=== PATIENT | male | born 1940 | race Caucasian/White ===

== ENCOUNTER → 2016-09-06 | Outpatient (CLI) | payer OTHER ==
[2015-09-08 13:08] VITALS: BP 107/69; PULSE 75
[~2016-09-06] MED LIST: ASPEC81 PO; BIMA0.038 OPB; CLX20 PO; FISHOIL PO; HMLI SC; INDA2.5T PO; INSDGI SC; LATA0.009 OPB; LOSA1TAB38 PO; MESA1TAB4 PO; NATE60TA PO; ROSU20TA PO; ULT/50 PO; WARF7.5T PO
[2016-09-06 12:59] VITALS: BP 135/78; PULSE 72; TEMP 36.6; O2SAT 97
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
== END | disposition home or self-care (01) ==
LOC: C.ONC 12:50
PROVIDERS: ATTEND Physician Assistant Medical
DX: Z08 Encounter for follow-up examination after completed treatment for malignant neoplasm (principal); Z92.3 Personal history of irradiation; Z85.46 Personal history of malignant neoplasm of prostate

== ENCOUNTER → 2017-04-29 | Outpatient (CLI) | payer OTHER ==
[~2017-04-29] MED LIST changes: -HMLI SC; -INDA2.5T PO; -LOSA1TAB38 PO; -MESA1TAB4 PO
== END | disposition home or self-care (01) ==
LOC: C.LAB 12:12
PROVIDERS: ATTEND Urology
DX: C61 Malignant neoplasm of prostate (principal)

== ENCOUNTER 2018-09-02 | Inpatient (IN) ==
[2018-09-02] MEDS ORDERED: ICU PROTOCOL FOR HYPERGLYCEMIA PRN ×2 (01:46→03:53)
[2018-09-02] MEDS ORDERED: SODIUM CHLORIDE 0.9% 1000ML 1,000 ML IV SCH (02:00)
[2018-09-02 02:24] LABS: Mean Corpuscular Volume 94.8 fL (80-100); Mean Platelet Volume 10.1 fL (7.4-10.4); Platelet Count 146 K/uL (130-400); RDW Coefficient of Variation 17.5 % (11.5-14.5); RDW Standard Deviation 59.1 fL (36.4-46.3); Red Blood Count 3.06 M/uL (4.7-6.1); White Blood Count 13.85 K/uL (4.8-10.8)
[2018-09-02] MEDS ORDERED: LORazepam 2 MG/4 ML VIAL ONE (02:37)
[2018-09-02 02:40] LABS: Prothrombin Time 19.6 Seconds (9.0-12.0)
[2018-09-02] MEDS ORDERED: LORazepam 2 MG/4 ML VIAL IV STA (02:41)
[2018-09-02] MEDS ORDERED: OLANZAPINE ZYDIS 5 MG ORALLY DIS. TAB PO PRN (02:42)
[2018-09-02 02:43] LABS: Albumin Level 3.2 gm/dl (3.4-5.0); BUN Creatinine Ratio 14.6 (10-20); Basophils # (auto) 0.01 K/uL (0-0.2); Basophils % (auto) 0.1 %; Calcium 8.2 mg/dl (8.5-10.1); Creatinine Clr Calc Pharmacy 50.5 ml/min; Est GFR (African American) 46.4; Est GFR (Non-African American) 40.1; Immature Granulocytes # (auto) 0.01 K/uL (0.00-0.02); Immature Granulocytes % (auto) 0.1 %; Lymphocytes # (auto) 0.47 K/uL (1.2-3.4); Lymphocytes % (auto) 3.4 %; Monocytes # (auto) 0.82 K/uL (0.11-0.59); Monocytes % (auto) 5.9 %; Neutrophils # (auto) 12.54 K/uL (1.4-6.5); Neutrophils % (auto) 90.5 %; Ovalocytes 1+; Potassium 3.7 mmol/L (3.5-5.1)
[2018-09-02 02:48] LABS: Albumin Globulin Ratio 0.8 (0.9-2); Bilirubin,Total 1.1 mg/dl (0.2-1); Globulin 3.9 gm/dl (2.5-4.0); Total Protein 7.1 gm/dl (6.4-8.2); Troponin I 0.035 ng/ml (0-0.045)
[2018-09-02] MEDS ORDERED: SODIUM CHLORIDE 0.9% 250 ML IV PRN (02:55)
--- NOTE | 2018-09-02 03:09 | History & Physical Report ---
Date of Service September 02, 2018 Assessment & Plan (1) Altered mental status: Mr. Huff is a 77 year old male with a past medical history of COPD, erosive gastritis, duodenitis, ulcerative colitis, hypertension, CKD, chronic anemia, afib on coumadin, type 2 DM, CHF, hx of prostate cancer s/p TURP and hiatal hernia who presents to us as a transfer from [facility] due to worsening AMS, anemia and a cough. The patient was significant altered on presentation, and frequently attempting to get out of bed. Due to his worsening condition, the residential gas heat technician was consulted , he was intubated, and subsequently placed on a ventilator. Altered Mental Status -likely secondary to his infectious process -CT head ordered -will also check ammonia level and TSH/T4 Hypotension -pt hypotensive w/BP 70s/50s on arrival -received 500mL NS bolus and improved to 90s/50s -caution w/IVF given hx of CHF Acute Respiratory Failure with Hypoxia -patient sedated and on ventilator -management per ICU -patient received cefepime, vancomycin, and flagyl at OSH. Continue cefepime and vancomycin -CT chest ordered to further evaluate -bronchoscopy done by Dr. Gao & bronchial washings sent for cx -> see procedure note for further details Anemia -received 2 units of prbcs prior to arrival in [facility] -hemoglobin 9 on arrival -2 units prbcs ordered and on hold, in case pt requires further transfusion -unsure of cause of acute drop in Hgb -> fecal occult was reportedly negative at [facility] -patient does have a history of erosive gastritis, duodenitis, ulcerative colitis, -prior EGD in 2018 without an obvious source of bleeding & last colonoscopy was in 2017 (for surveillance given his ulcerative colitis) without evidence of active inflammation noted. -CT abdomen and pelvis to further evaluate -hold warfarin -> INR 2 on admission Acute Kidney Injury -creatinine 1.6 on arrival -hold nephrotoxic medications and monitor BMP Atrial Fibrillation -personnel monitor -holding warfarin Diabetes Mellitus -hold home Januvia & insulin regimen -BSG management per ICU protocol CHF -hold home bumex -caution w/IVF Hypothyroidism -restart synthroid when able -TSH ordered Hypercholesterolemia -restart crestor when able GERD -restart home protonix when able Code status: FULL Disposition: admitted to ICU DVT Prophylaxis: INR 2.0. Holding anticoagulation in setting of anemia. (2) Anemia: (3) Acute kidney injury: (4) Acute respiratory failure with hypoxia: (5) CHF (congestive heart failure): (6) COPD (chronic obstructive pulmonary disease): (7) Diabetes mellitus: History of Present Illness Primary Care Provider: NO PCP Mr. Huff is a 77 year old male with a past medical history of COPD, erosive gastritis, duodenitis, ulcerative colitis, hypertension, CKD, chronic anemia, afib on coumadin, type 2 DM, CHF, hx of prostate cancer s/p TURP and hiatal hernia who presents to us as a transfer from [facility] due to worsening AMS, anemia and a cough. History is limited secondary to patient's altered mental status, and is therefore obtained from review of records sent by [facility]. The patient presented to [facility] due to feeling unwell x1 month, with fever, productive cough, shortness of breath and fatigue. His hemoglobin on admission was 7.4 and he was transfused 2 units of prbcs. Overnight, he was noted to be restless and altered. His INR was elevated at 3.36, and his coumadin was subsequently held. He denied abdominal pain, nausea, vomiting, and states he was having daily bowel movements, which were black in color due to his iron supplementation. He last underwent an EGD in 2018, without an obvious source of bleeding noted at that time, however the procedure was reportedly shortened due to excessive mucus production, causing hypoxia. His last colonoscopy was in 2017 (for surveillance given his ulcerative colitis) without evidence of active inflammation noted. With regards to his respiratory symptoms, his rapid flu was negative. CXR on admission showed mild vascular congestion, cardiomegaly, but no focal consolidation. He was initially treated with azithromycin for a suspected CAP, and subsequently broadened to vancomycin, cefepime and flagyl. He was also given 40mg of solumedrol daily, to treat for a COPD exacerbation, given the presence of wheezing on examination. They were unable to complete a CT head or chest given the patient's AMS. He had blood cultures drawn which are currently pending. The patient is a current smoker, both cigars and a pipe. He denied any alcohol or drug use at home. Allergies Allergy/AdvReac Type Severity Reaction Status Date / Time furosemide Allergy Intermediate EFFECTED Verified 08/28/11 13:55 RENAL FUNCTION naproxen Allergy Unknown they had Unverified 05/04/14 14:41 to take me o it I don't remember why Home Medications Home Medications Medication Instructions Recorded Confirmed Type Bimatoprost Oph (Lumigan 0.03% Oph) 1 drp OPB HS #0 07/24/11 History Aspirin Enteric Coated (Ecotrin Or 81 mg PO DAILY #0 08/13/11 History Generic *) Latanoprost 0.005% Oph (Xalatan 1 drp OPB DAILY #0 12/19/11 History 0.005% Oph) TRAMADOL HCL (ULTRAM) 50 mg PO TID #0 tab 12/19/11 History Fish Oil (OMEGA-3) 1 cap PO DAILY #0 oil 03/06/12 History Citalopram (Citalopram 20 mg PO DAILY #0 09/08/13 History Hydrobromide) Nateglinide (Starlix) 60 mg PO BID #0 tab 09/08/13 History ROSUVASTATIN CALCIUM (CRESTOR) 20 mg PO DAILY #0 tab 09/08/13 History WARFARIN SODIUM (COUMADIN) 1 tab PO DAILY 90 Days #90 tab 09/08/15 History Insulin Glargine (Lantus) 34 SC QAM #0 vial 09/06/16 History Past Med/Surg History Medical History Atrial fibrillation Chronic kidney disease Chronic obstructive pulmonary disease Congestive heart failure Diabetes mellitus, type 2 Hypertension Social History Current Living Situation: Spouse Smoking Status: Current every day smoker Tobacco Type: cigarettes and pipe Cigarettes per Day: 26 Do You Dip or Chew Tobacco: No Tobacco Cessation Education Requested by Patient: No Beliefs That Will Affect Care: None Preferred Language: Iranian Communication Ability Comment: Patient confused and agitated, unable to obtain Review of Systems Unable to obtain due to AMS Physical Exam 2 Vital Signs (Past 24 Hours): Last Vital Signs Pulse 88 09/02/18 01:46 Resp 17 09/02/18 01:46 BP 115/67 09/02/18 01:46 Pulse Ox 96 09/02/18 01:46 Constitutional: + obese, + altered mental status and + lethargic; + uncooperative frequently attempting to get out of bed, then becomes somnolent with loud snoring Eyes: PERRL, conjunctivae normal, anicteric sclerae Respiratory: Auscultation: + diminished lung sounds (throughout lungs) and + wheezes (occ soft scattered wheezing) Cardiovascular: Rate/Rhythm: regular rate and regular rhythm (irregularly irregular) Vessels: radial pulses present Extremities: normal capillary refill; no calf tenderness and no pedal edema Chest (Breasts): normal inspection/palpation of breasts Gastrointestinal (Abdomen): Inspection/Auscultation: + abdomen distended Percussion/Palpation: + hernia (umbilical hernia); no guarding and abdomen not rigid Skin: no rashes, warm and dry Results & Data Laboratory Results Laboratory Results - last 24 hr 09/02/18 09/02/18 09/02/18 02:00 02:16 02:16 WBC 13.85 H RBC 3.06 L Hgb 9.0 L Hct 29.0 L MCV 94.8 MCH 29.4 MCHC 31.0 L RDW Std Deviation 59.1 H RDW Coeff of Nahed 17.5 H Plt Count 146 MPV 10.1 Immature Gran % (Auto) 0.1 Neut % (Auto) 90.5 Lymph % (Auto) 3.4 [place] % (Auto) 5.9 Eos % (Auto) 0.0 Baso % (Auto) 0.1 Immature Gran # (Auto) 0.01 Neut # (Auto) 12.54 H Lymph # (Auto) 0.47 L [place] # (Auto) 0.82 H Eos # (Auto) 0.00 Baso # (Auto) 0.01 Ovalocytes 1+ PT 19.6 H INR 2.0 H Sample Site POC pH POC pCO2 POC pO2 POC HCO3 POC Total CO2 POC Base Excess POC ABG O2 Sat [place] Test O2 Delivery Device Sodium Potassium Chloride Carbon Dioxide Anion Gap BUN Creatinine Est Cr Clr Drug Dosing Est GFR ( Amer) Est GFR (Non-Af Amer) BUN/Creatinine Ratio Glucose Calcium Total Bilirubin AST ALT Alkaline Phosphatase Troponin I Total Protein Albumin Globulin Albumin/Globulin Ratio Nasal Screen MRSA (PCR) Negative Crossmatch 09/02/18 09/02/18 09/02/18 02:16 02:16 03:06 WBC RBC Hgb Hct MCV MCH MCHC RDW Std Deviation RDW Coeff of Nahed Plt Count MPV Immature Gran % (Auto) Neut % (Auto) Lymph % (Auto) [place] % (Auto) Eos % (Auto) Baso % (Auto) Immature Gran # (Auto) Neut # (Auto) Lymph # (Auto) [place] # (Auto) Eos # (Auto) Baso # (Auto) Ovalocytes PT INR Sample Site L Radial POC pH 7.29 L POC pCO2 48 H POC pO2 77 L POC HCO3 23 POC Total CO2 24 POC Base Excess -4.0 POC ABG O2 Sat 94.0 Franklin Test Pass O2 Delivery Device Cannula Sodium 142 Potassium 3.7 Chloride 109 H Carbon Dioxide 24 Anion Gap 9.0 BUN 24 H Creatinine 1.61 H Est Cr Clr Drug Dosing 50.5 Est GFR ( Amer) 46.4 Est GFR (Non-Af Amer) 40.1 BUN/Creatinine Ratio 14.6 Glucose 165 H Calcium 8.2 L Total Bilirubin 1.1 H AST 54 H ALT 21 Alkaline Phosphatase 88 Troponin I 0.035 Total Protein 7.1 Albumin 3.2 L Globulin 3.9 Albumin/Globulin Ratio 0.8 L Nasal Screen MRSA (PCR) Crossmatch See Detail Medications Administered Current Inpatient Medications Fentanyl Citrate (Fentanyl Citrate) 50 mcg IV Q2H PRN PRN Reason: Moderate Pain (4,5,6) Stop: 09/16/18 03:12 Fentanyl Citrate (Fentanyl Citrate) 100 mcg IV Q2H PRN PRN Reason: Severe Pain (7,8,9,10) Stop: 09/16/18 03:12 Sodium Chloride (Nss 1000ml) 1,000 mls @ 100 mls/hr IV .Q10H AUDRA Stop: 09/02/18 11:59 Last Admin: 09/02/18 03:54 Dose: 100 mls/hr Sodium Chloride (Nss 250ml) 250 mls @ 15 mls/hr IV .[id number] PRN PRN Reason: For Transfusion Stop: 10/02/18 02:54 Midazolam HCl (Versed) 125 mg in 250 mls @ 2 mls/hr IV .Q24H PRN; Protocol PRN Reason: Titration Stop: 10/02/18 03:12 Last Admin: 09/02/18 03:57 Dose: 1 mg/hr, 2 mls/hr Cefepime HCl 2,000 mg/ Syringe 20 mls @ 5.5 mls/min IV Q8H AUDRA Stop: 09/09/18 03:59 Vancomycin HCl 2,500 mg/ (Sodium Chloride) 550 mls @ 200 mls/hr IV NOW ONE Stop: 09/02/18 06:37 Miscellaneous (Icu Protocol For Hyperglycemia) 1 ea N/A PRN PRN; Protocol PRN Reason: Hyperglycemia Protocol Stop: 09/04/18 01:45 Miscellaneous Information (Consult) 1 ea N/A UD PRN PRN Reason: Consult Stop: 10/02/18 03:52 Supervising Physician Co-Signing Physician Notes 77 y/o M Hx COPD, gastritis/duodenitis, UC, HTN, CKD, anemia, afib on coumadin, DM II, CHF, presents as a transfer from [facility] due to worsening AMS, hypoxia, anemia. On arrival the pt was agitated and disoriented and could not answer any questions. He became progressively hypoxic and ypotensive and was eventually intubated and bronched removing copious thick secretions. The pt was sedated and placed on a vent. OE Sedated, intubated S1,2R Lung exam limited due to habitus and vent Abd is soft Minimal edema in les Neuro exam deffered P: Placed on HCAP coverage and is presently vented SS for DM Cont Statin, ASA Cont Coumadin for AF Resident Activity Tracking Resident Involvement: Resident Care Provided Care Provided: Adult Hospital Medicine
[2018-09-02] MEDS ORDERED: VECURONIUM BROMIDE 10 MG VIAL IV STA (03:13)
[2018-09-02] MEDS ORDERED: fentaNYL citrate 100 MCG/2 ML VIAL IV PRN ×2 (03:13→03:53)
[2018-09-02 03:20] LABS: iSTAT Allen Test Pass; iSTAT Arterial Blood Gas HCO3 23 meg/L (19-24); iSTAT Arterial Blood Gas pCO2 48 mmHg (35-46); iSTAT Arterial Blood Gas pH 7.29 (7.35-7.45); iSTAT Carbon Dioxide 24 mEq/l (24-31); iSTAT Site L Radial
[2018-09-02] MEDS ORDERED: VANCOMYCIN HCL 2,500 MG in SODIUM CHLORIDE 0.9% 500 ML IV ONE (03:53)
[2018-09-02] MEDS ORDERED: VANCOMYCIN CONSULT ACTIVE PRN (03:53)
[2018-09-02] MEDS ORDERED: MIDAZOLAM HCL 125 MG/250 ML BAG IV STA (03:53)
[2018-09-02] MEDS: MIDAZOLAM HCL 125 MG/250 ML BAG IV PRN (03:57)
--- NOTE | 2018-09-02 04:01 | Procedure Note ---
Procedure Note Date of Service September 02, 2018 Procedure Date: Noted above Procedure: Endotracheal intubation Pre-procedure Diagnosis: Acute encephalopathy acute hypoxic respiratory failure Post-procedure Diagnosis: same as above Prior to Procedure: Informed Consent: emergent Attending Staff: Trever Gao DO Environmental Consultant: Ritika Emerson Indications: 77-year-old male with a 3 g drop in hemoglobin on Coumadin with acute encephalopathy needing to facilitate workup and acute hypoxic respiratory failure The identity of the patient was confirmed and a bedside time out was performed. Description of Procedure: Patient was evaluated and required intubation for impending respiratory failure. The patient was prepared in the usual fashion. A 3 CMAC was used initially. A large amount of secretions were suctioned and Jennifer forceps were utilized to physically remove a large concretion that was brown and tenacious of approximately 1 cm x 1.5 cm adherent to the laryngeal tissues of obstructing a view of the hypopharynx. After this was removed we were only able to obtain a grade 3 view and unable to pass the endotracheal tube. I then converted to a 4 [place] blade and was unable to pass the blade sufficiently into the oropharynx. We then proceeded to a Mac 4 blade with direct laryngoscopy. I was able to achieve a grade 3 view. Again we were unable to pass both the endotracheal tube as well as a gum rubber bougie. The patient would desaturate to approximately 94% we would switch to a different modality and the patient was easily bagged up to 100%. We then utilized the glide scope with a size 4 blade. We would be able to obtain a grade 1 view. However there was significant anterior displacement of the airway and we were unable to place the endotracheal tube nor a bougie successfully into the glottic opening. Patient desaturated to approximately 94 % we discontinued that procedure and proceeded with bag valve mask ventilation. Utilizing both the glide scope by Ritika Emerson myself using a fiberoptic bronchoscope I was able to pass the bronchoscope into the glottic opening and into the airway under direct visualization with a glide scope. There was significant amounts of purulence in the main airway that precluded initial visualization through the bronchoscope and we secured the endotracheal tube at 29 cm. Positioning was then confirmed by bilateral breath sounds, bilateral chest rise missed in the endotracheal tube and end-tidal CO2 measurement was positive. Final confirmation occurred during bronchoscopy which revealed the endotracheal tube was 2 cm above the eugenio Complications: None Findings: Significant upper airway obstruction secondary to tenacious oral secretions as well as significant purulent secretions in the main airways. Patient never desaturated below 94% Specimens: Not applicable Estimated blood loss: Zero
--- NOTE | 2018-09-02 04:06 | Procedure Note ---
Procedure Note: Bronchoscopy Procedure Procedure date: September 02, 2018 Procedure: fiberoptic bronchoscopy Pre-procedure Diagnosis: Acute hypoxic respiratory failure multifocal pneumonia Post-procedure Diagnosis: same as above Prior to Procedure: Informed Consent: Emergent consent implied Attending Staff: Trever Gao DO Resident/APC: Ritika Emerson Skin Prep: Not applicable Anesthesia: Versed, fentanyl Indications: 77-year-old male who underwent emergent endotracheal intubation for hypoxic respiratory failure who was found to have significant purulence occluding the main airways. The identity of the patient was confirmed and a bedside time out was performed. Description of Procedure: Fiberoptic bronchoscopy was performed via endotracheal tube. Bronchioalveolar lavage right middle lobe was performed. Findings included: Tenacious creamy white secretions throughout the main airways extending into all lobes including the right upper right middle right lower left upper and left lower lobes. After removal of significant mucoid impactions the remainder of the tissues appeared inflamed and irritated. There was no obvious mucosal bleeding nor suction trauma. Complications: None Specimens: Bronchial washings sent for culture and Gram stain, cytology, fungal elements, and AFB stain and culture. Estimated blood loss: Zero
--- NOTE | 2018-09-02 04:46 | Critical Care Consultation ---
Date of Consultation September 02, 2018 Assessment & Plan (1) Admitted to intensive care unit: Reason Critically Ill: 77-year-old male with altered mental status and profound pneumonia requiring endotracheal intubation for further diagnostic evaluation. NEURO - * CAM ICU: POSITIVE * Altered Mental Status: * Encephalopathic from questionable source at this time. * Possibly secondary to acute infectious state with possible bacteremia. * Intubated and sedated for airway protection for further diagnostic evaluation. * Will repeat head CT in the setting of elevate INR, anemia, bleeding from ?? source. * SEDATION: Versed drip * PAIN: PRN Fentanyl * h/o Depression/Anxiety - hold home Rx 2/2 confusion. CARDIAC/VASCULAR - * History of coronary artery disease, A. fib, hypertension, hyperlipidemia, and CHF: * Hold home antihypertensives as patient presented relatively hypotensive and requiring sedation medications with labile blood pressures. * Hold scheduled Lasix with acute kidney injury at this time. Can be restarted with concerns for volume overload. * A-fib - hold coumadin currently. Rate control Rx as tolerated. * h/o CHF - monitor for volume overload. Lasix as needed. * Will recheck EKG. * Monitor on telemetry. RESPIRATORY - * Pneumonia: * Diffuse pneumonia with significant findings of mucopurulent material appreciated on bronchoscopy. Please see separate note. * Bronchial washings pending. * Covered with cefepime and vancomycin. * Will add scheduled breathing treatments. * Pulmonary toilet. * Currently intubated and sedated. * Trend ABGs. GI/NUTRITION - * Significant history of erosive gastritis, Domínguez's esophagus, and ulcerative colitis: * In the setting of worsening anemia, consider current flares of any/all. * Agree with imaging modalities to evaluate abdominal pathology. * Prophylaxis: Protonix * Diet: N.p.o. RENAL/LYTES - * Acute kidney injury: * IVF: NSS@100mL/hr - * h/o Prostate CA. * Ugarte in place - Strict I&Os. ENDO - * IDDM: * BSGs per unit protocol. ISS --> gtt per unit policy. * Hypothyroidism: * Will add daily Levothyroxine. HEME - * Acute anemia of unknown source: * Type and cross. * Apparently heme-negative per fecal occult studies. * Consider GI evaluation secondary to patient's long-standing GI issues. * On daily coumadin 2/2 A-fib - will hold at this time. ID - * Pneumonia: * Cefepime and vancomycin. * Will add blood cultures. * BAL with cultures. LINES/IV ACCESS - * PIVs x2 * ETT * Ugarte DVT PROPHYLAXIS - * Will hold 08/09 ??bleeding w/ chronic Coumadin use. * SCDs I have personally spent 45 minutes of critical care time in the direct management of this patient. This is a life/limb threatening event. This includes time spent evaluating patient, direct bedside care, chart review, placing orders, interpretation of diagnostic studies, discussion with consultants, patient, and family members, as well as other required patient management activities. This time is exclusive of all separately billable procedures, and teaching time and separate from and in addition to any other critical care service time. Thank you for allowing us to participate in the care of this patient. Please refer to my attending physician's documentation for any further recommendations. (2) Altered mental status: (3) Anemia: (4) Acute kidney injury: (5) CHF (congestive heart failure): (6) COPD (chronic obstructive pulmonary disease): (7) Diabetes mellitus: (8) Pneumonia: (9) UC (ulcerative colitis): (10) Domínguez esophagus: (11) Erosive gastritis: Supervising Physician Co-Signing Physician Notes I have personally evaluated and examined this patient. I agree with assessment and plan of Ritika Emerson PA-C. I initially saw the patient from [id number]. The patient was clearly agitated writhing around the bed unresponsive not following complex commands. I reviewed the outside hospital records and per those records the patient had a 3 g drop in his hemoglobin his INR was within therapeutic range at 3.7 at the OSH upon his arrival here was 2.0. I was concerned for occult bleeding, he had was reported to have heme-negative stools at the outside hospital. In order to facilitate workup I felt it would be better to secure his airway to obtain appropriate images the process of securing the airway he was found to have profound significant pneumonia. Please refer to those procedure notes for further details. We were unable to obtain contrasted studies due to his elevated creatinine, however his repeat H&H here was at his baseline at the outside hospital so I feel there is laboratory error from the outside facility. I am concerned for sepsis secondary to a pneumonic process. At the outside hospital the patient was influenza negative. At the time of me dictating the note the patient had return from radiology however I am unable to view the images at this time. I have personally spent 40 minutes of critical care time in the direct management of this patient. This is a life/limb threatening event. This includes time spent evaluating patient, direct bedside care, chart review, placing orders, interpretation of diagnostic studies, discussion with consultants, patient, and/or family members regarding treatment decisions, as well as other required patient management activities. This time is exclusive of all separately billable procedures, and teaching time and separate from and in addition to any other critical care service time. History of Present Illness Attending Physician: John Baldwin MD History of present illness limited secondary to state of confusion. Patient is a 77-year-old male with a significant past medical history of nonobstructive coronary artery disease, hypertension, A. fib anticoagulated on Coumadin, hypertension, hyperlipidemia, CHF, and COPD who was initially admitted to [facility] for community-acquired pneumonia. During his stay, the patient developed confusion. Concerns for possible GI bleed given extensive history of erosive gastritis, GERD, Domínguez's esophagus, and ulcerative colitis. Received 2 units PRBCs at outside facility. On presentation, the patient is combative and confused. Unable to provide historical information otherwise. Allergies Allergy/AdvReac Type Severity Reaction Status Date / Time furosemide Allergy Intermediate EFFECTED Verified 08/28/11 13:55 RENAL FUNCTION naproxen Allergy Unknown they had Unverified 05/04/14 14:41 to take me o it I don't remember why Home Medications Home Medications Medication Instructions Recorded Confirmed Type Bimatoprost Oph (Lumigan 0.03% Oph) 1 drp OPB HS #0 07/24/11 History Aspirin Enteric Coated (Ecotrin Or 81 mg PO DAILY #0 08/13/11 History Generic *) Latanoprost 0.005% Oph (Xalatan 1 drp OPB DAILY #0 12/19/11 History 0.005% Oph) TRAMADOL HCL (ULTRAM) 50 mg PO TID #0 tab 12/19/11 History Fish Oil (OMEGA-3) 1 cap PO DAILY #0 oil 03/06/12 History Citalopram (Citalopram 20 mg PO DAILY #0 09/08/13 History Hydrobromide) Nateglinide (Starlix) 60 mg PO BID #0 tab 09/08/13 History ROSUVASTATIN CALCIUM (CRESTOR) 20 mg PO DAILY #0 tab 09/08/13 History WARFARIN SODIUM (COUMADIN) 1 tab PO DAILY 90 Days #90 tab 09/08/15 History Insulin Glargine (Lantus) 34 SC QAM #0 vial 09/06/16 History Patient History Medical History Atrial fibrillation Chronic kidney disease Chronic obstructive pulmonary disease Congestive heart failure Diabetes mellitus, type 2 Hypertension Social History Current Living Situation: Spouse Smoking Status: Current every day smoker Tobacco Type: cigarettes and pipe Cigarettes per Day: 26 Do You Dip or Chew Tobacco: No Tobacco Cessation Education Requested by Patient: No Beliefs That Will Affect Care: None Preferred Language: Amharic Communication Ability Comment: Patient confused and agitated, unable to obtain Review of Systems Unable to obtain review of systems secondary to patient's current altered mental status. Physical Exam 2 Vital Signs (Past 24 Hours): Last Vital Signs Pulse 88 09/02/18 01:46 Resp 17 09/02/18 01:46 BP 115/67 09/02/18 01:46 Pulse Ox 96 09/02/18 01:46 Physical Exam: VITAL SIGNS - Vital signs and nursing notes were reviewed. GENERAL - 77-year-old male appearing his stated age. Agitated and confused. SKIN - Without rashes. HEAD - NC/AT. EYES - PERRL with EOMI bilaterally. Sclera anicteric. EARS - No deformities of external structures noted on gross examination bilaterally. NOSE - Midline and without cyanosis. No epistaxis or purulent drainage noted. Septum midline without deviation or septal hematoma noted. MOUTH/OROPHARYNX - Without perioral cyanosis. Buccal mucosa pink and dry. NECK - Neck with FROM. Supple to palpation. LUNGS - Chest wall symmetric without accessory muscle use, intercostals retractions, or central cyanosis. Normal vesicular breath sounds CTA B/L. No wheezes, rales, or rhonchi appreciated. CARDIAC - RRR with S1/S2. No murmur, rubs, or gallops appreciated. ABDOMEN - Abdominal contour obese without pulsations or visible masses. BS normoactive all four quadrants. No tenderness, palpable masses, hepatosplenomegaly, or ascites noted. EXTREMITIES - No clubbing or peripheral cyanosis. No pretibial edema present. +3 /5 radial and dorsalis pedis pulses palpated throughout. +5/5 strength noted in UE/LE bilaterally. NEUROLOGIC - No focal neurological deficits. Unable to fully assess secondary to agitation.
[2018-09-02] MEDS: CEFEPIME 2,000 MG in SYRINGE 7.5 ML IV SCH ×3 (05:20→20:10)
[2018-09-02 05:56] LABS: Magnesium 2.6 mg/dl (1.8-2.4); Phosphorus 4.3 mg/dl (2.5-4.9)
[2018-09-02] MEDS ORDERED: ALBUT/IPRATROP 3MG/0.5MG NEB 3 ML VIAL NEB PRN (07:07)
--- NOTE | 2018-09-02 07:26 | CT Scan Report ---
CT head/brain wo con CLINICAL HISTORY: 77 years-old Male presenting with AMS. TECHNIQUE: Multidetector CT imaging of the head was performed without the use of intravenous contrast . IV contrast: None. One or more dose lowering techniques were used consistent with the principles of ALARA (as low as reasonably achievable), including automatic exposure control, mA or kV adjustment t o individual patient size, and/or use of iterative reconstruction. COMPARISON: None. CT DOSE (mGy.cm): The estimated cumulative dose is 3318.65. FINDINGS: Cake Stripper topogram: Endotracheal tube terminates in the lower thoracic trachea at the level of the eugenio . A nasogastric tube may be in place terminating proximally within the gastric lumen. Numerous overly ing with leads in tubes degraded evaluation. Proportional ventricular and sulcal prominence, likely age-related parenchymal volume loss. No hemorr graciela. Brain parenchyma normal in appearance with preserved tejeda-white differentiation. No acute elle torial infarct. No mass effect or midline shift. No extra-axial fluid collection. Mucosal thickening of the nasal cavity. Calvarium intact. Absent kalispel lenses. IMPRESSION: 1. No acute intracranial abnormality. 2. Endotracheal tube terminates in the lower thoracic trachea; repositioning recommended. Electronically signed by: Eliezer Kapoor M.D. 09/02/2018 7:25 AM
[2018-09-02] MEDS: fentaNYL citrate 100 MCG/2 ML VIAL IV PRN ×4 (07:41→20:55)
[2018-09-02] MEDS: PANTOprazole 40 MG in SYRINGE 0 ML IV SCH (07:41)
--- NOTE | 2018-09-02 07:45 | CT Scan Report ---
ABDOMEN AND PELVIS CT WITHOUT CONTRAST CT DOSE: 3318.65 mGy.cm HISTORY: Acute anemia with altered mental status drop in hgb TECHNIQUE: Multiaxial CT images of the abdomen and pelvis were performed without contrast. A dose lo wering technique was utilized adhering to the principles of ALARA. COMPARISON STUDY: CT abdomen and pelvis 05/07/2014. FINDINGS: Trace left and small right pleural effusions. Right greater than left bibasilar patchy groundglass an d consolidative opacities. There is no pneumatosis or pneumoperitoneum. Pericardial calcifications ar e noted with moderate cardiomegaly. Mild marginal nodularity of the liver is suggestive of chronic liver disease. No focal hepatic mass l esions identified. There is suggestion of mild nonspecific gallbladder wall thickening without cholel ithiasis identified. Spleen is mildly enlarged, 14.3 cm. There are a few scattered calcifications not ed about the pancreas suggestive of remote pancreatitis. Adrenal glands appear unremarkable. There is mild nonspecific bilateral perinephric stranding. 2 mm nonobstructing calculus of the inferior pole left kidney. There is a nonspecific 3.5 x 2.8 cm intermediate density lesion about the interpolar rig ht kidney. On comparison study from 2013 this lesion demonstrates Hounsfield unit compatible with a c yst. No ureteral calculi or obstructive uropathy. Brachytherapy seeds about the prostate. Decompresse d urinary bladder with Ugarte catheter in place. Calcification of the aorta without aneurysm. Mild ectasia of the infrarenal abdominal aorta, 2.5 x 2. 3 cm. No large retroperitoneal hematoma identified. Nonspecific mesenteric edema with mild stranding about the retroperitoneum about the lower abdomen and upper pelvis. Enteric tube is noted, distal tip terminating about the mid gastric lumen. There is no bowel obstruction or focal bowel wall thickenin g. Moderate volume of formed stool noted about the sigmoid and rectum. Mild perirectal inflammation w ith mild rectal wall thickening. Mild colonic diverticulosis without acute diverticulitis. Nonvisuali zation of the appendix. Mild generalized body wall edema. Demineralized appearance of the bones with degenerative changes of the spine, pelvis and hips. There is a peripherally sclerotic centrally lucen t lesion about the right femoral neck and intertrochanteric distribution which appears to demonstrate nonaggressive features. 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 IMPRESSION: 1. Trace left and small right pleural effusions with patchy bibasilar groundglass and consolidative o pacities suspicious for pneumonia or aspiration pneumonitis. 2. Constipation with mild rectal wall thickening and perirectal inflammation suggestive of stercoral proctitis. 3. No bowel obstruction. 4. Nonobstructing left nephrolithiasis. 5. Mild marginal nodularity of the liver suggestive of cirrhosis. 6. Cardiomegaly with pericardial calcifications suggesting sequela of remote pericarditis . 7. Indeterminate 3.5 cm circumscribed lesion about the interpolar right kidney. This could be correla perla with ultrasound. 8. Additional findings as above. Electronically signed by: Yury Zeng M.D. 09/02/2018 7:44 AM
--- NOTE | 2018-09-02 07:46 | CT Scan Report ---
CT chest wo con CT DOSE: HISTORY: Dyspnea cough, drop in hgb TECHNIQUE: Multiaxial CT images of the chest were performed without contrast. A dose lowering techni que was utilized adhering to the principles of ALARA. COMPARISON: 08/17/2011 FINDINGS: Cardiomegaly. Endotracheal tube at and are slightly superior to the eugenio. Nasogastric tub e within the stomach. Right to a much lesser extent left pleural effusion. Prominent pulmonary vascul ature. This is a component consistent with a component of congestive failure. Pericardial calcificati on unchanged. Calcification of the cardiac arterial vasculature. Unchanged distinct prominence of the pulmonary arterial vasculature. IMPRESSION: 1. Unchanged marked prominence of pulmonary arterial vasculature. This consistent with severe pulmona ry arterial hypertension. 2. Findings of pulmonary edema and congestive failure. 3. Cardiomegaly. 4. Right and to lesser extent left pleural effusion. 5. Endotracheal tube at or slightly superior to the eugenio. The above report was generated using voice recognition software. It may contain grammatical, syntax or spelling errors. Electronically signed by: Freddy Tompkins M.D. 09/02/2018 7:45 AM
--- NOTE | 2018-09-02 07:53 | XRay Report ---
XR chest 1V portable CLINICAL HISTORY: 77 years-old Male presenting with cough. TECHNIQUE: Portable semiupright AP view of the chest was obtained. COMPARISON: 08/13/2011. FINDINGS: Atherosclerosis of the aortic arch. Cardiac silhouette markedly enlarged. Main pulmonary artery enlar ged. Significant pulmonary vascular prominence and bronchial wall cuffing. Diffuse added density of t he lungs with a central and basilar predominance. No large pleural effusion or pneumothorax. Degenera tive changes of the thoracic spine. IMPRESSION: 1. Cardiac megaly with severe volume overload and congestive change with mild pulmonary edema. 2. Pulmonary artery hypertension. Electronically signed by: Eliezer Kapoor M.D. 09/02/2018 7:52 AM
[2018-09-02] MEDS ORDERED: SUCCINYLCHOLINE CHLORIDE 20 MG/ML 10 ML VIAL IV ONE (08:11)
[2018-09-02] MEDS ORDERED: MIDAZOLAM HCL 5 MG/ML VIAL IV ONE (08:11)
[2018-09-02] MEDS ORDERED: VECURONIUM BROMIDE 10 MG VIAL IV ONE (08:11)
[2018-09-02] MEDS ORDERED: fentaNYL citrate 100 MCG/2 ML SYRINGE IV ONE (08:11)
[2018-09-02] MEDS ORDERED: ETOMIDATE 2 MG/ML 20 ML VIAL IV ONE (08:11)
[2018-09-02 10:03] LABS: Hematocrit (blood only) 29.3 % (42-52); Hemoglobin 8.9 g/dL (14.0-18.0); Immature Granulocytes # (auto) 0.04 K/uL (0.00-0.02); Immature Granulocytes % (auto) 0.3 %; Lymphocytes # (auto) 0.64 K/uL (1.2-3.4); Lymphocytes % (auto) 4.3 %; Mean Corpuscular Hgb Conc 30.4 g/dL (32-36); Mean Platelet Volume 10.8 fL (7.4-10.4); Monocytes # (auto) 1.26 K/uL (0.11-0.59); Monocytes % (auto) 8.5 %; Neutrophils # (auto) 12.89 K/uL (1.4-6.5); Neutrophils % (auto) 86.9 %; Platelet Count 159 K/uL (130-400); RDW Standard Deviation 62.5 fL (36.4-46.3); Red Blood Count 3.02 M/uL (4.7-6.1); White Blood Count 14.83 K/uL (4.8-10.8)
[2018-09-02 10:22] LABS: Hypochromasia Present; Macrocytosis Present; Polychromasia 1+
[2018-09-02 10:24] LABS: iSTAT Allen Test Pass; iSTAT Arterial Blood Gas HCO3 24 meg/L (19-24); iSTAT Arterial Blood Gas pCO2 48 mmHg (35-46); iSTAT Carbon Dioxide 26 mEq/l (24-31); iSTAT Site R Radial
[2018-09-02 10:40] LABS: BUN Creatinine Ratio 17.2 (10-20); Calcium 8.3 mg/dl (8.5-10.1); Creatinine Clr Calc Pharmacy 49.6 ml/min; Est GFR (African American) 45.4; Est GFR (Non-African American) 39.2; Magnesium 2.7 mg/dl (1.8-2.4); Potassium 3.9 mmol/L (3.5-5.1)
[2018-09-02 10:41] LABS: Phosphorus 3.9 mg/dl (2.5-4.9)
[2018-09-02] MEDS ORDERED: PHARMACY GLYCEMIC MGMT CONSULT PRN (11:11)
[2018-09-02 11:17] LABS: Influenza A virus by PCR Neg for Influ A (Neg); Influenza B virus by PCR Neg for Influ B (Neg)
[2018-09-02] MEDS: LEVOTHYROXINE SODIUM 12.5 MCG in SYRINGE 0 ML IV SCH (11:21)
[2018-09-02] MEDS ORDERED: INSULIN GLARGINE SOLOSTAR 100 UNITS/ML 3 ML PEN SC ONE ×2 (11:30→21:00)
[2018-09-02] MEDS ORDERED: INSULIN ASPART 100 UNITS/ML 3 ML PEN SC SCH (12:00)
[2018-09-02] MEDS: methylPREDNISolone 40 MG in SYRINGE 0 ML IV SCH ×2 (12:40→20:11)
--- NOTE | 2018-09-02 13:36 | Pharmacy Report ---
Pharmacy Abx/Gly Intl Consult - Date of Service September 02, 2018 - Scope Pharmacy has been consulted by Ritika Emerson/CRISSY/Dr. Gao to manage vancomycin/ zosyn and glycemic control for this patient as per the Pharmacy & Therapeutics Committee approved dosing protocols. - Subjective The patient is a 77 year old M admitted on 09/02/18 00:00. - Objective Vital Signs (Past 12hrs): Vital Signs Temp Pulse Pulse Resp BP Pulse Ox 09/02/18 10:40 21 09/02/18 08:50 16 09/02/18 06:00 66 16 107/56 L 100 09/02/18 03:54 36.6 C 72 16 136/78 100 09/02/18 03:45 66 16 98 09/02/18 03:00 88 16 130/65 93 09/02/18 01:46 88 17 115/67 96 09/02/18 01:30 79 16 74/40 L 96 Accuchecks BSG (last 24hrs): 09/02/18 09/02/18 02:16 09:39 Glucose 165 H 160 H Lab Results (24hrs): Laboratory Results - last 24 hr 09/02/18 09/02/18 09/02/18 02:00 02:16 02:16 WBC 13.85 H RBC 3.06 L Hgb 9.0 L Hct 29.0 L MCV 94.8 MCH 29.4 MCHC 31.0 L RDW Std Deviation 59.1 H RDW Coeff of Nahed 17.5 H Plt Count 146 MPV 10.1 Immature Gran % (Auto) 0.1 Neut % (Auto) 90.5 Lymph % (Auto) 3.4 Tompkins % (Auto) 5.9 Eos % (Auto) 0.0 Baso % (Auto) 0.1 Immature Gran # (Auto) 0.01 Neut # (Auto) 12.54 H Lymph # (Auto) 0.47 L Tompkins # (Auto) 0.82 H Eos # (Auto) 0.00 Baso # (Auto) 0.01 Polychromasia Hypochromasia Macrocytosis Ovalocytes 1+ PT 19.6 H INR 2.0 H Sample Site POC pH POC pCO2 POC pO2 POC HCO3 POC Total CO2 POC Base Excess POC ABG O2 Sat Franklin Test O2 Delivery Device POC O2 Rate Minute Ventilation Tidal Volume PEEP Sodium Potassium Chloride Carbon Dioxide Anion Gap BUN Creatinine Est Cr Clr Drug Dosing Est GFR ( Amer) Est GFR (Non-Af Amer) BUN/Creatinine Ratio Glucose Lactate Calcium Phosphorus Magnesium Total Bilirubin AST ALT Alkaline Phosphatase Ammonia Troponin I Total Protein Albumin Globulin Albumin/Globulin Ratio TSH Nasal Screen MRSA (PCR) Negative Influenza Type A (PCR) Influenza Type B (PCR) Blood Type Antibody Screen Crossmatch 09/02/18 09/02/18 09/02/18 02:16 02:16 03:06 WBC RBC Hgb Hct MCV MCH MCHC RDW Std Deviation RDW Coeff of Nahed Plt Count MPV Immature Gran % (Auto) Neut % (Auto) Lymph % (Auto) Tompkins % (Auto) Eos % (Auto) Baso % (Auto) Immature Gran # (Auto) Neut # (Auto) Lymph # (Auto) Tompkins # (Auto) Eos # (Auto) Baso # (Auto) Polychromasia Hypochromasia Macrocytosis Ovalocytes PT INR Sample Site L Radial POC pH 7.29 L POC pCO2 48 H POC pO2 77 L POC HCO3 23 POC Total CO2 24 POC Base Excess -4.0 POC ABG O2 Sat 94.0 Franklin Test Pass O2 Delivery Device Cannula POC O2 Rate Minute Ventilation Tidal Volume PEEP Sodium 142 Potassium 3.7 Chloride 109 H Carbon Dioxide 24 Anion Gap 9.0 BUN 24 H Creatinine 1.61 H Est Cr Clr Drug Dosing 50.5 Est GFR ( Amer) 46.4 Est GFR (Non-Af Amer) 40.1 BUN/Creatinine Ratio 14.6 Glucose 165 H Lactate Calcium 8.2 L Phosphorus Magnesium Total Bilirubin 1.1 H AST 54 H ALT 21 Alkaline Phosphatase 88 Ammonia Troponin I 0.035 Total Protein 7.1 Albumin 3.2 L Globulin 3.9 Albumin/Globulin Ratio 0.8 L TSH Nasal Screen MRSA (PCR) Influenza Type A (PCR) Influenza Type B (PCR) Blood Type A Positive Antibody Screen NEGATIVE Crossmatch See Detail 09/02/18 09/02/18 09/02/18 05:18 05:18 09:39 WBC 14.83 H RBC 3.02 L Hgb 8.9 L Hct 29.3 L MCV 97.0 MCH 29.5 MCHC 30.4 L RDW Std Deviation 62.5 H RDW Coeff of Nahed 18.0 H Plt Count 159 MPV 10.8 H Immature Gran % (Auto) 0.3 Neut % (Auto) 86.9 Lymph % (Auto) 4.3 Tompkins % (Auto) 8.5 Eos % (Auto) 0.0 Baso % (Auto) 0.0 Immature Gran # (Auto) 0.04 H Neut # (Auto) 12.89 H Lymph # (Auto) 0.64 L Tompkins # (Auto) 1.26 H Eos # (Auto) 0.00 Baso # (Auto) 0.00 Polychromasia 1+ Hypochromasia Present Macrocytosis Present Ovalocytes PT INR Sample Site POC pH POC pCO2 POC pO2 POC HCO3 POC Total CO2 POC Base Excess POC ABG O2 Sat Franklin Test O2 Delivery Device POC O2 Rate Minute Ventilation Tidal Volume PEEP Sodium Potassium Chloride Carbon Dioxide Anion Gap BUN Creatinine Est Cr Clr Drug Dosing Est GFR ( Amer) Est GFR (Non-Af Amer) BUN/Creatinine Ratio Glucose Lactate Calcium Phosphorus 4.3 Magnesium 2.6 H Total Bilirubin AST ALT Alkaline Phosphatase Ammonia 38.0 H Troponin I Total Protein Albumin Globulin Albumin/Globulin Ratio TSH 2.000 Nasal Screen MRSA (PCR) Influenza Type A (PCR) Influenza Type B (PCR) Blood Type Antibody Screen Crossmatch 09/02/18 09/02/18 09/02/18 09:39 09:53 10:05 WBC RBC Hgb Hct MCV MCH MCHC RDW Std Deviation RDW Coeff of Nahed Plt Count MPV Immature Gran % (Auto) Neut % (Auto) Lymph % (Auto) Tompkins % (Auto) Eos % (Auto) Baso % (Auto) Immature Gran # (Auto) Neut # (Auto) Lymph # (Auto) Tompkins # (Auto) Eos # (Auto) Baso # (Auto) Polychromasia Hypochromasia Macrocytosis Ovalocytes PT INR Sample Site POC pH POC pCO2 POC pO2 POC HCO3 POC Total CO2 POC Base Excess POC ABG O2 Sat Franklin Test O2 Delivery Device POC O2 Rate Minute Ventilation Tidal Volume PEEP Sodium 142 Potassium 3.9 Chloride 111 H Carbon Dioxide 25 Anion Gap 6.0 BUN 28 H Creatinine 1.64 H Est Cr Clr Drug Dosing 49.6 Est GFR ( Amer) 45.4 Est GFR (Non-Af Amer) 39.2 BUN/Creatinine Ratio 17.2 Glucose 160 H Lactate 1.8 Calcium 8.3 L Phosphorus 3.9 Magnesium 2.7 H Total Bilirubin AST ALT Alkaline Phosphatase Ammonia Troponin I Total Protein Albumin Globulin Albumin/Globulin Ratio TSH Nasal Screen MRSA (PCR) Influenza Type A (PCR) Neg for Influ A Influenza Type B (PCR) Neg for Influ B Blood Type Antibody Screen Crossmatch 09/02/18 10:11 WBC RBC Hgb Hct MCV MCH MCHC RDW Std Deviation RDW Coeff of Nahed Plt Count MPV Immature Gran % (Auto) Neut % (Auto) Lymph % (Auto) Tompkins % (Auto) Eos % (Auto) Baso % (Auto) Immature Gran # (Auto) Neut # (Auto) Lymph # (Auto) Tompkins # (Auto) Eos # (Auto) Baso # (Auto) Polychromasia Hypochromasia Macrocytosis Ovalocytes PT INR Sample Site R Radial POC pH 7.30 L POC pCO2 48 H POC pO2 195 H POC HCO3 24 POC Total CO2 26 POC Base Excess -2.0 POC ABG O2 Sat 100.0 H Franklin Test Pass O2 Delivery Device Ventilator POC O2 Rate 16 Minute Ventilation 9 Tidal Volume 500 PEEP 12 Sodium Potassium Chloride Carbon Dioxide Anion Gap BUN Creatinine Est Cr Clr Drug Dosing Est GFR ( Amer) Est GFR (Non-Af Amer) BUN/Creatinine Ratio Glucose Lactate Calcium Phosphorus Magnesium Total Bilirubin AST ALT Alkaline Phosphatase Ammonia Troponin I Total Protein Albumin Globulin Albumin/Globulin Ratio TSH Nasal Screen MRSA (PCR) Influenza Type A (PCR) Influenza Type B (PCR) Blood Type Antibody Screen Crossmatch Micro Results: 09/02/18 09:57 Blood Culture - Pending Blood 09/02/18 09:39 Blood Culture - Pending Blood 09/02/18 03:45 Fungal Smear - Final Bronch Wash,Right Middle Lobe Fungal Culture - Pending 09/02/18 03:45 Gram Stain - Final Bronch Wash,Right Middle Lobe Bronchoalveolar Lavage Culture - Pending 09/02/18 03:45 Acid Fast Bacilli Smear - Pending Bronch Wash,Right Middle Lobe Acid Fast Bacilli Culture - Pending - Risk Factors for Resistance Risk Factors for Antimicrobial Resistance: * Hospitalization for 48 hours or more within the past 90 days - Recent Pertinent Medications Recent Pertinent Medications/Risk Factors for Insulin Resist: Outpatient Anti-diabetic Regimen: * Basaglar 34 units QAM, 30 units PM * Januvia 50 mg daily, repaglinide 4 mg TIDM * A1c = pending The patient is currently receiving: * Basal insulin: Lantus 15 units x 1 * Correctional Insulin: Novolog Correction per scale ACHS Goal Range: Low 140 mg/dL - High 180 mg/dL Correction Factor: 25 mg/dL/unit * Prandial insulin: Per carb ratio of 1 unit per 10 grams CHO consumed * Oral Agents: hold Risk Factors for Insulin Resistance: * Steroids: methylprednisolone 40 mg BIF * Infection: vanc/zosyn * Diet: NPO --> Tube feeds - Assessment 77 yo male with pmh including OPERATIONS/DISPATCH, erosive gastritis, duodenitis, ulcerative colitis, hypertension, CKD, chronic anemia, afib on coumadin, type 2 DM, CHF, hx of prostate cancer s/p TURP and hiatal hernia admitted via transfer from [facility] due to worsneing mental status, anemia. Patient admitted to the ICU, underwent intubation and bronchoscopy. Patient had received vancomycin/cefepime/flagyl at outside hospital. Cefepime and vancomycin continued on admission. Last documented dose of vancomycin was 1647, patient received 20 mg/kg load ~12 hours later at our facility. Will check random level prior to tonights dose being given as patient has BMI >37 and may be accumulating, half life estimate ~15 hours. BSGs have been within goal range this morning, patient received ~44% of AM basaglar dose around at ~11 AM due to NPO status. Patient being transitioned to tube feeds, also started on methylprednisolone and ventilated. Will provide scale for evening. Novolog sliding scale with CF/CR between weight based stress of one and two. - Plan ANTIMICROBIAL THERAPY Vancomycin IV * Loading dose: 2500 mg (20 mg/kg) @0520 * Maintenance dose: 1500 mg q18H- currently on hold until level comes back * Goal trough level for 15-20 mcg/mL * Random level ordered for this evening prior to dose Cefepime not currently a consult being dosed at 2 gm [id number], cefepime typically reduced to 2gm q12H for CrCl <60 but given patient severity of illness will continue q8 dosing for today, will change tomorrow if clearance does not improve. INPATIENT GLYCEMIC CONTROL: Oral Agents * Hold outpatient oral diabetes medications. Basal Insulin * Lantus 15 units x 1 * Scale for this evenin-30 units (50-100% of home dose) depending on BSG Bolus Insulin * NovoLog per scale ACHS or Q6hrs while NPO * Goal Range: Low 140 mg/dL - High 180 mg/dL * Correction Factor: 20 mg/dL/unit * Nutritional / Prandial insulin per carb ratio of 1 unit per 8 grams CHO consumed * Please note that the plan above was derived based on current level of insulin resistance and hospital stress. These recommendations are appropriate for inpatient admission only. Plan of care upon discharge will need to be reassessed to avoid potential outpatient hypo/hyperglycemia. Pharmacy will follow patient and adjust orders on a daily basis. Thank you for allowing us to participate in this patient�s care.
[2018-09-02] MEDS: SODIUM CHLORIDE 0.9% 1000ML 1,000 ML IV SCH (14:13)
[2018-09-02] MEDS: PEPTAMEN INTENSE VHP 1.0 CAL 1,000 ML BAG OG SCH (14:22)
[2018-09-02] MEDS: INSULIN ASPART 100 UNITS/ML 3 ML PEN SC SCH ×2 (16:43→20:10)
[2018-09-02] MEDS ORDERED: VANCOMYCIN HCL 1,500 MG in SODIUM CHLORIDE 0.9% 500 ML IV SCH ×2 (20:00→21:00)
[2018-09-02] MEDS ORDERED: VANCOMYCIN HCL 1,250 MG in SODIUM CHLORIDE 0.9% 250 ML IV SCH (20:00)
[2018-09-03] MEDS: INSULIN ASPART 100 UNITS/ML 3 ML PEN SC SCH ×6 (00:54→21:00)
[2018-09-03] MEDS: SODIUM CHLORIDE 0.9% 1000ML 1,000 ML IV SCH (03:33)
[2018-09-03] MEDS: CEFEPIME 2,000 MG in SYRINGE 7.5 ML IV SCH ×3 (05:30→21:01)
[2018-09-03 05:41] LABS: BUN Creatinine Ratio 23.8 (10-20); Creatinine Clr Calc Pharmacy 54.6 ml/min; Potassium 4.1 mmol/L (3.5-5.1)
[2018-09-03 06:00] LABS: Hematocrit (blood only) 27.1 % (42-52); Hemoglobin 8.2 g/dL (14.0-18.0); Immature Granulocytes # (auto) 0.01 K/uL (0.00-0.02); Immature Granulocytes % (auto) 0.1 %; Lymphocytes # (auto) 0.39 K/uL (1.2-3.4); Lymphocytes % (auto) 3.7 %; Mean Corpuscular Hgb Conc 30.3 g/dL (32-36); Mean Corpuscular Volume 97.1 fL (80-100); Mean Platelet Volume 11.2 fL (7.4-10.4); Monocytes # (auto) 0.31 K/uL (0.11-0.59); Monocytes % (auto) 2.9 %; Neutrophils # (auto) 9.96 K/uL (1.4-6.5); Neutrophils % (auto) 93.3 %; Platelet Count 141 K/uL (130-400); RDW Coefficient of Variation 17.7 % (11.5-14.5); RDW Standard Deviation 61.9 fL (36.4-46.3); Red Blood Count 2.79 M/uL (4.7-6.1); White Blood Count 10.67 K/uL (4.8-10.8)
[2018-09-03] MEDS: fentaNYL citrate 100 MCG/2 ML VIAL IV PRN ×7 (06:27→23:45)
[2018-09-03 06:30] LABS: Estimated Average Glucose 131 mg/dl; Hemoglobin A1C 6.2 % (4.5-5.6)
[2018-09-03] MEDS: MIDAZOLAM HCL 125 MG/250 ML BAG IV PRN (06:30)
[2018-09-03 06:50] LABS: INR 1.8 (0.9-1.1); Prothrombin Time 17.6 Seconds (9.0-12.0)
[2018-09-03 06:56] LABS: Ovalocytes 1+
--- NOTE | 2018-09-03 07:56 | Critical Care Progress Note ---
Date of Service September 03, 2018 Assessment & Plan (1) Admitted to intensive care unit: Reason Critically Ill: 77-year-old male with altered mental status and profound pneumonia requiring endotracheal intubation for further diagnostic evaluation. NEURO - * CAM ICU: POSITIVE * Altered Mental Status: * Encephalopathic likely metabolic from sepsis/pneumonia * Consideration given for possible MRI * SEDATION: Versed drip transition to propofol * PAIN: PRN Fentanyl * h/o Depression/Anxiety -restart citalopram CARDIAC/VASCULAR - * History of coronary artery disease, A. fib, hypertension, hyperlipidemia, and CHF: * Hold home antihypertensives as patient presented relatively hypotensive and requiring sedation medications with labile blood pressures. * Hold scheduled Lasix with acute kidney injury at this time. Can be restarted with concerns for volume overload. * A-fib - hold coumadin currently. Rate control Rx as tolerated. * h/o CHF - monitor for volume overload. Lasix as needed. * Will recheck EKG. * Monitor on telemetry. RESPIRATORY - * Pneumonia: * Diffuse pneumonia with significant findings of mucopurulent material appreciated on bronchoscopy. Please see separate note. * Bronchial washings pending. * Covered with cefepime and vancomycin. * Will add scheduled breathing treatments. * Pulmonary toilet. * Currently intubated and sedated. * Trend ABGs. GI/NUTRITION - * Significant history of erosive gastritis, Domínguez's esophagus, and ulcerative colitis: * In the setting of worsening anemia, consider current flares of any/all. * Agree with imaging modalities to evaluate abdominal pathology. * Prophylaxis: Protonix * Diet: N.p.o. RENAL/LYTES - * Acute kidney injury: * IVF: NSS@100mL/hr - * h/o Prostate CA. * Ugarte in place - Strict I&Os. ENDO - * IDDM: * BSGs per unit protocol. ISS --> gtt per unit policy. * Hypothyroidism: * Will add daily Levothyroxine. HEME - * Acute anemia of unknown source: * Type and cross. * Apparently heme-negative per fecal occult studies. * Consider GI evaluation secondary to patient's long-standing GI issues. * On daily coumadin 2/2 A-fib - will hold at this time. ID - * Pneumonia: * Cefepime and vancomycin. * Will add blood cultures. * BAL with cultures. LINES/IV ACCESS - * PIVs x2 * ETT * Ugarte DVT PROPHYLAXIS - * Will hold 2/2 ??bleeding w/ chronic Coumadin use. * SCDs I have personally spent 45 minutes of critical care time in the direct management of this patient. This is a life/limb threatening event. This includes time spent evaluating patient, direct bedside care, chart review, placing orders, interpretation of diagnostic studies, discussion with consultants, patient, and family members, as well as other required patient management activities. This time is exclusive of all separately billable procedures, and teaching time and separate from and in addition to any other critical care service time. Thank you for allowing us to participate in the care of this patient. Please refer to my attending physician's documentation for any further recommendations. Supervising Physician Co-Signing Physician Notes I have personally evaluated and examined this patient. I agree with assessment and plan of Karsten GEORGE. Patient now having episodes of nonsustained ventricular tachycardia -Optimize electrolytes -12 mmol K-Phos -Recheck troponins -Abnormal EKG prolonged QTC at 469 -Holding citalopram Continued encephalopathy likely metabolic in origin secondary to pneumonic process -Since the patient has continued encephalopathy we will obtain a MRI brain to rule out CVA at this point. Transition to heparin for atrial fibrillation prophylaxis allow Coumadin to down trend however not actively reversing Hyperglycemia increasing with steroids most likely -Steroids for severe community-acquired pneumonia Acute hypoxic hypercarbic respiratory failure -Continued mechanical ventilation -Light normal valeriano on initial Gram stain -Discontinue vancomycin -Adding doxycycline 200 mg load for empiric coverage of atypicals -Unable to add quinolone or macrolide secondary to QTC prolongation Anemia -Continue to trend when patient does have bowel movement would attempt to guaiac stool I have personally spent 45 minutes of critical care time in the direct management of this patient. This is a life/limb threatening event. This includes time spent evaluating patient, direct bedside care, chart review, placing orders, interpretation of diagnostic studies, discussion with consultants, patient, and/or family members regarding treatment decisions, as well as other required patient management activities. This time is exclusive of all separately billable procedures, and teaching time and separate from and in addition to any other critical care service time. Subjective Review of Systems Unobtainable due to endotracheal tube and Unobtainable due to reduced consciousness Physical Exam Vital Signs (Past 24 Hours): Last Vital Signs Temp 36.9 C 09/02/18 23:00 Pulse 68 09/03/18 06:39 Resp 20 09/03/18 06:39 BP 104/49 L 09/03/18 06:00 Pulse Ox 99 09/03/18 06:39 Constitutional: Patient intubated and sedated Neck: Supple nontender Respiratory: Lungs clear and diminished bilaterally in all lobes, respirations nonlabored on ventilator, symmetric chest wall movement Cardiovascular: Heart rate irregular, S1-S2 auscultated, capillary refill normal, radial and pedal pulses +2 bilaterally Gastrointestinal (Abdomen): Abdomen round, soft, nontender, bowel sounds present in all 4 quadrants Neurologic: Patient sedated and intubated, PERRLA Genitourinary: Ugarte, adequate urine output
--- NOTE | 2018-09-03 08:39 | XRay Report ---
XR chest 1V portable CLINICAL HISTORY: resp failure dyspnea COMPARISON STUDY: 09/02/2017 FINDINGS: Endotracheal tube positioned 3.5 cm below the eugenio. Stable cardia megaly. Persistent prom inence of pulmonary vasculature. IMPRESSION: 1. Endotracheal tube positioned 3.5 cm of the eugenio. 2. Similar findings of cardiomegaly and congestive failure. The above report was generated using voice recognition software. It may contain grammatical, syntax or spelling errors. Electronically signed by: Freddy Tompkins M.D. 09/03/2018 8:38 AM
[2018-09-03] MEDS: methylPREDNISolone 40 MG in SYRINGE 0 ML IV SCH ×2 (08:46→21:01)
[2018-09-03] MEDS: PANTOprazole 40 MG in SYRINGE 0 ML IV SCH (08:46)
[2018-09-03] MEDS: LEVOTHYROXINE SODIUM 12.5 MCG in SYRINGE 0 ML IV SCH (09:16)
[2018-09-03] MEDS ORDERED: INSULIN GLARGINE SOLOSTAR 100 UNITS/ML 3 ML PEN SC ONE ×2 (09:30→21:00)
[2018-09-03] MEDS ORDERED: VECURONIUM BROMIDE 10 MG in SYRINGE 0 ML IV PRN (11:44)
[2018-09-03] MEDS ORDERED: HEPARIN BOLUS IV ONE (12:00)
[2018-09-03] MEDS ORDERED: Heparin IV Standard *NO* Bolus IV SCH (12:00)
[2018-09-03] MEDS ORDERED: DOXYCYCLINE HYCLATE 200 MG in DEXTROSE 5% 250 ML IV ONE (12:15)
[2018-09-03] MEDS ORDERED: POTASSIUM PHOSPHATE 12 MMOL in SODIUM CHLORIDE 0.9% 250 ML IV ONE (12:30)
[2018-09-03] MEDS ORDERED: HEPARIN 25000 UNIT/500 ML D5W IV ONE (12:35)
[2018-09-03] MEDS: HEPARIN STANDARD DEXTROSE 25,000 UNITS/500 ML IV SCH (13:12)
[2018-09-03] MEDS ORDERED: PERFLUTREN LIPID MICROSPHERE (DEFINITY) IV ONE (13:59)
[2018-09-03 14:19] LABS: iSTAT Allen Test Pass; iSTAT Arterial Blood Gas HCO3 21 meg/L (19-24); iSTAT Arterial Blood Gas pCO2 43 mmHg (35-46); iSTAT Arterial Blood Gas pH 7.31 (7.35-7.45); iSTAT Carbon Dioxide 23 mEq/l (24-31); iSTAT Site L Radial
--- NOTE | 2018-09-03 15:12 | Pharmacy Report ---
Pharmacy Glycemic Short Note 2 - Date of Service September 03, 2018 - Glycemic Short BSG Results (Last 24 hours): 09/02/18 09/02/18 09/03/18 16:30 19:47 00:49 Glucose POC Glucose 124 H 147 H 180 H 09/03/18 09/03/18 09/03/18 04:55 05:25 08:48 Glucose 176 H POC Glucose 187 H 191 H 09/03/18 13:22 Glucose POC Glucose 231 H OUTPATIENT ANTIDIABETIC REGIMEN: * Basaglar 34 units qam, 30 units qpm, Januvia ASSESSMENT: * Patient received 35 units of basal insulin yesterday * BSGs trending upward today with increase in tube feeds * Continue q4H checks, tightened carb ratio to 6 * Increase lantus scale this pm PLAN FOR INPATIENT GLYCEMIC CONTROL: * Hold outpatient oral diabetes medications * Basal insulin * Lantus scale * 20 units BSG<120 * 25 units BSG 120-180 * 30 units BSG >180 * Bolus insulin * NovoLog per scale ACHS or Q6hrs while NPO * Goal Range: Low 140 mg/dL - High 180 mg/dL * Correction Factor: 20 mg/dL/unit * Nutritional / Prandial insulin per carb ratio of 1 unit per 6 grams CHO consumed PLAN FOR DISCHARGE: * A1c 6.2% within goal, anticipate patient can continue home regimen after d ischarge as long as they are not experiencing frequent hypo/hyperglycemic events.
[2018-09-03] MEDS ORDERED: GADOBUTROL 65ML VIAL IV PRN (17:25)
--- NOTE | 2018-09-03 17:35 | Magnetic Resonance Report ---
MR brain wo/w con CLINICAL HISTORY: 77 years-old Male presenting with Altered mental status, intubated, pneumonia, comb ative. TECHNIQUE: Multisequence, multiplanar MR imaging of the brain was performed before and after the admi nistration of intravenous contrast. IV contrast: 15 mL of Gadavist. COMPARISON: Noncontrast CT head from 09/02/2018. FINDINGS: Localizer images: Unremarkable. Proportional ventricular and sulcal prominence, likely age-related parenchymal volume loss. Brain par enchyma normal in appearance with preserved tejeda-white differentiation. Postcontrast imaging was not performed. No mass effect or midline shift. No restricted diffusion to suggest acute ischemia. No hemorrhage. No extra-axial fluid collection. T2 skull base flow voids preserved. Bone marrow signal intensity within the calvarium within normal l imits. Fluid in the nasopharynx likely relates to the presence of endotracheal tube. Mastoid air cell fluid. IMPRESSION: 1. No acute intracranial pathology. No abnormal enhancement. Electronically signed by: Eliezer Kapoor M.D. 09/03/2018 5:33 PM
[2018-09-03 20:53] LABS: Partial Thromboplastin Ratio > 5.1; Partial Thromboplastin Time > 139.0 Seconds (21.0-31.0)
--- NOTE | 2018-09-03 22:41 | Hospitalist Progress Note ---
Date of Service September 03, 2018 Assessment & Plan (1) Acute metabolic encephalopathy: Mr. Huff is a 77 year old male with a past medical history of COPD, erosive gastritis, duodenitis, ulcerative colitis, hypertension, CKD, chronic anemia, afib on coumadin, type 2 DM, CHF, hx of prostate cancer s/p TURP and hiatal hernia who presents to us as a transfer from [facility] due to worsening AMS, anemia and a cough. The patient was significant altered on presentation, and frequently attempting to get out of bed. Due to his worsening condition, the [employer] travel counselor was consulted, he was intubated, and subsequently placed on a ventilator. Altered Mental Status Acute metabolic encephalopathy likely secondary to bacteremia. -likely secondary to his infectious process -CT head ordered/ negative. may consider MRI. On versed drip; transition to propofol. HCAP possibly MRSA and/or gram negative bacteremia On cefepime and vanco Hypotension -pt hypotensive w/BP 70s/50s on arrival -Resolved, caution with IVF. Acute Respiratory Failure with Hypoxia -patient sedated and on ventilator -management per ICU -patient received cefepime, vancomycin, and flagyl at OSH. Continue cefepime and vancomycin -CT chest ordered to further evaluate -bronchoscopy done by Dr. Gao & bronchial washings sent for cx -> see procedure note for further details -Added scheduled breathing treatments. Pulmonary toilet Anemia -received 2 units of prbcs prior to arrival in [facility] -hemoglobin 9 on arrival -2 units prbcs ordered and on hold, in case pt requires further transfusion Patient has not required any more transfusions here. -patient does have a history of erosive gastritis, duodenitis, ulcerative colitis, -prior EGD in 2018 without an obvious source of bleeding & last colonoscopy was in 2017 (for surveillance given his ulcerative colitis) without evidence of active inflammation noted. -CT abdomen and pelvis to further evaluate -hold warfarin -> INR 2 on admission, will continue to hold Acute Kidney Injury Patient has history of CKD stage III -creatinine 1.6 on arrival Improved to 1.49 -hold nephrotoxic medications and monitor BMP Atrial Fibrillation -playground monitor -holding warfarin Diabetes Mellitus -hold home Januvia & insulin regimen -BSG management per ICU protocol Chronic diastolic Congestive Heart Failure -holding diuretics, due to acute renal failure. May restart if patient is overloaded. -caution w/IVF Hypothyroidism -restarted levothyroxine Hypercholesterolemia -restart crestor when able GERD On pantoprazole. Code status: FULL Disposition: admitted to ICU Spent 35 minutes in management of patient. Included reviewing chart. (2) Erosive gastritis: (3) Domínguez esophagus: (4) UC (ulcerative colitis): (5) Pneumonia: (6) Diabetes mellitus: (7) COPD (chronic obstructive pulmonary disease): (8) Acute kidney injury: (9) CKD (chronic kidney disease), stage III: (10) Chronic diastolic (congestive) heart failure: (11) HCAP (healthcare-associated pneumonia): (12) Acute respiratory failure with hypoxia: Subjective Patient is intubated and sedated. Patient is unable to provide history. Physical Exam Vital Signs (Past 24 Hours): Last Vital Signs Temp 36.9 C 09/02/18 23:00 Pulse 70 09/03/18 20:09 Resp 20 09/03/18 20:09 BP 124/66 09/03/18 18:17 Pulse Ox 100 09/03/18 20:09 Physical Exam: Constitutional: Patient is intubated and sedated. Eyes: PERRL, conjunctivae normal, anicteric sclerae Respiratory: Auscultation: + diminished lung sounds (throughout lungs) Cardiovascular: Rate/Rhythm: regular rate and regular rhythm (irregularly irregular) Vessels: radial pulses present Extremities: normal capillary refill; no calf tenderness and no pedal edema Chest (Breasts): normal inspection/palpation of breasts Gastrointestinal (Abdomen): Inspection/Auscultation: + abdomen distended Percussion/Palpation: + hernia (umbilical hernia); no guarding and abdomen not rigid Skin: no rashes, warm and dry
[2018-09-03 22:43] LABS: Partial Thromboplastin Ratio 3.7
[2018-09-03 22:56] LABS: Partial Thromboplastin Time 101.6 Seconds (21.0-31.0)
[2018-09-03 23:49] LABS: Partial Thromboplastin Ratio 2.3
[2018-09-03 23:54] LABS: Partial Thromboplastin Time 63.2 Seconds (21.0-31.0)
[2018-09-04] MEDS: INSULIN ASPART 100 UNITS/ML 3 ML PEN SC SCH ×7 (00:22→21:53)
[2018-09-04] MEDS: fentaNYL citrate 100 MCG/2 ML VIAL IV PRN ×7 (03:32→20:30)
[2018-09-04] MEDS: HEPARIN STANDARD DEXTROSE 25,000 UNITS/500 ML IV SCH ×2 (04:25→08:40)
[2018-09-04] MEDS: CEFEPIME 2,000 MG in SYRINGE 7.5 ML IV SCH ×3 (04:25→21:11)
[2018-09-04 05:25] LABS: iSTAT Allen Test Pass; iSTAT Arterial Blood Gas HCO3 22 meg/L (19-24); iSTAT Arterial Blood Gas pCO2 45 mmHg (35-46); iSTAT Carbon Dioxide 23 mEq/l (24-31); iSTAT Site R Radial
[2018-09-04 06:31] LABS: Hematocrit (blood only) 28.3 % (42-52); Hemoglobin 8.6 g/dL (14.0-18.0); Immature Granulocytes # (auto) 0.01 K/uL (0.00-0.02); Immature Granulocytes % (auto) 0.1 %; Lymphocytes # (auto) 0.33 K/uL (1.2-3.4); Lymphocytes % (auto) 3.4 %; Mean Corpuscular Hgb Conc 30.4 g/dL (32-36); Mean Corpuscular Volume 99.6 fL (80-100); Mean Platelet Volume 10.6 fL (7.4-10.4); Monocytes # (auto) 0.42 K/uL (0.11-0.59); Monocytes % (auto) 4.3 %; Neutrophils # (auto) 9.08 K/uL (1.4-6.5); Neutrophils % (auto) 92.2 %; Platelet Count 124 K/uL (130-400); RDW Coefficient of Variation 17.4 % (11.5-14.5); RDW Standard Deviation 63.1 fL (36.4-46.3); Red Blood Count 2.84 M/uL (4.7-6.1); White Blood Count 9.84 K/uL (4.8-10.8)
[2018-09-04 06:52] LABS: INR 1.7 (0.9-1.1); Partial Thromboplastin Ratio 3.1; Prothrombin Time 16.7 Seconds (9.0-12.0)
[2018-09-04 06:58] LABS: Partial Thromboplastin Time 83.7 Seconds (21.0-31.0)
[2018-09-04 07:06] LABS: Ovalocytes 1+
--- NOTE | 2018-09-04 07:08 | Critical Care Progress Note ---
Date of Service September 04, 2018 Assessment & Plan (1) Admitted to intensive care unit: Reason Critically Ill: 77-year-old male with altered mental status and profound pneumonia requiring endotracheal intubation for further diagnostic evaluation. NEURO - * CAM ICU: POSITIVE * Altered Mental Status: * Encephalopathic likely metabolic from sepsis/pneumonia * MRI and EEG negative * SEDATION: Versed drip transition to Precedex * PAIN: PRN Fentanyl * h/o Depression/Anxiety -restart citalopram CARDIAC/VASCULAR - * History of coronary artery disease, A. fib, hypertension, hyperlipidemia, and CHF: * Hold home antihypertensives as patient presented relatively hypotensive and requiring sedation medications with labile blood pressures. * Hold scheduled Lasix with acute kidney injury at this time. Can be restarted with concerns for volume overload. * A-fib - hold coumadin currently. Rate control Rx as tolerated. * h/o CHF - monitor for volume overload. Lasix as needed. * EKG, QTC improved. * Monitor on telemetry. RESPIRATORY - * Pneumonia: * Diffuse pneumonia with significant findings of mucopurulent material appreciated on bronchoscopy. Please see separate note. * Bronchial washings unremarkable * Repeat bronc today. * Covered with cefepime and doxycycline. * Scheduled nebs. * Pulmonary toilet. * Currently intubated and sedated. * Trend ABGs. GI/NUTRITION - * Significant history of erosive gastritis, Domínguez's esophagus, and ulcerative colitis: * In the setting of worsening anemia, consider current flares of any/all. * Agree with imaging modalities to evaluate abdominal pathology. * Prophylaxis: Protonix * Diet: N.p.o. RENAL/LYTES - * Acute kidney injury: * IVF: NSS@100mL/hr - * h/o Prostate CA. * Ugarte in place - Strict I&Os. ENDO - * IDDM: * BSGs per unit protocol. ISS --> gtt per unit policy. * Hypothyroidism: * Will add daily Levothyroxine. HEME - * Acute anemia of unknown source: * Type and cross. * Apparently heme-negative per fecal occult studies. * Consider GI evaluation secondary to patient's long-standing GI issues. * On daily coumadin 2/2 A-fib - will hold at this time. ID - * Pneumonia: * Cefepime and doxycycline. * Blood cultures negative on preliminary will follow up. * BAL with cultures, follow-up final. LINES/IV ACCESS - * PIVs x2 * ETT * Ugarte DVT PROPHYLAXIS - * Will hold 2/2 ??bleeding w/ chronic Coumadin use. * SCDs Supervising Physician Co-Signing Physician Notes I have personally evaluated and examined this patient. I agree with assessment and plan of Karsten GEORGE. Nonsustained ventricular tachycardia: Improved -Recheck troponins: Negative - prolonged QTC -Holding citalopram Continued encephalopathy likely metabolic in origin secondary to pneumonic process -Reviewed MRI: No obvious CVA -EEG completed today to rule out nonconvulsive status -Transition sedation to Precedex this evening/overnight for possible extubation trial tomorrow -Continue daily awakening trials and spontaneous breathing trials Transition to heparin for atrial fibrillation prophylaxis allow Coumadin to down trend however not actively reversing Hyperglycemia increasing with steroids most likely -Steroids for severe community-acquired pneumonia Acute hypoxic hypercarbic respiratory failure -Continued mechanical ventilation -Light normal valeriano on initial Gram stain -Discontinue vancomycin -Adding doxycycline 200 mg load for empiric coverage of atypicals -Unable to add quinolone or macrolide secondary to QTC prolongation -Reviewed chest x-ray will discuss with family possible bronchoscopy for mucoid secretion clearance Anemia -Stable Endocrine: Hyperglycemia -Start insulin infusion I have personally spent 45 minutes of critical care time in the direct management of this patient. This is a life/limb threatening event. This includes time spent evaluating patient, direct bedside care, chart review, placing orders, interpretation of diagnostic studies, discussion with consultants, patient, and/or family members regarding treatment decisions, as well as other required patient management activities. This time is exclusive of all separately billable procedures, and teaching time and separate from and in addition to any other critical care service time. Subjective 77-year-old male with altered mental status and profound pneumonia requiring intubation for respiratory failure, was transferred from [facility]. Chest x-ray unimproved, plan to proceed with bronchoscopy today. MRI and EEG negative. Transitioning sedation from Versed to Precedex. Will remain in ICU for management at this point. Review of Systems Unable to obtain secondary to intubation and sedation Physical Exam Vital Signs (Past 24 Hours): Last Vital Signs Temp 36.2 C L 09/04/18 04:00 Pulse 60 09/04/18 06:09 Resp 20 09/04/18 06:09 BP 120/62 09/04/18 05:00 Pulse Ox 99 09/04/18 06:09 Eyes: PERRLA Neck: Trachea midline Respiratory: Respirations clear bilaterally in upper and middle lobes, diminished in bases bilaterally when auscultated. Nonlabored breathing with ventilator support, symmetrical chest wall movement Cardiovascular: Rhythm able irregular, rate controlled A. fib on monitor, S1- S2 auscultated, good peripheral perfusion, pulses +2 in radial and pedal Gastrointestinal (Abdomen): Abdomen obese, nontender, bowel sounds auscultated in all 4 quadrants Neurologic: Patient sedated and intubated Genitourinary: Ugarte catheter in place with adequate urine output Results & Data Laboratory Results Laboratory Results - last 24 hr 09/03/18 09/03/18 09/03/18 14:05 17:51 19:15 WBC RBC Hgb Hct MCV MCH MCHC RDW Std Deviation RDW Coeff of Nahed Plt Count MPV Immature Gran % (Auto) Neut % (Auto) Lymph % (Auto) [place] % (Auto) Eos % (Auto) Baso % (Auto) Immature Gran # (Auto) Neut # (Auto) Lymph # (Auto) [place] # (Auto) Eos # (Auto) Baso # (Auto) Ovalocytes PT INR APTT > 139.0 H* PTT Ratio > 5.1 Sample Site L Radial POC pH 7.31 L POC pCO2 43 POC pO2 110 H POC HCO3 21 POC Total CO2 23 L POC Base Excess -5.0 POC ABG O2 Sat 98.0 H Franklin Test Pass O2 Delivery Device Ventilator POC O2 Rate 20 Minute Ventilation 9.3 Tidal Volume 500 PEEP 10 Sodium Potassium Chloride Carbon Dioxide Anion Gap BUN Creatinine Est Cr Clr Drug Dosing Est GFR ( Amer) Est GFR (Non-Af Amer) BUN/Creatinine Ratio Glucose POC Glucose 225 H Calcium Phosphorus Magnesium Total Bilirubin Direct Bilirubin AST ALT Alkaline Phosphatase Total Protein Albumin 09/03/18 09/03/18 09/03/18 20:54 22:12 23:09 WBC RBC Hgb Hct MCV MCH MCHC RDW Std Deviation RDW Coeff of Nahed Plt Count MPV Immature Gran % (Auto) Neut % (Auto) Lymph % (Auto) [place] % (Auto) Eos % (Auto) Baso % (Auto) Immature Gran # (Auto) Neut # (Auto) Lymph # (Auto) [place] # (Auto) Eos # (Auto) Baso # (Auto) Ovalocytes PT INR APTT 101.6 H* 63.2 H* PTT Ratio 3.7 2.3 Sample Site POC pH POC pCO2 POC pO2 POC HCO3 POC Total CO2 POC Base Excess POC ABG O2 Sat Franklin Test O2 Delivery Device POC O2 Rate Minute Ventilation Tidal Volume PEEP Sodium Potassium Chloride Carbon Dioxide Anion Gap BUN Creatinine Est Cr Clr Drug Dosing Est GFR ( Amer) Est GFR (Non-Af Amer) BUN/Creatinine Ratio Glucose POC Glucose 288 H Calcium Phosphorus Magnesium Total Bilirubin Direct Bilirubin AST ALT Alkaline Phosphatase Total Protein Albumin 09/04/18 09/04/18 09/04/18 00:17 04:22 05:12 WBC RBC Hgb Hct MCV MCH MCHC RDW Std Deviation RDW Coeff of Nahed Plt Count MPV Immature Gran % (Auto) Neut % (Auto) Lymph % (Auto) [place] % (Auto) Eos % (Auto) Baso % (Auto) Immature Gran # (Auto) Neut # (Auto) Lymph # (Auto) [place] # (Auto) Eos # (Auto) Baso # (Auto) Ovalocytes PT INR APTT PTT Ratio Sample Site R Radial POC pH 7.30 L POC pCO2 45 POC pO2 130 H POC HCO3 22 POC Total CO2 23 L POC Base Excess -4.0 POC ABG O2 Sat 98.0 H [place] Test Pass O2 Delivery Device Ventilator POC O2 Rate 20 Minute Ventilation 9.2 Tidal Volume 500 PEEP 10 Sodium Potassium Chloride Carbon Dioxide Anion Gap BUN Creatinine Est Cr Clr Drug Dosing Est GFR ( Amer) Est GFR (Non-Af Amer) BUN/Creatinine Ratio Glucose POC Glucose 209 H 229 H Calcium Phosphorus Magnesium Total Bilirubin Direct Bilirubin AST ALT Alkaline Phosphatase Total Protein Albumin 09/04/18 09/04/18 09/04/18 06:14 06:14 06:14 WBC 9.84 RBC 2.84 L Hgb 8.6 L Hct 28.3 L MCV 99.6 MCH 30.3 MCHC 30.4 L RDW Std Deviation 63.1 H RDW Coeff of Nahed 17.4 H Plt Count 124 L MPV 10.6 H Immature Gran % (Auto) 0.1 Neut % (Auto) 92.2 Lymph % (Auto) 3.4 [place] % (Auto) 4.3 Eos % (Auto) 0.0 Baso % (Auto) 0.0 Immature Gran # (Auto) 0.01 Neut # (Auto) 9.08 H Lymph # (Auto) 0.33 L [place] # (Auto) 0.42 Eos # (Auto) 0.00 Baso # (Auto) 0.00 Ovalocytes 1+ PT 16.7 H INR 1.7 H APTT 83.7 H* PTT Ratio 3.1 Sample Site POC pH POC pCO2 POC pO2 POC HCO3 POC Total CO2 POC Base Excess POC ABG O2 Sat Franklin Test O2 Delivery Device POC O2 Rate Minute Ventilation Tidal Volume PEEP Sodium 143 Potassium 4.3 Chloride 112 H Carbon Dioxide 25 Anion Gap 6.0 BUN 51 H Creatinine 1.51 H Est Cr Clr Drug Dosing 55.2 Est GFR ( Amer) 50.2 Est GFR (Non-Af Amer) 43.3 BUN/Creatinine Ratio 33.7 H Glucose 215 H POC Glucose Calcium 8.6 Phosphorus 3.8 Magnesium 3.0 H Total Bilirubin 0.6 Direct Bilirubin 0.3 H AST 35 ALT 23 Alkaline Phosphatase 69 Total Protein 6.2 L Albumin 2.6 L 09/04/18 09/04/18 09/04/18 08:01 10:21 11:56 WBC RBC Hgb Hct MCV MCH MCHC RDW Std Deviation RDW Coeff of Nahed Plt Count MPV Immature Gran % (Auto) Neut % (Auto) Lymph % (Auto) [place] % (Auto) Eos % (Auto) Baso % (Auto) Immature Gran # (Auto) Neut # (Auto) Lymph # (Auto) [place] # (Auto) Eos # (Auto) Baso # (Auto) Ovalocytes PT INR APTT PTT Ratio Sample Site POC pH POC pCO2 POC pO2 POC HCO3 POC Total CO2 POC Base Excess POC ABG O2 Sat [place] Test O2 Delivery Device POC O2 Rate Minute Ventilation Tidal Volume PEEP Sodium Potassium Chloride Carbon Dioxide Anion Gap BUN Creatinine Est Cr Clr Drug Dosing Est GFR ( Amer) Est GFR (Non-Af Amer) BUN/Creatinine Ratio Glucose POC Glucose 231 H 237 H 189 H Calcium Phosphorus Magnesium Total Bilirubin Direct Bilirubin AST ALT Alkaline Phosphatase Total Protein Albumin 09/04/18 12:57 WBC RBC Hgb Hct MCV MCH MCHC RDW Std Deviation RDW Coeff of Nahed Plt Count MPV Immature Gran % (Auto) Neut % (Auto) Lymph % (Auto) [place] % (Auto) Eos % (Auto) Baso % (Auto) Immature Gran # (Auto) Neut # (Auto) Lymph # (Auto) [place] # (Auto) Eos # (Auto) Baso # (Auto) Ovalocytes PT INR APTT PTT Ratio Sample Site POC pH POC pCO2 POC pO2 POC HCO3 POC Total CO2 POC Base Excess POC ABG O2 Sat [place] Test O2 Delivery Device POC O2 Rate Minute Ventilation Tidal Volume PEEP Sodium Potassium Chloride Carbon Dioxide Anion Gap BUN Creatinine Est Cr Clr Drug Dosing Est GFR ( Amer) Est GFR (Non-Af Amer) BUN/Creatinine Ratio Glucose POC Glucose 163 H Calcium Phosphorus Magnesium Total Bilirubin Direct Bilirubin AST ALT Alkaline Phosphatase Total Protein Albumin
--- NOTE | 2018-09-04 07:11 | XRay Report ---
XR chest 1V portable HISTORY: 77 years-old Male f/u acute respiratory failure COMPARISON: Chest radiograph 09/03/2018, chest CT 09/02/2018 TECHNIQUE: Portable AP view of the chest FINDINGS: Cardiac silhouette is enlarged, unchanged. Endotracheal tube overlies the midline, 3.8 cm superior to the eugenio. Pulmonary vascular congestion with interstitial coarsening redemonstrated. Trace pleural effusions with bibasilar opacities. No pneumothorax. Degenerative changes of the shoulders and spine . Enteric tube courses below the diaphragm, outside the [id number]. IMPRESSION: 1. Endotracheal and enteric tube placement as above. 2. Cardiomegaly with unchanged pulmonary edema, bilateral pleural effusions and bibasilar opacities. The above report was generated using voice recognition software. It may contain grammatical, syntax o r spelling errors. Electronically signed by: Yury Zeng M.D. 09/04/2018 7:10 AM
[2018-09-04 07:13] LABS: Albumin Level 2.6 gm/dl (3.4-5.0); BUN Creatinine Ratio 33.7 (10-20); Bilirubin Direct 0.3 mg/dl (0-0.2); Calcium 8.6 mg/dl (8.5-10.1); Creatinine Clr Calc Pharmacy 55.2 ml/min; Est GFR (African American) 50.2; Est GFR (Non-African American) 43.3; Potassium 4.3 mmol/L (3.5-5.1)
[2018-09-04 07:22] LABS: Bilirubin,Total 0.6 mg/dl (0.2-1); Phosphorus 3.8 mg/dl (2.5-4.9); Total Protein 6.2 gm/dl (6.4-8.2)
[2018-09-04] MEDS: methylPREDNISolone 40 MG in SYRINGE 0 ML IV SCH ×2 (08:40→21:11)
[2018-09-04] MEDS: LEVOTHYROXINE SODIUM 12.5 MCG in SYRINGE 0 ML IV SCH (08:47)
[2018-09-04] MEDS ORDERED: INSULIN GLARGINE SOLOSTAR 100 UNITS/ML 3 ML PEN SC ONE ×3 (09:00→21:00)
[2018-09-04] MEDS ORDERED: INSULIN PROTOCOL GOAL RANGE ONE (10:18)
[2018-09-04] MEDS: PANTOprazole 40 MG in SYRINGE 0 ML IV SCH (10:58)
[2018-09-04] MEDS: INSULIN REGULAR 250 UNITS in SODIUM CHLORIDE 0.9% 247.5 ML IV SCH (10:58)
[2018-09-04] MEDS: DOXYCYCLINE HYCLATE 100 MG in DEXTROSE 5% 100 ML IV SCH (11:15)
--- NOTE | 2018-09-04 12:12 | Procedure Note ---
EEG Procedure Note Date of Service September 04, 2018 Start / End Times Start Time: 8:50 AM End Time: 9:10 AM Referring Physician Eduardo Gao History This is a 77-year-old male with encephalopathy. EEG for further evaluation to rule out nonconvulsive status or seizures. Home Medication List Home Medications Medication Instructions Recorded Confirmed Type Bimatoprost Oph (Lumigan 0.03% Oph) 1 drp OPB HS #0 07/24/11 History Aspirin Enteric Coated (Ecotrin Or 81 mg PO DAILY #0 08/13/11 History Generic *) Latanoprost 0.005% Oph (Xalatan 1 drp OPB DAILY #0 12/19/11 History 0.005% Oph) TRAMADOL HCL (ULTRAM) 50 mg PO TID #0 tab 12/19/11 History Fish Oil (OMEGA-3) 1 cap PO DAILY #0 oil 03/06/12 History Citalopram (Citalopram 20 mg PO DAILY #0 09/08/13 History Hydrobromide) Nateglinide (Starlix) 60 mg PO BID #0 tab 09/08/13 History ROSUVASTATIN CALCIUM (CRESTOR) 20 mg PO DAILY #0 tab 09/08/13 History WARFARIN SODIUM (COUMADIN) 1 tab PO DAILY 90 Days #90 tab 09/08/15 History Insulin Glargine (Lantus) 34 SC QAM #0 vial 09/06/16 History Inpatient Medication List Fentanyl Citrate (Fentanyl Citrate) 50 mcg IV Q2H PRN PRN Reason: Moderate Pain (4,5,6) Stop: 09/16/18 03:12 Last Admin: 09/03/18 08:43 Dose: 50 mcg Documented by: [id number] Fentanyl Citrate (Fentanyl Citrate) 100 mcg IV Q2H PRN PRN Reason: Severe Pain (7,8,9,10) Stop: 09/16/18 03:12 Last Admin: 09/04/18 11:20 Dose: 100 mcg Documented by: [id number] Admin: 09/04/18 08:47 Dose: 100 mcg Documented by: [id number] Admin: 09/04/18 05:37 Dose: 100 mcg Documented by: [id number] Admin: 09/04/18 03:32 Dose: 100 mcg Documented by: [id number] Admin: 09/03/18 23:45 Dose: 100 mcg Documented by: [id number] Admin: 09/03/18 19:20 Dose: 100 mcg Documented by: [id number] Admin: 09/03/18 17:48 Dose: 100 mcg Documented by: [id number] Admin: 09/03/18 15:42 Dose: 100 mcg Documented by: [id number] Admin: 09/03/18 13:30 Dose: 100 mcg Documented by: [id number] Admin: 09/03/18 11:30 Dose: 100 mcg Documented by: [id number] Admin: 09/03/18 06:27 Dose: 100 mcg Documented by: [id number] Admin: 09/02/18 20:55 Dose: 100 mcg Documented by: [id number] Admin: 09/02/18 12:40 Dose: 100 mcg Documented by: [id number] Admin: 09/02/18 10:15 Dose: 100 mcg Documented by: [id number] Admin: 09/02/18 07:41 Dose: 100 mcg Documented by: [id number] Gadobutrol (Gadavist 65ml) 13 ml IV ONCE PRN PRN Reason: Interaction Checking Stop: 09/07/18 17:24 Last Admin: 09/03/18 17:26 Dose: 13 ml Documented by: [id number] Midazolam HCl (Versed) 125 mg in 250 mls @ 6 mls/hr IV .Q24H PRN; Protocol PRN Reason: Titration Stop: 10/02/18 03:12 Last Titration: 09/04/18 07:00 Dose: 3 mg/hr, 6 mls/hr Documented by: [id number] Cosigned by: [id number] Titration: 09/03/18 19:08 Dose: 3 mg/hr, 6 mls/hr Documented by: [id number] Cosigned by: [id number] Titration: 09/03/18 08:20 Dose: 3 mg/hr, 6 mls/hr Documented by: [id number] Titration: 09/03/18 07:00 Dose: 4 mg/hr, 8 mls/hr Documented by: [id number] Cosigned by: [id number] Admin: 09/03/18 06:30 Dose: 4 mg/hr, 8 mls/hr Documented by: [id number] Cosigned by: [id number] Titration: 09/03/18 06:30 Dose: 4 mg/hr, 8 mls/hr Documented by: [id number] Cosigned by: [id number] Titration: 09/03/18 04:00 Dose: 4 mg/hr, 8 mls/hr Documented by: [id number] Titration: 09/03/18 03:30 Dose: 4.5 mg/hr, 9 mls/hr Documented by: [id number] Titration: 09/02/18 23:15 Dose: 5 mg/hr, 10 mls/hr Documented by: [id number] Cosigned by: [id number] Titration: 09/02/18 19:03 Dose: 5 mg/hr, 10 mls/hr Documented by: [id number] Cosigned by: [id number] Titration: 09/02/18 13:15 Dose: 5 mg/hr, 10 mls/hr Documented by: [id number] Titration: 09/02/18 11:06 Dose: 3 mg/hr, 6 mls/hr Documented by: [id number] Titration: 09/02/18 08:34 Dose: 2 mg/hr, 4 mls/hr Documented by: [id number] Titration: 09/02/18 07:21 Dose: 1 mg/hr, 2 mls/hr Documented by: [id number] Cosigned by: [id number] Admin: 09/02/18 03:57 Dose: 1 mg/hr, 2 mls/hr Documented by: [id number] Cosigned by: [id number] Cefepime HCl 2,000 mg/ Syringe 20 mls @ 5.5 mls/min IV Q8H [facility] Stop: 09/09/18 04:59 Last Admin: 09/04/18 04:25 Dose: 5.5 mls/min Documented by: [id number] Admin: 09/03/18 21:01 Dose: 5.5 mls/min Documented by: [id number] Admin: 09/03/18 12:36 Dose: 5.5 mls/min Documented by: [id number] Admin: 09/03/18 05:30 Dose: 5.5 mls/min Documented by: [id number] Admin: 09/02/18 20:10 Dose: 5.5 mls/min Documented by: [id number] Admin: 09/02/18 11:21 Dose: 5.5 mls/min Documented by: [id number] Admin: 09/02/18 05:20 Dose: 5.5 mls/min Documented by: [id number] Pantoprazole Sodium 40 mg/ (Syringe) 10 mls @ 5 mls/min IV DAILY@1100 [facility] Stop: 10/02/18 10:59 Last Admin: 09/04/18 10:58 Dose: 5 mls/min Documented by: [id number] Admin: 09/03/18 08:46 Dose: 5 mls/min Documented by: [id number] Admin: 09/02/18 07:41 Dose: 5 mls/min Documented by: [id number] Levothyroxine Sodium 12.5 mcg/ (Syringe) 0.625 mls @ 2 mls/min IV DAILY@0900 [facility] Stop: 10/02/18 10:59 Last Admin: 09/04/18 08:47 Dose: 2 mls/min Documented by: [id number] Admin: 09/03/18 09:16 Dose: 2 mls/min Documented by: [id number] Admin: 09/02/18 11:21 Dose: 2 mls/min Documented by: [id number] Methylprednisolone 40 mg/ (Syringe) 0.64 mls @ 1.5 mls/min IV BID [facility] Stop: 09/06/18 21:01 Last Admin: 09/04/18 08:40 Dose: 1.5 mls/min Documented by: [id number] Admin: 09/03/18 21:01 Dose: 1.5 mls/min Documented by: [id number] Admin: 09/03/18 08:46 Dose: 1.5 mls/min Documented by: [id number] Admin: 09/02/18 20:11 Dose: 1.5 mls/min Documented by: [id number] Admin: 09/02/18 12:40 Dose: 1.5 mls/min Documented by: [id number] Doxycycline Hyclate 100 mg/ (Dextrose) 110 mls @ 55 mls/hr IV Q24H [facility] Stop: 09/11/18 11:59 Last Admin: 09/04/18 11:15 Dose: 55 mls/hr Documented by: [id number] Heparin Sodium/Dextrose (Heparin Sodium/Dextrose) 25,000 units in 500 mls @ 26 mls/hr IV .[id number] [facility]; Protocol Stop: 10/03/18 13:14 Last Admin: 09/04/18 08:40 Dose: 1,300 units/hr, 26 mls/hr Documented by: [id number] Cosigned by: [id number] Titration: 09/04/18 08:14 Dose: 1,300 units/hr, 26 mls/hr Documented by: [id number] Cosigned by: [id number] Titration: 09/04/18 07:29 Dose: 1,300 units/hr, 26 mls/hr Documented by: [id number] Cosigned by: [id number] Titration: 09/04/18 06:59 Dose: 0 units/hr, 0 mls/hr Documented by: [id number] Cosigned by: [id number] Admin: 09/04/18 04:25 Dose: Not Given Documented by: [id number] Titration: 09/04/18 00:20 Dose: 1,500 units/hr, 30 mls/hr Documented by: [id number] Cosigned by: [id number] Titration: 09/03/18 21:01 Dose: 0 units/hr, 0 mls/hr Documented by: [id number] Cosigned by: [id number] Titration: 09/03/18 19:08 Dose: 1,800 units/hr, 36 mls/hr Documented by: [id number] Cosigned by: [id number] Admin: 09/03/18 13:12 Dose: 1,800 units/hr, 36 mls/hr Documented by: [id number] Cosigned by: [id number] Insulin Human Regular 250 (units/ Sodium Chloride) 250 mls @ 4.8 mls/hr IV .Q24H [facility]; Protocol Stop: 10/04/18 10:29 Last Titration: 09/04/18 11:58 Dose: 3.8 units/hr, 3.8 mls/hr Documented by: [id number] Cosigned by: [id number] Admin: 09/04/18 10:58 Dose: 4.8 units/hr, 4.8 mls/hr Documented by: [id number] Cosigned by: [id number] Insulin Aspart (Novolog Flexpen) 0 units SC [facility] Stop: 10/04/18 12:59 Last Admin: 09/04/18 11:58 Dose: Not Given Documented by: [id number] Cosigned by: [id number] Nutritional Formula (Peptamen Intense Vhp) 1,000 ml OG UD [facility]; Protocol Stop: 10/02/18 12:59 Last Admin: 09/02/18 14:22 Dose: 1,000 ml Documented by: [id number] Discontinued Medications Heparin Sodium/Dextrose (Heparin Sodium/Dextrose) Confirm Administered Dose 25,000 units IV .STK-MED ONE Stop: 09/03/18 12:36 Last Admin: 09/03/18 13:11 Dose: Not Given Documented by: [id number] Sodium Chloride (Nss 1000ml) 1,000 mls @ 100 mls/hr IV .Q10H [facility] Stop: 09/02/18 11:59 Last Infusion: 09/02/18 14:06 Dose: 0 mls/hr Documented by: [id number] Admin: 09/02/18 03:54 Dose: 100 mls/hr Documented by: [id number] Vancomycin HCl 2,500 mg/ (Sodium Chloride) 550 mls @ 200 mls/hr IV NOW ONE Stop: 09/02/18 06:37 Last Infusion: 09/02/18 08:34 Dose: 0 mls/hr Documented by: [id number] Admin: 09/02/18 05:20 Dose: 200 mls/hr Documented by: [id number] Sodium Chloride (Nss 1000ml) 1,000 mls @ 75 mls/hr IV .[id number] [facility] Stop: 10/02/18 13:29 Last Infusion: 09/03/18 08:19 Dose: 0 mls/hr Documented by: [id number] Infusion: 09/03/18 08:04 Dose: 75 mls/hr Documented by: [id number] Admin: 09/03/18 03:33 Dose: 75 mls/hr Documented by: [id number] Infusion: 09/03/18 03:33 Dose: 75 mls/hr Documented by: [id number] Infusion: 09/02/18 23:15 Dose: 75 mls/hr Documented by: [id number] Admin: 09/02/18 14:13 Dose: 75 mls/hr Documented by: [id number] Vancomycin HCl 1,500 mg/ (Sodium Chloride) 530 mls @ 200 mls/hr IV Q18H [facility] Stop: 09/09/18 20:59 Last Infusion: 09/03/18 00:28 Dose: 0 mls/hr Documented by: [id number] Infusion: 09/02/18 23:15 Dose: 200 mls/hr Documented by: [id number] Admin: 09/02/18 21:44 Dose: 200 mls/hr Documented by: [id number] Heparin Sodium (Porcine) 7,500 (units/ Syringe) 7.5 mls @ 10 mls/min IV NOW ONE Stop: 09/03/18 12:01 Last Admin: 02/27/19 13:13 Dose: 10 mls/min Documented by: [id number] Cosigned by: [id number] Doxycycline Hyclate 200 mg/ (Dextrose) 270 mls @ 67.5 mls/hr IV NOW ONE Stop: 09/03/18 16:14 Last Infusion: 09/03/18 16:40 Dose: 0 mls/hr Documented by: [id number] Admin: 09/03/18 12:34 Dose: 67.5 mls/hr Documented by: [id number] Potassium Phosphate 12 mmol/ (Sodium Chloride) 254 mls @ 88 mls/hr IV NOW ONE Stop: 09/03/18 15:23 Last Infusion: 09/03/18 15:47 Dose: 0 mls/hr Documented by: [id number] Admin: 09/03/18 12:34 Dose: 88 mls/hr Documented by: [id number] Insulin Aspart (Novolog Flexpen) 0 units SC Q6H [facility] Stop: 10/02/18 11:59 Last Admin: 09/02/18 12:38 Dose: Not Given Documented by: [id number] Cosigned by: [id number] Insulin Aspart (Novolog Flexpen) 0 units SC Q4H [facility]; Protocol Stop: 10/02/18 11:59 Last Admin: 09/04/18 08:40 Dose: 7 units Documented by: [id number] Cosigned by: [id number] Admin: 09/04/18 04:25 Dose: 6 units Documented by: [id number] Cosigned by: [id number] Admin: 09/04/18 00:22 Dose: 4 units Documented by: [id number] Cosigned by: [id number] Admin: 09/03/18 21:00 Dose: 8 units Documented by: [id number] Cosigned by: [id number] Admin: 09/03/18 18:25 Dose: 5 units Documented by: [id number] Cosigned by: [id number] Admin: 09/03/18 13:27 Dose: 4 units Documented by: [id number] Cosigned by: [id number] Admin: 09/03/18 08:54 Dose: 2 units Documented by: [id number] Cosigned by: [id number] Admin: 09/03/18 05:30 Dose: 2 units Documented by: [id number] Cosigned by: [id number] Admin: 09/03/18 00:54 Dose: 1 units Documented by: [id number] Cosigned by: [id number] Admin: 09/02/18 20:10 Dose: Not Given Documented by: [id number] Cosigned by: [id number] Admin: 09/02/18 16:43 Dose: Not Given Documented by: [id number] Insulin Glargine (Lantus Solostar Pen) 15 units SC NOW ONE Stop: 09/02/18 11:31 Last Admin: 09/02/18 12:40 Dose: 15 units Documented by: [id number] Cosigned by: [id number] Insulin Glargine (Lantus Solostar Pen) 0 units SC HS ONE; Protocol Stop: 09/02/18 21:01 Last Admin: 09/02/18 20:10 Dose: 20 units Documented by: [id number] Cosigned by: [id number] Insulin Glargine (Lantus Solostar Pen) 20 units SC NOW ONE Stop: 09/03/18 09:31 Last Admin: 09/03/18 09:40 Dose: 20 units Documented by: [id number] Cosigned by: [id number] Insulin Glargine (Lantus Solostar Pen) 0 units SC HS ONE; Protocol Stop: 09/03/18 21:01 Last Admin: 09/03/18 21:00 Dose: 30 units Documented by: [id number] Cosigned by: [id number] Insulin Glargine (Lantus Solostar Pen) 25 units SC QAM ONE Stop: 09/04/18 09:01 Last Admin: 09/04/18 08:41 Dose: 25 units Documented by: [id number] Cosigned by: [id number] Lorazepam (Ativan) Confirm Administered Dose 2 mg .ROUTE .STK-MED ONE Stop: 09/02/18 02:38 Last Admin: 09/02/18 02:45 Dose: 2 mg Documented by: [id number] Perflutren Lipid Microsphere (Definity) 2 ml IV ONCE ONE Stop: 09/03/18 14:00 Last Admin: 09/03/18 14:00 Dose: 2 ml Documented by: [id number] Vecuronium Welch (Norcuron) 10 mg IV ONCE STA Stop: 09/02/18 03:14 Last Admin: 09/02/18 03:53 Dose: 10 mg Documented by: [id number] Cosigned by: [id number] Description This is a 21 electrode EEG with a single channel dedicated to limited EKG. The electrodes were placed in accordance with the International 10-20 system. At the start of this recording the patient was in reported altered mental status and intubated. Background was poorly organized with no well-formed anterior to posterior gradient. Background was composed of predominantly moderate amplitude 3-4 Hz delta frequencies with anterior mixed superimposed theta and alpha frequencies. There was no state changes. Hyperventilation was not done. Photic stimulation at various frequencies produced no abnormalities. Interpretation This is an abnormal routine EEG secondary to moderate background disorganization and slowing. There was no electrographic seizures or epileptiform discharges. Clinical Correlation This EEG indicates a moderate encephalopathy of nonspecific etiology. Sedating medications can contribute to encephalopathy.
[2018-09-04 14:05] LABS: Partial Thromboplastin Ratio 2.6
[2018-09-04 14:16] LABS: Partial Thromboplastin Time 69.5 Seconds (21.0-31.0)
--- NOTE | 2018-09-04 15:01 | Procedure Note ---
Procedure Note: Bronchoscopy Procedure Procedure date: September 04, 2018 Procedure: fiberoptic bronchoscopy Pre-procedure Diagnosis: Mucoid impaction of bronchi, acute hypoxic respiratory failure, pulmonary infiltrates bilaterally Post-procedure Diagnosis: same as above Prior to Procedure: Informed Consent: The risks, benefits, indications, potential complications, and alternatives were explained to the patient's and informed consent obtained. Attending Staff: Trever Gao DO Resident/APC: Karsten GEORGE Skin Prep: Not applicable Anesthesia: Continuous Versed infusion Indications: 77-year-old male who was intubated for acute hypoxic respiratory failure and was found to have significant pulmonary infiltrates and pneumonia who has worsening pulmonary infiltrates on chest x-ray. The identity of the patient was confirmed and a bedside time out was performed. Description of Procedure: Fiberoptic bronchoscopy was performed via endotracheal tube. Bronchioalveolar lavage of all lobes was performed. Findings included: Thick tenacious white mucus was lavaged from all lobes, this is mildly improved compared to previous bronchoscopy. The remaining tissues were less inflamed compared to bronchoscopy completed on September 02, 2018. Complications: None Specimens: Bronchial washings sent for culture and Gram stain, cytology, fungal elements, and AFB stain and culture. Estimated blood loss: Zero
--- NOTE | 2018-09-04 15:28 | Pharmacy Report ---
Pharmacy Glycemic Short Note 2 - Date of Service September 04, 2018 - Glycemic Short BSG Results (Last 24 hours): 09/03/18 09/03/18 09/04/18 17:51 20:54 00:17 Glucose POC Glucose 225 H 288 H 209 H 09/04/18 09/04/18 09/04/18 04:22 06:14 08:01 Glucose 215 H POC Glucose 229 H 231 H 09/04/18 09/04/18 09/04/18 10:21 11:56 12:57 Glucose POC Glucose 237 H 189 H 163 H OUTPATIENT ANTIDIABETIC REGIMEN: * Basaglar 34 units qam, 30 units qpm, Meghana ASSESSMENT: 09/04: * Patient's BSGs significantly elevated overnight- in 200s, started insulin infusion * Patient received 25 units of lantus this morning, will add on small lantus scale this evening * Insulin infusion currently running at 2.3 units/hr, BSGs decreasing but tube feeds held, anticipate drip rate to increase with return of tube feeds 09/03 * Patient received 35 units of basal insulin yesterday * BSGs trending upward today with increase in tube feeds * Continue q4H checks, tightened carb ratio to 6 * Increase lantus scale this pm PLAN FOR INPATIENT GLYCEMIC CONTROL: * Hold outpatient oral diabetes medications * Basal insulin * Lantus scale * 0 units BSG <140 * 5 units BSG 140-180 * 10 units BSG >180 PLAN FOR DISCHARGE: * A1c 6.2% within goal, anticipate patient can continue home regimen after discharge as long as they are not experiencing frequent hypo/hyperglycemic events.
[2018-09-04] MEDS: PEPTAMEN INTENSE VHP 1.0 CAL 1,000 ML BAG OG SCH (15:39)
[2018-09-04] MEDS: MIDAZOLAM HCL 125 MG/250 ML BAG IV PRN (16:57)
[2018-09-04 21:09] LABS: Partial Thromboplastin Ratio 2.2
[2018-09-04 21:17] LABS: Partial Thromboplastin Time 60.3 Seconds (21.0-31.0)
--- NOTE | 2018-09-04 22:18 | Hospitalist Progress Note ---
Date of Service September 04, 2018 Assessment & Plan (1) Admitted to intensive care unit: (1) Acute metabolic encephalopathy: Mr. Huff is a 77 year old male with a past medical history of COPD, erosive gastritis, duodenitis, ulcerative colitis, hypertension, CKD, chronic anemia, afib on coumadin, type 2 DM, CHF, hx of prostate cancer s/p TURP and hiatal hernia who presents to us as a transfer from [facility] due to worsening AMS, anemia and a cough. The patient was significant altered on presentation, and frequently attempting to get out of bed. Due to his worsening condition, the j2ee java developer was consulted, he was intubated, and subsequently placed on a ventilator. Altered Mental Status Acute metabolic encephalopathy likely secondary to bacteremia. -likely secondary to his infectious process -CT head ordered/ negative. Now on propofol. HCAP possibly MRSA and/or gram negative pneumonia On cefepime and vanco Hypotension -pt hypotensive w/BP 70s/50s on arrival -Resolved, caution with IVF. Acute Respiratory Failure with Hypoxia -patient sedated and on ventilator -management per ICU -patient received cefepime, vancomycin, and flagyl at OSH. Continue cefepime and vancomycin -CT chest ordered to further evaluate -bronchoscopy done by Dr. Gao & bronchial washings sent for cx -> see procedure note for further details -Added scheduled breathing treatments. Pulmonary toilet Anemia -received 2 units of prbcs prior to arrival in [facility] -hemoglobin 9 on arrival -2 units prbcs ordered and on hold, in case pt requires further transfusion Patient has not required any more transfusions here. -patient does have a history of erosive gastritis, duodenitis, ulcerative colitis, -prior EGD in 2018 without an obvious source of bleeding & last colonoscopy was in 2016 (for surveillance given his ulcerative colitis) without evidence of active inflammation noted. -CT abdomen and pelvis to further evaluate -hold warfarin -> INR 2 on admission, will continue to hold'Hemoglobin has continued to be stable 09/04 Acute Kidney Injury Patient has history of CKD stage III -creatinine 1.6 on arrival Improved to 1.51 (09/04) -hold nephrotoxic medications and monitor BMP Atrial Fibrillation -playground monitor -holding warfarin Diabetes Mellitus -hold home Januvia & insulin regimen -BSG management per ICU protocol Chronic diastolic Congestive Heart Failure -holding diuretics, due to acute renal failure. May restart if patient is overloaded. -caution w/IVF Hypothyroidism -restarted levothyroxine Hypercholesterolemia -restart crestor when able GERD On pantoprazole. Code status: FULL Disposition: admitted to ICU Spent 35 minutes in management of patient. Included discussing with consultants, reviewing records. Subjective Patient is intubated and sedated. Patient is unable to provide history. Physical Exam Vital Signs (Past 24 Hours): Last Vital Signs Temp 36.6 C 09/04/18 16:05 Pulse 53 L 09/04/18 19:38 Resp 20 09/04/18 19:38 BP 116/64 09/04/18 16:20 Pulse Ox 100 09/04/18 19:38 Physical Exam: Constitutional: Patient is intubated and sedated. Eyes: PERRL, conjunctivae normal, anicteric sclerae Respiratory: Auscultation: + diminished lung sounds (throughout lungs) Cardiovascular: Rate/Rhythm: regular rate and regular rhythm (irregularly irregular) Vessels: radial pulses present Extremities: normal capillary refill; no calf tenderness and no pedal edema Chest (Breasts): normal inspection/palpation of breasts Gastrointestinal (Abdomen): Inspection/Auscultation: + abdomen distended Percussion/Palpation: + hernia (umbilical hernia); no guarding and abdomen not rigid Skin: no rashes, warm and dry
[2018-09-04] MEDS ORDERED: MIDAZOLAM HCL 1 MG/ML 2ML VIAL IV PRN (23:36)
[2018-09-05] MEDS ORDERED: DEXMEDETOMIDINE HCL 200 MCG in SODIUM CHLORIDE 0.9% 48 ML IV SCH
[2018-09-05] MEDS: PROPOFOL 1,000 MG/100 ML VIAL IV PRN ×4 (00:07→21:04)
[2018-09-05] MEDS: CEFEPIME 2,000 MG in SYRINGE 7.5 ML IV SCH (04:54)
[2018-09-05 05:02] LABS: INR 1.5 (0.9-1.1); Partial Thromboplastin Ratio 2.7; Prothrombin Time 15.1 Seconds (9.0-12.0)
[2018-09-05 05:11] LABS: Partial Thromboplastin Time 73.2 Seconds (21.0-31.0)
[2018-09-05] MEDS: HEPARIN STANDARD DEXTROSE 25,000 UNITS/500 ML IV SCH (07:09)
--- NOTE | 2018-09-05 07:29 | Critical Care Progress Note ---
Date of Service September 05, 2018 Assessment & Plan (1) Admitted to intensive care unit: Reason Critically Ill: 77-year-old male with altered mental status and profound pneumonia requiring endotracheal intubation for further diagnostic evaluation. NEURO - * CAM ICU: POSITIVE * Altered Mental Status: * Encephalopathic likely metabolic from sepsis/pneumonia * MRI and EEG negative * SEDATION: Propofol * PAIN: PRN Fentanyl * h/o Depression/Anxiety -restart citalopram to avoid withdrawal CARDIAC/VASCULAR - * History of coronary artery disease, A. fib, hypertension, hyperlipidemia, and CHF: * Hold home antihypertensives as patient presented relatively hypotensive and requiring sedation medications with labile blood pressures. * Hold scheduled Lasix with acute kidney injury at this time. Can be restarted with concerns for volume overload. * A-fib - hold coumadin currently. IV heparin drip. * Nonsustained ventricular tachycardia: Resolved * h/o CHF - monitor for volume overload. Lasix as needed. * EKG, QTC resolved. * Monitor on telemetry. RESPIRATORY - * Pneumonia: * Diffuse pneumonia with significant findings of mucopurulent material appreciated on bronchoscopy. Please see separate note. * Bronchial washings unremarkable * Therapeutic bronchoscopy repeated yesterday for cleanout. * Covered with Rocephin and doxycycline. * Scheduled nebs. * Tapering IV steroids * Pulmonary toilet. * Currently intubated and sedated. * Trend ABGs. GI/NUTRITION - * Significant history of erosive gastritis, Domínguez's esophagus, and ulcerative colitis: * In the setting of worsening anemia, consider current flares of any/all. * Agree with imaging modalities to evaluate abdominal pathology. * Prophylaxis: Protonix * Diet: Tube feeds�Peptamen intense RENAL/LYTES - * Acute kidney injury: Avoid nephrotoxins and contrast, monitor with routine BMPs * No IV fluids, 30 cc water flush every 4 hours - * h/o Prostate CA. * Ugarte in place - Strict I&Os. ENDO - * IDDM: * BSGs per unit protocol. ISS --> gtt per unit policy. * Hypothyroidism: * Continue Synthroid HEME - * Acute anemia of unknown source: * Type and cross. * Apparently heme-negative per fecal occult studies. * Consider GI evaluation secondary to patient's long-standing GI issues. * Home Coumadin replaced with heparin drip. ID - * Pneumonia: * Rocephin and doxycycline. * Blood cultures negative on preliminary will follow up. * BAL with cultures negative LINES/IV ACCESS - * PIVs x2 * ETT * Ugarte DVT PROPHYLAXIS - * SCDs, heparin drip Supervising Physician Co-Signing Physician Notes I have personally evaluated and examined this patient. I agree with assessment and plan of Karsten GEOREG. Nonsustained ventricular tachycardia: Improved -Recheck troponins: Negative - prolonged QTC: resolved -restarting citalopram to avoid withdraw Continued encephalopathy likely metabolic in origin secondary to pneumonic process -Reviewed MRI: No obvious CVA -EEG: no evidence of seizures -Propofol for sedation -Continue daily awakening trials and spontaneous breathing trials Transition to heparin for atrial fibrillation prophylaxis allow Coumadin to down trend however not actively reversing Hyperglycemia increasing with steroids most likely -Steroids for severe community-acquired pneumonia Acute hypoxic hypercarbic respiratory failure -Continued mechanical ventilation -Light normal valeriano on initial Gram stain -Discontinue vancomycin -Adding doxycycline 200 mg load for empiric coverage of atypicals -Unable to add quinolone or macrolide secondary to QTC prolongation -Finish 7 days of total ABX therapy, downgrade to rocephin and doxycycline Anemia -Stable Endocrine: Hyperglycemia -Start insulin infusion I have personally spent 35 minutes of critical care time in the direct management of this patient. This is a life/limb threatening event. This includes time spent evaluating patient, direct bedside care, chart review, placing orders, interpretation of diagnostic studies, discussion with consultants, patient, and/or family members regarding treatment decisions, as well as other required patient management activities. This time is exclusive of all separately billable procedures, and teaching time and separate from and in addition to any other critical care service time. Subjective 77-year-old male with altered mental status and profound pneumonia requiring intubation for hypercapnic respiratory failure, was transferred from [facility]. Continues to have altered mental status, MRI and EEG negative. Therapeutic bronchoscopy yesterday for copious secretions, advanced COPD. will remain in ICU for ventilator weaning and management at this point. Review of Systems Unobtainable due to endotracheal tube and Unobtainable due to reduced consciousness Physical Exam Vital Signs (Past 24 Hours): Last Vital Signs Temp 36.4 C L 09/05/18 06:01 Pulse 47 L 09/05/18 07:01 Resp 20 09/05/18 05:38 BP 121/68 09/05/18 07:00 Pulse Ox 100 03/01/19 07:01 Constitutional: Intubated and sedated Eyes: PERRL, conjunctivae normal, anicteric sclerae ENMT: external ear and nose normal, oropharynx normal Neck: trachea midline, no thyromegaly Respiratory: Lungs diminished lobes bilaterally, unlabored respiratory effort on the vent, symmetrical chest wall movement Cardiovascular: S1-S2, no murmur, peripheral edema in upper and lower extremities bilaterally, radial and pedal pulses +2 bilaterally, good peripheral perfusion Gastrointestinal (Abdomen): Abdomen obese, soft, nontender, normoactive bowel sounds in all 4 quadrants Skin: No rashes, skin intact Neurologic: Intubated and sedated, responds to pain stimuli, unable to follow commands Genitourinary: Ugarte, adequate urine output
[2018-09-05 08:16] LABS: Hematocrit (blood only) 28.7 % (42-52); Hemoglobin 8.4 g/dL (14.0-18.0); Immature Granulocytes # (auto) 0.02 K/uL (0.00-0.02); Immature Granulocytes % (auto) 0.2 %; Lymphocytes % (auto) 4.7 %; Mean Corpuscular Hgb Conc 29.3 g/dL (32-36); Mean Corpuscular Volume 100.3 fL (80-100); Monocytes # (auto) 0.37 K/uL (0.11-0.59); Monocytes % (auto) 4.3 %; Neutrophils # (auto) 7.76 K/uL (1.4-6.5); Neutrophils % (auto) 90.8 %; Platelet Count 116 K/uL (130-400); RDW Coefficient of Variation 17.5 % (11.5-14.5); RDW Standard Deviation 63.4 fL (36.4-46.3); Red Blood Count 2.86 M/uL (4.7-6.1); White Blood Count 8.55 K/uL (4.8-10.8)
[2018-09-05 08:39] LABS: BUN Creatinine Ratio 37.8 (10-20); Calcium 8.6 mg/dl (8.5-10.1); Creatinine Clr Calc Pharmacy 53.6 ml/min; Est GFR (African American) 47.5; Magnesium 3.1 mg/dl (1.8-2.4); Phosphorus 3.8 mg/dl (2.5-4.9); Potassium 4.4 mmol/L (3.5-5.1)
[2018-09-05] MEDS: INSULIN ASPART 100 UNITS/ML 3 ML PEN SC SCH (08:39)
[2018-09-05] MEDS: LEVOTHYROXINE SODIUM 12.5 MCG in SYRINGE 0 ML IV SCH (08:40)
[2018-09-05] MEDS: methylPREDNISolone 40 MG in SYRINGE 0 ML IV SCH ×2 (08:41→21:03)
[2018-09-05 09:07] LABS: Ovalocytes 1+
[2018-09-05] MEDS: CITALOPRAM 20 MG TAB PO SCH (09:42)
[2018-09-05] MEDS ORDERED: INSULIN GLARGINE SOLOSTAR 100 UNITS/ML 3 ML PEN SC ONE ×2 (10:15→21:00)
[2018-09-05] MEDS: PANTOprazole 40 MG in SYRINGE 0 ML IV SCH (10:40)
[2018-09-05] MEDS: PEPTAMEN INTENSE VHP 1.0 CAL 1,000 ML BAG OG SCH (11:36)
[2018-09-05] MEDS: DOXYCYCLINE HYCLATE 100 MG in DEXTROSE 5% 100 ML IV SCH (11:37)
[2018-09-05 12:19] LABS: Partial Thromboplastin Time 54.9 Seconds (21.0-31.0)
--- NOTE | 2018-09-05 13:02 | Pharmacy Report ---
Pharmacy Glycemic Short Note 2 - Date of Service September 05, 2018 - Glycemic Short BSG Results (Last 24 hours): 09/04/18 09/04/18 09/04/18 12:57 13:58 15:31 Glucose POC Glucose 163 H 122 H 102 H 09/04/18 09/04/18 09/04/18 16:26 17:38 18:44 Glucose POC Glucose 113 H 118 H 126 H 09/04/18 09/04/18 09/05/18 20:44 22:31 00:26 Glucose POC Glucose 111 H 143 H 143 H 09/05/18 09/05/18 09/05/18 04:15 07:40 08:31 Glucose 145 H POC Glucose 137 H 163 H 09/05/18 12:25 Glucose POC Glucose 143 H OUTPATIENT ANTIDIABETIC REGIMEN: * Basaglar 34 units qam, 30 units qpm, Meghana ASSESSMENT: 09/05: * Patient's BSGs controlled with insulin infusion * Plan to continue infusion as patient receiving steroids through tomorrow * Weaning sedation/possible extubation-tube feeds currently on hold * Reduced lantus dose given this AM * PCHS will need to be added if patient is extubated/ordered diet 09/04: * Patient's BSGs significantly elevated overnight- in 200s, started insulin infusion * Patient received 25 units of lantus this morning, will add on small lantus scale this evening * Insulin infusion currently running at 2.3 units/hr, BSGs decreasing but tube feeds held, anticipate drip rate to increase with return of tube feeds 09/03 * Patient received 35 units of basal insulin yesterday * BSGs trending upward today with increase in tube feeds * Continue q4H checks, tightened carb ratio to 6 * Increase lantus scale this pm PLAN FOR INPATIENT GLYCEMIC CONTROL: * Hold outpatient oral diabetes medications * Basal insulin * Lantus 15 units this AM * Lantus scale this PM * 0 units BSG <140 * 5 units BSG 140-180 * 10 units BSG >180 PLAN FOR DISCHARGE: * A1c 6.2% within goal, anticipate patient can continue home regimen after discharge as long as they are not experiencing frequent hypo/hyperglycemic events.
[2018-09-05] MEDS: cefTRIAXone SODIUM 1,000 MG in DEXTROSE 5% 50 ML IV SCH (13:04)
[2018-09-06] MEDS: PROPOFOL 1,000 MG/100 ML VIAL IV PRN ×6 (03:41→23:49)
[2018-09-06] MEDS: PEPTAMEN INTENSE VHP 1.0 CAL 1,000 ML BAG OG SCH (04:00)
[2018-09-06 06:25] LABS: iSTAT Allen Test Pass; iSTAT Arterial Blood Gas HCO3 22 meg/L (19-24); iSTAT Arterial Blood Gas pCO2 42 mmHg (35-46); iSTAT Arterial Blood Gas pH 7.32 (7.35-7.45); iSTAT Carbon Dioxide 23 mEq/l (24-31); iSTAT FiO2 35 %; iSTAT Site R Radial
[2018-09-06 07:25] LABS: Partial Thromboplastin Ratio 1.9
[2018-09-06] MEDS: CITALOPRAM 20 MG TAB PO SCH (08:17)
[2018-09-06] MEDS: ROSUVASTATIN CALCIUM 20 MG TAB PO SCH (08:17)
[2018-09-06] MEDS: ASPIRIN 81 MG CHEW PO SCH (08:17)
[2018-09-06] MEDS: methylPREDNISolone 40 MG in SYRINGE 0 ML IV SCH ×2 (08:25→21:40)
[2018-09-06] MEDS: HEPARIN STANDARD DEXTROSE 25,000 UNITS/500 ML IV SCH (08:26)
[2018-09-06] MEDS ORDERED: INSULIN GLARGINE SOLOSTAR 100 UNITS/ML 3 ML PEN SC ONE (09:00)
[2018-09-06] MEDS: LEVOTHYROXINE SODIUM 12.5 MCG in SYRINGE 0 ML IV SCH (09:26)
[2018-09-06] MEDS ORDERED: PROSOURCE NO CARB 30 ML/PKT PO PRN (10:07)
--- NOTE | 2018-09-06 10:12 | Critical Care Progress Note ---
Date of Service September 06, 2018 Assessment & Plan (1) Admitted to intensive care unit: Reason Critically Ill: 77-year-old male with altered mental status and profound pneumonia requiring endotracheal intubation for further diagnostic evaluation. NEURO - * CAM ICU: POSITIVE * Altered Mental Status: * Encephalopathic likely metabolic from sepsis/pneumonia * MRI and EEG negative * SEDATION: Propofol * PAIN: PRN Fentanyl * h/o Depression/Anxiety -restart citalopram to avoid withdrawal CARDIAC/VASCULAR - * History of coronary artery disease, A. fib, hypertension, hyperlipidemia, and CHF: * Hold home antihypertensives as patient presented relatively hypotensive and requiring sedation medications with labile blood pressures. * Hold scheduled Lasix with acute kidney injury at this time. Can be restarted with concerns for volume overload. * A-fib - hold coumadin currently. IV heparin drip. * Nonsustained ventricular tachycardia: Resolved * h/o CHF - monitor for volume overload. Lasix as needed. * EKG, QTC resolved. * Monitor on telemetry. RESPIRATORY - * Pneumonia: * Diffuse pneumonia with significant findings of mucopurulent material appreciated on bronchoscopy. Please see separate note. * Bronchial washings unremarkable * Therapeutic bronchoscopy repeated yesterday for cleanout. * Covered with Rocephin and doxycycline. -We will complete 7-day treatment course * Scheduled nebs. * Tapering IV steroids * Pulmonary toilet. * Currently intubated and sedated. GI/NUTRITION - * Significant history of erosive gastritis, Domínguez's esophagus, and ulcerative colitis: * In the setting of worsening anemia, consider current flares of any/all. * Agree with imaging modalities to evaluate abdominal pathology. * Prophylaxis: Protonix * Diet: Tube feeds�Peptamen intense -Decrease from 70 mL's continuous to 45: This will account for propofol infusion calories -Adding Prosource 1 packet twice daily which will provide additional 30 g protein RENAL/LYTES - * Acute kidney injury: Avoid nephrotoxins and contrast, monitor with routine BMPs * No IV fluids, 30 cc water flush every 4 hours - * h/o Prostate CA. * Ugarte in place - Strict I&Os. ENDO - * IDDM: * BSGs per unit protocol. ISS --> gtt per unit policy. * Hypothyroidism: * Continue Synthroid HEME - * Acute anemia of unknown source: * Type and cross. * Apparently heme-negative per fecal occult studies. * Consider GI evaluation secondary to patient's long-standing GI issues. * Home Coumadin replaced with heparin drip. ID - * Pneumonia: * Rocephin and doxycycline. * Blood cultures negative on preliminary will follow up. * BAL with cultures negative LINES/IV ACCESS - * PIVs x2 * ETT * Ugarte DVT PROPHYLAXIS - * SCDs, heparin drip CODE STATUS: Full I have personally spent 35 minutes of critical care time in the direct management of this patient. This is a life/limb threatening event. This includes time spent evaluating patient, direct bedside care, chart review, placing orders, interpretation of diagnostic studies, discussion with consultants, patient, and/or family members regarding treatment decisions, as well as other required patient management activities. This time is exclusive of all separately billable procedures, and teaching time and separate from and in addition to any other critical care service time. Subjective No overnight events. Patient remains sedated during today's spontaneous awakening trial he moves all 4 extremities however he is not responding to commands. Physical Exam Vital Signs (Past 24 Hours): Last Vital Signs Temp 37.5 C 09/06/18 04:01 Pulse 47 L 09/06/18 08:00 Resp 12 09/06/18 08:00 BP 101/55 L 09/06/18 08:00 Pulse Ox 96 09/06/18 08:00 General: RASS -2 Skin: Warm, dry, Head: Atraumatic Ears, nose, mouth and throat: Airway obscured by endotracheal exam Cardiovascular: Normal peripheral perfusion Respiratory: no respiratory distress Gastrointestinal: Non distended Musculoskeletal: No deformity Results & Data Laboratory Results 09/06/18 09/06/18 09/06/18 Range/Units 10:32 09:28 08:23 APTT (21.0-31.0) Seconds PTT Ratio Sample Site POC pH (7.35-7.45) POC pCO2 (35-46) mmHg POC pO2 (80-95) mmHg POC HCO3 (19-24) maria d/L POC Total CO2 (24-31) mEq/l POC Base Excess (-9-1.8) maria d/L POC ABG O2 Sat (90-95) % Franklin Test O2 Delivery Device POC FiO2 % PEEP POC Glucose 178 H 186 H 198 H (70-99) Urine Legionella Ag (NOT DETECTED) 09/06/18 09/06/18 09/06/18 Range/Units 06:12 05:32 04:45 APTT 51.0 H* (21.0-31.0) Seconds PTT Ratio 1.9 Sample Site R Radial POC pH 7.32 L (7.35-7.45) POC pCO2 42 (35-46) mmHg POC pO2 137 H (80-95) mmHg POC HCO3 22 (19-24) maria d/L POC Total CO2 23 L (24-31) mEq/l POC Base Excess -4.0 (-9-1.8) maria d/L POC ABG O2 Sat 99.0 H (90-95) % Franklin Test Pass O2 Delivery Device Ventilator POC FiO2 35 % PEEP 8 POC Glucose 177 H (70-99) Urine Legionella Ag (NOT DETECTED) 09/06/18 09/05/18 09/05/18 Range/Units 00:56 20:52 16:26 APTT (21.0-31.0) Seconds PTT Ratio Sample Site POC pH (7.35-7.45) POC pCO2 (35-46) mmHg POC pO2 (80-95) mmHg POC HCO3 (19-24) maria d/L POC Total CO2 (24-31) mEq/l POC Base Excess (-9-1.8) maria d/L POC ABG O2 Sat (90-95) % Franklin Test O2 Delivery Device POC FiO2 % PEEP POC Glucose 158 H 155 H 152 H (70-99) Urine Legionella Ag (NOT DETECTED) 09/05/18 09/05/18 09/04/18 Range/Units 12:25 11:42 12:20 APTT 54.9 H* (21.0-31.0) Seconds PTT Ratio 2.0 Sample Site POC pH (7.35-7.45) POC pCO2 (35-46) mmHg POC pO2 (80-95) mmHg POC HCO3 (19-24) maria d/L POC Total CO2 (24-31) mEq/l POC Base Excess (-9-1.8) maria d/L POC ABG O2 Sat (90-95) % Franklin Test O2 Delivery Device POC FiO2 % PEEP POC Glucose 143 H (70-99) Urine Legionella Ag NOT DETECTED (NOT DETECTED)
[2018-09-06] MEDS: PANTOprazole 40 MG in SYRINGE 0 ML IV SCH (10:34)
--- NOTE | 2018-09-06 11:01 | Pharmacy Report ---
Pharmacy Glycemic Short Note 2 - Date of Service September 06, 2018 - Glycemic Short BSG Results (Last 24 hours): 09/05/18 09/05/18 09/05/18 12:25 16:26 20:52 POC Glucose 143 H 152 H 155 H 09/06/18 09/06/18 09/06/18 00:56 04:45 08:23 POC Glucose 158 H 177 H 198 H 09/06/18 09/06/18 09:28 10:32 POC Glucose 186 H 178 H OUTPATIENT ANTIDIABETIC REGIMEN: * Basaglar 34 units qam, 30 units qpm, Januvia ASSESSMENT: 09/06: * Patient's BSG controlled with insulin infusion, but sitting in the upper end of goal range * Continue insulin infusion today as steroids continue through his evening and alterations occurring with enteral nutrition * Tube feeds on hold since this morning, unsure of plan to restart at this time. Will forgo novolog coverage for now * Patient received 15 units lantus in addition to insulin drip yesterday. Will increase lantus dosing to help ease eventual drip transition * Propfol uptitrated today * PCHS will need to be added if patient is extubated and ordered diet 09/05: * Patient's BSGs controlled with insulin infusion * Plan to continue infusion as patient receiving steroids through tomorrow * Weaning sedation/possible extubation-tube feeds currently on hold * Reduced lantus dose given this AM * PCHS will need to be added if patient is extubated/ordered diet 09/04: * Patient's BSGs significantly elevated overnight- in 200s, started insulin infusion * Patient received 25 units of lantus this morning, will add on small lantus scale this evening * Insulin infusion currently running at 2.3 units/hr, BSGs decreasing but tube feeds held, anticipate drip rate to increase with return of tube feeds 09/03 * Patient received 35 units of basal insulin yesterday * BSGs trending upward today with increase in tube feeds * Continue q4H checks, tightened carb ratio to 6 * Increase lantus scale this pm PLAN FOR INPATIENT GLYCEMIC CONTROL: * Hold outpatient oral diabetes medications * Basal insulin * Lantus 15 units BID * Lantus scale this PM * 0 units BSG <140 * 5 units BSG 140-180 * 10 units BSG >180 PLAN FOR DISCHARGE: * A1c 6.2% within goal, anticipate patient can continue home regimen after discharge as long as they are not experiencing frequent hypo/hyperglycemic events.
--- NOTE | 2018-09-06 11:36 | XRay Report ---
XR chest 1V portable CLINICAL HISTORY: lines tube position COMPARISON STUDY: 09/04/2018 FINDINGS: Moderate stable cardiomegaly. Endotracheal tube 4 cm both eugenio. Nasogastric tube within t he stomach. Findings of pulmonary edema considered stable. Slightly progressive right pleural effusio n. Slight increase in prominence of pulmonary vasculature the right hemithorax. IMPRESSION: 1. Stable to slightly progressive pulmonary edema. 2. Slight increase in volume of right effusion. 3. Endotracheal and nasogastric tubes in good position. The above report was generated using voice recognition software. It may contain grammatical, syntax or spelling errors. Electronically signed by: Freddy Tompkins M.D. 09/06/2018 11:34 AM
[2018-09-06] MEDS: cefTRIAXone SODIUM 1,000 MG in DEXTROSE 5% 50 ML IV SCH (12:08)
[2018-09-06] MEDS: DOXYCYCLINE HYCLATE 100 MG in DEXTROSE 5% 100 ML IV SCH (13:05)
[2018-09-06] MEDS: fentaNYL citrate 100 MCG/2 ML VIAL IV PRN (13:56)
--- NOTE | 2018-09-06 14:02 | Procedure Note ---
Procedure Note: Bronchoscopy Procedure Procedure date: September 06, 2018 Procedure: fiberoptic bronchoscopy Pre-procedure Diagnosis: Mucoid impaction of the bronchi Post-procedure Diagnosis: same as above Prior to Procedure: Informed Consent: The risks, benefits, indications, potential complications, and alternatives were explained to the patient's family and informed consent obtained. Attending Staff: Trever Gao DO Resident/APC: Not applicable Skin Prep: Not applicable Anesthesia: Continuous propofol The identity of the patient was confirmed and a bedside time out was performed. Description of Procedure: Fiberoptic bronchoscopy was performed via endotracheal tube. Bronchioalveolar lavage right lower lobes and left lower lobes was performed. Findings included: Mild to moderate amount of thick white secretions significant improvement from the previous tube bronchoscopies. Obvious tracheomalacia with greater than 75% dynamic airway collapse Complications: None Specimens: Bronchial washings sent for culture and Gram stain, cytology, fungal elements, and AFB stain and culture. Estimated blood loss: Zero
--- NOTE | 2018-09-06 15:27 | Hospitalist Progress Note ---
Date of Service September 05, 2018 Assessment & Plan (1) Admitted to intensive care unit: Admitted to intensive care unit: (1) Acute metabolic encephalopathy: Mr. Huff is a 77 year old male with a past medical history of COPD, erosive gastritis, duodenitis, ulcerative colitis, hypertension, CKD, chronic anemia, afib on coumadin, type 2 DM, CHF, hx of prostate cancer s/p TURP and hiatal hernia who presents to us as a transfer from [facility] due to worsening AMS, anemia and a cough. The patient was significant altered on presentation, and frequently attempting to get out of bed. Due to his worsening condition, the information technology auditor was consulted, he was intubated, and subsequently placed on a ventilator. Altered Mental Status Acute metabolic encephalopathy likely secondary to bacteremia. -likely secondary to his infectious process -CT head ordered/ negative. Now on propofol. HCAP possibly MRSA and/or gram negative pneumonia Switched to rocephin and doxy Hypotension -pt hypotensive w/BP 70s/50s on arrival -Resolved, caution with IVF. Acute Respiratory Failure with Hypoxia -patient sedated and on ventilator -management per ICU -patient received cefepime, vancomycin, and flagyl at OSH. Continue ceftriaxone and doxy -CT chest ordered to further evaluate -bronchoscopy done by Dr. Gao & bronchial washings sent for cx -> see procedure note for further details -Added scheduled breathing treatments. Pulmonary toilet Anemia -received 2 units of prbcs prior to arrival in [facility] -hemoglobin 9 on arrival -2 units prbcs ordered and on hold, in case pt requires further transfusion Patient has not required any more transfusions here. -patient does have a history of erosive gastritis, duodenitis, ulcerative colitis, -prior EGD in 2018 without an obvious source of bleeding & last colonoscopy was in 2017 (for surveillance given his ulcerative colitis) without evidence of active inflammation noted. -CT abdomen and pelvis to further evaluate -hold warfarin -> INR 2 on admission, will continue to hold'Hemoglobin has continued to be stable 09/04 -current on heparin drip Acute Kidney Injury Patient has history of CKD stage III -creatinine 1.6 on arrival Improved to 1.58 (09/05) -hold nephrotoxic medications and monitor BMP Atrial Fibrillation -patient monitor -holding warfarin Diabetes Mellitus -hold home Januvia & insulin regimen -BSG management per ICU protocol Chronic diastolic Congestive Heart Failure -holding diuretics, due to acute renal failure. May restart if patient is overloaded. -caution w/IVF Hypothyroidism -restarted levothyroxine Hypercholesterolemia -restart crestor when able GERD On pantoprazole. Code status: FULL Disposition: admitted to ICU Spent 25 minutes in management of patient. Included discussing with consultants, reviewing records. Subjective Patient is intubated and sedated. Patient is unable to provide history. Physical Exam Vital Signs (Past 24 Hours): Last Vital Signs Temp 36.4 C 09/05/18 08:00 Pulse 56 09/05/18 08:00 Resp 13 09/05/18 08:00 BP 141/75 09/05/18 08:00 Pulse Ox 100 09/05/18 08:00 Physical Exam: Constitutional: Patient is intubated and sedated. Eyes: PERRL, conjunctivae normal, anicteric sclerae Respiratory: Auscultation: + diminished lung sounds (throughout lungs) Cardiovascular: Rate/Rhythm: regular rate and regular rhythm (irregularly irregular) Vessels: radial pulses present Extremities: normal capillary refill; no calf tenderness and no pedal edema Chest (Breasts): normal inspection/palpation of breasts Gastrointestinal (Abdomen): Inspection/Auscultation: + abdomen distended Percussion/Palpation: + hernia (umbilical hernia); no guarding and abdomen not rigid Skin: no rashes, warm and dry
[2018-09-06] MEDS ORDERED: INSULIN GLARGINE SOLOSTAR 100 UNITS/ML 3 ML PEN SC SCH (21:00)
--- NOTE | 2018-09-06 22:55 | Hospitalist Progress Note ---
Date of Service September 06, 2018 Assessment & Plan (1) Admitted to intensive care unit: Admitted to intensive care unit: (1) Acute metabolic encephalopathy: Mr. Huff is a 77 year old male with a past medical history of COPD, erosive gastritis, duodenitis, ulcerative colitis, hypertension, CKD, chronic anemia, afib on coumadin, type 2 DM, CHF, hx of prostate cancer s/p TURP and hiatal hernia who presents to us as a transfer from [facility] due to worsening AMS, anemia and a cough. The patient was significant altered on presentation, and frequently attempting to get out of bed. Due to his worsening condition, the human resources psychologist was consulted, he was intubated, and subsequently placed on a ventilator. Altered Mental Status Acute metabolic encephalopathy likely secondary to bacteremia. -likely secondary to his infectious process -CT head ordered/ negative. Now on propofol. HCAP possibly MRSA and/or gram negative pneumonia Switched to rocephin and doxy Hypotension -pt hypotensive w/BP 70s/50s on arrival -Resolved, caution with IVF. Acute Respiratory Failure with Hypoxia -patient sedated and on ventilator -management per ICU -patient received cefepime, vancomycin, and flagyl at OSH. Continue ceftriaxone and doxy -CT chest ordered to further evaluate -bronchoscopy done by Dr. Gao & bronchial washings sent for cx -> see procedure note for further details -Added scheduled breathing treatments. Pulmonary toilet Anemia -received 2 units of prbcs prior to arrival in [facility] -hemoglobin 9 on arrival -2 units prbcs ordered and on hold, in case pt requires further transfusion Patient has not required any more transfusions here. -patient does have a history of erosive gastritis, duodenitis, ulcerative colitis, -prior EGD in 2018 without an obvious source of bleeding & last colonoscopy was in 2017 (for surveillance given his ulcerative colitis) without evidence of active inflammation noted. -CT abdomen and pelvis to further evaluate -hold warfarin -> INR 2 on admission, will continue to hold'Hemoglobin has continued to be stable 09/04 -current on heparin drip Acute Kidney Injury Patient has history of CKD stage III -creatinine 1.6 on arrival Improved to 1.58 (09/05) -hold nephrotoxic medications and monitor BMP Atrial Fibrillation -athletic monitor -holding warfarin Diabetes Mellitus -hold home Januvia & insulin regimen -BSG management per ICU protocol Chronic diastolic Congestive Heart Failure -holding diuretics, due to acute renal failure. May restart if patient is overloaded. -caution w/IVF Hypothyroidism -restarted levothyroxine Hypercholesterolemia -restart crestor when able GERD On pantoprazole. Code status: FULL Disposition: admitted to ICU Spent 25 minutes in management of patient. Included discussing with consultants, reviewing records. Subjective Patient is intubated and sedated. Patient is unable to provide history. Physical Exam Vital Signs (Past 24 Hours): Last Vital Signs Temp 37.5 C 09/06/18 04:01 Pulse 49 L 09/06/18 20:15 Resp 10 L 09/06/18 20:15 BP 109/62 09/06/18 20:00 Pulse Ox 100 09/06/18 20:15 Physical Exam: Constitutional: Patient is intubated and sedated. Eyes: PERRL, conjunctivae normal, anicteric sclerae Respiratory: Auscultation: + diminished lung sounds (throughout lungs) Cardiovascular: Rate/Rhythm: regular rate and regular rhythm (irregularly irregular) Vessels: radial pulses present Extremities: normal capillary refill; no calf tenderness and no pedal edema Chest (Breasts): normal inspection/palpation of breasts Gastrointestinal (Abdomen): Inspection/Auscultation: + abdomen distended Percussion/Palpation: + hernia (umbilical hernia); no guarding and abdomen not rigid Skin: no rashes, warm and dry
[2018-09-07] MEDS: INSULIN ASPART 100 UNITS/ML 3 ML PEN SC SCH ×6 (00:38→20:42)
[2018-09-07 05:17] LABS: INR 1.3 (0.9-1.1); Prothrombin Time 13.4 Seconds (9.0-12.0)
[2018-09-07] MEDS: fentaNYL citrate 100 MCG/2 ML VIAL IV PRN ×2 (06:28→09:07)
[2018-09-07 06:52] LABS: Partial Thromboplastin Ratio 1.8
[2018-09-07 07:14] LABS: Partial Thromboplastin Time 48.9 Seconds (21.0-31.0)
--- NOTE | 2018-09-07 07:35 | XRay Report ---
XR chest 1V portable HISTORY: 77 years-old Male intubation acute respiratory failure COMPARISON: Chest radiograph 09/06/2018 TECHNIQUE: Portable AP view of the chest FINDINGS: Cardiac silhouette is enlarged. Dense mitral annular calcifications noted. Calcification the thoracic aortic arch also present. Endotracheal tube overlies the midline, 7.1 cm superior to the eugenio. Ent kira tube distal tip is noted about the left upper quadrant abdomen within the region of the mid paulina yee body. Pulmonary vascular congestion with mild interstitial coarsening persists. There is no pneum othorax. Trace pleural effusions with persistent bibasilar opacities. Degenerative changes of the luis ulders and spine. IMPRESSION: 1. Endotracheal and enteric tube placement as above. 2. Cardiomegaly with persistent pulmonary edema. 3. Unchanged trace pleural effusions with bibasilar opacities. The above report was generated using voice recognition software. It may contain grammatical, syntax o r spelling errors. Electronically signed by: Yury Zeng M.D. 09/07/2018 7:34 AM
[2018-09-07] MEDS: ROSUVASTATIN CALCIUM 20 MG TAB PO SCH (08:40)
[2018-09-07] MEDS: CITALOPRAM 20 MG TAB PO SCH (08:40)
[2018-09-07] MEDS: ASPIRIN 81 MG CHEW PO SCH (08:40)
[2018-09-07] MEDS: HEPARIN STANDARD DEXTROSE 25,000 UNITS/500 ML IV SCH (08:40)
[2018-09-07] MEDS: PROPOFOL 1,000 MG/100 ML VIAL IV PRN ×4 (08:51→20:22)
[2018-09-07] MEDS ORDERED: INSULIN GLARGINE SOLOSTAR 100 UNITS/ML 3 ML PEN SC SCH (09:00)
--- NOTE | 2018-09-07 09:23 | Critical Care Progress Note ---
Date of Service September 07, 2018 Assessment & Plan (1) Admitted to intensive care unit: Reason Critically Ill: 77-year-old male with altered mental status and profound pneumonia requiring endotracheal intubation for further diagnostic evaluation. NEURO - * CAM ICU: POSITIVE * Altered Mental Status: * Encephalopathic likely metabolic from sepsis/pneumonia * MRI and EEG negative * SEDATION: Propofol -This is a difficult position patient has large volume of distribution we have transition from benzos to propofol which is shorter acting and we are add low-dose propofol -Patient is not appropriate candidate for Precedex due to bradycardia * PAIN: PRN Fentanyl * h/o Depression/Anxiety - citalopram CARDIAC/VASCULAR - * History of coronary artery disease, A. fib, hypertension, hyperlipidemia, and CHF: * Hold home antihypertensives as patient presented relatively hypotensive and requiring sedation medications with labile blood pressures. * Hold scheduled Lasix with acute kidney injury at this time. Can be restarted with concerns for volume overload. * A-fib - hold coumadin currently. IV heparin drip. * Nonsustained ventricular tachycardia: Resolved * h/o CHF - monitor for volume overload. Lasix as needed. * EKG, prolonged QTC resolved. * Monitor on telemetry. RESPIRATORY - * Pneumonia: * Diffuse pneumonia with significant findings of mucopurulent material appreciated on bronchoscopy. Please see separate note. * Bronchial washings unremarkable * Therapeutic bronchoscopy repeated yesterday for cleanout. * Covered with Rocephin and doxycycline. -We will complete 7-day treatment course * Scheduled nebs. * Tapering IV steroids * Pulmonary toilet. * Currently intubated and sedated. GI/NUTRITION - * Significant history of erosive gastritis, Domínguez's esophagus, and ulcerative colitis: * In the setting of worsening anemia, consider current flares of any/all. * Prophylaxis: Protonix * Diet: Tube feeds�Peptamen intense -Continuous peptamen intense 45: This will account for propofol infusion calories -Adding Prosource 1 packet twice daily which will provide additional 30 g protein RENAL/LYTES - * Acute kidney injury: Avoid nephrotoxins and contrast, monitor with routine BMPs * No IV fluids, 30 cc water flush every 4 hours - * h/o Prostate CA. * Ugarte in place - Strict I&Os. ENDO - * IDDM: * BSGs per unit protocol. ISS --> gtt per unit policy. * Solu-Medrol for severe community-acquired pneumonia * Hypothyroidism: * Continue Synthroid HEME - * Acute anemia of unknown source: * Type and cross. * Apparently heme-negative per fecal occult studies. * Consider GI evaluation secondary to patient's long-standing GI issues. * Home Coumadin replaced with heparin drip. ID - * Pneumonia: * Rocephin and doxycycline. 7-day treatment course * Blood cultures negative on preliminary will follow up. * BAL with cultures negative LINES/IV ACCESS - * PIVs x2 * ETT * Ugarte DVT PROPHYLAXIS - * SCDs, heparin drip CODE STATUS: Full I have personally spent 35 minutes of critical care time in the direct management of this patient. This is a life/limb threatening event. This includes time spent evaluating patient, direct bedside care, chart review, placing orders, interpretation of diagnostic studies, discussion with cons ultants, patient, and/or family members regarding treatment decisions, as well as other required patient management activities. This time is exclusive of all separately billable procedures, and teaching time and separate from and in addition to any other critical care service time. Subjective No overnight events. Patient was given extended period without propofol. Moving all 4 extremities, attempting to sit up, would not open eyes spontaneously to voice commands, still largely encephalopathic Physical Exam Vital Signs (Past 24 Hours): Last Vital Signs Temp 37.5 C 09/06/18 04:01 Pulse 77 09/07/18 07:15 Resp 28 H 09/07/18 07:15 BP 109/62 09/06/18 20:00 Pulse Ox 99 09/07/18 07:15 General: CAM positive, obviously encephalopathic versus ICU delirium Skin: Warm, dry, Head: Atraumatic Ears, nose, mouth and throat: airway obscured by endotracheal tube Cardiovascular: Normal peripheral perfusion Respiratory: no respiratory distress Gastrointestinal: Non distended Musculoskeletal: No deformity
[2018-09-07] MEDS ORDERED: DC IV INSULIN INFUSION 1 EA DEVI ONE ×2 (10:06→16:00)
[2018-09-07] MEDS ORDERED: INSULIN GLARGINE SOLOSTAR 100 UNITS/ML 3 ML PEN SC ONE (10:15)
[2018-09-07] MEDS: LEVOTHYROXINE SODIUM 12.5 MCG in SYRINGE 0 ML IV SCH (10:19)
[2018-09-07] MEDS: PANTOprazole 40 MG in SYRINGE 0 ML IV SCH (10:20)
[2018-09-07] MEDS: cefTRIAXone SODIUM 1,000 MG in DEXTROSE 5% 50 ML IV SCH (11:04)
--- NOTE | 2018-09-07 11:13 | Hospitalist Progress Note ---
Date of Service September 07, 2018 Assessment & Plan (1) Admitted to intensive care unit: Admitted to intensive care unit: (1) Acute metabolic encephalopathy: Mr. Huff is a 77 year old male with a past medical history of COPD, erosive gastritis, duodenitis, ulcerative colitis, hypertension, CKD, chronic anemia, afib on coumadin, type 2 DM, CHF, hx of prostate cancer s/p TURP and hiatal hernia who presents to us as a transfer from [facility] due to worsening AMS, anemia and a cough. The patient was significant altered on presentation, and frequently attempting to get out of bed. Due to his worsening condition, the director prison was consulted, he was intubated, and subsequently placed on a ventilator. Altered Mental Status Acute metabolic encephalopathy likely secondary to bacteremia. -likely secondary to his infectious process -CT head ordered/ negative. Now on propofol. HCAP possibly MRSA and/or gram negative pneumonia Switched to rocephin and doxy since 09/05. Hypotension -pt hypotensive w/BP 70s/50s on arrival -Resolved, caution with IVF. Holding BP meds as BP has been labile. Acute Respiratory Failure with Hypoxia -patient sedated and on ventilator -management per ICU -patient received cefepime, vancomycin, and flagyl at OSH. Continue ceftriaxone and doxy -CT chest ordered to further evaluate -bronchoscopy done by Dr. Gao & bronchial washings sent for cx -> see procedure note for further details -Added scheduled breathing treatments. Pulmonary toilet Anemia -received 2 units of prbcs prior to arrival in [facility] -hemoglobin 9 on arrival -2 units prbcs ordered and on hold, in case pt requires further transfusion Patient has not required any more transfusions here. -patient does have a history of erosive gastritis, duodenitis, ulcerative colitis, -prior EGD in 2018 without an obvious source of bleeding & last colonoscopy was in 2017 (for surveillance given his ulcerative colitis) without evidence of active inflammation noted. -CT abdomen and pelvis to further evaluate -hold warfarin -> INR 2 on admission, will continue to hold'Hemoglobin has continued to be stable 09/05 -current on heparin drip Acute Kidney Injury Patient has history of CKD stage III -creatinine 1.6 on arrival Improved to 1.58 (09/05) -hold nephrotoxic medications and monitor BMP Atrial Fibrillation -conveyor monitor -holding warfarin; on heparin Diabetes Mellitus -hold home Januvia & insulin regimen -BSG management per ICU protocol Chronic diastolic Congestive Heart Failure -holding diuretics, due to acute renal failure. May restart if patient is overloaded. -caution w/IVF Hypothyroidism -restarted levothyroxine Hypercholesterolemia -restart crestor when able GERD On pantoprazole. Code status: FULL Disposition: admitted to ICU Spent 25 minutes in management of patient. Included discussing with consultants, reviewing records. Subjective Patient is intubated and sedated. Patient is unable to provide significant medical history. Physical Exam 2 Vital Signs (Past 24 Hours): Last Vital Signs Temp 37.5 C 09/06/18 04:01 Pulse 77 09/07/18 07:15 Resp 28 H 09/07/18 07:15 BP 109/62 09/06/18 20:00 Pulse Ox 99 09/07/18 07:15 Physical Exam: Constitutional: Patient is intubated and sedated. Eyes: PERRL, conjunctivae normal, anicteric sclerae Respiratory: Auscultation: + diminished lung sounds (throughout lungs) Cardiovascular: Rate/Rhythm: regular rate and regular rhythm (irregularly irregular) Vessels: radial pulses present Extremities: normal capillary refill; no calf tenderness and no pedal edema Chest (Breasts): normal inspection/palpation of breasts Gastrointestinal (Abdomen): Inspection/Auscultation: + abdomen distended Percussion/Palpation: + hernia (umbilical hernia); no guarding and abdomen not rigid Skin: no rashes, warm and dry
[2018-09-07] MEDS: DOXYCYCLINE HYCLATE 100 MG in DEXTROSE 5% 100 ML IV SCH (11:16)
[2018-09-07] MEDS: PEPTAMEN INTENSE VHP 1.0 CAL 1,000 ML BAG OG SCH (11:29)
[2018-09-07] MEDS: INSULIN REGULAR 250 UNITS in SODIUM CHLORIDE 0.9% 247.5 ML IV SCH (14:29)
--- NOTE | 2018-09-07 16:15 | Pharmacy Report ---
Pharmacy Glycemic Short Note 2 - Date of Service September 07, 2018 - Glycemic Short BSG Results (Last 24 hours): 09/06/18 09/06/18 09/06/18 15:20 17:18 19:35 POC Glucose 158 H 161 H 162 H 09/06/18 09/07/18 09/07/18 21:33 01:52 05:32 POC Glucose 170 H 143 H 128 H 09/07/18 09/07/18 09/07/18 09:17 13:36 14:21 POC Glucose 116 H 96 90 OUTPATIENT ANTIDIABETIC REGIMEN: * Basaglar 34 units qam, 30 units qpm, Januvia ASSESSMENT: 09/07: * Patient is now off steroids and TF at a stable rate. * Drip transition attempted this morning using an estimated total daily need(~104 units) from the insulin infusion rates and SQ administration, acknowledging steroids were on board here * Patient received closer to a total daily dose of basal insulin to facilitate drip transition this morning, and will be placed on a lantus scale this evening based on BSG. * Insulin infusion was successfully stopped ~1430. * Novolog coverage q4 is on board to cover continuous tube feeds 09/06: * Patient's BSG controlled with insulin infusion, but sitting in the upper end of goal range * Continue insulin infusion today as steroids continue through his evening and alterations occurring with enteral nutrition * Tube feeds on hold since this morning, unsure of plan to restart at this time. Will forgo novolog coverage for now * Patient received 15 units lantus in addition to insulin drip yesterday. Will increase lantus dosing to help ease eventual drip transition * Propfol uptitrated today * PCHS will need to be added if patient is extubated and ordered diet 09/05: * Patient's BSGs controlled with insulin infusion * Plan to continue infusion as patient receiving steroids through tomorrow * Weaning sedation/possible extubation-tube feeds currently on hold * Reduced lantus dose given this AM * PCHS will need to be added if patient is extubated/ordered diet 09/04: * Patient's BSGs significantly elevated overnight- in 200s, started insulin in fusion * Patient received 25 units of lantus this morning, will add on small lantus scale this evening * Insulin infusion currently running at 2.3 units/hr, BSGs decreasing but tube feeds held, anticipate drip rate to increase with return of tube feeds 09/03 * Patient received 35 units of basal insulin yesterday * BSGs trending upward today with increase in tube feeds * Continue q4H checks, tightened carb ratio to 6 * Increase lantus scale this pm PLAN FOR INPATIENT GLYCEMIC CONTROL: * Hold outpatient oral diabetes medications * Basal insulin * Lantus 45 units this morning * Lantus scale this PM * 15 units BSG <140 * 20 units BSG 140-180 * 25 units BSG >180 * Novolog q4h based on rate PLAN FOR DISCHARGE: * A1c 6.2% within goal, anticipate patient can continue home regimen after discharge as long as they are not experiencing frequent hypo/hyperglycemic events.
[2018-09-07] MEDS: INSULIN GLARGINE SOLOSTAR 100 UNITS/ML 3 ML PEN SC SCH (20:43)
[2018-09-08] MEDS: INSULIN ASPART 100 UNITS/ML 3 ML PEN SC SCH ×6 (00:26→23:13)
[2018-09-08] MEDS ORDERED: PROPOFOL IV EMULSION 10 MG/ML 100 ML VIAL IV ONE (01:11)
[2018-09-08] MEDS ORDERED: PROPOFOL 1,000 MG/100 ML VIAL IV SCH (01:15)
[2018-09-08] MEDS: PROPOFOL 1,000 MG/100 ML VIAL IV PRN ×3 (01:52→08:14)
[2018-09-08] MEDS ORDERED: NOREPINEPHRINE BIT INJ 8 MG in DEXTROSE 5% 500 ML IV PRN (02:45)
[2018-09-08 05:30] LABS: Hematocrit (blood only) 16.1 % (42-52); Hemoglobin 4.9 g/dL (14.0-18.0); Mean Corpuscular Hgb Conc 30.4 g/dL (32-36); Mean Corpuscular Volume 98.8 fL (80-100); Mean Platelet Volume 10.6 fL (7.4-10.4); Nucleated RBC # (auto) 0.49 K/uL (0-0); Nucleated RBC % (auto) 2.6 %; Platelet Count 218 K/uL (130-400); RDW Coefficient of Variation 17.3 % (11.5-14.5); RDW Standard Deviation 62.5 fL (36.4-46.3); Red Blood Count 1.63 M/uL (4.7-6.1); White Blood Count 19.21 K/uL (4.8-10.8)
[2018-09-08 05:32] LABS: ALC (manual) 0.69 K/uL (1.2-3.4); Lymphocytes # (manual) 0.69 K/uL (1.2-3.4); Lymphocytes % (manual) 3.6 %; Monocytes # (manual) 1.54 K/uL (0.11-0.59); Neutrophils % (manual) 88.4 %; Ovalocytes 1+; Polychromasia 1+
[2018-09-08 05:37] LABS: BUN Creatinine Ratio 34.6 (10-20); Calcium 7.9 mg/dl (8.5-10.1); Creatinine Clr Calc Pharmacy 36.6 ml/min; Est GFR (African American) 30.2; Magnesium 2.9 mg/dl (1.8-2.4); Potassium 5.1 mmol/L (3.5-5.1)
[2018-09-08] MEDS ORDERED: SODIUM CHLORIDE 0.9% 250 ML IV PRN ×5 (05:37→17:43)
[2018-09-08 05:59] LABS: Hematocrit (blood only) 16.3 % (42-52); Hemoglobin 4.9 g/dL (14.0-18.0); Mean Corpuscular Hgb Conc 30.1 g/dL (32-36); Mean Platelet Volume 10.8 fL (7.4-10.4); Nucleated RBC # (auto) 0.58 K/uL (0-0); Nucleated RBC % (auto) 2.8 %; Platelet Count 216 K/uL (130-400); RDW Coefficient of Variation 17.3 % (11.5-14.5); RDW Standard Deviation 61.1 fL (36.4-46.3); Red Blood Count 1.68 M/uL (4.7-6.1); White Blood Count 20.82 K/uL (4.8-10.8)
[2018-09-08 06:19] LABS: Basophils # (auto) 0.01 K/uL (0-0.2); Eosinophils # (auto) 0.01 K/uL (0-0.5); Immature Granulocytes # (auto) 0.35 K/uL (0.00-0.02); Immature Granulocytes % (auto) 1.7 %; Lymphocytes # (auto) 1.46 K/uL (1.2-3.4); Monocytes # (auto) 2.18 K/uL (0.11-0.59); Monocytes % (auto) 10.5 %; Neutrophils # (auto) 16.81 K/uL (1.4-6.5); Neutrophils % (auto) 80.8 %; Ovalocytes 1+; Polychromasia 1+; Toxic Vacuolation 1+
--- NOTE | 2018-09-08 07:11 | XRay Report ---
XR chest 1V portable CLINICAL HISTORY: intubation tube position COMPARISON STUDY: 09/07/2018 FINDINGS: Endotracheal tube 4.8 cm with the eugenio. Is a gastric tube remains inferior to the gastroe sophageal junction. Unchanging moderate cardiomegaly. Unchanging left hilar enlargement. Prominent bronchovascular markings in the lung bases also unchanged. IMPRESSION: 1. No change from the prior study. 2. Endotracheal tube 4.8 cm above the eugenio. 3. Nasogastric tube inferior to the gastroesophageal junction The above report was generated using voice recognition software. It may contain grammatical, syntax or spelling errors. Electronically signed by: Freddy Tompkins M.D. 09/08/2018 7:10 AM
--- NOTE | 2018-09-08 07:31 | Critical Care Progress Note ---
Date of Service September 08, 2018 Physical Exam Vital Signs (Past 24 Hours): Last Vital Signs Temp 37 C 09/08/18 04:00 Pulse 93 H 09/08/18 06:54 Resp 32 H 09/08/18 06:54 BP 81/39 L 09/08/18 06:00 Pulse Ox 100 09/08/18 06:54
[2018-09-08 07:37] LABS: Reticulocyte % 6.5 % (0.5-2.0); Reticulocytes # 0.11 10^6/uL (0.02-0.10)
--- NOTE | 2018-09-08 07:48 | Critical Care Progress Note ---
Date of Service September 08, 2018 Assessment & Plan (1) Admitted to intensive care unit: Reason Critically Ill: 77-year-old male with altered mental status and profound pneumonia requiring endotracheal intubation for further diagnostic evaluation. NEURO - * New acute subdural * CAM ICU: POSITIVE * Altered Mental Status: * Encephalopathic likely metabolic from sepsis/pneumonia * MRI and EEG negative * Repeat CT head noncontrast this morning * SEDATION: Propofol -This is a difficult position patient has large volume of distribution we have transition from benzos to propofol which is shorter acting and we are add low-dose propofol -Patient is not appropriate candidate for Precedex due to bradycardia * PAIN: PRN Fentanyl * h/o Depression/Anxiety - citalopram CARDIAC/VASCULAR - * Hypotension: Likely secondary to anemia * Trend troponins with H&H initial troponin negative * History of coronary artery disease, A. fib, hypertension, hyperlipidemia, and CHF: * Hold home antihypertensives as patient presented relatively hypotensive and requiring sedation medications with labile blood pressures. * Hold scheduled Lasix with acute kidney injury at this time. Can be restarted with concerns for volume overload. * A-fib - hold coumadin currently. IV heparin drip. * Nonsustained ventricular tachycardia: Resolved * EKG, prolonged QTC resolved. * Monitor on telemetry. RESPIRATORY - * Pneumonia: * Diffuse pneumonia with significant findings of mucopurulent material appreciated on bronchoscopy. Please see separate note. * Bronchial washings unremarkable * Covered with Rocephin day 6 of 7 and doxycycline day 5 of 7. -We will complete 7-day treatment course of effective therapy * Scheduled nebs. * Tapering IV steroids * Pulmonary toilet. * Currently intubated and sedated. * Right pleural effusion GI/NUTRITION - * Significant history of erosive gastritis, Domínguez's esophagus, and ulcerative colitis: * In the setting of worsening anemia, consider current flares of any/all. * Prophylaxis: Protonix * Diet: Tube feeds�Peptamen intense -Continuous peptamen intense 45: This will account for propofol infusion calories -Adding Prosource 1 packet twice daily which will provide additional 30 g protein RENAL/LYTES - * Acute kidney injury: Worsening - * h/o Prostate CA. * Ugarte in place - Strict I&Os. ENDO - * IDDM: * BSGs per unit protocol. ISS --> gtt per unit policy. * Solu-Medrol for severe community-acquired pneumonia: Completed * Hypothyroidism: * Continue Synthroid HEME - * Acute blood loss anemia * Right Retroperitoneal bleeding * Type and cross. 4 units to be transfused * Apparently heme-negative per fecal occult studies. * hold heparin infusion * Checking H&H every 6 hours * Check PT/INR, PTT, fibrinogen * protamine: 5mg IV based off a 4-hour infusion rate with discontinuation of heparin at 730 * Reviewed heparin infusion last dose change was on 09/05 decreased to 1100 units/h PTT relatively stable and decreasing. * 2.5 mg IV vitamin K INR 1.3 * General Surgery consult in case surgical intervention required ID - * Pneumonia: * Rocephin and doxycycline. 7-day treatment course: Completed * Blood cultures negative * BAL with cultures negative, Legionella not detected mycoplasma pending LINES/IV ACCESS - * PIVs x2 * ETT * Ugarte DVT PROPHYLAXIS - * SCDs, heparin drip CODE STATUS: Full I have personally spent 95 minutes of critical care time in the direct management of this patient. This is a life/limb threatening event. This includes time spent evaluating patient, direct bedside care, chart review, placing orders, interpretation of diagnostic studies, discussion with consultants, patient, and/or family members regarding treatment decisions, as well as other required patient management activities. This time is exclusive of all separately billable procedures, and teaching time and separate from and in addition to any other critical care service time. Clinical Update 19:20. Discussed with family: and son and [id number] multisystem organ failure and acute kidney failure persistent hypotension on supra therapeutic doses of vasoactive medications. This is a nonsurvivable injury the patient is in end-stage terminal condition without meaningful chance of recovery. Accordingly we will not do CPR in event of cardiac arrest. We will continue with current level of treatment as the patient's other son is attempting to arrive at bedside and his flatus estimated to arrive at approximately 3 hours from now. Subjective Overnight I was notified of critical anemia by nursing staff at 0530. I ordered a type and screen of 4 units and transfuse 2 units, troponins and EKG. EKG revealed atrial fibrillation ventricular rate of [address] changes. I was notified of worsening hypotension, started on vasoactive medication and ordered additional 2 units of blood to be transfused at 0717. First packed RBCs available and hung at 0745. Physical Exam Vital Signs (Past 24 Hours): Last Vital Signs Temp 36.4 C L 09/08/18 07:39 Pulse 105 H 09/08/18 07:39 Resp 33 H 09/08/18 07:39 BP 81/26 L 09/08/18 07:39 Pulse Ox 100 09/08/18 07:39 General: CAM positive, obviously encephalopathic versus ICU delirium Skin: Warm, dry, Head: Atraumatic Ears, nose, mouth and throat: airway obscured by endotracheal tube Cardiovascular: decreased peripheral perfusion Respiratory: Tachypnea Gastrointestinal: Non distended Musculoskeletal: No deformity Results & Data ECG Additional Comments: Repeat EKG at 0941 reveals atrial fibrillation with rapid ventricular response at 105 with a right axis deviation no ST segment abnormalities. Abnormal EKG. When compared to EKG dated September 08, 2005 21 the ventricular rate has now increased.
--- NOTE | 2018-09-08 09:20 | CT Scan Report ---
HEAD CT NONCONTRAST CT DOSE: 1074.96 mGy.cm HISTORY: Loss of consciousness. TECHNIQUE: Multiaxial CT images of the head were performed without the use of intravenous contrast. A utomated exposure control was utilized for this study. A dose lowering technique was utilized adheri ng to the principles of ALARA. Comparison: Head CT 09/02/2018. Findings: The paranasal sinuses and mastoid air cells are clear. Mild motion artifact. Multifocal sma ll areas of extra-axial hemorrhage seen primarily at the high convexities and left frontal lobe. Dinorah nant hemorrhage measures 17 x 9 mm and is seen on image 19. These likely represent small subdural hem atomas. No significant mass effect or midline shift at this time. Atrophy and microvascular ischemic changes are noted. Impression: Multiple small foci of extra-axial hemorrhage seen primarily at the high convexities and left frontal lobe consistent with subdural hematomas. These do not result in significant mass effect or midline s hift at this time. [address] follow-up is recommended to evaluate for stability. These findings were discussed with Dr. Gao at 9:22 AM on 09/08/2018. Electronically signed by: Gallo Johansen M.D. 09/08/2018 9:24 AM
--- NOTE | 2018-09-08 09:28 | CT Scan Report ---
CT SCAN OF THE CHEST WITHOUT IV CONTRAST CLINICAL HISTORY: Anemia. COMPARISON STUDY: Chest CT scans dated 09/02/2018 and 08/17/2011. Chest x-ray dated 09/08/2018. TECHNIQUE: CT scan of the thorax was performed from the thoracic inlet to the upper abdomen. Images are reviewed in the axial, sagittal, and coronal planes. IV contrast was not administered for this ex amination as per the referring clinician. A dose lowering technique was utilized adhering to the jojo ncilisa of MALVIN. The examination is significantly compromised by motion artifact, as was by streak a rtifact from the arms which could not be elevated above the chest. CT DOSE: 3070.57 mGy.cm FINDINGS: Thyroid: Imaged portions of the thyroid gland are normal in size and attenuation. Thoracic aorta: There is atherosclerotic calcification of the thoracic aorta, which is normal in lynn nurys and demonstrates bovine variant arch anatomy. Heart: The heart is enlarged and without pericardial effusion. The pericardium is densely calcified. The coronary arteries and mitral annulus are also calcified. The main pulmonary arteries are markedly dilated. The left main pulmonary artery measures up to 5.8 cm, and the right main pulmonary artery m easures up to 3.5 cm. Lungs and pleural spaces: Evaluation of the lung parenchyma is degraded by motion artifact. An endotr acheal tube terminates above the eugenio. There are small to moderate right and trace left pleural eff usions with associated consolidation. Mediastinum: There is no mediastinal lymphadenopathy. Irma: Not well assessed without IV contrast. Axillae: There is no axillary lymphadenopathy. Upper abdomen: There is a small hiatal hernia. An enteric tube terminates in the stomach. Right-sided retroperitoneal hemorrhage is partially visualized. There is a small volume of perisplenic ascites. The liver is cirrhotic in morphology. The kidneys are atrophic with a 2.6 cm cyst noted in the right upper pole.. Skeletal structures: The skeletal structures are osteopenic. Degenerative change is noted in the shou lders and thoracic spine. No lytic or blastic bony lesions are seen. IMPRESSION: 1. Streak and motion compromised examination. 2. Small to moderate right and trace left pleural effusions with associated consolidation. This likel y represents atelectasis. Clinical correlation will be required. 3. Cardiomegaly with evidence of pulmonary artery hypertension. 4. Pericardial calcification is unchanged from prior examinations. 5. Right-sided retroperitoneal hemorrhage is partially visualized. 6. Cirrhotic liver morphology and perisplenic ascites. 7. Additional findings as above. Electronically signed by: Tong Guerra M.D. 09/08/2018 9:27 AM
[2018-09-08] MEDS ORDERED: DEXTROSE 5% IV ONE (09:30)
[2018-09-08] MEDS ORDERED: PROTAMINE SULFATE IV ONE (09:30)
--- NOTE | 2018-09-08 09:41 | CT Scan Report ---
CT abd pelvis wo con CT DOSE: HISTORY: Hemorrhage r/o retro bleed TECHNIQUE: Multiaxial CT images of the abdomen and pelvis were performed without contrast. A dose lo wering technique was utilized adhering to the principles of ALARA. COMPARISON STUDY: 09/02/2017 FINDINGS: Slight increase in volume of right pleural effusion. Unchanging left basilar atelectatic ch irish combined with pleural thickening. Stable moderate cardiomegaly with pericardial calcification. T here is a large retroperitoneal hemorrhage extending primarily from the right flank and displacing th e right kidney anterior fashion. There is extension to the right lower retroperitoneal region with ev idence for anterior hemorrhage medially inferior to the pancreas. Dimensions of the largest right retroperitoneal collection extending 15 cm in terms transaxial measur ement with central hemorrhagic components measuring up to 12 cm. Left kidney as well as right kidney are negative for hydronephrosis despite the displacement describe d previously. Atherosclerotic change abdominal aorta as well as pelvic arterial vasculature. Ugarte ca theter within a decompressed bladder. IMPRESSION: Large retroperitoneal hemorrhage, with dimensions as noted. The above report was generated using voice recognition software. It may contain grammatical, syntax or spelling errors. Electronically signed by: Freddy Tompkins M.D. 09/08/2018 9:39 AM
[2018-09-08] MEDS ORDERED: PHYTONADIONE 2.5 MG in SODIUM CHLORIDE 0.9% 50 ML IV ONE (09:45)
[2018-09-08] MEDS: INSULIN GLARGINE SOLOSTAR 100 UNITS/ML 3 ML PEN SC SCH (09:48)
[2018-09-08] MEDS: ASPIRIN 81 MG CHEW PO SCH (09:52)
[2018-09-08] MEDS: CITALOPRAM 20 MG TAB PO SCH (09:52)
[2018-09-08] MEDS: MIDAZOLAM HCL 125 MG/250 ML BAG IV SCH (09:59)
[2018-09-08] MEDS: LEVOTHYROXINE SODIUM 12.5 MCG in SYRINGE 0 ML IV SCH (10:16)
[2018-09-08] MEDS: PANTOprazole 40 MG in SYRINGE 0 ML IV SCH (10:20)
[2018-09-08] MEDS: ROSUVASTATIN CALCIUM 20 MG TAB PO SCH (10:20)
[2018-09-08 10:26] LABS: Fibrinogen 186 mg/dl (184-400); INR 1.8 (0.9-1.1); Partial Thromboplastin Ratio 1.2; Partial Thromboplastin Time 32.4 Seconds (21.0-31.0); Prothrombin Time 17.4 Seconds (9.0-12.0)
[2018-09-08] MEDS ORDERED: CALCIUM CHLORIDE 10% 10 ML SYR IV ONE (10:28)
[2018-09-08 10:29] LABS: Hematocrit (blood only) 27.4 % (42-52)
[2018-09-08] MEDS ORDERED: CALCIUM GLUCONATE 10% 2,000 MG in SODIUM CHLORIDE 0.9% 50 ML IV ONE ×2 (10:30→10:45)
[2018-09-08] MEDS: VASOPRESSIN 20 UNITS in 0.9 % SODIUM CHLORIDE 100 ML IV SCH ×2 (10:35→18:09)
[2018-09-08 10:48] LABS: iSTAT Allen Test Pass; iSTAT Arterial Bld Gas O2 Sat 99; iSTAT FiO2 30 %; iSTAT Hematocrit 23 % (42-52); iSTAT Hemoglobin 7.8 g/dl (14.0-18.0); iSTAT Potassium 5.7 mEq/L (3.3-5.0); iSTAT Site R Radial; iSTAT Sodium 138 mEq/L (135-144)
[2018-09-08] MEDS ORDERED: PIPERACILLIN/TAZOBACTAM 4.5 GM in DEXTROSE 5% 100 ML IV ONE (11:00)
[2018-09-08 12:06] LABS: iSTAT Art Bld Gas pH Corrected 7.276 (7.35-7.45); iSTAT Arterial Blood Gas pH 7.28 (7.35-7.45)
[2018-09-08 12:07] LABS: iSTAT Art Bld Gas pCO2 Correct 32 mmHg (35-46); iSTAT Arterial Blood Gas HCO3 15 meg/L (19-24); iSTAT Arterial Blood Gas pCO2 32 mmHg (35-46); iSTAT Carbon Dioxide 16 mEq/l (24-31)
--- NOTE | 2018-09-08 12:12 | Surgery Consultation ---
Date of Consultation September 08, 2018 Assessment & Plan (1) Retroperitoneal bleeding: Heparin was discontinued and had already been transfused. No surgical intervention planned at this time. Will follow. History of Present Illness Attending Physician: Saad Faith History of Present Illness 77 y/o male transferred from [facility] for mental status changes and 3 g drop in Hgb on 09/02. Once admitted to ICU he was intubated and has remained so for the past week for profound pneumonia, also h/o COPD. Hgb on admission was 9. Was on coumadin for A-fib, has now been on heparin gtt. Overnight/this AM he became hypotensive and Hgb dropped to 5. CT shows 15 cm retroperitoneal hematoma. Head CT also shows several small subdural hematomas. Abdominal CT on 09/02 was negative. Was transfused 4 units PRBCs this AM, remains on vasopressin. PTT has been around 50 the past 3 days. Allergies Allergy/AdvReac Type Severity Reaction Status Date / Time furosemide Allergy Intermediate EFFECTED Verified 08/28/11 13:55 RENAL FUNCTION naproxen Allergy Unknown they had Unverified 05/04/14 14:41 to take me o it I don't remember why Home Medications Home Medications Medication Instructions Recorded Confirmed Type Bimatoprost Oph (Lumigan 0.03% Oph) 1 drp OPB HS #0 07/24/11 History Aspirin Enteric Coated (Ecotrin Or 81 mg PO DAILY #0 08/13/11 History Generic *) Latanoprost 0.005% Oph (Xalatan 1 drp OPB DAILY #0 12/19/11 History 0.005% Oph) TRAMADOL HCL (ULTRAM) 50 mg PO TID #0 tab 12/19/11 History Fish Oil (OMEGA-3) 1 cap PO DAILY #0 oil 03/06/12 History Citalopram (Citalopram 20 mg PO DAILY #0 09/08/13 History Hydrobromide) Nateglinide (Starlix) 60 mg PO BID #0 tab 09/08/13 History ROSUVASTATIN CALCIUM (CRESTOR) 20 mg PO DAILY #0 tab 09/08/13 History WARFARIN SODIUM (COUMADIN) 1 tab PO DAILY 90 Days #90 tab 09/08/15 History Insulin Glargine (Lantus) 34 SC QAM #0 vial 09/06/16 History Patient History Medical History Atrial fibrillation Chronic kidney disease Chronic obstructive pulmonary disease Congestive heart failure Diabetes mellitus, type 2 Hypertension Social History Communication Ability: Unable Beliefs That Will Affect Care: None Current Living Situation: Spouse Smoking Status: Current every day smoker Review of Systems not obtainable Physical Exam Vital Signs (Past 24 Hours): Last Vital Signs Temp 36.4 C L 09/08/18 08:25 Pulse 111 H 09/08/18 10:30 Resp 36 H 09/08/18 10:30 BP 96/52 L 09/08/18 08:45 Pulse Ox 98 09/08/18 10:30 Constitutional: + mechanically ventilated Cardiovascular: Rate/Rhythm: + tachycardic Gastrointestinal (Abdomen): Inspection/Auscultation: + abdominal surgical scar (no obvious); abdomen not distended Percussion/Palpation: abdomen soft Skin: + ecchymosis (right arm)
--- NOTE | 2018-09-08 13:01 | Ultrasound Report ---
US venous doppler LE BI HISTORY: Pain. Edema. r/o DVT COMPARISON STUDY: None. FINDINGS: There is normal compressibility, flow, and augmentation within the bilateral lower extremit y deep venous systems. IMPRESSION: No DVT within the right or left lower extremity. The above report was generated using voice recognition software. It may contain grammatical, syntax or spelling errors. Electronically signed by: Freddy Tompkins M.D. 09/08/2018 1:00 PM
[2018-09-08] MEDS: DOXYCYCLINE HYCLATE 100 MG in DEXTROSE 5% 100 ML IV SCH (13:23)
[2018-09-08] MEDS: DEXTROSE 5% IV PRN ×2 (13:23→21:50)
[2018-09-08] MEDS: NOREPINEPHRINE BIT IV PRN ×2 (13:23→21:50)
[2018-09-08 13:24] LABS: Hemoglobin 8.3 g/dL (14.0-18.0)
[2018-09-08 13:27] LABS: Albumin Level 1.8 gm/dl (3.4-5.0); BUN Creatinine Ratio 29.1 (10-20); Bilirubin Direct 0.5 mg/dl (0-0.2); Calcium 8.1 mg/dl (8.5-10.1); Creatinine Clr Calc Pharmacy 28.7 ml/min; Est GFR (African American) 23.6; Est GFR (Non-African American) 20.3; Potassium 5.7 mmol/L (3.5-5.1)
[2018-09-08 13:29] LABS: Bilirubin,Total 1.2 mg/dl (0.2-1)
[2018-09-08 13:30] LABS: Total Protein 4.2 gm/dl (6.4-8.2)
[2018-09-08] MEDS: DAPTOmycin 575 MG in SYRINGE 0 ML IV SCH (13:41)
[2018-09-08] MEDS ORDERED: SODIUM CHLORIDE 0.9% 1000ML 500 ML IV ONE ×2 (13:50→15:32)
[2018-09-08] MEDS ORDERED: MODERATE STRESS LEVEL ONE (14:04)
[2018-09-08] MEDS ORDERED: INSULIN PROTOCOL GOAL RANGE ONE (14:04)
--- NOTE | 2018-09-08 14:13 | Pharmacy Report ---
Pharmacy Glycemic Short Note 2 - Date of Service September 08, 2018 - Glycemic Short BSG Results (Last 24 hours): 09/07/18 09/07/18 09/07/18 14:21 15:52 20:40 Glucose POC Glucose 90 120 H 194 H 09/08/18 09/08/18 09/08/18 00:13 04:43 04:51 Glucose 212 H POC Glucose 177 H 221 H 09/08/18 09/08/18 09/08/18 09:35 09:36 11:39 Glucose Cancelled POC Glucose 245 H 236 H 09/08/18 09/08/18 09/08/18 11:41 11:42 11:44 Glucose POC Glucose > 600 H* > 600 H* 267 H 09/08/18 13:05 Glucose 225 H POC Glucose OUTPATIENT ANTIDIABETIC REGIMEN: * Basaglar 34 units qam + 30 units qpm * Januvia ASSESSMENT: 09/08 * Multiple new stressors have surfaced over the past 24 hrs: now requiring blood x-fusion, two pressors for hypotension, new ABX * Glycemic control has deteriorated given critical illness * BSGs > 180 at this time, will restart IV insulin drip as this is the gold- standard for glycemic control with ongoing severe stressors and unpredictable SQ absorption. IV insulin may also help with hyperkalemia in the setting of anuria. PLAN FOR INPATIENT GLYCEMIC CONTROL: * Hold outpatient oral diabetes medications * Initiate IV insulin drip, 3 units IV bolus then begin at 3.1 units/hr and titrate per protocol to goal 120-180mg/dL PLAN FOR DISCHARGE: * A1c 6.2% within goal, anticipate patient can continue home regimen after discharge as long as they are not experiencing frequent hypo/hyperglycemic events.
[2018-09-08] MEDS: INSULIN REGULAR 250 UNITS in SODIUM CHLORIDE 0.9% 247.5 ML IV SCH (14:25)
[2018-09-08] MEDS ORDERED: PHENYLEPHRINE HCL 20 MG in DEXTROSE 5% 500 ML IV PRN (16:17)
[2018-09-08] MEDS ORDERED: EPINEPHrine 2 MG in DEXTROSE 5% 250 ML IV SCH (16:30)
--- NOTE | 2018-09-08 16:36 | Procedure Note ---
Procedure Note Date of Service September 08, 2018 Note Procedure Name: Right IJ Triple Lumen Catheter Insertion Time of Procedure: 14:30 Procedure Name: Central venous catheter placement Date of Service: 09/08/2018 Site: Right internal jugular Consent: Obtained in writing by Dr. Levy prior to the procedure Indication: Poor venous access, need for medication administration Narritive: A time out was performed. Using bedside ultra sound, the right IJ vein was identified as well as the right carotid artery. Images were obtained and saved to the PACS system. Using strict sterile technique, the ultra sound was used to identify the right internal juglar vein and 6 Mls of 1% lidocaine was used to anesthiatize the area. With the IJ identified, a finder needle was advanced using negative pressure until a flash was observed in the syringe. We were unable to pass the wire so second attempt was made. This time the carotid artery was accidentally accessed. The finder needle was removed and direct pressure was placed over the carotid artery for [address] Levy then attempted access as well and was unable to access the vein with 2 attempts. Another attempt was made in this time the vein was accessed and the guidewire was easily advanced into the vein and the finder needle withdrawn. A dilator was then used and advanced without an incision. The dilator was then removed and a triple lumen catheter was easily placed to 16cm. There was no significant ectopy on the monitor and no hemodynamic change. The guidewire was easily removed and claves were placed on each hub. There was adequate draw and flush with each of the three ports. A chlorhexadine disc was placed at the insertion site of the catheter. The proximal hub was then secured with two sutures. The distal hub was secured with a STATLok device. A sterile dressing was placed over the catheter. Complications: None Blood loss: 10 mls The patient tolerated the procedure well. A post procedure CXR was obtained and showed adequate placement of the catheter and no evidence of pneumothorax. At the completion of the procedure, Dr. Levy was updated.
--- NOTE | 2018-09-08 16:41 | XRay Report ---
XR chest 1V portable CLINICAL HISTORY: 77 years-old Male presenting with s/p line placement. TECHNIQUE: Portable supine AP view of the chest was obtained. COMPARISON: 09/08/2018 at 7:04 AM. FINDINGS: Interval placement of a right internal jugular central venous catheter, which terminates in the upper SVC. Endotracheal tube remains in place terminating over 6 in meters from the eugenio. Nasogastric tu be descends to at least the level of the diaphragm, terminus not visualized. Prominence of the left hilar region correlates with the markedly enlarged left main pulmonary artery. Cardiac silhouette moderately enlarged. Right greater than left density of the lungs correlates with the moderate right and trace left pleural effusions. No pneumothorax. Osteopenia. Degenerative reynolds es of the spine. IMPRESSION: 1. Appropriately positioned right internal jugular central venous catheter. No pneumothorax. 2. Appropriate positioned tubes though the tip of the nasogastric tube is not included within the fi eld-of-view. 3. Pulmonary artery hypertension. 4. Cardiomegaly. 5. Layering pleural effusions. Electronically signed by: Eliezer Kapoor M.D. 09/08/2018 4:40 PM
[2018-09-08] MEDS ORDERED: SODIUM BICARB 8.4% INJ 50 MEQ/50 ML SYR ONE (16:49)
[2018-09-08 16:58] LABS: Mycoplasma pneumoniae Ab, IgG 3.7 (<=0.90)
[2018-09-08 17:07] LABS: Fibrinogen 150 mg/dl (184-400); INR 2.4 (0.9-1.1); Prothrombin Time 23.3 Seconds (9.0-12.0)
[2018-09-08 17:09] LABS: Partial Thromboplastin Time 52.9 Seconds (21.0-31.0)
[2018-09-08 17:29] LABS: iSTAT Arterial Blood Gas HCO3 10 meg/L (19-24); iSTAT Arterial Blood Gas pCO2 33 mmHg (35-46); iSTAT Arterial Blood Gas pH 7.07 (7.35-7.45); iSTAT Carbon Dioxide 11 mEq/l (24-31); iSTAT FiO2 100 %; iSTAT Site L Radial
[2018-09-08 17:36] LABS: Hematocrit (blood only) 20.5 % (42-52); Hemoglobin 6.6 g/dL (14.0-18.0)
[2018-09-08 17:50] LABS: BUN Creatinine Ratio 26.3 (10-20); Calcium 7.5 mg/dl (8.5-10.1); Creatinine Clr Calc Pharmacy 26.4 ml/min; Est GFR (African American) 21.3; Est GFR (Non-African American) 18.4; Potassium 6.1 mmol/L (3.5-5.1); Troponin I 0.348 ng/ml (0-0.045)
[2018-09-08] MEDS: SODIUM BICARBONATE 8.4% 150 MEQ in DEXTROSE 5% 1,000 ML IV SCH (18:01)
--- NOTE | 2018-09-08 18:39 | Critical Care Progress Note ---
Date of Service September 08, 2018 Assessment & Plan (1) Retroperitoneal bleeding: (2) HCAP (healthcare-associated pneumonia): (3) Acute metabolic encephalopathy: (4) CKD (chronic kidney disease), stage III: (5) Admitted to intensive care unit: (6) Acute respiratory failure with hypoxia: The patient overall is doing very poorly. He is also acidotic. Currently he is requiring full ventilatory support and he is on 100% FiO2. His ABG revealed acute metabolic acidosis. The patient was given 2 Amps of bicarb and was started on bicarb drip. He also remains hypotensive though he is on 3 pressors including Levophed vasopressin and epinephrine. Still he remains hypotensive. Also his renal function is deteriorating and his urine output currently is 0. He is also hyperkalemic. The patient is already on IV insulin as well as bicarb and he was also given a dose of calcium gluconate and he is hyperglycemic. His H&H has also been going down. His PT/INR is also elevated to 2.2. We have given him another 2 units of packed red blood cell transfusion and 2 units of FFP. He is also going to get 1 dose of vitamin K. Overall the patient is doing very poorly. He is going into multiorgan failure. We had a long discussion with the family about his current medical condition and plan of care and at this stage they would like us to do everything including CPR and shock. I have spent an extra greater than 35 minutes of critical care time. Physical Exam Vital Signs (Past 24 Hours): Last Vital Signs Temp 37.0 C 09/08/18 18:13 Pulse 112 H 09/08/18 18:13 Resp 18 09/08/18 18:13 BP 67/37 L 09/08/18 18:13 Pulse Ox 90 09/08/18 18:13 Results & Data Diagnostic Findings Abnormal lab results 09/03/18 09/07/18 09/08/18 Range/Units 19:15 20:40 00:13 WBC (4.8-10.8) K/uL RBC (4.7-6.1) M/uL Hgb (14.0-18.0) g/dL POC Hgb (14.0-18.0) g/dl Hct (42-52) % POC Hct (42-52) % MCHC (32-36) g/dL RDW Std Deviation (36.4-46.3) fL RDW Coeff of Nahed (11.5-14.5) % MPV (7.4-10.4) fL Reticulocyte % (Auto) (0.5-2.0) % Immature Gran # (Auto) (0.00-0.02) K/uL Neut # (Auto) (1.4-6.5) K/uL [place] # (Auto) (0.11-0.59) K/uL Reticulocyte # (0.02-0.10) 10^6/uL Absolute Nucleated RBC (0-0) K/uL Neutrophils # (Manual) (1.4-6.5) K/uL Total Absolute Neuts (1.4-6.5) K/uL Lymphocytes # (Manual) (1.2-3.4) K/uL Total Abs Lymphocytes (1.2-3.4) K/uL Monocytes # (Manual) (0.11-0.59) K/uL PT (9.0-12.0) Seconds INR (0.9-1.1) APTT (21.0-31.0) Seconds Fibrinogen (184-400) mg/dl POC pH 7.07 (7.35-7.45) POC pCO2 33 (35-46) mmHg POC pO2 362 (80-95) mmHg POC HCO3 9.6 (19-24) maria d/L POC Total CO2 (24-31) mEq/l POC Base Excess -20 (-9-1.8) maria d/L ABG pH (Temp Correct) (7.35-7.45) ABG pCO2 (Temp Corrct (35-46) mmHg POC ABG O2 Sat (90-95) % POC Potassium (3.3-5.0) mEq/L Potassium (3.5-5.1) mmol/L Chloride (98-107) mmol/L Carbon Dioxide (21-32) mmol/L Anion Gap (3-11) BUN (7-18) mg/dl Creatinine (0.6-1.4) mg/dl BUN/Creatinine Ratio (10-20) Glucose (70-99) mg/dl POC Glucose 194 H 177 H (70-99) POC Glucose (other) (70-99) mg/dl Lactate (0.4-2.0) mmol/L Calcium (8.5-10.1) mg/dl Phosphorus (2.5-4.9) mg/dl Magnesium (1.8-2.4) mg/dl Total Bilirubin (0.2-1) mg/dl Direct Bilirubin (0-0.2) mg/dl AST (15-37) U/L ALT (12-78) U/L Troponin I (0-0.045) ng/ml Total Protein (6.4-8.2) gm/dl Albumin (3.4-5.0) gm/dl Mycoplasma pneumon IgG 3.70 H (<=0.90) Crossmatch 09/08/18 09/08/18 09/08/18 Range/Units 04:43 04:43 04:51 WBC 19.21 H (4.8-10.8) K/uL RBC 1.63 L (4.7-6.1) M/uL Hgb 4.9 L* (14.0-18.0) g/dL POC Hgb (14.0-18.0) g/dl Hct 16.1 L* (42-52) % POC Hct (42-52) % MCHC 30.4 L (32-36) g/dL RDW Std Deviation 62.5 H (36.4-46.3) fL RDW Coeff of Nahed 17.3 H (11.5-14.5) % MPV 10.6 H (7.4-10.4) fL Reticulocyte % (Auto) (0.5-2.0) % Immature Gran # (Auto) (0.00-0.02) K/uL Neut # (Auto) (1.4-6.5) K/uL [place] # (Auto) (0.11-0.59) K/uL Reticulocyte # (0.02-0.10) 10^6/uL Absolute Nucleated RBC 0.49 H (0-0) K/uL Neutrophils # (Manual) 16.98 H (1.4-6.5) K/uL Total Absolute Neuts 16.98 H (1.4-6.5) K/uL Lymphocytes # (Manual) 0.69 L (1.2-3.4) K/uL Total Abs Lymphocytes 0.69 L (1.2-3.4) K/uL Monocytes # (Manual) 1.54 H (0.11-0.59) K/uL PT (9.0-12.0) Seconds INR (0.9-1.1) APTT (21.0-31.0) Seconds Fibrinogen (184-400) mg/dl POC pH (7.35-7.45) POC pCO2 (35-46) mmHg POC pO2 (80-95) mmHg POC HCO3 (19-24) maria d/L POC Total CO2 (24-31) mEq/l POC Base Excess (-9-1.8) maria d/L ABG pH (Temp Correct) (7.35-7.45) ABG pCO2 (Temp Corrct (35-46) mmHg POC ABG O2 Sat (90-95) % POC Potassium (3.3-5.0) mEq/L Potassium (3.5-5.1) mmol/L Chloride 111 H (98-107) mmol/L Carbon Dioxide (21-32) mmol/L Anion Gap (3-11) BUN 79 H (7-18) mg/dl Creatinine 2.30 H (0.6-1.4) mg/dl BUN/Creatinine Ratio 34.6 H (10-20) Glucose 212 H (70-99) mg/dl POC Glucose 221 H (70-99) POC Glucose (other) (70-99) mg/dl Lactate (0.4-2.0) mmol/L Calcium 7.9 L (8.5-10.1) mg/dl Phosphorus 5.0 H (2.5-4.9) mg/dl Magnesium 2.9 H (1.8-2.4) mg/dl Total Bilirubin (0.2-1) mg/dl Direct Bilirubin (0-0.2) mg/dl AST (15-37) U/L ALT (12-78) U/L Troponin I (0-0.045) ng/ml Total Protein (6.4-8.2) gm/dl Albumin (3.4-5.0) gm/dl Mycoplasma pneumon IgG (<=0.90) Crossmatch 09/08/18 09/08/18 09/08/18 Range/Units 05:42 05:43 09:35 WBC 20.82 H (4.8-10.8) K/uL RBC 1.68 L (4.7-6.1) M/uL Hgb 4.9 L* (14.0-18.0) g/dL POC Hgb (14.0-18.0) g/dl Hct 16.3 L* (42-52) % POC Hct (42-52) % MCHC 30.1 L (32-36) g/dL RDW Std Deviation 61.1 H (36.4-46.3) fL RDW Coeff of Nahed 17.3 H (11.5-14.5) % MPV 10.8 H (7.4-10.4) fL Reticulocyte % (Auto) 6.5 H (0.5-2.0) % Immature Gran # (Auto) 0.35 H (0.00-0.02) K/uL Neut # (Auto) 16.81 H (1.4-6.5) K/uL [place] # (Auto) 2.18 H (0.11-0.59) K/uL Reticulocyte # 0.11 H (0.02-0.10) 10^6/uL Absolute Nucleated RBC 0.58 H (0-0) K/uL Neutrophils # (Manual) (1.4-6.5) K/uL Total Absolute Neuts (1.4-6.5) K/uL Lymphocytes # (Manual) (1.2-3.4) K/uL Total Abs Lymphocytes (1.2-3.4) K/uL Monocytes # (Manual) (0.11-0.59) K/uL PT (9.0-12.0) Seconds INR (0.9-1.1) APTT (21.0-31.0) Seconds Fibrinogen (184-400) mg/dl POC pH (7.35-7.45) POC pCO2 (35-46) mmHg POC pO2 (80-95) mmHg POC HCO3 (19-24) maria d/L POC Total CO2 (24-31) mEq/l POC Base Excess (-9-1.8) maria d/L ABG pH (Temp Correct) (7.35-7.45) ABG pCO2 (Temp Corrct (35-46) mmHg POC ABG O2 Sat (90-95) % POC Potassium (3.3-5.0) mEq/L Potassium (3.5-5.1) mmol/L Chloride (98-107) mmol/L Carbon Dioxide (21-32) mmol/L Anion Gap (3-11) BUN (7-18) mg/dl Creatinine (0.6-1.4) mg/dl BUN/Creatinine Ratio (10-20) Glucose (70-99) mg/dl POC Glucose 245 H (70-99) POC Glucose (other) (70-99) mg/dl Lactate (0.4-2.0) mmol/L Calcium (8.5-10.1) mg/dl Phosphorus (2.5-4.9) mg/dl Magnesium (1.8-2.4) mg/dl Total Bilirubin (0.2-1) mg/dl Direct Bilirubin (0-0.2) mg/dl AST (15-37) U/L ALT (12-78) U/L Troponin I (0-0.045) ng/ml Total Protein (6.4-8.2) gm/dl Albumin (3.4-5.0) gm/dl Mycoplasma pneumon IgG (<=0.90) Crossmatch See Detail 09/08/18 09/08/18 09/08/18 Range/Units 09:36 09:58 09:58 WBC (4.8-10.8) K/uL RBC (4.7-6.1) M/uL Hgb 9.0 L D (14.0-18.0) g/dL POC Hgb (14.0-18.0) g/dl Hct 27.4 L (42-52) % POC Hct (42-52) % MCHC (32-36) g/dL RDW Std Deviation (36.4-46.3) fL RDW Coeff of Nahed (11.5-14.5) % MPV (7.4-10.4) fL Reticulocyte % (Auto) (0.5-2.0) % Immature Gran # (Auto) (0.00-0.02) K/uL Neut # (Auto) (1.4-6.5) K/uL [place] # (Auto) (0.11-0.59) K/uL Reticulocyte # (0.02-0.10) 10^6/uL Absolute Nucleated RBC (0-0) K/uL Neutrophils # (Manual) (1.4-6.5) K/uL Total Absolute Neuts (1.4-6.5) K/uL Lymphocytes # (Manual) (1.2-3.4) K/uL Total Abs Lymphocytes (1.2-3.4) K/uL Monocytes # (Manual) (0.11-0.59) K/uL PT 17.4 H (9.0-12.0) Seconds INR 1.8 H (0.9-1.1) APTT 32.4 H (21.0-31.0) Seconds Fibrinogen (184-400) mg/dl POC pH (7.35-7.45) POC pCO2 (35-46) mmHg POC pO2 (80-95) mmHg POC HCO3 (19-24) maria d/L POC Total CO2 (24-31) mEq/l POC Base Excess (-9-1.8) maria d/L ABG pH (Temp Correct) (7.35-7.45) ABG pCO2 (Temp Corrct (35-46) mmHg POC ABG O2 Sat (90-95) % POC Potassium (3.3-5.0) mEq/L Potassium (3.5-5.1) mmol/L Chloride (98-107) mmol/L Carbon Dioxide (21-32) mmol/L Anion Gap (3-11) BUN (7-18) mg/dl Creatinine (0.6-1.4) mg/dl BUN/Creatinine Ratio (10-20) Glucose (70-99) mg/dl POC Glucose 236 H (70-99) POC Glucose (other) (70-99) mg/dl Lactate (0.4-2.0) mmol/L Calcium (8.5-10.1) mg/dl Phosphorus (2.5-4.9) mg/dl Magnesium (1.8-2.4) mg/dl Total Bilirubin (0.2-1) mg/dl Direct Bilirubin (0-0.2) mg/dl AST (15-37) U/L ALT (12-78) U/L Troponin I (0-0.045) ng/ml Total Protein (6.4-8.2) gm/dl Albumin (3.4-5.0) gm/dl Mycoplasma pneumon IgG (<=0.90) Crossmatch 09/08/18 09/08/18 09/08/18 Range/Units 09:58 10:35 11:41 WBC (4.8-10.8) K/uL RBC (4.7-6.1) M/uL Hgb (14.0-18.0) g/dL POC Hgb 7.8 L (14.0-18.0) g/dl Hct (42-52) % POC Hct 23 L (42-52) % MCHC (32-36) g/dL RDW Std Deviation (36.4-46.3) fL RDW Coeff of Nahed (11.5-14.5) % MPV (7.4-10.4) fL Reticulocyte % (Auto) (0.5-2.0) % Immature Gran # (Auto) (0.00-0.02) K/uL Neut # (Auto) (1.4-6.5) K/uL [place] # (Auto) (0.11-0.59) K/uL Reticulocyte # (0.02-0.10) 10^6/uL Absolute Nucleated RBC (0-0) K/uL Neutrophils # (Manual) (1.4-6.5) K/uL Total Absolute Neuts (1.4-6.5) K/uL Lymphocytes # (Manual) (1.2-3.4) K/uL Total Abs Lymphocytes (1.2-3.4) K/uL Monocytes # (Manual) (0.11-0.59) K/uL PT (9.0-12.0) Seconds INR (0.9-1.1) APTT (21.0-31.0) Seconds Fibrinogen (184-400) mg/dl POC pH 7.28 L (7.35-7.45) POC pCO2 32 L (35-46) mmHg POC pO2 155 H (80-95) mmHg POC HCO3 15 L (19-24) maria d/L POC Total CO2 16 L (24-31) mEq/l POC Base Excess -12.0 L (-9-1.8) maria d/L ABG pH (Temp Correct) 7.276 L (7.35-7.45) ABG pCO2 (Temp Corrct 32 L (35-46) mmHg POC ABG O2 Sat (90-95) % POC Potassium 5.7 H (3.3-5.0) mEq/L Potassium (3.5-5.1) mmol/L Chloride (98-107) mmol/L Carbon Dioxide (21-32) mmol/L Anion Gap (3-11) BUN (7-18) mg/dl Creatinine (0.6-1.4) mg/dl BUN/Creatinine Ratio (10-20) Glucose (70-99) mg/dl POC Glucose > 600 H* (70-99) POC Glucose (other) (70-99) mg/dl Lactate (0.4-2.0) mmol/L Calcium (8.5-10.1) mg/dl Phosphorus (2.5-4.9) mg/dl Magnesium (1.8-2.4) mg/dl Total Bilirubin (0.2-1) mg/dl Direct Bilirubin (0-0.2) mg/dl AST (15-37) U/L ALT (12-78) U/L Troponin I 0.051 H* (0-0.045) ng/ml Total Protein (6.4-8.2) gm/dl Albumin (3.4-5.0) gm/dl Mycoplasma pneumon IgG (<=0.90) Crossmatch 09/08/18 09/08/18 09/08/18 Range/Units 11:42 11:44 13:01 WBC (4.8-10.8) K/uL RBC (4.7-6.1) M/uL Hgb 8.3 L (14.0-18.0) g/dL POC Hgb (14.0-18.0) g/dl Hct 26.0 L (42-52) % POC Hct (42-52) % MCHC (32-36) g/dL RDW Std Deviation (36.4-46.3) fL RDW Coeff of Nahed (11.5-14.5) % MPV (7.4-10.4) fL Reticulocyte % (Auto) (0.5-2.0) % Immature Gran # (Auto) (0.00-0.02) K/uL Neut # (Auto) (1.4-6.5) K/uL [place] # (Auto) (0.11-0.59) K/uL Reticulocyte # (0.02-0.10) 10^6/uL Absolute Nucleated RBC (0-0) K/uL Neutrophils # (Manual) (1.4-6.5) K/uL Total Absolute Neuts (1.4-6.5) K/uL Lymphocytes # (Manual) (1.2-3.4) K/uL Total Abs Lymphocytes (1.2-3.4) K/uL Monocytes # (Manual) (0.11-0.59) K/uL PT (9.0-12.0) Seconds INR (0.9-1.1) APTT (21.0-31.0) Seconds Fibrinogen (184-400) mg/dl POC pH (7.35-7.45) POC pCO2 (35-46) mmHg POC pO2 (80-95) mmHg POC HCO3 (19-24) maria d/L POC Total CO2 (24-31) mEq/l POC Base Excess (-9-1.8) maria d/L ABG pH (Temp Correct) (7.35-7.45) ABG pCO2 (Temp Corrct (35-46) mmHg POC ABG O2 Sat (90-95) % POC Potassium (3.3-5.0) mEq/L Potassium (3.5-5.1) mmol/L Chloride (98-107) mmol/L Carbon Dioxide (21-32) mmol/L Anion Gap (3-11) BUN (7-18) mg/dl Creatinine (0.6-1.4) mg/dl BUN/Creatinine Ratio (10-20) Glucose (70-99) mg/dl POC Glucose > 600 H* 267 H (70-99) POC Glucose (other) (70-99) mg/dl Lactate (0.4-2.0) mmol/L Calcium (8.5-10.1) mg/dl Phosphorus (2.5-4.9) mg/dl Magnesium (1.8-2.4) mg/dl Total Bilirubin (0.2-1) mg/dl Direct Bilirubin (0-0.2) mg/dl AST (15-37) U/L ALT (12-78) U/L Troponin I (0-0.045) ng/ml Total Protein (6.4-8.2) gm/dl Albumin (3.4-5.0) gm/dl Mycoplasma pneumon IgG (<=0.90) Crossmatch 09/08/18 09/08/18 09/08/18 Range/Units 13:02 13:05 16:03 WBC (4.8-10.8) K/uL RBC (4.7-6.1) M/uL Hgb (14.0-18.0) g/dL POC Hgb (14.0-18.0) g/dl Hct (42-52) % POC Hct (42-52) % MCHC (32-36) g/dL RDW Std Deviation (36.4-46.3) fL RDW Coeff of Nahed (11.5-14.5) % MPV (7.4-10.4) fL Reticulocyte % (Auto) (0.5-2.0) % Immature Gran # (Auto) (0.00-0.02) K/uL Neut # (Auto) (1.4-6.5) K/uL [place] # (Auto) (0.11-0.59) K/uL Reticulocyte # (0.02-0.10) 10^6/uL Absolute Nucleated RBC (0-0) K/uL Neutrophils # (Manual) (1.4-6.5) K/uL Total Absolute Neuts (1.4-6.5) K/uL Lymphocytes # (Manual) (1.2-3.4) K/uL Total Abs Lymphocytes (1.2-3.4) K/uL Monocytes # (Manual) (0.11-0.59) K/uL PT (9.0-12.0) Seconds INR (0.9-1.1) APTT (21.0-31.0) Seconds Fibrinogen (184-400) mg/dl POC pH (7.35-7.45) POC pCO2 (35-46) mmHg POC pO2 (80-95) mmHg POC HCO3 (19-24) maria d/L POC Total CO2 (24-31) mEq/l POC Base Excess (-9-1.8) maria d/L ABG pH (Temp Correct) (7.35-7.45) ABG pCO2 (Temp Corrct (35-46) mmHg POC ABG O2 Sat (90-95) % POC Potassium (3.3-5.0) mEq/L Potassium 5.7 H (3.5-5.1) mmol/L Chloride 109 H (98-107) mmol/L Carbon Dioxide 13 L (21-32) mmol/L Anion Gap 21.0 H (3-11) BUN 82 H (7-18) mg/dl Creatinine 2.82 H D (0.6-1.4) mg/dl BUN/Creatinine Ratio 29.1 H (10-20) Glucose 225 H (70-99) mg/dl POC Glucose (70-99) POC Glucose (other) 164 H (70-99) mg/dl Lactate 11.1 H* (0.4-2.0) mmol/L Calcium 8.1 L (8.5-10.1) mg/dl Phosphorus (2.5-4.9) mg/dl Magnesium (1.8-2.4) mg/dl Total Bilirubin 1.2 H (0.2-1) mg/dl Direct Bilirubin 0.5 H (0-0.2) mg/dl AST 329 H (15-37) U/L ALT 201 H (12-78) U/L Troponin I (0-0.045) ng/ml Total Protein 4.2 L (6.4-8.2) gm/dl Albumin 1.8 L (3.4-5.0) gm/dl Mycoplasma pneumon IgG (<=0.90) Crossmatch 09/08/18 09/08/18 09/08/18 Range/Units 16:17 16:17 16:17 WBC (4.8-10.8) K/uL RBC (4.7-6.1) M/uL Hgb 6.6 L* (14.0-18.0) g/dL POC Hgb (14.0-18.0) g/dl Hct 20.5 L* (42-52) % POC Hct (42-52) % MCHC (32-36) g/dL RDW Std Deviation (36.4-46.3) fL RDW Coeff of Nahed (11.5-14.5) % MPV (7.4-10.4) fL Reticulocyte % (Auto) (0.5-2.0) % Immature Gran # (Auto) (0.00-0.02) K/uL Neut # (Auto) (1.4-6.5) K/uL [place] # (Auto) (0.11-0.59) K/uL Reticulocyte # (0.02-0.10) 10^6/uL Absolute Nucleated RBC (0-0) K/uL Neutrophils # (Manual) (1.4-6.5) K/uL Total Absolute Neuts (1.4-6.5) K/uL Lymphocytes # (Manual) (1.2-3.4) K/uL Total Abs Lymphocytes (1.2-3.4) K/uL Monocytes # (Manual) (0.11-0.59) K/uL PT 23.3 H (9.0-12.0) Seconds INR 2.4 H (0.9-1.1) APTT 52.9 H* (21.0-31.0) Seconds Fibrinogen 150 L (184-400) mg/dl POC pH (7.35-7.45) POC pCO2 (35-46) mmHg POC pO2 (80-95) mmHg POC HCO3 (19-24) maria d/L POC Total CO2 (24-31) mEq/l POC Base Excess (-9-1.8) maria d/L ABG pH (Temp Correct) (7.35-7.45) ABG pCO2 (Temp Corrct (35-46) mmHg POC ABG O2 Sat (90-95) % POC Potassium (3.3-5.0) mEq/L Potassium 6.1 H* (3.5-5.1) mmol/L Chloride 113 H (98-107) mmol/L Carbon Dioxide 11 L (21-32) mmol/L Anion Gap 20.0 H (3-11) BUN 81 H (7-18) mg/dl Creatinine 3.07 H (0.6-1.4) mg/dl BUN/Creatinine Ratio 26.3 H (10-20) Glucose 168 H (70-99) mg/dl POC Glucose (70-99) POC Glucose (other) (70-99) mg/dl Lactate (0.4-2.0) mmol/L Calcium 7.5 L (8.5-10.1) mg/dl Phosphorus (2.5-4.9) mg/dl Magnesium (1.8-2.4) mg/dl Total Bilirubin (0.2-1) mg/dl Direct Bilirubin (0-0.2) mg/dl AST (15-37) U/L ALT (12-78) U/L Troponin I 0.348 H* (0-0.045) ng/ml Total Protein (6.4-8.2) gm/dl Albumin (3.4-5.0) gm/dl Mycoplasma pneumon IgG (<=0.90) Crossmatch 09/08/18 09/08/18 09/08/18 Range/Units 16:47 17:10 18:30 WBC (4.8-10.8) K/uL RBC (4.7-6.1) M/uL Hgb (14.0-18.0) g/dL POC Hgb (14.0-18.0) g/dl Hct (42-52) % POC Hct (42-52) % MCHC (32-36) g/dL RDW Std Deviation (36.4-46.3) fL RDW Coeff of Nahed (11.5-14.5) % MPV (7.4-10.4) fL Reticulocyte % (Auto) (0.5-2.0) % Immature Gran # (Auto) (0.00-0.02) K/uL Neut # (Auto) (1.4-6.5) K/uL [place] # (Auto) (0.11-0.59) K/uL Reticulocyte # (0.02-0.10) 10^6/uL Absolute Nucleated RBC (0-0) K/uL Neutrophils # (Manual) (1.4-6.5) K/uL Total Absolute Neuts (1.4-6.5) K/uL Lymphocytes # (Manual) (1.2-3.4) K/uL Total Abs Lymphocytes (1.2-3.4) K/uL Monocytes # (Manual) (0.11-0.59) K/uL PT (9.0-12.0) Seconds INR (0.9-1.1) APTT (21.0-31.0) Seconds Fibrinogen (184-400) mg/dl POC pH 7.07 L* (7.35-7.45) POC pCO2 33 L (35-46) mmHg POC pO2 362 H (80-95) mmHg POC HCO3 10 L (19-24) maria d/L POC Total CO2 11 L (24-31) mEq/l POC Base Excess -20.0 L (-9-1.8) maria d/L ABG pH (Temp Correct) (7.35-7.45) ABG pCO2 (Temp Corrct (35-46) mmHg POC ABG O2 Sat 100.0 H (90-95) % POC Potassium (3.3-5.0) mEq/L Potassium (3.5-5.1) mmol/L Chloride (98-107) mmol/L Carbon Dioxide (21-32) mmol/L Anion Gap (3-11) BUN (7-18) mg/dl Creatinine (0.6-1.4) mg/dl BUN/Creatinine Ratio (10-20) Glucose (70-99) mg/dl POC Glucose (70-99) POC Glucose (other) 173 H 194 H (70-99) mg/dl Lactate (0.4-2.0) mmol/L Calcium (8.5-10.1) mg/dl Phosphorus (2.5-4.9) mg/dl Magnesium (1.8-2.4) mg/dl Total Bilirubin (0.2-1) mg/dl Direct Bilirubin (0-0.2) mg/dl AST (15-37) U/L ALT (12-78) U/L Troponin I (0-0.045) ng/ml Total Protein (6.4-8.2) gm/dl Albumin (3.4-5.0) gm/dl Mycoplasma pneumon IgG (<=0.90) Crossmatch
[2018-09-08] MEDS: DEXTROSE 5% IV SCH (19:58)
[2018-09-08] MEDS: EPINEPHRINE IV SCH (19:58)
[2018-09-08 22:34] LABS: Hematocrit (blood only) 23.5 % (42-52); Hemoglobin 7.7 g/dL (14.0-18.0)
[2018-09-08 22:52] LABS: Calcium 7.5 mg/dl (8.5-10.1); Creatinine Clr Calc Pharmacy 23.2 ml/min; Est GFR (African American) 18.2; Est GFR (Non-African American) 15.7
--- NOTE | 2018-09-08 22:59 | Hospitalist Progress Note ---
Date of Service September 08, 2018 Assessment & Plan (1) Admitted to intensive care unit: Admitted to intensive care unit: (1) Acute metabolic encephalopathy: Mr. Huff is a 77 year old male with a past medical history of COPD, erosive gastritis, duodenitis, ulcerative colitis, hypertension, CKD, chronic anemia, afib on coumadin, type 2 DM, CHF, hx of prostate cancer s/p TURP and hiatal hernia who presents to us as a transfer from [facility] due to worsening AMS, anemia and a cough. The patient was significant altered on presentation, and frequently attempting to get out of bed. Due to his worsening condition, the it applications manager was consulted, he was intubated, and subsequently placed on a ventilator. Altered Mental Status Acute metabolic encephalopathy likely secondary to bacteremia. -likely secondary to his infectious process -CT head ordered/ negative. Now on propofol. HCAP possibly MRSA and/or gram negative pneumonia Switched to rocephin and doxy since 09/05. Now on doxy and zosyn 09/08 Hypotension BP again is low, likely from acute blood loss. Patien recquires to be on pressors. Currently on Norepi. Acute Respiratory Failure with Hypoxia -patient sedated and on ventilator -management per ICU -patient received cefepime, vancomycin, and flagyl at OSH. Continue ceftriaxone and doxy -CT chest ordered to further evaluate -bronchoscopy done by Dr. Gao & bronchial washings sent for cx -> see procedure note for further details -Added scheduled breathing treatments. 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 Heparin management as noted below. Diabetes Mellitus -hold home Januvia & insulin regimen -BSG management per ICU protocol Chronic diastolic Congestive Heart Failure -holding diuretics, due to acute renal failure. May restart if patient is overloaded. -caution w/IVF Hypothyroidism -restarted levothyroxine Hypercholesterolemia -restart crestor when able GERD On pantoprazole. Code status: FULL Disposition: admitted to ICU Spent 25 minutes in management of patient. Included discussing with consultants, reviewing records. (2) Retroperitoneal bleeding: Acute blood loss anemia: Secondary to right Retroperitoneal bleeding Patient required 4 units. Heme-occult fecal tests were negative. hold heparin infusion Monitoring hemoglobin. 2.5 mg IV vitamin K INR 1.3 Consulted Gen Surgery. Discussed case with it applications manager. (3) Erosive gastritis: (4) Domínguez esophagus: Subjective Patient is intubated and sedated. Patient is unable to provide significant medical history. Physical Exam Vital Signs (Past 24 Hours): Last Vital Signs Temp 36.3 C L 09/08/18 21:50 Pulse 106 H 09/08/18 21:50 Resp 30 H 09/08/18 21:13 BP 99/61 L 09/08/18 21:50 Pulse Ox 92 09/08/18 21:50 Physical Exam: Constitutional: Patient is intubated and sedated. Eyes: PERRL, conjunctivae normal, anicteric sclerae Respiratory: Auscultation: + diminished lung sounds (throughout lungs) Cardiovascular: Rate/Rhythm: regular rate and regular rhythm (irregularly irregular) Vessels: radial pulses present Extremities: normal capillary refill; no calf tenderness and no pedal edema Chest (Breasts): normal inspection/palpation of breasts Gastrointestinal (Abdomen): Inspection/Auscultation: + abdomen distended Percussion/Palpation: + hernia (umbilical hernia); no guarding and abdomen not rigid Skin: no rashes, warm and dry
[2018-09-08 23:23] LABS: Troponin I 0.479 ng/ml (0-0.045)
[2018-09-08] MEDS ORDERED: SODIUM BICARB 8.4% INJ 50 MEQ/50 ML SYR IV ONE (23:30)
[2018-09-09] MEDS: EPINEPHRINE IV SCH ×5 (00:08→19:44)
[2018-09-09] MEDS: DEXTROSE 5% IV SCH ×2 (00:08→04:21)
[2018-09-09] MEDS: SODIUM BICARBONATE 8.4% 150 MEQ in DEXTROSE 5% 1,000 ML IV SCH (01:47)
[2018-09-09] MEDS: VASOPRESSIN 20 UNITS in 0.9 % SODIUM CHLORIDE 100 ML IV SCH ×3 (04:20→22:22)
[2018-09-09 05:00] LABS: BUN Creatinine Ratio 23.6 (10-20); Calcium 6.9 mg/dl (8.5-10.1); Creatinine Clr Calc Pharmacy 22.8 ml/min; Est GFR (African American) 17.9; Est GFR (Non-African American) 15.4; Hematocrit (blood only) 28.1 % (42-52); Hemoglobin 9.2 g/dL (14.0-18.0); Magnesium 2.8 mg/dl (1.8-2.4); Mean Corpuscular Hgb Conc 32.7 g/dL (32-36); Mean Corpuscular Volume 91.2 fL (80-100); Mean Platelet Volume 12.2 fL (7.4-10.4); Nucleated RBC # (auto) 0.96 K/uL (0-0); Nucleated RBC % (auto) 2.6 %; Platelet Count 68 K/uL (130-400); Potassium 4.7 mmol/L (3.5-5.1); RDW Coefficient of Variation 16.3 % (11.5-14.5); RDW Standard Deviation 53.5 fL (36.4-46.3); Red Blood Count 3.08 M/uL (4.7-6.1); White Blood Count 37.29 K/uL (4.8-10.8)
[2018-09-09 05:01] LABS: Phosphorus 6.7 mg/dl (2.5-4.9)
[2018-09-09] MEDS: NOREPINEPHRINE BIT IV PRN ×3 (05:01→22:23)
[2018-09-09] MEDS: DEXTROSE 5% IV PRN ×3 (05:01→22:23)
[2018-09-09 05:05] LABS: Dohle Bodies Occasional; Echinocytes 3+; Lymphocytes % (manual) 4.3 %; Metamyelocytes # (manual) 0.34 K/uL (0-0); Metamyelocytes % (manual) 0.9 %; Monocytes # (manual) 1.31 K/uL (0.11-0.59); Monocytes % (manual) 3.5 %; Myelocytes # (manual) 0.34 K/uL (0-0); Myelocytes % (manual) 0.9 %; Neutrophils % (manual) 90.4 %; Polychromasia 1+
[2018-09-09 05:10] LABS: Troponin I 0.844 ng/ml (0-0.045)
[2018-09-09 05:11] LABS: Beta-Hydroxybutyrate 2.18 mg/dl (0.2-2.81)
--- NOTE | 2018-09-09 07:25 | XRay Report ---
XR chest 1V portable HISTORY: intubation COMPARISON: Chest 09/08/2018. FINDINGS: The endotracheal tube terminates 2.8 cm from the eugenio. Nasogastric tube terminates below the diaphragm. The tip is not included on this study but likely resides within the stomach. No pneumo thorax. Suspect small bilateral pleural effusions. The heart remains mildly enlarged. Perihilar inter stitial and vascular thickening suggestive mild pulmonary edema. Left mediastinal density likely josé miguel esponds the patient's known enlarged pulmonary arteries. This is better appreciated on yesterday's ch est CT. Bibasilar densities persist and favor atelectasis. Right internal jugular venous catheter ter minates at the expected location of the SVC. IMPRESSION: 1. Satisfactory support line placement. No pneumothorax. 2. Cardiomegaly and pulmonary arterial hypertension persists. 3. Mild interstitial pulmonary edema and small bilateral pleural effusions. Electronically signed by: Gallo Johansen M.D. 09/09/2018 7:24 AM
[2018-09-09] MEDS: SODIUM CHLORIDE 0.9% IV SCH ×3 (08:25→19:44)
[2018-09-09] MEDS: LEVOTHYROXINE SODIUM 12.5 MCG in SYRINGE 0 ML IV SCH (08:29)
[2018-09-09] MEDS: INSULIN ASPART 100 UNITS/ML 3 ML PEN SC SCH ×4 (08:30→22:24)
[2018-09-09] MEDS: ROSUVASTATIN CALCIUM 20 MG TAB PO SCH (08:31)
[2018-09-09] MEDS: SODIUM BICARBONATE 8.4% 150 MEQ in WATER, STERILE 1,000 ML IV SCH ×3 (08:40→23:46)
--- NOTE | 2018-09-09 08:56 | Hospitalist Progress Note ---
Date of Service September 09, 2018 Assessment & Plan (1) Admitted to intensive care unit: Admitted to intensive care unit: (1) Acute metabolic encephalopathy: Mr. Huff is a 77 year old male with a past medical history of COPD, erosive gastritis, duodenitis, ulcerative colitis, hypertension, CKD, chronic anemia, afib on coumadin, type 2 DM, CHF, hx of prostate cancer s/p TURP and hiatal hernia who presents to us as a transfer from [facility] due to worsening AMS, anemia and a cough. The patient was significant altered on presentation, and frequently attempting to get out of bed. Due to his worsening condition, the ultrasound applications specialist was consulted, he was intubated, and subsequently placed on a ventilator. Altered Mental Status Acute metabolic encephalopathy likely secondary to bacteremia. -likely secondary to his infectious process -CT head ordered/ negative. Now on propofol. HCAP possibly MRSA and/or gram negative pneumonia Switched to rocephin and doxy since 09/05. Now on daptomycin Hypotension BP again is low, likely from acute blood loss. Patien recquires to be on pressors. Currently on Norepi., epinephrine, vasopressin. Acute Respiratory Failure with Hypoxia -patient sedated and on ventilator -management per ICU -patient received cefepime, vancomycin, and flagyl at OSH. Continue ceftriaxone and doxy -CT chest ordered to further evaluate -bronchoscopy done by Dr. Gao & bronchial washings sent for cx -> see procedure note for further details -Added scheduled breathing treatments. Pulmonary toilet Anemia As noted Acute Kidney Injury Patient has history of CKD stage III -creatinine 1.6 on arrival -worsened to 3.5 -Patient is now anuric. -hold nephrotoxic medications and monitor BMP -Family had meeting with palliatve care. -Discussion on possible having hemodialysis Atrial Fibrillation -sample driller -holding anticoag due to bleeding Diabetes Mellitus -hold home Januvia & insulin regimen -BSG management per ICU protocol Chronic diastolic Congestive Heart Failure -holding diuretics, due to acute renal failure. May restart if patient is overloaded. -caution w/IVF Hypothyroidism -restarted levothyroxine Hypercholesterolemia -restart crestor when able GERD On pantoprazole. Code status: FULL Disposition: admitted to ICU Spent 37 minutes in management of patient. Included discussing with consultants, reviewing records. (2) Retroperitoneal bleeding: Acute blood loss anemia: Secondary to right Retroperitoneal bleeding Patient required 4 units. Heme-occult fecal tests were negative. hold heparin infusion Monitoring hemoglobin. 2.5 mg IV vitamin K INR 1.3 Consulted Gen Surgery. Discussed case with ultrasound applications specialist. currently hemoglobabove 9. (3) Erosive gastritis: (4) Domínguez esophagus: Subjective Patient is intubated and sedated. Patient is unable to provide significant medical history. Physical Exam Vital Signs (Past 24 Hours): Last Vital Signs Temp 37.1 C 09/09/18 03:01 Pulse 103 H 09/09/18 07:31 Resp 25 H 09/09/18 07:31 BP 131/61 09/09/18 06:25 Pulse Ox 95 09/09/18 07:31 Physical Exam: Constitutional: Patient is intubated and sedated. Eyes: PERRL, conjunctivae normal, anicteric sclerae Respiratory: Auscultation: + diminished lung sounds (throughout lungs) Cardiovascular: Rate/Rhythm: regular rate and regular rhythm (irregularly irregular) Vessels: radial pulses present Extremities: normal capillary refill; no calf tenderness and no pedal edema Chest (Breasts): normal inspection/palpation of breasts Gastrointestinal (Abdomen): Inspection/Auscultation: + abdomen distended Percussion/Palpation: + hernia (umbilical hernia); no guarding and abdomen not rigid Skin: no rashes, warm and dry
[2018-09-09 09:17] LABS: Hematocrit (blood only) 27.3 % (42-52); Hemoglobin 9.2 g/dL (14.0-18.0)
[2018-09-09 09:53] LABS: BUN Creatinine Ratio 23.3 (10-20); Calcium 6.9 mg/dl (8.5-10.1); Creatinine Clr Calc Pharmacy 23.8 ml/min; Est GFR (Non-African American) 14.7; Potassium 4.5 mmol/L (3.5-5.1)
[2018-09-09 10:05] LABS: Beta-Hydroxybutyrate 1.5 mg/dl (0.2-2.81)
--- NOTE | 2018-09-09 10:53 | CT Scan Report ---
CT head/brain wo con CT DOSE: 1007.40 mGy.cm HISTORY: Mental status change Encephalopathy, SD Hematoma, DIC TECHNIQUE: Multiaxial CT images of the head were performed without the use of intravenous contrast. A dose lowering technique was utilized adhering to the principles of ALARA. Comparison: 09/08/2018 Findings: The paranasal sinuses and mastoid air cells are clear. Similar exam compared to the prior s tudy. The small scattered multifocal subdural hematomas are unchanged. There are no new or interval f indings. There is no significant midline shift. Frontal atrophy is stable. The small subdural of the interhemispheric region is also unchanged. Impression: Stable exam with no change in the multifocal subdural collections/hematomas previously described. No new or interval findings. The above report was generated using voice recognition software. It may contain grammatical, syntax or spelling errors. Electronically signed by: Freddy Tompkins M.D. 09/09/2018 10:52 AM
[2018-09-09] MEDS: MIDAZOLAM HCL 125 MG/250 ML BAG IV SCH (11:54)
[2018-09-09] MEDS: INSULIN REGULAR 250 UNITS in SODIUM CHLORIDE 0.9% 247.5 ML IV SCH (11:56)
--- NOTE | 2018-09-09 12:18 | Pharmacy Report ---
Pharmacy Glycemic Short Note 2 - Date of Service September 09, 2018 - Glycemic Short BSG Results (Last 24 hours): 09/08/18 09/08/18 09/08/18 11:39 13:05 16:03 Glucose Cancelled 225 H POC Glucose POC Glucose (other) 164 H 09/08/18 09/08/18 09/08/18 16:17 17:10 18:30 Glucose 168 H POC Glucose POC Glucose (other) 173 H 194 H 09/08/18 09/08/18 09/08/18 19:40 20:55 21:42 Glucose POC Glucose 217 H 203 H 256 H POC Glucose (other) 09/08/18 09/08/18 09/08/18 22:26 22:28 23:32 Glucose 286 H POC Glucose 315 H 264 H POC Glucose (other) 09/09/18 09/09/18 09/09/18 00:29 01:33 02:41 Glucose POC Glucose 300 H POC Glucose (other) 317 H 333 H 09/09/18 09/09/18 09/09/18 03:41 03:58 04:45 Glucose 346 H POC Glucose POC Glucose (other) 341 H 359 H* 09/09/18 09/09/18 09/09/18 04:52 05:38 06:42 Glucose POC Glucose 289 H POC Glucose (other) 345 H 341 H 09/09/18 09/09/18 09/09/18 07:46 08:42 09:07 Glucose 309 H POC Glucose POC Glucose (other) 336 H 319 H 09/09/18 09/09/18 09/09/18 09:46 10:21 11:46 Glucose POC Glucose POC Glucose (other) 282 H 261 H 213 H OUTPATIENT ANTIDIABETIC REGIMEN: * Basaglar 34 units qam + 30 units qpm * Meghana ASSESSMENT: 09/09 * Patient remain critically ill * Insulin drip continues this AM at relatively high rates (20-30units/hr) and despite this BSGs remained in the 300's * Multiple IV infusions mixed in D5W, leading to high dextrose infusion rate. Converted multiple IV's to non-dextrose diluents to help * BPs improved, pressors are being titrated down today, metabolic acidosis present but improved today vs yesterday with IV bicarb drip running * MALIK continues to worsen 09/08 * Multiple new stressors have surfaced over the past 24 hrs: now requiring blood x-fusion, two pressors for hypotension, new ABX * Glycemic control has deteriorated given critical illness * BSGs > 180 at this time, will restart IV insulin drip as this is the gold- standard for glycemic control with ongoing severe stressors and unpredictable SQ absorption. IV insulin may also help with hyperkalemia in the setting of anuria. PLAN FOR INPATIENT GLYCEMIC CONTROL: * Hold outpatient oral diabetes medications * Continue IV insulin infusion per protocol; goal 120-180mg/dL PLAN FOR DISCHARGE: * A1c 6.2% within goal, anticipate patient can continue home regimen after discharge as long as they are not experiencing frequent hypo/hyperglycemic events.
[2018-09-09] MEDS: PANTOprazole 40 MG in SYRINGE 0 ML IV SCH (12:58)
[2018-09-09 13:13] LABS: Hematocrit (blood only) 27.2 % (42-52); Hemoglobin 9.2 g/dL (14.0-18.0)
[2018-09-09] MEDS: DOXYCYCLINE HYCLATE 100 MG in DEXTROSE 5% 100 ML IV SCH (13:18)
[2018-09-09] MEDS: DAPTOmycin 575 MG in SYRINGE 0 ML IV SCH (13:19)
--- NOTE | 2018-09-09 13:22 | Critical Care Progress Note ---
Date of Service September 09, 2018 Assessment & Plan (1) Retroperitoneal bleeding: (2) HCAP (healthcare-associated pneumonia): (3) Acute metabolic encephalopathy: (4) CKD (chronic kidney disease), stage III: (5) Admitted to intensive care unit: (6) Acute respiratory failure with hypoxia: The patient overall is doing very poorly. He is also acidotic. Currently he is requiring full ventilatory support and he is on 100% FiO2. His ABG revealed acute metabolic acidosis. The patient was given 2 Amps of bicarb and was started on bicarb drip. Some improvement in his metabolic acidosis. He also remains hypotensive though he is on 3 pressors including Levophed vasopressin and epinephrine. Still he remains hypotensive. Also his renal function is deteriorating and his urine output currently is 0. He is also hyperkalemic. The patient is already on IV insulin as well as bicarb and he was also given a dose of calcium gluconate and he is hyperglycemic. The potassium has improved. The renal function seems to be deteriorating. The family would like to see her border patrol agent and we have consulted a border patrol agent electronic sales and service technician. We feel that the patient is not a candidate at this time for dialysis because of being on 3 pressors at this time. The patient also remains intubated and requiring 50-60% of the FiO2 to maintain his sats around 95-96%. The patient received total of 10 units of packed red blood cells and 2 units of FFP. H&H has been stable and there is no further evidence of bleeding. Overall the patient is doing very poorly. He is going into multiorgan failure. We had a long discussion with the family about his current medical condition and plan of care and at this stage they would like us to make the patient DNR, no CPR no shock but continue with other treatment. I had a long discussion with the family members about the patient's current medical condition and plan of care and the ER okay with explanation and the plan of care and they would like us to continue with the care we are giving to the patient. I have spent an extra greater than 35 minutes of critical care time. Subjective Mr. Huff is a 77 year old male with a past medical history of COPD, erosive gastritis, duodenitis, ulcerative colitis, hypertension, CKD, chronic anemia, afib on coumadin, type 2 DM, CHF, hx of prostate cancer s/p TURP and hiatal hernia who presents to us as a transfer from [facility] due to worsening AMS, anemia and a cough. The patient remains sedated and intubated at this time. Also he is requiring 3 pressors including epinephrine Levophed and vasopressin and is maintaining his blood pressure in 130s. Currently is not putting out any urine he is in complete renal failure and nephrology is consulted and nephrology will be seeing the patient. Physical Exam Vital Signs (Past 24 Hours): Last Vital Signs Temp 37.1 C 09/09/18 03:01 Pulse 115 H 09/09/18 11:02 Resp 24 09/09/18 11:02 BP 143/84 H 09/09/18 09:40 Pulse Ox 99 09/09/18 11:02 Physical Exam: Elderly male currently remains on a ventilator and is sedated. Not in any acute distress. HEENT: PERRLA. Conjunctivae is clear. Sclera nonicteric. Pupils are reactive to light. NECK: The neck is supple. There is no JVD no lymphadenopathy. RESPIRATORY: Bilaterally coarse breathing with decreased breath sounds also crackles posteriorly no wheezing no rhonchi heard. CARDIOVASCULAR: S1-S2 heard, tachycardia, unable to appreciate the murmur rubs or gallop. GASTROINTESTINAL: Obese abdomen, soft, bowel sounds are diminished. MUSCULOSKELETAL: The patient has edema. Currently he is sedated. SKIN: The patient has hematoma. NEUROLOGY: The patient is sedated and remains on a ventilator and unable to examine him from neuro point. Results & Data Laboratory Results Abnormal lab results 09/03/18 09/08/18 09/08/18 Range/Units 19:15 05:42 16:03 WBC (4.8-10.8) K/uL RBC (4.7-6.1) M/uL Hgb (14.0-18.0) g/dL Hct (42-52) % RDW Std Deviation (36.4-46.3) fL RDW Coeff of Nahed (11.5-14.5) % Plt Count (130-400) K/uL MPV (7.4-10.4) fL Absolute Nucleated RBC (0-0) K/uL Neutrophils # (Manual) (1.4-6.5) K/uL Total Absolute Neuts (1.4-6.5) K/uL Monocytes # (Manual) (0.11-0.59) K/uL Metamyelocytes # (Man) (0-0) K/uL Myelocytes # (Manual) (0-0) K/uL PT (9.0-12.0) Seconds INR (0.9-1.1) APTT (21.0-31.0) Seconds Fibrinogen (184-400) mg/dl POC pH (7.35-7.45) POC pCO2 (35-46) mmHg POC pO2 (80-95) mmHg POC HCO3 (19-24) maria d/L POC Total CO2 (24-31) mEq/l POC Base Excess (-9-1.8) maria d/L POC ABG O2 Sat (90-95) % Sodium (136-145) mmol/L Potassium (3.5-5.1) mmol/L Chloride (98-107) mmol/L Carbon Dioxide (21-32) mmol/L Anion Gap (3-11) BUN (7-18) mg/dl Creatinine (0.6-1.4) mg/dl BUN/Creatinine Ratio (10-20) Glucose (70-99) mg/dl POC Glucose (70-99) POC Glucose (other) 164 H (70-99) mg/dl Calcium (8.5-10.1) mg/dl Phosphorus (2.5-4.9) mg/dl Magnesium (1.8-2.4) mg/dl Troponin I (0-0.045) ng/ml Mycoplasma pneumon IgG 3.70 H (<=0.90) Crossmatch See Detail 09/08/18 09/08/18 09/08/18 Range/Units 16:17 16:17 16:17 WBC (4.8-10.8) K/uL RBC (4.7-6.1) M/uL Hgb 6.6 L* (14.0-18.0) g/dL Hct 20.5 L* (42-52) % RDW Std Deviation (36.4-46.3) fL RDW Coeff of Nahed (11.5-14.5) % Plt Count (130-400) K/uL MPV (7.4-10.4) fL Absolute Nucleated RBC (0-0) K/uL Neutrophils # (Manual) (1.4-6.5) K/uL Total Absolute Neuts (1.4-6.5) K/uL Monocytes # (Manual) (0.11-0.59) K/uL Metamyelocytes # (Man) (0-0) K/uL Myelocytes # (Manual) (0-0) K/uL PT 23.3 H (9.0-12.0) Seconds INR 2.4 H (0.9-1.1) APTT 52.9 H* (21.0-31.0) Seconds Fibrinogen 150 L (184-400) mg/dl POC pH (7.35-7.45) POC pCO2 (35-46) mmHg POC pO2 (80-95) mmHg POC HCO3 (19-24) maria d/L POC Total CO2 (24-31) mEq/l POC Base Excess (-9-1.8) maria d/L POC ABG O2 Sat (90-95) % Sodium (136-145) mmol/L Potassium 6.1 H* (3.5-5.1) mmol/L Chloride 113 H (98-107) mmol/L Carbon Dioxide 11 L (21-32) mmol/L Anion Gap 20.0 H (3-11) BUN 81 H (7-18) mg/dl Creatinine 3.07 H (0.6-1.4) mg/dl BUN/Creatinine Ratio 26.3 H (10-20) Glucose 168 H (70-99) mg/dl POC Glucose (70-99) POC Glucose (other) (70-99) mg/dl Calcium 7.5 L (8.5-10.1) mg/dl Phosphorus (2.5-4.9) mg/dl Magnesium (1.8-2.4) mg/dl Troponin I 0.348 H* (0-0.045) ng/ml Mycoplasma pneumon IgG (<=0.90) Crossmatch 09/08/18 09/08/18 09/08/18 Range/Units 16:47 17:10 18:30 WBC (4.8-10.8) K/uL RBC (4.7-6.1) M/uL Hgb (14.0-18.0) g/dL Hct (42-52) % RDW Std Deviation (36.4-46.3) fL RDW Coeff of Nahed (11.5-14.5) % Plt Count (130-400) K/uL MPV (7.4-10.4) fL Absolute Nucleated RBC (0-0) K/uL Neutrophils # (Manual) (1.4-6.5) K/uL Total Absolute Neuts (1.4-6.5) K/uL Monocytes # (Manual) (0.11-0.59) K/uL Metamyelocytes # (Man) (0-0) K/uL Myelocytes # (Manual) (0-0) K/uL PT (9.0-12.0) Seconds INR (0.9-1.1) APTT (21.0-31.0) Seconds Fibrinogen (184-400) mg/dl POC pH 7.07 L* (7.35-7.45) POC pCO2 33 L (35-46) mmHg POC pO2 362 H (80-95) mmHg POC HCO3 10 L (19-24) maria d/L POC Total CO2 11 L (24-31) mEq/l POC Base Excess -20.0 L (-9-1.8) maria d/L POC ABG O2 Sat 100.0 H (90-95) % Sodium (136-145) mmol/L Potassium (3.5-5.1) mmol/L Chloride (98-107) mmol/L Carbon Dioxide (21-32) mmol/L Anion Gap (3-11) BUN (7-18) mg/dl Creatinine (0.6-1.4) mg/dl BUN/Creatinine Ratio (10-20) Glucose (70-99) mg/dl POC Glucose (70-99) POC Glucose (other) 173 H 194 H (70-99) mg/dl Calcium (8.5-10.1) mg/dl Phosphorus (2.5-4.9) mg/dl Magnesium (1.8-2.4) mg/dl Troponin I (0-0.045) ng/ml Mycoplasma pneumon IgG (<=0.90) Crossmatch 09/08/18 09/08/18 09/08/18 Range/Units 19:40 20:55 21:42 WBC (4.8-10.8) K/uL RBC (4.7-6.1) M/uL Hgb (14.0-18.0) g/dL Hct (42-52) % RDW Std Deviation (36.4-46.3) fL RDW Coeff of Nahed (11.5-14.5) % Plt Count (130-400) K/uL MPV (7.4-10.4) fL Absolute Nucleated RBC (0-0) K/uL Neutrophils # (Manual) (1.4-6.5) K/uL Total Absolute Neuts (1.4-6.5) K/uL Monocytes # (Manual) (0.11-0.59) K/uL Metamyelocytes # (Man) (0-0) K/uL Myelocytes # (Manual) (0-0) K/uL PT (9.0-12.0) Seconds INR (0.9-1.1) APTT (21.0-31.0) Seconds Fibrinogen (184-400) mg/dl POC pH (7.35-7.45) POC pCO2 (35-46) mmHg POC pO2 (80-95) mmHg POC HCO3 (19-24) maria d/L POC Total CO2 (24-31) mEq/l POC Base Excess (-9-1.8) maria d/L POC ABG O2 Sat (90-95) % Sodium (136-145) mmol/L Potassium (3.5-5.1) mmol/L Chloride (98-107) mmol/L Carbon Dioxide (21-32) mmol/L Anion Gap (3-11) BUN (7-18) mg/dl Creatinine (0.6-1.4) mg/dl BUN/Creatinine Ratio (10-20) Glucose (70-99) mg/dl POC Glucose 217 H 203 H 256 H (70-99) POC Glucose (other) (70-99) mg/dl Calcium (8.5-10.1) mg/dl Phosphorus (2.5-4.9) mg/dl Magnesium (1.8-2.4) mg/dl Troponin I (0-0.045) ng/ml Mycoplasma pneumon IgG (<=0.90) Crossmatch 09/08/18 09/08/18 09/08/18 Range/Units 22:26 22:26 22:28 WBC (4.8-10.8) K/uL RBC (4.7-6.1) M/uL Hgb 7.7 L (14.0-18.0) g/dL Hct 23.5 L (42-52) % RDW Std Deviation (36.4-46.3) fL RDW Coeff of Nahed (11.5-14.5) % Plt Count (130-400) K/uL MPV (7.4-10.4) fL Absolute Nucleated RBC (0-0) K/uL Neutrophils # (Manual) (1.4-6.5) K/uL Total Absolute Neuts (1.4-6.5) K/uL Monocytes # (Manual) (0.11-0.59) K/uL Metamyelocytes # (Man) (0-0) K/uL Myelocytes # (Manual) (0-0) K/uL PT (9.0-12.0) Seconds INR (0.9-1.1) APTT (21.0-31.0) Seconds Fibrinogen (184-400) mg/dl POC pH (7.35-7.45) POC pCO2 (35-46) mmHg POC pO2 (80-95) mmHg POC HCO3 (19-24) maria d/L POC Total CO2 (24-31) mEq/l POC Base Excess (-9-1.8) maria d/L POC ABG O2 Sat (90-95) % Sodium (136-145) mmol/L Potassium (3.5-5.1) mmol/L Chloride (98-107) mmol/L Carbon Dioxide 11 L (21-32) mmol/L Anion Gap 25.0 H (3-11) BUN 80 H (7-18) mg/dl Creatinine 3.49 H D (0.6-1.4) mg/dl BUN/Creatinine Ratio 23.0 H (10-20) Glucose 286 H (70-99) mg/dl POC Glucose 315 H (70-99) POC Glucose (other) (70-99) mg/dl Calcium 7.5 L (8.5-10.1) mg/dl Phosphorus (2.5-4.9) mg/dl Magnesium (1.8-2.4) mg/dl Troponin I 0.479 H* (0-0.045) ng/ml Mycoplasma pneumon IgG (<=0.90) Crossmatch 09/08/18 09/09/18 09/09/18 Range/Units 23:32 00:29 01:33 WBC (4.8-10.8) K/uL RBC (4.7-6.1) M/uL Hgb (14.0-18.0) g/dL Hct (42-52) % RDW Std Deviation (36.4-46.3) fL RDW Coeff of Nahed (11.5-14.5) % Plt Count (130-400) K/uL MPV (7.4-10.4) fL Absolute Nucleated RBC (0-0) K/uL Neutrophils # (Manual) (1.4-6.5) K/uL Total Absolute Neuts (1.4-6.5) K/uL Monocytes # (Manual) (0.11-0.59) K/uL Metamyelocytes # (Man) (0-0) K/uL Myelocytes # (Manual) (0-0) K/uL PT (9.0-12.0) Seconds INR (0.9-1.1) APTT (21.0-31.0) Seconds Fibrinogen (184-400) mg/dl POC pH (7.35-7.45) POC pCO2 (35-46) mmHg POC pO2 (80-95) mmHg POC HCO3 (19-24) maria d/L POC Total CO2 (24-31) mEq/l POC Base Excess (-9-1.8) maria d/L POC ABG O2 Sat (90-95) % Sodium (136-145) mmol/L Potassium (3.5-5.1) mmol/L Chloride (98-107) mmol/L Carbon Dioxide (21-32) mmol/L Anion Gap (3-11) BUN (7-18) mg/dl Creatinine (0.6-1.4) mg/dl BUN/Creatinine Ratio (10-20) Glucose (70-99) mg/dl POC Glucose 264 H 300 H (70-99) POC Glucose (other) 317 H (70-99) mg/dl Calcium (8.5-10.1) mg/dl Phosphorus (2.5-4.9) mg/dl Magnesium (1.8-2.4) mg/dl Troponin I (0-0.045) ng/ml Mycoplasma pneumon IgG (<=0.90) Crossmatch 09/09/18 09/09/18 09/09/18 Range/Units 02:41 03:41 03:58 WBC (4.8-10.8) K/uL RBC (4.7-6.1) M/uL Hgb (14.0-18.0) g/dL Hct (42-52) % RDW Std Deviation (36.4-46.3) fL RDW Coeff of Nahed (11.5-14.5) % Plt Count (130-400) K/uL MPV (7.4-10.4) fL Absolute Nucleated RBC (0-0) K/uL Neutrophils # (Manual) (1.4-6.5) K/uL Total Absolute Neuts (1.4-6.5) K/uL Monocytes # (Manual) (0.11-0.59) K/uL Metamyelocytes # (Man) (0-0) K/uL Myelocytes # (Manual) (0-0) K/uL PT (9.0-12.0) Seconds INR (0.9-1.1) APTT (21.0-31.0) Seconds Fibrinogen (184-400) mg/dl POC pH (7.35-7.45) POC pCO2 (35-46) mmHg POC pO2 (80-95) mmHg POC HCO3 (19-24) maria d/L POC Total CO2 (24-31) mEq/l POC Base Excess (-9-1.8) maria d/L POC ABG O2 Sat (90-95) % Sodium (136-145) mmol/L Potassium (3.5-5.1) mmol/L Chloride (98-107) mmol/L Carbon Dioxide 16 L (21-32) mmol/L Anion Gap 18.0 H (3-11) BUN 84 H (7-18) mg/dl Creatinine 3.55 H (0.6-1.4) mg/dl BUN/Creatinine Ratio 23.6 H (10-20) Glucose 346 H (70-99) mg/dl POC Glucose (70-99) POC Glucose (other) 333 H 341 H (70-99) mg/dl Calcium 6.9 L (8.5-10.1) mg/dl Phosphorus 6.7 H D (2.5-4.9) mg/dl Magnesium 2.8 H (1.8-2.4) mg/dl Troponin I 0.844 H* (0-0.045) ng/ml Mycoplasma pneumon IgG (<=0.90) Crossmatch 09/09/18 09/09/18 09/09/18 Range/Units 03:58 04:45 04:52 WBC 37.29 H* D (4.8-10.8) K/uL RBC 3.08 L (4.7-6.1) M/uL Hgb 9.2 L (14.0-18.0) g/dL Hct 28.1 L (42-52) % RDW Std Deviation 53.5 H (36.4-46.3) fL RDW Coeff of Nahed 16.3 H (11.5-14.5) % Plt Count 68 L D (130-400) K/uL MPV 12.2 H (7.4-10.4) fL Absolute Nucleated RBC 0.96 H (0-0) K/uL Neutrophils # (Manual) 33.71 H (1.4-6.5) K/uL Total Absolute Neuts 33.71 H (1.4-6.5) K/uL Monocytes # (Manual) 1.31 H (0.11-0.59) K/uL Metamyelocytes # (Man) 0.34 H (0-0) K/uL Myelocytes # (Manual) 0.34 H (0-0) K/uL PT (9.0-12.0) Seconds INR (0.9-1.1) APTT (21.0-31.0) Seconds Fibrinogen (184-400) mg/dl POC pH (7.35-7.45) POC pCO2 (35-46) mmHg POC pO2 (80-95) mmHg POC HCO3 (19-24) maria d/L POC Total CO2 (24-31) mEq/l POC Base Excess (-9-1.8) maria d/L POC ABG O2 Sat (90-95) % Sodium (136-145) mmol/L Potassium (3.5-5.1) mmol/L Chloride (98-107) mmol/L Carbon Dioxide (21-32) mmol/L Anion Gap (3-11) BUN (7-18) mg/dl Creatinine (0.6-1.4) mg/dl BUN/Creatinine Ratio (10-20) Glucose (70-99) mg/dl POC Glucose 289 H (70-99) POC Glucose (other) 359 H* (70-99) mg/dl Calcium (8.5-10.1) mg/dl Phosphorus (2.5-4.9) mg/dl Magnesium (1.8-2.4) mg/dl Troponin I (0-0.045) ng/ml Mycoplasma pneumon IgG (<=0.90) Crossmatch 09/09/18 09/09/18 09/09/18 Range/Units 05:38 06:42 07:46 WBC (4.8-10.8) K/uL RBC (4.7-6.1) M/uL Hgb (14.0-18.0) g/dL Hct (42-52) % RDW Std Deviation (36.4-46.3) fL RDW Coeff of Nahed (11.5-14.5) % Plt Count (130-400) K/uL MPV (7.4-10.4) fL Absolute Nucleated RBC (0-0) K/uL Neutrophils # (Manual) (1.4-6.5) K/uL Total Absolute Neuts (1.4-6.5) K/uL Monocytes # (Manual) (0.11-0.59) K/uL Metamyelocytes # (Man) (0-0) K/uL Myelocytes # (Manual) (0-0) K/uL PT (9.0-12.0) Seconds INR (0.9-1.1) APTT (21.0-31.0) Seconds Fibrinogen (184-400) mg/dl POC pH (7.35-7.45) POC pCO2 (35-46) mmHg POC pO2 (80-95) mmHg POC HCO3 (19-24) maria d/L POC Total CO2 (24-31) mEq/l POC Base Excess (-9-1.8) maria d/L POC ABG O2 Sat (90-95) % Sodium (136-145) mmol/L Potassium (3.5-5.1) mmol/L Chloride (98-107) mmol/L Carbon Dioxide (21-32) mmol/L Anion Gap (3-11) BUN (7-18) mg/dl Creatinine (0.6-1.4) mg/dl BUN/Creatinine Ratio (10-20) Glucose (70-99) mg/dl POC Glucose (70-99) POC Glucose (other) 345 H 341 H 336 H (70-99) mg/dl Calcium (8.5-10.1) mg/dl Phosphorus (2.5-4.9) mg/dl Magnesium (1.8-2.4) mg/dl Troponin I (0-0.045) ng/ml Mycoplasma pneumon IgG (<=0.90) Crossmatch 09/09/18 09/09/18 09/09/18 Range/Units 08:42 09:07 09:07 WBC (4.8-10.8) K/uL RBC (4.7-6.1) M/uL Hgb 9.2 L (14.0-18.0) g/dL Hct 27.3 L (42-52) % RDW Std Deviation (36.4-46.3) fL RDW Coeff of Nahed (11.5-14.5) % Plt Count (130-400) K/uL MPV (7.4-10.4) fL Absolute Nucleated RBC (0-0) K/uL Neutrophils # (Manual) (1.4-6.5) K/uL Total Absolute Neuts (1.4-6.5) K/uL Monocytes # (Manual) (0.11-0.59) K/uL Metamyelocytes # (Man) (0-0) K/uL Myelocytes # (Manual) (0-0) K/uL PT (9.0-12.0) Seconds INR (0.9-1.1) APTT (21.0-31.0) Seconds Fibrinogen (184-400) mg/dl POC pH (7.35-7.45) POC pCO2 (35-46) mmHg POC pO2 (80-95) mmHg POC HCO3 (19-24) maria d/L POC Total CO2 (24-31) mEq/l POC Base Excess (-9-1.8) maria d/L POC ABG O2 Sat (90-95) % Sodium 135 L (136-145) mmol/L Potassium (3.5-5.1) mmol/L Chloride (98-107) mmol/L Carbon Dioxide 19 L (21-32) mmol/L Anion Gap 14.0 H (3-11) BUN 86 H (7-18) mg/dl Creatinine 3.69 H (0.6-1.4) mg/dl BUN/Creatinine Ratio 23.3 H (10-20) Glucose 309 H (70-99) mg/dl POC Glucose (70-99) POC Glucose (other) 319 H (70-99) mg/dl Calcium 6.9 L (8.5-10.1) mg/dl Phosphorus (2.5-4.9) mg/dl Magnesium (1.8-2.4) mg/dl Troponin I (0-0.045) ng/ml Mycoplasma pneumon IgG (<=0.90) Crossmatch 09/09/18 09/09/18 09/09/18 Range/Units 09:46 10:21 11:46 WBC (4.8-10.8) K/uL RBC (4.7-6.1) M/uL Hgb (14.0-18.0) g/dL Hct (42-52) % RDW Std Deviation (36.4-46.3) fL RDW Coeff of Nahed (11.5-14.5) % Plt Count (130-400) K/uL MPV (7.4-10.4) fL Absolute Nucleated RBC (0-0) K/uL Neutrophils # (Manual) (1.4-6.5) K/uL Total Absolute Neuts (1.4-6.5) K/uL Monocytes # (Manual) (0.11-0.59) K/uL Metamyelocytes # (Man) (0-0) K/uL Myelocytes # (Manual) (0-0) K/uL PT (9.0-12.0) Seconds INR (0.9-1.1) APTT (21.0-31.0) Seconds Fibrinogen (184-400) mg/dl POC pH (7.35-7.45) POC pCO2 (35-46) mmHg POC pO2 (80-95) mmHg POC HCO3 (19-24) maria d/L POC Total CO2 (24-31) mEq/l POC Base Excess (-9-1.8) maria d/L POC ABG O2 Sat (90-95) % Sodium (136-145) mmol/L Potassium (3.5-5.1) mmol/L Chloride (98-107) mmol/L Carbon Dioxide (21-32) mmol/L Anion Gap (3-11) BUN (7-18) mg/dl Creatinine (0.6-1.4) mg/dl BUN/Creatinine Ratio (10-20) Glucose (70-99) mg/dl POC Glucose (70-99) POC Glucose (other) 282 H 261 H 213 H (70-99) mg/dl Calcium (8.5-10.1) mg/dl Phosphorus (2.5-4.9) mg/dl Magnesium (1.8-2.4) mg/dl Troponin I (0-0.045) ng/ml Mycoplasma pneumon IgG (<=0.90) Crossmatch 09/09/18 09/09/18 09/09/18 Range/Units 12:58 13:00 13:00 WBC (4.8-10.8) K/uL RBC (4.7-6.1) M/uL Hgb 9.2 L (14.0-18.0) g/dL Hct 27.2 L (42-52) % RDW Std Deviation (36.4-46.3) fL RDW Coeff of Nahed (11.5-14.5) % Plt Count (130-400) K/uL MPV (7.4-10.4) fL Absolute Nucleated RBC (0-0) K/uL Neutrophils # (Manual) (1.4-6.5) K/uL Total Absolute Neuts (1.4-6.5) K/uL Monocytes # (Manual) (0.11-0.59) K/uL Metamyelocytes # (Man) (0-0) K/uL Myelocytes # (Manual) (0-0) K/uL PT (9.0-12.0) Seconds INR (0.9-1.1) APTT (21.0-31.0) Seconds Fibrinogen (184-400) mg/dl POC pH (7.35-7.45) POC pCO2 (35-46) mmHg POC pO2 (80-95) mmHg POC HCO3 (19-24) maria d/L POC Total CO2 (24-31) mEq/l POC Base Excess (-9-1.8) maria d/L POC ABG O2 Sat (90-95) % Sodium (136-145) mmol/L Potassium (3.5-5.1) mmol/L Chloride (98-107) mmol/L Carbon Dioxide (21-32) mmol/L Anion Gap 13.0 H (3-11) BUN 87 H (7-18) mg/dl Creatinine 3.70 H (0.6-1.4) mg/dl BUN/Creatinine Ratio 23.6 H (10-20) Glucose 162 H (70-99) mg/dl POC Glucose (70-99) POC Glucose (other) 167 H (70-99) mg/dl Calcium 7.0 L (8.5-10.1) mg/dl Phosphorus (2.5-4.9) mg/dl Magnesium (1.8-2.4) mg/dl Troponin I (0-0.045) ng/ml Mycoplasma pneumon IgG (<=0.90) Crossmatch 09/09/18 Range/Units 13:44 WBC (4.8-10.8) K/uL RBC (4.7-6.1) M/uL Hgb (14.0-18.0) g/dL Hct (42-52) % RDW Std Deviation (36.4-46.3) fL RDW Coeff of Nahed (11.5-14.5) % Plt Count (130-400) K/uL MPV (7.4-10.4) fL Absolute Nucleated RBC (0-0) K/uL Neutrophils # (Manual) (1.4-6.5) K/uL Total Absolute Neuts (1.4-6.5) K/uL Monocytes # (Manual) (0.11-0.59) K/uL Metamyelocytes # (Man) (0-0) K/uL Myelocytes # (Manual) (0-0) K/uL PT (9.0-12.0) Seconds INR (0.9-1.1) APTT (21.0-31.0) Seconds Fibrinogen (184-400) mg/dl POC pH (7.35-7.45) POC pCO2 (35-46) mmHg POC pO2 (80-95) mmHg POC HCO3 (19-24) maria d/L POC Total CO2 (24-31) mEq/l POC Base Excess (-9-1.8) maria d/L POC ABG O2 Sat (90-95) % Sodium (136-145) mmol/L Potassium (3.5-5.1) mmol/L Chloride (98-107) mmol/L Carbon Dioxide (21-32) mmol/L Anion Gap (3-11) BUN (7-18) mg/dl Creatinine (0.6-1.4) mg/dl BUN/Creatinine Ratio (10-20) Glucose (70-99) mg/dl POC Glucose (70-99) POC Glucose (other) 145 H (70-99) mg/dl Calcium (8.5-10.1) mg/dl Phosphorus (2.5-4.9) mg/dl Magnesium (1.8-2.4) mg/dl Troponin I (0-0.045) ng/ml Mycoplasma pneumon IgG (<=0.90) Crossmatch Diagnostic Findings CT head/brain wo con CT DOSE: 1007.40 mGy.cm HISTORY: Mental status change Encephalopathy, SD Hematoma, DIC TECHNIQUE: Multiaxial CT images of the head were performed without the use of intravenous contrast. A dose lowering technique was utilized adhering to the principles of ALARA. Comparison: 09/08/2018 Findings: The paranasal sinuses and mastoid air cells are clear. Similar exam compared to the prior study. The small scattered multifocal subdural hematomas are unchanged. There are no new or interval findings. There is no significant midline shift. Frontal atrophy is stable. The small subdural of the interhemispheric region is also unchanged. Impression: Stable exam with no change in the multifocal subdural collections/hematomas previously described. No new or interval findings. XR chest 1V portable HISTORY: intubation COMPARISON: Chest 09/08/2018. FINDINGS: The endotracheal tube terminates 2.8 cm from the eugenio. Nasogastric tube terminates below the diaphragm. The tip is not included on this study but likely resides within the stomach. No pneumothorax. Suspect small bilateral pleural effusions. The heart remains mildly enlarged. Perihilar interstitial and vascular thickening suggestive mild pulmonary edema. Left mediastinal density likely corresponds the patient's known enlarged pulmonary arteries. This is better appreciated on yesterday's chest CT. Bibasilar densities persist and favor atelectasis. Right internal jugular venous catheter terminates at the expected location of the SVC. IMPRESSION: 1. Satisfactory support line placement. No pneumothorax. 2. Cardiomegaly and pulmonary arterial hypertension persists. 3. Mild interstitial pulmonary edema and small bilateral pleural effusions. IMPRESSION: 1. Streak and motion compromised examination. 2. Small to moderate right and trace left pleural effusions with associated consolidation. This likely represents atelectasis. Clinical correlation will be required. 3. Cardiomegaly with evidence of pulmonary artery hypertension. 4. Pericardial calcification is unchanged from prior examinations. 5. Right-sided retroperitoneal hemorrhage is partially visualized. 6. Cirrhotic liver morphology and perisplenic ascites. 7. Additional findings as above. IMPRESSION: Large retroperitoneal hemorrhage, with dimensions as noted. Medications Administered Current Inpatient Medications Albuterol (Duoneb) 3 ml NEB Q4R PRN PRN Reason: Wheezing Stop: 10/02/18 07:06 Aspirin (Aspirin Chew) 81 mg PO DAILY [facility] Stop: 10/06/18 08:59 Last Admin: 09/08/18 09:52 Dose: Not Given Documented by: Citalopram Hydrobromide (Celexa) 20 mg PO DAILY [facility] Stop: 10/05/18 09:29 Last Admin: 09/08/18 09:52 Dose: Not Given Documented by: Fentanyl Citrate (Fentanyl Citrate) 50 mcg IV Q2H PRN PRN Reason: Moderate Pain (4,5,6) Stop: 09/16/18 03:12 Last Admin: 09/03/18 08:43 Dose: 50 mcg Documented by: Fentanyl Citrate (Fentanyl Citrate) 100 mcg IV Q2H PRN PRN Reason: Severe Pain (7,8,9,10) Stop: 09/16/18 03:12 Last Admin: 09/07/18 09:07 Dose: 100 mcg Documented by: Sodium Chloride (Nss 250ml) 250 mls @ 15 mls/hr IV .[id number] PRN PRN Reason: For Transfusion Stop: 10/02/18 02:54 Pantoprazole Sodium 40 mg/ (Syringe) 10 mls @ 5 mls/min IV DAILY@1100 [facility] Stop: 10/02/18 10:59 Last Admin: 09/09/18 12:58 Dose: 5 mls/min Documented by: Levothyroxine Sodium 12.5 mcg/ (Syringe) 0.625 mls @ 2 mls/min IV DAILY@0900 [facility] Stop: 10/02/18 10:59 Last Admin: 09/09/18 08:29 Dose: 2 mls/min Documented by: Sodium Chloride (Nss 250ml) 250 mls @ 15 mls/hr IV .[id number] PRN PRN Reason: For Transfusion Stop: 10/08/18 06:04 Midazolam HCl (Versed) 125 mg in 250 mls @ 3 mls/hr IV .Q24H [facility]; Protocol Stop: 10/08/18 09:43 Last Admin: 09/09/18 11:54 Dose: Not Given Documented by: Vasopressin 20 units/ Sodium (Chloride) 101 mls @ 12.12 mls/hr IV .Q8H20M [facility] Stop: 10/08/18 10:25 Last Admin: 09/09/18 12:58 Dose: 0.04 unit/min, 12.1 mls/hr Documented by: Sodium Chloride (Nss 250ml) 250 mls @ 15 mls/hr IV .[id number] PRN PRN Reason: For Transfusion Stop: 10/08/18 10:29 Norepinephrine Bitartrate 24 (mg/ Dextrose) 524 mls @ 51.95 mls/hr IV .Q10H6M PRN; Protocol PRN Reason: Titration Stop: 10/08/18 02:44 Last Titration: 09/09/18 13:33 Dose: 0.3 mcg/kg/min, 52 mls/hr Documented by: Daptomycin 575 mg/ Syringe 11.5 mls @ 5.75 mls/min IV TODAY@1330 [facility]; Protocol Stop: 09/10/18 13:29 Last Admin: 09/09/18 13:19 Dose: 5.75 mls/min Documented by: Insulin Human Regular 250 (units/ Sodium Chloride) 250 mls @ 26.3 mls/hr IV .Q9H31M [facility]; Protocol Stop: 10/08/18 14:14 Last Titration: 09/09/18 13:58 Dose: 26.3 units/hr, 26.3 mls/hr Documented by: Hard Fat/Phenylephrine 20 mg/ (Dextrose) 502 mls @ 92.17 mls/hr IV .Q5H27M PRN; Protocol PRN Reason: HYPOTENSION Stop: 10/08/18 16:16 Sodium Chloride (Nss 250ml) 250 mls @ 15 mls/hr IV .Q51J01S PRN PRN Reason: For Transfusion Stop: 10/08/18 17:42 Epinephrine HCl 8 mg/ Sodium (Chloride) 508 mls @ 93.27 mls/hr IV .Q5H27M [facility]; Protocol Stop: 10/09/18 06:14 Last Titration: 09/09/18 13:43 Dose: 0.08 mcg/kg/min, 37.3 mls/hr Documented by: Sodium Bicarbonate 150 meq/ (Sterile Water) 1,150 mls @ 150 mls/hr IV .Q7H40M [facility] Stop: 10/09/18 08:59 Last Admin: 09/09/18 08:40 Dose: 150 mls/hr Documented by: Insulin Aspart (Novolog Flexpen) 0 units SC [facility] Stop: 10/08/18 17:59 Last Admin: 09/09/18 13:19 Dose: Not Given Documented by: Miscellaneous Information (Consult Glycemic Management Pharmacy) 1 ea N/A UD PRN PRN Reason: Consult Stop: 10/02/18 11:10 Nutritional Formula (Peptamen Intense Vhp) 1,000 ml OG UD [facility]; Protocol Stop: 10/02/18 12:59 Last Admin: 09/07/18 11:29 Dose: 1,000 ml Documented by: Nutritional Formula (Prosource No Carb) 30 ml PO BID PRN PRN Reason: Undecided Stop: 10/06/18 10:06 Last Admin: 09/06/18 17:20 Dose: 30 ml Documented by: Rosuvastatin Calcium (Crestor) 20 mg PO DAILY [facility] Stop: 10/06/18 08:59 Last Admin: 09/09/18 08:31 Dose: 20 mg Documented by:
[2018-09-09 13:29] LABS: BUN Creatinine Ratio 23.6 (10-20); Creatinine Clr Calc Pharmacy 23.7 ml/min; Est GFR (Non-African American) 14.7; Potassium 4.3 mmol/L (3.5-5.1)
--- NOTE | 2018-09-09 14:35 | Palliative Care Consultation ---
Date of Consultation September 09, 2018 Assessment & Plan (1) Goals of care, counseling/discussion: -77 year old male with PMH COPD, erosive gastritis, duodenitis, ulcerative colitis, htn, CKD, anemia, afib on Coumadin, DM type 2, diastolic CHF, prostate CA s/p TURP, hiatal hernia, and CAD, presented from [facility] with worsening altered mental status, anemia, and cough. Upon arrival to our ICU, patient's mental and respiratory status worsened for which he was intubated. He was found to have diffuse pneumonia. Bronch was performed for wash out of mucopurulent material, washings were unremarkable. Patient's kidney function has been steadily worsening since admission. Creatinine on arrival 1.5, now is 3.70. He is now anuric. Yesterday morning, patient's blood pressure began to drop, his hgb also steadily declining. He was given a total of [address] abd/pelvis showed 15cm retroperitoneal bleed. CT head showed multiple subdural hematomas. His INR was reversed and was given 2 units FFP as well. Unfortunately, patient remains on three pressors to maintain blood pressure-- vasopressin, levophed, and epinephrine. Making slow headway in decreasing pressors. Patient remains on 100% FiO2 on ventilator, sedated with versed. On sedation vacation, is still CAM-ICU positive. With worsening renal function, need nephrology consult to discuss possibility of dialysis. With ongoing conversations about goals of care, palliative care is consulted. -Met with patient's family in patient room: , two sons, and another female family member along with Jonathan Mcdowell PA-C, and MERON Navarro student. Patient is sedated and ventilated, unable to participate in any conversation. Prior to this event, patient was living at home with his -- fully independent and good quality of life. states they did have a brief conversation prior to intubation and patient stated he wanted anything and everything done to save his life. Yesterday, family did make patient DNR in event of cardiac arrest, but [id number] otherwise. -At this time, family is taking time to decide if they would like to give dialysis a try, knowing that it could be a permanent change if his kidneys never recover. They don't know if patient would want dialysis long-term, but they'd like to hear options from railway patrol officer before making decision. Uncertain if dialysis could be done here or if patient would need to be transferred for CRRT. This will obviously be left up to nephro and tear down man teams. -For now, continue current treatment. (2) Retroperitoneal bleeding: -H/H stabilizing. -Surgery is consulted-- no surgical intervention at this time. (3) HCAP (healthcare-associated pneumonia): -On IV abx. -MRSA screening negative. (4) Acute metabolic encephalopathy: -Multifactorial: pneumonia, acidosis, multi system organ failure, etc. (5) Chronic diastolic (congestive) heart failure: (6) Acute respiratory failure with hypoxia: (7) Subdural hematoma: -Multiple SH on CT head. -Repeat CT head today shows no change. Supervising Physician Co-Signing Physician Notes Chart reviewed, patient seen and examined. Patient's and 2 sons at bedside Family understands patient's poor prognosis-however they want to give him every chance possible to improve. PE: Patient intubated and sedated-does not respond to voice or touch Respiratory: Fully supported on ventilator CV: Tachycardic at times, on pressors Abdomen: Soft, distended/obese Extremities: Warm to touch Neuro: Sedated Provided emotional support to patient's family as well as answering their questions regarding their medical decisions-will continue to follow to provide support Agree with above note, assessment and plan as per LITZY Vizcaino History of Present Illness Attending Physician: Saad Faith History of Present Illness This 77 year old male with PMH COPD, erosive gastritis, duodenitis, ulcerative colitis, htn, CKD, anemia, afib on Coumadin, DM type 2, diastolic CHF, prostate CA s/p TURP, hiatal hernia, and CAD, presented from [facility] with worsening altered mental status, anemia, and cough. Upon arrival to our ICU, patient's mental and respiratory status worsened for which he was intubated. He was found to have diffuse pneumonia. Bronch was performed for wash out of mucopurulent material, washings were unremarkable. Patient's kidney function has been steadily worsening since admission. Creatinine on arrival 1.5, now is 3.70. He is now anuric. Yesterday morning, patient's blood pressure began to drop, his hgb also steadily declining. He was given a total of [address] abd/pelvis showed 15cm retroperitoneal bleed. CT head showed multiple subdural hematomas. His INR was reversed and was given 2 units FFP as well. Unfortunately, patient remains on three pressors to maintain blood pressure-- vasopressin, levophed, and epinephrine. Making slow headway in decreasing pressors. Patient remains on 100% FiO2 on ventilator, sedated with versed. On sedation vacation, is still CAM-ICU positive. With worsening renal function, need nephrology consult to discuss possibility of dialysis. With ongoing conversations about goals of care, palliative care is consulted. Thank you kindly for this consult. We will follow during hospitalization and assist with any medical decision making and supportive care. Allergies Allergy/AdvReac Type Severity Reaction Status Date / Time furosemide Allergy Intermediate EFFECTED Verified 08/28/11 13:55 RENAL FUNCTION naproxen Allergy Unknown they had Unverified 05/04/14 14:41 to take me o it I don't remember why Home Medications Home Medications Medication Instructions Recorded Confirmed Type Bimatoprost Oph (Lumigan 0.03% Oph) 1 drp OPB HS #0 07/24/11 History Aspirin Enteric Coated (Ecotrin Or 81 mg PO DAILY #0 08/13/11 History Generic *) Latanoprost 0.005% Oph (Xalatan 1 drp OPB DAILY #0 12/19/11 History 0.005% Oph) TRAMADOL HCL (ULTRAM) 50 mg PO TID #0 tab 12/19/11 History Fish Oil (OMEGA-3) 1 cap PO DAILY #0 oil 03/06/12 History Citalopram (Citalopram 20 mg PO DAILY #0 09/08/13 History Hydrobromide) Nateglinide (Starlix) 60 mg PO BID #0 tab 09/08/13 History ROSUVASTATIN CALCIUM (CRESTOR) 20 mg PO DAILY #0 tab 09/08/13 History WARFARIN SODIUM (COUMADIN) 1 tab PO DAILY 90 Days #90 tab 09/08/15 History Insulin Glargine (Lantus) 34 SC QAM #0 vial 09/06/16 History Patient History Medical History Atrial fibrillation Chronic kidney disease Chronic obstructive pulmonary disease Congestive heart failure Diabetes mellitus, type 2 Hypertension Social History Communication Ability: Unable Beliefs That Will Affect Care: None Current Living Situation: Spouse Smoking Status: Current every day smoker Review of Systems unable to obtain due to AMS. Physical Exam Vital Signs (Past 24 Hours): Last Vital Signs Temp 37.1 C 09/09/18 03:01 Pulse 108 H 09/09/18 13:30 Resp 29 H 09/09/18 13:30 BP 143/84 H 09/09/18 09:40 Pulse Ox 97 09/09/18 13:30 Constitutional: + ill appearing (acutely) and + obese Eyes: PERRL (pupils sluggish, but reactive) ENMT: external ear and nose normal, oropharynx normal (ETT present) Neck: trachea midline and + thick neck Respiratory: Auscultation: + diminished lung sounds (on ventilator, no respiratory distress.) Cardiovascular: Rate/Rhythm: regular rate and regular rhythm Heart Sounds: normal S1 and normal S2 Extremities: + edema (generalized pitting edema to BLE and BUE) Gastrointestinal (Abdomen): Inspection/Auscultation: + abdomen distended (obesely distended) and normal bowel sounds Percussion/Palpation: abdomen soft Skin: + ecchymosis (scattered) Neurologic: + obtunded (sedated) Time Spent Midlevel 80 minutes with >50% of time spent at bedside with patient and family discussing condition and GOC. Also collaborated with IDT to discuss case. Attending I personally spent an additional 35 minutes at bedside with patient and family in addition to the 80 minutes spent by LITZY Francofor a total of 115 minutes with greater than 50% of the time spent at bedside discussing patient's prognosis, treatment options, as well as goals of care.
[2018-09-09] MEDS ORDERED: DEXTROSE 50% 50 ML SYRINGE IV ONE (15:33)
[2018-09-09 15:44] LABS: Hematocrit (blood only) 26.7 % (42-52); Hemoglobin 8.9 g/dL (14.0-18.0); Mean Corpuscular Hgb Conc 33.3 g/dL (32-36); Mean Corpuscular Volume 88.1 fL (80-100); Mean Platelet Volume 12.3 fL (7.4-10.4); Nucleated RBC # (auto) 2.38 K/uL (0-0); Platelet Count 53 K/uL (130-400); RDW Coefficient of Variation 16.3 % (11.5-14.5); Red Blood Count 3.03 M/uL (4.7-6.1); White Blood Count 34.04 K/uL (4.8-10.8)
[2018-09-09 15:51] LABS: INR 2.5 (0.9-1.1); Partial Thromboplastin Ratio 1.5; Partial Thromboplastin Time 41.9 Seconds (21.0-31.0)
[2018-09-09 16:04] LABS: Albumin Level 1.9 gm/dl (3.4-5.0); BUN Creatinine Ratio 22.5 (10-20); Calcium 6.9 mg/dl (8.5-10.1); Creatinine Clr Calc Pharmacy 23.2 ml/min; Est GFR (African American) 16.5; Est GFR (Non-African American) 14.2; Potassium 4.5 mmol/L (3.5-5.1)
[2018-09-09 16:08] LABS: Bilirubin,Total 1.9 mg/dl (0.2-1); Total Protein 4.2 gm/dl (6.4-8.2)
[2018-09-09 16:09] LABS: ALC (manual) 2.38 K/uL (1.2-3.4); Basophilic Stippling Occasional; Basophils # (manual) 0.34 K/uL (0-0.2); Eosinophils # (manual) 0.34 K/uL (0-0.5); Lymphocytes # (manual) 2.38 K/uL (1.2-3.4); Monocytes # (manual) 0.68 K/uL (0.11-0.59); Myelocytes # (manual) 0.34 K/uL (0-0); Ovalocytes 1+
[2018-09-09 16:09] LABS: Bilirubin Direct 1.3 mg/dl (0-0.2)
[2018-09-09] MEDS ORDERED: SODIUM CHLORIDE 0.9% 250 ML IV PRN ×3 (16:16→17:05)
--- NOTE | 2018-09-09 16:54 | Nephrology Consultation ---
Date of Consultation September 09, 2018 Assessment & Plan (1) Acute kidney injury: Patient with acute kidney injury due to ischemic ATN in setting of hypotension. Urine sediment reviewed by myself showed numerous muddy brown casts consistent with ATN. Patient was hypotensive for over 48 hours between the and 08 September 2018. His electrolytes are stable but is grossly volume overload. Will initiate hemodialysis for volume management. Discussed with the patient's and 2 sons. Then agreement with the limited trial of dialysis but would probably not want long-term dialysis. Consent was signed by the . We will start with 2-1/2 hours today of isolated ultrafiltration with target UF of 4 L. Monitor input output and daily BMP. (2) Acute respiratory failure with hypoxia: Patient with acute respiratory failure of multifactorial etiology including volume overload and pneumonia. He remains on mechanical ventilation with high PEEP. Will attempt fluid removal with dialysis. (3) Anemia: Patient with anemia due to retroperitoneal bleed. Monitor and transfuse as needed. No role for DREA in setting of acute kidney injury. (4) Hypotension: Patient in shock of unclear etiology likely sepsis and possibly cardiogenic shock. He is on multiple pressors. ICU team titrating pressors. Will aim for map above 65. History of Present Illness Reason for Consultation: Acute renal failure Requesting Physician: Saad Faith Attending Physician: Saad Faith History of Present Illness 77 year old male with PMH COPD, erosive gastritis, duodenitis, ulcerative colitis, htn, CKD, anemia, afib on Coumadin, DM type 2, diastolic CHF, prostate CA s/p TURP, hiatal hernia, and CAD, presented from [facility] with worsening altered mental status, anemia, and pneumonia. Upon arrival to our ICU, patient's mental and respiratory status worsened for which he was intubated. He remains on mechanical ventilation with high PEEP and FiO2 of 50%. He is over 10 L positive. He is anuric now. He received up to 6 units of blood. He was hypotensive on 09/07/2018 to 09/08/2018 in setting of retroperitoneal bleed. Blood pressure was as low as 60s over 36 for over 48 hours. He is now maintained on 3 pressors, levo, epinephrine and vasopressin. Epinephrine is being weaned off. Patient is sedated and unable to give history. History was obtained by reviewing patient's medical record, discussing with the attending team in the ICU as well as patient's and 2 sons. Allergies Allergy/AdvReac Type Severity Reaction Status Date / Time furosemide Allergy Intermediate EFFECTED Verified 08/28/11 13:55 RENAL FUNCTION naproxen Allergy Unknown they had Unverified 05/04/14 14:41 to take me o it I don't remember why Home Medications Home Medications Medication Instructions Recorded Confirmed Type Bimatoprost Oph (Lumigan 0.03% Oph) 1 drp OPB HS #0 07/24/11 History Aspirin Enteric Coated (Ecotrin Or 81 mg PO DAILY #0 08/13/11 History Generic *) Latanoprost 0.005% Oph (Xalatan 1 drp OPB DAILY #0 12/19/11 History 0.005% Oph) TRAMADOL HCL (ULTRAM) 50 mg PO TID #0 tab 12/19/11 History Fish Oil (OMEGA-3) 1 cap PO DAILY #0 oil 03/06/12 History Citalopram (Citalopram 20 mg PO DAILY #0 09/08/13 History Hydrobromide) Nateglinide (Starlix) 60 mg PO BID #0 tab 09/08/13 History ROSUVASTATIN CALCIUM (CRESTOR) 20 mg PO DAILY #0 tab 09/08/13 History WARFARIN SODIUM (COUMADIN) 1 tab PO DAILY 90 Days #90 tab 09/08/15 History Insulin Glargine (Lantus) 34 SC QAM #0 vial 09/06/16 History Patient History Medical History Atrial fibrillation Chronic kidney disease Chronic obstructive pulmonary disease Congestive heart failure Diabetes mellitus, type 2 Hypertension Social History Communication Ability: Unable Beliefs That Will Affect Care: None Current Living Situation: Spouse Smoking Status: Current every day smoker Review of Systems Unable to obtain due to sedation Physical Exam Vital Signs (Past 24 Hours): Last Vital Signs Temp 37.1 C 09/09/18 03:01 Pulse 97 H 09/09/18 16:03 Resp 24 09/09/18 16:03 BP 100/58 L 09/09/18 15:00 Pulse Ox 97 09/09/18 16:03 Physical Exam: General exam: Obese male, intubated and sedated, no acute distress Neck: Difficult to assess JVD, trachea is midline Respiratory system: Reduced breath sounds bilaterally. Gastrointestinal: Abdomen is soft, non distended, non tender, bowel sounds are present CVS: Regular rate and rhythm. No murmurs, rubs or gallops Musculoskeletal: No joint or muscle tenderness Extremities: Non tender, anasarca, peripheral pulses are present Neuro: Minimally responsive, sedated Skin: No rashes Results & Data Laboratory Results Creatinine is 3.7, potassium 4.3, hemoglobin 9.2
[2018-09-09] MEDS ORDERED: SODIUM CHLORIDE 0.9% 1000ML 1,000 ML IV PRN (17:02)
[2018-09-09 17:40] LABS: Hepatitis B Surface Antibody Non-Immune
[2018-09-09 17:51] LABS: Hepatitis B Surface Antigen Neg (Neg)
--- NOTE | 2018-09-09 19:01 | Procedure Note ---
Procedure Note Date of Service September 09, 2018 Note INTERNAL JUGULAR TEMPORARY DIALYSIS CATHETER PROCEDURE NOTE: Provider: Hien Jo Indication: Central Drug Administration, Poor Venous Access, Multiple Lab Draws Necessary, etc. Anesthesia: 4 mL lidocaine 1% Consent was signed and placed on the chart prior to procedure. Indication, risks, and benefits were explained at length. A time-out was completed verifying correct patient, procedure, site, positioning, and implants(s) or special equipment if applicable. Patient�s left neck was cleansed and draped in the typical sterile fashion using Chloraprep. The Internal Jugular Vein and Carotid Artery were identified using ultrasound. The superficial tissue was anesthetized using 4 mL of 1% lidocaine without epinephrine under direct visualization with the ultrasound. After adequate anesthetization was achieved, the Internal Jugular vein was cannulated under direct ultrasound guidance using an introducer needle on a syringe. Good venous blood return was maintained prior to removal of syringe from introducer needle. Using Seldinger Technique, a guide wire was advanced through the introducer needle without resistance. The introducer needle was removed and ultrasound images were obtained of the guide wire within the Internal Jugular Vein and saved to the patient�s medical record. A small incision was made in penetrating fashion at the guide wire insertion site utilizing an 11 blade scalpel. The dilator was advanced to the vessel without resistance. The dilator was exchanged for the temporary dialysis catheter which was advanced into the vessel without resistance. The guide wire was removed intact from the catheter without issue. Confirmation of good blood flow from each lumen. Each port was easily flushed with sterile saline. The catheter was placed at 16 cm and sutured in place. Patient tolerated procedure well. No immediate complications were met. Post procedure x-ray was completed, placement was appropriate and no pneumothorax was noted.
--- NOTE | 2018-09-09 19:04 | XRay Report ---
XR chest 1V portable CLINICAL HISTORY: 77 years-old Male presenting with Left IJ line insert. TECHNIQUE: Portable semiupright AP view of the chest was obtained. COMPARISON: 09/09/[address] from 09/08/2018. FINDINGS: Endotracheal tube terminates in the mid thoracic trachea over 4 cm from the eugenio. Right internal ju gular central venous catheter terminates in the mid SVC. As a gastric tube descends below the diaphra gm, terminating in the gastric lumen, sidehole not visualized. Left internal jugular catheter termina geovany in the left brachiocephalic vein. Massive enlargement of the main pulmonary artery. Atherosclerosis of the aortic arch. Cardiac silhoue tte markedly enlarged. Pulmonary vascular prominence similar to prior exam. Decreased aeration of the left lung base. Increased small right and trace left pleural effusions. No pneumothorax. Degenerativ e changes of the thoracic spine. Upper abdomen normal. IMPRESSION: 1. Lines and tubes appropriately positioned. 2. Cardiac megaly and pulmonary artery hypertension. 3. Volume overload with increasing small right and trace left pleural effusions. 4. Decreased aeration of the left lung base. Electronically signed by: Eliezer Kapoor M.D. 09/09/2018 7:02 PM
[2018-09-10 04:56] LABS: Magnesium 2.6 mg/dl (1.8-2.4); Phosphorus 6.4 mg/dl (2.5-4.9)
[2018-09-10 05:12] LABS: Hematocrit (blood only) 23.9 % (42-52); Hemoglobin 8.4 g/dL (14.0-18.0); Mean Corpuscular Hgb Conc 35.1 g/dL (32-36); Mean Corpuscular Volume 87.9 fL (80-100); Nucleated RBC # (auto) 2.51 K/uL (0-0); Nucleated RBC % (auto) 7.8 %; Platelet Count 61 K/uL (130-400); RDW Coefficient of Variation 16.2 % (11.5-14.5); RDW Standard Deviation 51.8 fL (36.4-46.3); Red Blood Count 2.72 M/uL (4.7-6.1); White Blood Count 32.19 K/uL (4.8-10.8)
[2018-09-10 05:13] LABS: Echinocytes 1+; Metamyelocytes # (manual) 0.29 K/uL (0-0); Metamyelocytes % (manual) 0.9 %; Monocytes # (manual) 0.58 K/uL (0.11-0.59); Monocytes % (manual) 1.8 %; Myelocytes # (manual) 0.29 K/uL (0-0); Myelocytes % (manual) 0.9 %; Neutrophils % (manual) 96.4 %; Polychromasia 1+
--- NOTE | 2018-09-10 07:43 | Hospitalist Progress Note ---
Date of Service September 10, 2018 Assessment & Plan (1) Admitted to intensive care unit: acute respiratory failure due to hypovolemic and septic shock, requiring intubation and mechanial ventilation Acute metabolic encephalopathy: Mr. Huff is a 77 year old male with a past medical history of COPD, erosive gastritis, duodenitis, ulcerative colitis, hypertension, CKD, chronic anemia, afib on coumadin, type 2 DM, CHF, hx of prostate cancer s/p TURP and hiatal hernia who presents to us as a transfer from [facility] due to worsening condition Acute metabolic encephalopathy likely secondary to bacteremia from HCAP. -CT head ordered/ negative. Fear for hypoxic encephalopathy the patient did not awake and he is on no sedation and spike given Romazicon and naloxone he did not wake up HCAP possibly MRSA and/or gram negative pneumonia daptomycin and doxycycline Hypotension Hypovolemic shock from acute blood loss anemia. requiring vasopressors, not clear if septic shock also impacts his low blood pressure Acute Respiratory Failure with Hypoxia -patient sedated and on ventilator -bronchoscopy done by Dr. Gao & bronchial washings sent for cx -> see procedure note for further details Acute Kidney Injury Patient has history of CKD stage III Discussion with Research Test Engine Operator has resuted in a trial of hemodylsis for acid base and volume management -Family had meeting with palliatve care they are hopeful but obviously are aware of the mortality of the situation. Diabetes Mellitus -hold home Januvia -BSG management per ICU protocol basal bolus insulin Hypothyroidism levothyroxine Hypercholesterolemia -restart crestor when able GERD, and GI prophylaxis while on ventilator pantoprazole. Code status: FULL Disposition: admitted to ICU (2) Retroperitoneal bleeding: Acute blood loss anemia: Secondary to right Retroperitoneal bleeding Patient required 4 units. 2.5 mg IV vitamin K, remains with coagulopathy (3) Erosive gastritis: GI/NUTRITION - Significant history of erosive gastritis, Domínguez's esophagus, and ulcerative colitis: - h/o Prostate CA. Ugarte in place - Strict I&Os. (4) Domínguez esophagus: (5) Atrial fibrillation: History of coronary artery disease, A. fib, hypertension, hyperlipidemia, and CHF: Hold home antihypertensives as pt is on pressors A-fib - hold coumadin currently. anticoagulation was reversed on presentation h/o CHF - will have dialysis to help with volume status Subjective Patient is intubated and sedated. Patient is unable to provide significant medical history. Family is at the bedside and updated Will be obtained due to intubations and ventilation Physical Exam Vital Signs (Past 24 Hours): Last Vital Signs Temp 37.9 C H 09/09/18 21:40 Pulse 100 H 09/10/18 05:26 Resp 29 H 09/10/18 05:26 BP 126/62 09/10/18 05:00 Pulse Ox 100 09/10/18 05:26 The patient morbidly ill Vital signs as documented. Low blood pressure on 2 pressor agents Head exam is unremarkable. normocephalic, atraumatic patient did not awaken after given Romazicon of remains in L Neck is midline trachea no lymphadenopathy Lungs are clear to auscultation coarse breath sounds ventilation Cardiac exam reveals Rhythm is regular. First and second heart sounds normal. Abdominal exam reveals hypoactive bowel sounds, no masses, no organomegaly, slightly distended Extremities are moderately edematous and both pedal pulses are present weak Neurologic exam is obtunded There is some acrocyanosis present
[2018-09-10] MEDS: EPINEPHRINE IV SCH ×2 (08:06→08:08)
[2018-09-10] MEDS: SODIUM CHLORIDE 0.9% IV SCH ×2 (08:06→08:08)
[2018-09-10] MEDS: VASOPRESSIN 20 UNITS in 0.9 % SODIUM CHLORIDE 100 ML IV SCH ×2 (08:07→14:41)
[2018-09-10] MEDS ORDERED: PIPERACILLIN/TAZOBACTAM 4.5 GM in DEXTROSE 5% 100 ML IV ONE (08:15)
[2018-09-10 08:31] LABS: BUN Creatinine Ratio 21.2 (10-20); Calcium 6.5 mg/dl (8.5-10.1); Creatinine Clr Calc Pharmacy 20.4 ml/min; Est GFR (African American) 14.2; Est GFR (Non-African American) 12.3; Potassium 5.7 mmol/L (3.5-5.1)
[2018-09-10] MEDS ORDERED: DOXYCYCLINE HYCLATE 100 MG in DEXTROSE 5% 100 ML IV SCH (09:00)
[2018-09-10] MEDS: ROSUVASTATIN CALCIUM 20 MG TAB PO SCH (09:16)
--- NOTE | 2018-09-10 09:16 | XRay Report ---
XR chest 1V portable CLINICAL HISTORY: 77 years-old Male presenting with ET tube placement/ hypoxia. TECHNIQUE: Portable upright AP view of the chest was obtained. COMPARISON: 09/09/2018. FINDINGS: Endotracheal tube terminates in the mid thoracic trachea approximately 4 cm from the eugenio. The endo tracheal tube balloon is mildly hyperinflated. Right internal jugular central venous catheter termina geovany in the mid SVC. Left internal jugular large bore venous catheter terminates in the left brachioce phalic vein. Nasogastric tube descends below the diaphragm, terminus not visualized. Marked cardiomegaly and enlargement of the main pulmonary artery. Atherosclerosis of the aortic arch. Significant interval worsened opacity of the right hemithorax with suspected moderate layering right pleural effusion. Increased left pleural effusion. Pulmonary vascular prominence and mid to basilar opacities bilaterally. No pneumothorax. Degenerative changes of the thoracic spine. IMPRESSION: 1. Lines and tubes appropriately positioned. 2. Correlate clinically to ensure that the endotracheal tube balloon is not overinflated. 3. Significant interval worsening of bilateral pleural effusions and suspected underlying moderate p ulmonary edema in the setting of cardiomegaly and volume overload. The report will be called/faxed according to standard departmental protocol. Electronically signed by: Eliezer Kapoor M.D. 09/10/2018 9:15 AM
[2018-09-10] MEDS: LEVOTHYROXINE SODIUM 12.5 MCG in SYRINGE 0 ML IV SCH (09:17)
[2018-09-10] MEDS: DEXTROSE 5% IV PRN ×2 (10:24→17:20)
[2018-09-10] MEDS: NOREPINEPHRINE BIT IV PRN ×2 (10:24→17:20)
[2018-09-10] MEDS: INSULIN ASPART 100 UNITS/ML 3 ML PEN SC SCH ×4 (10:25→20:10)
[2018-09-10] MEDS: PANTOprazole 40 MG in SYRINGE 0 ML IV SCH (10:26)
--- NOTE | 2018-09-10 10:56 | Palliative Care Progress Note ---
Date of Service September 10, 2018 Assessment & Plan (1) Goals of care, counseling/discussion: -Sedation is off. Patient remains obtunded. -Temporary dialysis catheter placed yesterday evening, dialysis treatment completed with removal of 3L. -Creatinine is >4 today. Planning for another dialysis treatment. -Pressors continue to wean off. Only on vasopressin and levophed at this time. -On 50% FiO2 with labile oxygen saturations. Managed by intensivists. -Continuing with full treatment for now and waiting to see improvement in mental status. -Will continue to follow. (2) Retroperitoneal bleeding: -H/H stabilizing. -Surgery is consulted-- no surgical intervention at this time. (3) HCAP (healthcare-associated pneumonia): -On IV abx. -MRSA screening negative. (4) Acute metabolic encephalopathy: -Multifactorial: pneumonia, acidosis, multi system organ failure, etc. (5) Chronic diastolic (congestive) heart failure: (6) Acute respiratory failure with hypoxia: (7) Subdural hematoma: -Multiple SH on CT head. -Repeat CT head 09/09/18 shows no change. Subjective Patient is off sedation completely. Remains obtunded at this time. Occasionally moves hands per report. Temp dialysis catheter placed yesterday, dialysis treatment completed yesterday, planning for another today. NO family at bedside during my visit. Review of Systems Unobtainable due to cognitive status Physical Exam Vital Signs (Past 24 Hours): Last Vital Signs Temp 38 C H 09/10/18 07:00 Pulse 111 H 09/10/18 10:45 Resp 31 H 09/10/18 07:00 BP 102/51 L 09/10/18 10:45 Pulse Ox 88 L 09/10/18 07:00 Constitutional: + ill appearing (acutely) and + obese Eyes: PERRL (pupils sluggish, but reactive) ENMT: external ear and nose normal, oropharynx normal (ETT present) Neck: trachea midline and + thick neck Respiratory: Auscultation: + diminished lung sounds (L > R) and + rhonchi (coarse throughout) Cardiovascular: Rate/Rhythm: regular rate and regular rhythm Heart Sounds: normal S1 and normal S2 Extremities: + edema (generalized pitting edema to BLE and BUE) Gastrointestinal (Abdomen): Inspection/Auscultation: + abdomen distended (obesely distended) and normal bowel sounds Percussion/Palpation: abdomen soft Skin: + ecchymosis (scattered) Neurologic: + obtunded Time Spent Midlevel 35 minutes with >50% of time spent at bedside with patient and IDT to discuss condition and case.
[2018-09-10] MEDS: MIDAZOLAM HCL 125 MG/250 ML BAG IV SCH (10:58)
--- NOTE | 2018-09-10 11:01 | Pharmacy Report ---
Pharmacy Glycemic Short Note 2 - Date of Service September 10, 2018 - Glycemic Short BSG Results (Last 24 hours): 09/09/18 09/09/18 09/09/18 11:46 12:58 13:00 Glucose 162 H POC Glucose (other) 213 H 167 H 09/09/18 09/09/18 09/09/18 13:44 14:41 15:16 Glucose 95 POC Glucose (other) 145 H 118 H 09/09/18 09/09/18 09/09/18 15:24 16:01 16:22 Glucose POC Glucose (other) 95 115 H 109 H 09/09/18 09/09/18 09/09/18 16:55 17:29 18:42 Glucose POC Glucose (other) 108 H 110 H 111 H 09/09/18 09/09/18 09/09/18 19:53 21:06 23:14 Glucose POC Glucose (other) 109 H 107 H 101 H 09/10/18 09/10/18 09/10/18 00:55 03:05 05:10 Glucose POC Glucose (other) 104 H 107 H 111 H 09/10/18 07:39 Glucose 108 H POC Glucose (other) OUTPATIENT ANTIDIABETIC REGIMEN: * Basaglar 34 units qam + 30 units qpm * Wileyuvmartinez ASSESSMENT: 09/10 * Insulin drip titrated off yesterday evening * BSGs have been well controlled with drip off, BSGs in low 100s this AM * Pt is improved hemodynamically, however neuro status worse today * Pt is now receiving dialysis for MALIK, HD performed yesterday and is again planned today * No tube feedings are planned at this time as pressors continue - but are being titrated downwards * Will change BSG checks to Q 4 hrs - will add an order for Novolog SQ coverage should BSGs begin to climb today however given his edema and unpredictable absorption would have a low threshold to resume IV insulin gtt. 09/09 * Patient remain critically ill * Insulin drip continues this AM at relatively high rates (20-30units/hr) and despite this BSGs remained in the 300's * Multiple IV infusions mixed in D5W, leading to high dextrose infusion rate. Converted multiple IV's to non-dextrose diluents to help * BPs improved, pressors are being titrated down today, metabolic acidosis present but improved today vs yesterday with IV bicarb drip running * MALIK continues to worsen 3/4 * Multiple new stressors have surfaced over the past 24 hrs: now requiring blood x-fusion, two pressors for hypotension, new ABX * Glycemic control has deteriorated given critical illness * BSGs > 180 at this time, will restart IV insulin drip as this is the gold- standard for glycemic control with ongoing severe stressors and unpredictable SQ absorption. IV insulin may also help with hyperkalemia in the setting of anuria. PLAN FOR INPATIENT GLYCEMIC CONTROL: * Discontinue the IV insulin drip * BSGs Q 4 hrs * Novolog SQ * Goal range: 120-160mg/dL * Correction factor: 20mg/dL/unit * If BSGs > 180 x 2, restart IV insulin infusion per severe stress protocol, goal range 120-180mg/dL PLAN FOR DISCHARGE: * A1c 6.2% within goal, anticipate patient can continue home regimen after discharge as long as they are not experiencing frequent hypo/hyperglycemic events.
[2018-09-10] MEDS: SODIUM BICARBONATE 8.4% 150 MEQ in WATER, STERILE 1,000 ML IV SCH (11:33)
[2018-09-10] MEDS ORDERED: VANCOMYCIN CONSULT ACTIVE PRN (12:11)
[2018-09-10] MEDS ORDERED: PIPERACILL/TAZOBAC CONSULT ACTIVE PRN (12:11)
--- NOTE | 2018-09-10 12:33 | Critical Care Progress Note ---
Date of Service September 10, 2018 Assessment & Plan (1) Retroperitoneal bleeding: (2) HCAP (healthcare-associated pneumonia): (3) Acute metabolic encephalopathy: (4) CKD (chronic kidney disease), stage III: (5) Admitted to intensive care unit: (6) Acute respiratory failure with hypoxia: The patient overall is doing very poorly. He is also acidotic. Currently he is requiring full ventilatory support and he is on 100% FiO2. His ABG revealed acute metabolic acidosis. The patient was given 2 Amps of bicarb and was started on bicarb drip. Some improvement in his metabolic acidosis. He also remains hypotensive though he is on 2 pressors including Levophed and vasopressin . Still he remains hypotensive. Also his renal function is deteriorating and his urine output currently is 0. Nephrology was consulted yesterday and we also put the dialysis catheter and patient was dialyzed last night and currently he is being dialyzed again. The patient is off the bicarb drip. The renal function seems to be deteriorating. The patient seems to be tolerating the dialysis. The patient also remains intubated and requiring 50-60% of the FiO2 to maintain his sats around 95-96%. The patient received total of 10 units of packed red blood cells and 2 units of FFP. H&H has been stable and there is no further evidence of bleeding. The patient was not given any more transfusions since yesterday. Overall the patient is doing very poorly. He is going into multiorgan failure. We had a long discussion with the family about his current medical condition and plan of care and at this stage they would like us to make the patient DNR, no CPR no shock but continue with other treatment. I had a long discussion with the family members about the patient's current medical condition and plan of care and the are okay with explanation and the plan of care and they would like us to continue with the care we are giving to the patient including the dialysis. I have spent greater than 35 minutes of critical care time. Subjective Mr. Huff is a 77 year old male with a past medical history of COPD, erosive gastritis, duodenitis, ulcerative colitis, hypertension, CKD, chronic anemia, afib on coumadin, type 2 DM, CHF, hx of prostate cancer s/p TURP and hiatal hernia who presents to us as a transfer from [facility] due to worsening AMS, anemia and a cough. The patient remains intubated but off the sedation since yesterday 5 PM. He is still not awake. Also the patient received dialysis catheter yesterday and he was dialyzed one time last night and 3 L of fluid was removed. Today again he is being dialyzed. The patient is still anuric. His H&H has been stable. Currently he is on Levophed as well as vasopressin but epinephrine was stopped. Oxygenation remains stable on 40% FiO2. Family is by the bedside and they were updated everything. Physical Exam Vital Signs (Past 24 Hours): Last Vital Signs Temp 37.9 C H 09/10/18 09:45 Pulse 119 H 09/10/18 12:15 Resp 26 H 09/10/18 11:40 BP 99/62 L 09/10/18 12:15 Pulse Ox 99 09/10/18 11:40 Physical Exam: Elderly male currently remains on a ventilator and is off the sedation. Not in any acute distress. HEENT: PERRLA. Conjunctivae is clear. Sclera nonicteric. Pupils are reactive to light. NECK: The neck is supple. There is no JVD no lymphadenopathy. RESPIRATORY: Bilaterally coarse breathing with decreased breath sounds also crackles posteriorly no wheezing no rhonchi heard. CARDIOVASCULAR: S1-S2 heard, tachycardia, unable to appreciate the murmur rubs or gallop. GASTROINTESTINAL: Obese abdomen, soft, bowel sounds are diminished. MUSCULOSKELETAL: The patient has edema. Currently he is sedated. SKIN: The patient has hematoma. NEUROLOGY: The patient is off the sedation and remains on a ventilator and unable to examine him from neuro point. Currently he is not responsive at all. Results & Data Diagnostic Findings Abnormal lab results 09/08/18 09/09/18 09/09/18 Range/Units 05:42 12:58 13:00 WBC (4.8-10.8) K/uL RBC (4.7-6.1) M/uL Hgb (14.0-18.0) g/dL Hct (42-52) % RDW Std Deviation (36.4-46.3) fL RDW Coeff of Nahed (11.5-14.5) % Plt Count (130-400) K/uL MPV (7.4-10.4) fL Absolute Nucleated RBC (0-0) K/uL Neutrophils # (Manual) (1.4-6.5) K/uL Total Absolute Neuts (1.4-6.5) K/uL Total Abs Lymphocytes (1.2-3.4) K/uL Monocytes # (Manual) (0.11-0.59) K/uL Basophils # (Manual) (0-0.2) K/uL Metamyelocytes # (Man) (0-0) K/uL Myelocytes # (Manual) (0-0) K/uL PT (9.0-12.0) Seconds INR (0.9-1.1) APTT (21.0-31.0) Seconds Sodium (136-145) mmol/L Potassium (3.5-5.1) mmol/L Chloride (98-107) mmol/L Anion Gap 13.0 H (3-11) BUN 87 H (7-18) mg/dl Creatinine 3.70 H (0.6-1.4) mg/dl BUN/Creatinine Ratio 23.6 H (10-20) Glucose 162 H (70-99) mg/dl POC Glucose (other) 167 H (70-99) mg/dl Calcium 7.0 L (8.5-10.1) mg/dl Phosphorus (2.5-4.9) mg/dl Magnesium (1.8-2.4) mg/dl Total Bilirubin (0.2-1) mg/dl Direct Bilirubin (0-0.2) mg/dl AST (15-37) U/L ALT (12-78) U/L Total Protein (6.4-8.2) gm/dl Albumin (3.4-5.0) gm/dl Stool Occult Bld Scrn (Negative) Hep Bs Antibody, Quant (>or=10mIU/mL Immune) mIU/mL Crossmatch See Detail 09/09/18 09/09/18 09/09/18 Range/Units 13:00 13:44 14:41 WBC (4.8-10.8) K/uL RBC (4.7-6.1) M/uL Hgb 9.2 L (14.0-18.0) g/dL Hct 27.2 L (42-52) % RDW Std Deviation (36.4-46.3) fL RDW Coeff of Nahed (11.5-14.5) % Plt Count (130-400) K/uL MPV (7.4-10.4) fL Absolute Nucleated RBC (0-0) K/uL Neutrophils # (Manual) (1.4-6.5) K/uL Total Absolute Neuts (1.4-6.5) K/uL Total Abs Lymphocytes (1.2-3.4) K/uL Monocytes # (Manual) (0.11-0.59) K/uL Basophils # (Manual) (0-0.2) K/uL Metamyelocytes # (Man) (0-0) K/uL Myelocytes # (Manual) (0-0) K/uL PT (9.0-12.0) Seconds INR (0.9-1.1) APTT (21.0-31.0) Seconds Sodium (136-145) mmol/L Potassium (3.5-5.1) mmol/L Chloride (98-107) mmol/L Anion Gap (3-11) BUN (7-18) mg/dl Creatinine (0.6-1.4) mg/dl BUN/Creatinine Ratio (10-20) Glucose (70-99) mg/dl POC Glucose (other) 145 H 118 H (70-99) mg/dl Calcium (8.5-10.1) mg/dl Phosphorus (2.5-4.9) mg/dl Magnesium (1.8-2.4) mg/dl Total Bilirubin (0.2-1) mg/dl Direct Bilirubin (0-0.2) mg/dl AST (15-37) U/L ALT (12-78) U/L Total Protein (6.4-8.2) gm/dl Albumin (3.4-5.0) gm/dl Stool Occult Bld Scrn (Negative) Hep Bs Antibody, Quant (>or=10mIU/mL Immune) mIU/mL Crossmatch 09/09/18 09/09/18 09/09/18 Range/Units 15:16 15:20 15:20 WBC 34.04 H* (4.8-10.8) K/uL RBC 3.03 L (4.7-6.1) M/uL Hgb 8.9 L (14.0-18.0) g/dL Hct 26.7 L (42-52) % RDW Std Deviation 52.0 H (36.4-46.3) fL RDW Coeff of Nahed 16.3 H (11.5-14.5) % Plt Count 53 L (130-400) K/uL MPV 12.3 H (7.4-10.4) fL Absolute Nucleated RBC 2.38 H (0-0) K/uL Neutrophils # (Manual) 29.96 H (1.4-6.5) K/uL Total Absolute Neuts 29.96 H (1.4-6.5) K/uL Total Abs Lymphocytes (1.2-3.4) K/uL Monocytes # (Manual) 0.68 H (0.11-0.59) K/uL Basophils # (Manual) 0.34 H (0-0.2) K/uL Metamyelocytes # (Man) (0-0) K/uL Myelocytes # (Manual) 0.34 H (0-0) K/uL PT 24.0 H (9.0-12.0) Seconds INR 2.5 H (0.9-1.1) APTT 41.9 H (21.0-31.0) Seconds Sodium (136-145) mmol/L Potassium (3.5-5.1) mmol/L Chloride (98-107) mmol/L Anion Gap 13.0 H (3-11) BUN 85 H (7-18) mg/dl Creatinine 3.79 H (0.6-1.4) mg/dl BUN/Creatinine Ratio 22.5 H (10-20) Glucose (70-99) mg/dl POC Glucose (other) (70-99) mg/dl Calcium 6.9 L (8.5-10.1) mg/dl Phosphorus (2.5-4.9) mg/dl Magnesium (1.8-2.4) mg/dl Total Bilirubin 1.9 H D (0.2-1) mg/dl Direct Bilirubin 1.3 H D (0-0.2) mg/dl AST 8822 H (15-37) U/L ALT 2812 H (12-78) U/L Total Protein 4.2 L (6.4-8.2) gm/dl Albumin 1.9 L (3.4-5.0) gm/dl Stool Occult Bld Scrn (Negative) Hep Bs Antibody, Quant (>or=10mIU/mL Immune) mIU/mL Crossmatch 09/09/18 09/09/18 09/09/18 Range/Units 15:20 16:01 16:22 WBC (4.8-10.8) K/uL RBC (4.7-6.1) M/uL Hgb (14.0-18.0) g/dL Hct (42-52) % RDW Std Deviation (36.4-46.3) fL RDW Coeff of Nahed (11.5-14.5) % Plt Count (130-400) K/uL MPV (7.4-10.4) fL Absolute Nucleated RBC (0-0) K/uL Neutrophils # (Manual) (1.4-6.5) K/uL Total Absolute Neuts (1.4-6.5) K/uL Total Abs Lymphocytes (1.2-3.4) K/uL Monocytes # (Manual) (0.11-0.59) K/uL Basophils # (Manual) (0-0.2) K/uL Metamyelocytes # (Man) (0-0) K/uL Myelocytes # (Manual) (0-0) K/uL PT (9.0-12.0) Seconds INR (0.9-1.1) APTT (21.0-31.0) Seconds Sodium (136-145) mmol/L Potassium (3.5-5.1) mmol/L Chloride (98-107) mmol/L Anion Gap (3-11) BUN (7-18) mg/dl Creatinine (0.6-1.4) mg/dl BUN/Creatinine Ratio (10-20) Glucose (70-99) mg/dl POC Glucose (other) 115 H 109 H (70-99) mg/dl Calcium (8.5-10.1) mg/dl Phosphorus (2.5-4.9) mg/dl Magnesium (1.8-2.4) mg/dl Total Bilirubin (0.2-1) mg/dl Direct Bilirubin (0-0.2) mg/dl AST (15-37) U/L ALT (12-78) U/L Total Protein (6.4-8.2) gm/dl Albumin (3.4-5.0) gm/dl Stool Occult Bld Scrn (Negative) Hep Bs Antibody, Quant < 3.10 L (>or=10mIU/mL Immune) mIU/mL Crossmatch 09/09/18 09/09/18 09/09/18 Range/Units 16:55 17:29 18:42 WBC (4.8-10.8) K/uL RBC (4.7-6.1) M/uL Hgb (14.0-18.0) g/dL Hct (42-52) % RDW Std Deviation (36.4-46.3) fL RDW Coeff of Nahed (11.5-14.5) % Plt Count (130-400) K/uL MPV (7.4-10.4) fL Absolute Nucleated RBC (0-0) K/uL Neutrophils # (Manual) (1.4-6.5) K/uL Total Absolute Neuts (1.4-6.5) K/uL Total Abs Lymphocytes (1.2-3.4) K/uL Monocytes # (Manual) (0.11-0.59) K/uL Basophils # (Manual) (0-0.2) K/uL Metamyelocytes # (Man) (0-0) K/uL Myelocytes # (Manual) (0-0) K/uL PT (9.0-12.0) Seconds INR (0.9-1.1) APTT (21.0-31.0) Seconds Sodium (136-145) mmol/L Potassium (3.5-5.1) mmol/L Chloride (98-107) mmol/L Anion Gap (3-11) BUN (7-18) mg/dl Creatinine (0.6-1.4) mg/dl BUN/Creatinine Ratio (10-20) Glucose (70-99) mg/dl POC Glucose (other) 108 H 110 H 111 H (70-99) mg/dl Calcium (8.5-10.1) mg/dl Phosphorus (2.5-4.9) mg/dl Magnesium (1.8-2.4) mg/dl Total Bilirubin (0.2-1) mg/dl Direct Bilirubin (0-0.2) mg/dl AST (15-37) U/L ALT (12-78) U/L Total Protein (6.4-8.2) gm/dl Albumin (3.4-5.0) gm/dl Stool Occult Bld Scrn (Negative) Hep Bs Antibody, Quant (>or=10mIU/mL Immune) mIU/mL Crossmatch 09/09/18 09/09/18 09/09/18 Range/Units 19:53 21:06 22:00 WBC (4.8-10.8) K/uL RBC (4.7-6.1) M/uL Hgb (14.0-18.0) g/dL Hct (42-52) % RDW Std Deviation (36.4-46.3) fL RDW Coeff of Nahed (11.5-14.5) % Plt Count (130-400) K/uL MPV (7.4-10.4) fL Absolute Nucleated RBC (0-0) K/uL Neutrophils # (Manual) (1.4-6.5) K/uL Total Absolute Neuts (1.4-6.5) K/uL Total Abs Lymphocytes (1.2-3.4) K/uL Monocytes # (Manual) (0.11-0.59) K/uL Basophils # (Manual) (0-0.2) K/uL Metamyelocytes # (Man) (0-0) K/uL Myelocytes # (Manual) (0-0) K/uL PT (9.0-12.0) Seconds INR (0.9-1.1) APTT (21.0-31.0) Seconds Sodium (136-145) mmol/L Potassium (3.5-5.1) mmol/L Chloride (98-107) mmol/L Anion Gap (3-11) BUN (7-18) mg/dl Creatinine (0.6-1.4) mg/dl BUN/Creatinine Ratio (10-20) Glucose (70-99) mg/dl POC Glucose (other) 109 H 107 H (70-99) mg/dl Calcium (8.5-10.1) mg/dl Phosphorus (2.5-4.9) mg/dl Magnesium (1.8-2.4) mg/dl Total Bilirubin (0.2-1) mg/dl Direct Bilirubin (0-0.2) mg/dl AST (15-37) U/L ALT (12-78) U/L Total Protein (6.4-8.2) gm/dl Albumin (3.4-5.0) gm/dl Stool Occult Bld Scrn Positive H (Negative) Hep Bs Antibody, Quant (>or=10mIU/mL Immune) mIU/mL Crossmatch 09/09/18 09/10/18 09/10/18 Range/Units 23:14 00:55 03:05 WBC (4.8-10.8) K/uL RBC (4.7-6.1) M/uL Hgb (14.0-18.0) g/dL Hct (42-52) % RDW Std Deviation (36.4-46.3) fL RDW Coeff of Nahed (11.5-14.5) % Plt Count (130-400) K/uL MPV (7.4-10.4) fL Absolute Nucleated RBC (0-0) K/uL Neutrophils # (Manual) (1.4-6.5) K/uL Total Absolute Neuts (1.4-6.5) K/uL Total Abs Lymphocytes (1.2-3.4) K/uL Monocytes # (Manual) (0.11-0.59) K/uL Basophils # (Manual) (0-0.2) K/uL Metamyelocytes # (Man) (0-0) K/uL Myelocytes # (Manual) (0-0) K/uL PT (9.0-12.0) Seconds INR (0.9-1.1) APTT (21.0-31.0) Seconds Sodium (136-145) mmol/L Potassium (3.5-5.1) mmol/L Chloride (98-107) mmol/L Anion Gap (3-11) BUN (7-18) mg/dl Creatinine (0.6-1.4) mg/dl BUN/Creatinine Ratio (10-20) Glucose (70-99) mg/dl POC Glucose (other) 101 H 104 H 107 H (70-99) mg/dl Calcium (8.5-10.1) mg/dl Phosphorus (2.5-4.9) mg/dl Magnesium (1.8-2.4) mg/dl Total Bilirubin (0.2-1) mg/dl Direct Bilirubin (0-0.2) mg/dl AST (15-37) U/L ALT (12-78) U/L Total Protein (6.4-8.2) gm/dl Albumin (3.4-5.0) gm/dl Stool Occult Bld Scrn (Negative) Hep Bs Antibody, Quant (>or=10mIU/mL Immune) mIU/mL Crossmatch 09/10/18 09/10/18 09/10/18 Range/Units 04:17 04:17 05:10 WBC 32.19 H* (4.8-10.8) K/uL RBC 2.72 L (4.7-6.1) M/uL Hgb 8.4 L (14.0-18.0) g/dL Hct 23.9 L (42-52) % RDW Std Deviation 51.8 H (36.4-46.3) fL RDW Coeff of Nahed 16.2 H (11.5-14.5) % Plt Count 61 L (130-400) K/uL MPV 12.0 H (7.4-10.4) fL Absolute Nucleated RBC 2.51 H (0-0) K/uL Neutrophils # (Manual) 31.03 H (1.4-6.5) K/uL Total Absolute Neuts 31.03 H (1.4-6.5) K/uL Total Abs Lymphocytes 0.00 L (1.2-3.4) K/uL Monocytes # (Manual) (0.11-0.59) K/uL Basophils # (Manual) (0-0.2) K/uL Metamyelocytes # (Man) 0.29 H (0-0) K/uL Myelocytes # (Manual) 0.29 H (0-0) K/uL PT (9.0-12.0) Seconds INR (0.9-1.1) APTT (21.0-31.0) Seconds Sodium (136-145) mmol/L Potassium (3.5-5.1) mmol/L Chloride (98-107) mmol/L Anion Gap (3-11) BUN (7-18) mg/dl Creatinine (0.6-1.4) mg/dl BUN/Creatinine Ratio (10-20) Glucose (70-99) mg/dl POC Glucose (other) 111 H (70-99) mg/dl Calcium (8.5-10.1) mg/dl Phosphorus 6.4 H (2.5-4.9) mg/dl Magnesium 2.6 H (1.8-2.4) mg/dl Total Bilirubin (0.2-1) mg/dl Direct Bilirubin (0-0.2) mg/dl AST (15-37) U/L ALT (12-78) U/L Total Protein (6.4-8.2) gm/dl Albumin (3.4-5.0) gm/dl Stool Occult Bld Scrn (Negative) Hep Bs Antibody, Quant (>or=10mIU/mL Immune) mIU/mL Crossmatch 09/10/18 Range/Units 07:39 WBC (4.8-10.8) K/uL RBC (4.7-6.1) M/uL Hgb (14.0-18.0) g/dL Hct (42-52) % RDW Std Deviation (36.4-46.3) fL RDW Coeff of Nahed (11.5-14.5) % Plt Count (130-400) K/uL MPV (7.4-10.4) fL Absolute Nucleated RBC (0-0) K/uL Neutrophils # (Manual) (1.4-6.5) K/uL Total Absolute Neuts (1.4-6.5) K/uL Total Abs Lymphocytes (1.2-3.4) K/uL Monocytes # (Manual) (0.11-0.59) K/uL Basophils # (Manual) (0-0.2) K/uL Metamyelocytes # (Man) (0-0) K/uL Myelocytes # (Manual) (0-0) K/uL PT (9.0-12.0) Seconds INR (0.9-1.1) APTT (21.0-31.0) Seconds Sodium 134 L (136-145) mmol/L Potassium 5.7 H D (3.5-5.1) mmol/L Chloride 97 L (98-107) mmol/L Anion Gap 12.0 H (3-11) BUN 91 H (7-18) mg/dl Creatinine 4.28 H D (0.6-1.4) mg/dl BUN/Creatinine Ratio 21.2 H (10-20) Glucose 108 H (70-99) mg/dl POC Glucose (other) (70-99) mg/dl Calcium 6.5 L (8.5-10.1) mg/dl Phosphorus (2.5-4.9) mg/dl Magnesium (1.8-2.4) mg/dl Total Bilirubin (0.2-1) mg/dl Direct Bilirubin (0-0.2) mg/dl AST (15-37) U/L ALT (12-78) U/L Total Protein (6.4-8.2) gm/dl Albumin (3.4-5.0) gm/dl Stool Occult Bld Scrn (Negative) Hep Bs Antibody, Quant (>or=10mIU/mL Immune) mIU/mL Crossmatch Medications Administered Current Inpatient Medications Albuterol (Duoneb) 3 ml NEB Q4R PRN PRN Reason: Wheezing Stop: 10/02/18 07:06 Aspirin (Aspirin Chew) 81 mg PO DAILY [facility] Stop: 10/06/18 08:59 Last Admin: 09/08/18 09:52 Dose: Not Given Documented by: Citalopram Hydrobromide (Celexa) 20 mg PO DAILY [facility] Stop: 10/05/18 09:29 Last Admin: 09/08/18 09:52 Dose: Not Given Documented by: Fentanyl Citrate (Fentanyl Citrate) 50 mcg IV Q2H PRN PRN Reason: Moderate Pain (4,5,6) Stop: 09/16/18 03:12 Last Admin: 09/03/18 08:43 Dose: 50 mcg Documented by: Fentanyl Citrate (Fentanyl Citrate) 100 mcg IV Q2H PRN PRN Reason: Severe Pain (7,8,9,10) Stop: 09/16/18 03:12 Last Admin: 09/07/18 09:07 Dose: 100 mcg Documented by: Pantoprazole Sodium 40 mg/ (Syringe) 10 mls @ 5 mls/min IV DAILY@1100 [facility] Stop: 10/02/18 10:59 Last Admin: 09/10/18 10:26 Dose: 5 mls/min Documented by: Levothyroxine Sodium 12.5 mcg/ (Syringe) 0.625 mls @ 2 mls/min IV DAILY@0900 [facility] Stop: 10/02/18 10:59 Last Admin: 09/10/18 09:17 Dose: 2 mls/min Documented by: Midazolam HCl (Versed) 125 mg in 250 mls @ 0 mls/hr IV .Q0M [facility]; Protocol Stop: 10/08/18 09:43 Last Admin: 09/10/18 10:58 Dose: Not Given Documented by: Vasopressin 20 units/ Sodium (Chloride) 101 mls @ 12.12 mls/hr IV .Q8H20M [facility] Stop: 10/08/18 10:25 Last Admin: 09/10/18 08:07 Dose: 0.04 unit/min, 12.1 mls/hr Documented by: Norepinephrine Bitartrate 24 (mg/ Dextrose) 524 mls @ 86.59 mls/hr IV .Q6H4M PRN; Protocol PRN Reason: Titration Stop: 10/08/18 02:44 Last Titration: 09/10/18 12:21 Dose: 0.5 mcg/kg/min, 86.6 mls/hr Documented by: Sodium Chloride (Nss 250ml) 250 mls @ 15 mls/hr IV .[id number] PRN PRN Reason: For Transfusion Stop: 10/09/18 16:15 Piperacillin Sod/Tazobactam (Sod 4.5 gm/ Dextrose) 120 mls @ 30 mls/hr IV Q12H [facility]; Protocol Stop: 09/17/18 12:29 Vancomycin HCl 2,250 mg/ (Sodium Chloride) 545 mls @ 200 mls/hr IV .AFTER HD COMPLETE ONE Stop: 09/10/18 16:43 Insulin Aspart (Novolog Flexpen) 0 units SC Q4 [facility] Stop: 10/10/18 11:59 Miscellaneous Information (Consult Glycemic Management Pharmacy) 1 ea N/A UD PRN PRN Reason: Consult Stop: 10/02/18 11:10 Miscellaneous Information (Consult) 1 ea N/A UD PRN PRN Reason: Consult Stop: 10/10/18 12:10 Miscellaneous Information (Consult) 1 ea N/A UD PRN PRN Reason: Consult Stop: 10/10/18 12:10 Nutritional Formula (Peptamen Intense Vhp) 1,000 ml OG UD [facility]; Protocol Stop: 10/02/18 12:59 Last Admin: 09/07/18 11:29 Dose: 1,000 ml Documented by: Nutritional Formula (Prosource No Carb) 30 ml PO BID PRN PRN Reason: Undecided Stop: 10/06/18 10:06 Last Admin: 09/06/18 17:20 Dose: 30 ml Documented by: Rosuvastatin Calcium (Crestor) 20 mg PO DAILY [facility] Stop: 10/06/18 08:59 Last Admin: 09/10/18 09:16 Dose: 20 mg Documented by:
--- NOTE | 2018-09-10 13:09 | Nephrology Progress Note ---
Date of Service September 10, 2018 Assessment & Plan (1) Acute kidney injury: Patient with acute kidney injury due to ischemic ATN in setting of hypotension. Urine sediment reviewed by myself showed numerous muddy brown casts consistent with ATN. Patient started dialysis yesterday. He tolerated 3 L UF. Is being dialyzed again today. We will plan for dialysis on a 2K bath, blood flow 400, dialysate flow 600 and net UF of 3 L. Monitor input output and daily BMP. (2) Acute respiratory failure with hypoxia: Patient with acute respiratory failure of multifactorial etiology including volume overload and pneumonia. He remains on mechanical ventilation with PEEP of 8 and FiO2 50%. Will attempt fluid removal with dialysis. (3) Anemia: Patient with anemia due to retroperitoneal bleed. Monitor and transfuse as needed. No role for DREA in setting of acute kidney injury. (4) Hypotension: Patient in shock of unclear etiology likely sepsis and possibly cardioge jeovanny shock. He is on Levophed and vasopressin. He is having intradialytic hypotension. Will aim for map above 65. Subjective Patient is intubated and unable to give history. He started dialysis yesterday for volume overload. He had ultrafiltration with net -3 L. Is being dialyzed again today. Patient was seen and examined while on dialysis. He continues to have intradialytic hypotension requiring 2 pressors. Review of Systems Unobtainable due to endotracheal tube Physical Exam Vital Signs (Past 24 Hours): Last Vital Signs Temp 37.9 C H 09/10/18 09:45 Pulse 111 H 09/10/18 12:45 Resp 26 H 09/10/18 11:40 BP 94/46 L 09/10/18 12:45 Pulse Ox 99 09/10/18 11:40 Physical Exam: General exam: Intubated and sedated, appears comfortable, no acute distress HEENT: Pupils are sluggish to light Neck: No JVD, neck is supple trachea is midline Respiratory system: Clear breath sounds anteriorly. Gastrointestinal: Abdomen is soft, distended, non tender, bowel sounds are present CVS: Regular rate and rhythm. No murmurs, rubs or gallops Musculoskeletal: No joint or muscle tenderness Extremities: Non tender, anasarca, peripheral pulses are present Neuro: Unresponsive, no tremors, no focal neurological deficits Skin: No rashes Results & Data Laboratory Results Potassium 5.7, creatinine 4.2 and BUN of 91
[2018-09-10] MEDS ORDERED: FLUMAZENIL 0.1 MG/1 ML 10 ML VIAL IV STA ×2 (13:35→14:07)
[2018-09-10] MEDS ORDERED: NALOXONE HCL 0.4 MG/1 ML VIAL/CARP IV STA (13:37)
[2018-09-10] MEDS: PIPERACILLIN/TAZOBACTAM 4.5 GM in DEXTROSE 5% 100 ML IV SCH (13:51)
[2018-09-10] MEDS ORDERED: VANCOMYCIN HCL 2,250 MG in SODIUM CHLORIDE 0.9% 500 ML IV ONE (14:00)
--- NOTE | 2018-09-10 14:22 | Pharmacy Report ---
Pharmacy Abx Dose Short Note - Date of Service September 10, 2018 - Assessment & Plan Assessment * 77 yo male now ordered Vancomycin + Zosyn for pneumonia, elevated WBC, worsening CXR, + fever * Patient had received Doxy x 7 days 09/03-09/10; Also received Rocephin 09/05-09/08 * Mycoplasma IgM and Legionella UA negative * Initial MRSA nasal swab negative 09/03, repeat nasal swab ordered today * Pt recultured today as well * Pt is no receiving HD for worsening MALIK, session completed yesterday and currently undergoing session at this time Plan Vancomycin * Loading dose: 2250mg (~16mg/kg) IV x 1 after dialysis completed * Will check random level w/ AM labs on 09/11 * Goal trough level for pulm infxn : 15 to 20 mcg/mL * Await results of repeat MRSA nasal swab Zosyn * 4.5gm IV over 30min x 1, then 4.5gm ext-infusion IV Q 12 hours Pharmacy will continue to follow and will adjust dose/frequency as necessary. Thank you.
[2018-09-10 16:48] LABS: BUN Creatinine Ratio 17.1 (10-20); Calcium 6.2 mg/dl (8.5-10.1); Creatinine Clr Calc Pharmacy 30.7 ml/min; Est GFR (African American) 23.5; Est GFR (Non-African American) 20.3; Magnesium 2.2 mg/dl (1.8-2.4); Phosphorus 5.2 mg/dl (2.5-4.9); Potassium 4.8 mmol/L (3.5-5.1)
[2018-09-11] MEDS: PIPERACILLIN/TAZOBACTAM 4.5 GM in DEXTROSE 5% 100 ML IV SCH (00:34)
[2018-09-11] MEDS: INSULIN ASPART 100 UNITS/ML 3 ML PEN SC SCH ×3 (00:34→08:09)
[2018-09-11] MEDS: DEXTROSE 5% IV PRN ×2 (02:28→09:47)
[2018-09-11] MEDS: NOREPINEPHRINE BIT IV PRN ×2 (02:28→09:47)
[2018-09-11 05:26] LABS: Hematocrit (blood only) 24.1 % (42-52); Hemoglobin 7.9 g/dL (14.0-18.0); Mean Corpuscular Hgb Conc 32.8 g/dL (32-36); Mean Corpuscular Volume 89.6 fL (80-100); Mean Platelet Volume 12.7 fL (7.4-10.4); Nucleated RBC # (auto) 1.17 K/uL (0-0); Nucleated RBC % (auto) 3.7 %; Platelet Count 64 K/uL (130-400); RDW Coefficient of Variation 16.6 % (11.5-14.5); RDW Standard Deviation 53.3 fL (36.4-46.3); Red Blood Count 2.69 M/uL (4.7-6.1); White Blood Count 31.92 K/uL (4.8-10.8)
[2018-09-11 05:43] LABS: Albumin Level 1.7 gm/dl (3.4-5.0); BUN Creatinine Ratio 16.1 (10-20); Calcium 5.6 mg/dl (8.5-10.1); Creatinine Clr Calc Pharmacy 23.7 ml/min; Est GFR (Non-African American) 14.7; Magnesium 2.3 mg/dl (1.8-2.4); Potassium 5.1 mmol/L (3.5-5.1)
[2018-09-11 05:45] LABS: Bilirubin,Total 5.1 mg/dl (0.2-1); Phosphorus 5.5 mg/dl (2.5-4.9); Total Protein 4.2 gm/dl (6.4-8.2)
[2018-09-11 06:16] LABS: Basophils # (auto) 0.02 K/uL (0-0.2); Basophils % (auto) 0.1 %; Dohle Bodies Occasional; Eosinophils # (auto) 0.01 K/uL (0-0.5); Immature Granulocytes % (auto) 0.9 %; Lymphocytes # (auto) 0.82 K/uL (1.2-3.4); Lymphocytes % (auto) 2.6 %; Monocytes % (auto) 6.3 %; Neutrophils # (auto) 28.77 K/uL (1.4-6.5); Neutrophils % (auto) 90.1 %; Polychromasia 1+
[2018-09-11 06:48] LABS: Bilirubin Direct 4.1 mg/dl (0-0.2)
[2018-09-11] MEDS ORDERED: CALCIUM GLUCONATE 10% 1,000 MG in SODIUM CHLORIDE 0.9% 50 ML IV STA (07:53)
[2018-09-11] MEDS ORDERED: SODIUM CHLORIDE 0.9% 1000ML 1,000 ML IV PRN (08:07)
--- NOTE | 2018-09-11 08:31 | Hospitalist Progress Note ---
Date of Service September 11, 2018 Assessment & Plan (1) Admitted to intensive care unit: acute respiratory failure due to hypovolemic and septic shock, requiring intubation and mechanial ventilation Acute metabolic encephalopathy: Mr. Huff is a 77 year old male with a past medical history of COPD, erosive gastritis, duodenitis, ulcerative colitis, hypertension, CKD, chronic anemia, afib on coumadin, type 2 DM, CHF, hx of prostate cancer s/p TURP and hiatal hernia who presents to us as a transfer from [facility] due to worsening condition Acute metabolic encephalopathy likely secondary to bacteremia from HCAP. -CT head ordered/ negative. Fear for hypoxic encephalopathy the patient did not awake and he is on no sedation and spike given Romazicon and naloxone he did not wake up HCAP possibly MRSA and/or gram negative pneumonia daptomycin and doxycycline Hypotension Hypovolemic shock from acute blood loss anemia.possible septic shock also requiring vasopressors, Acute Respiratory Failure with Hypoxia -patient sedated and on ventilator -bronchoscopy done by Dr. Gao & bronchial washings sent for cx -> see procedure note for further details Possible anoxic brain injury from prolongued hypotension, EEG this am Acute Kidney failure Patient has history of CKD stage III Discussion with Chinese Herbalist has resuted in a trial of hemodylsis for acid base and volume management -Family had meeting with palliatve care they are hopeful but obviously are aware of the mortality of the situation. Diabetes Mellitus -hold home Januvia -BSG management per ICU protocol basal bolus insulin Hypothyroidism levothyroxine Hypercholesterolemia -restart crestor when able GERD, and GI prophylaxis while on ventilator pantoprazole. Code status: FULL (2) Retroperitoneal bleeding: Acute blood loss anemia: Secondary to right Retroperitoneal bleeding Patient required 4 units. 2.5 mg IV vitamin K, remains with coagulopathy (3) Erosive gastritis: GI/NUTRITION - Significant history of erosive gastritis, Domínguez's esophagus, and ulcerative colitis: - h/o Prostate CA. Ugarte in place - Strict I&Os. (4) Domínguez esophagus: (5) Atrial fibrillation: History of coronary artery disease, A. fib, hypertension, hyperlipidemia, and CHF: Hold home antihypertensives as pt is on pressors A-fib - hold coumadin currently. anticoagulation was reversed on presentation h/o CHF - will have dialysis to help with volume status Physical Exam Vital Signs (Past 24 Hours): Last Vital Signs Temp 37.9 C H 09/10/18 17:00 Pulse 110 H 09/11/18 07:39 Resp 26 H 09/11/18 07:39 BP 131/57 L 09/11/18 06:00 Pulse Ox 100 09/11/18 07:39
[2018-09-11 08:48] LABS: iSTAT Allen Test Pass; iSTAT Arterial Blood Gas HCO3 23 meg/L (19-24); iSTAT Arterial Blood Gas pCO2 36 mmHg (35-46); iSTAT Arterial Blood Gas pH 7.42 (7.35-7.45); iSTAT Carbon Dioxide 24 mEq/l (24-31); iSTAT FiO2 40 %; iSTAT Site R Radial
[2018-09-11] MEDS: PANTOprazole 40 MG in SYRINGE 0 ML IV SCH (09:47)
[2018-09-11] MEDS: LEVOTHYROXINE SODIUM 12.5 MCG in SYRINGE 0 ML IV SCH (09:47)
[2018-09-11] MEDS: VASOPRESSIN 20 UNITS in 0.9 % SODIUM CHLORIDE 100 ML IV SCH (09:47)
[2018-09-11] MEDS: MIDAZOLAM HCL 125 MG/250 ML BAG IV SCH (09:47)
--- NOTE | 2018-09-11 10:56 | Critical Care Progress Note ---
Date of Service September 11, 2018 Assessment & Plan (1) Retroperitoneal bleeding: (2) HCAP (healthcare-associated pneumonia): (3) Acute metabolic encephalopathy: (4) CKD (chronic kidney disease), stage III: (5) Admitted to intensive care unit: (6) Acute respiratory failure with hypoxia: The patient overall is doing very poorly. Currently he is requiring full ventilatory support and he is on 100% FiO2. The patient is off the bicarb drip. He also remains hypotensive though he is on 2 pressors including Levophed and vasopressin . Still he remains hypotensive. Also his renal function is deteriorating and his urine output currently is 0. Nephrology was consulted yesterday and we also put the dialysis catheter and patient was dialyzed twice. The patient is off the bicarb drip. The renal function seems to be deteriorating. The patient seems to be tolerating the dialysis. The patient also remains intubated and requiring 50% of the FiO2 to maintain his sats around 95-96%. The patient received total of 10 units of packed red blood cells and 2 units of FFP. H&H has been stable and there is no further evidence of bleeding. The patient was not given any more transfusions since yesterday. Overall the patient is doing very poorly. He is going into multiorgan failure. We had a long discussion with the family about his current medical condition and plan of care and at this stage they would like us to make the patient DNR, no CPR no shock but continue with other treatment. I had a long discussion with the family members about the patient's current medical condition and plan of care and the are okay with explanation and the plan of care and they would like us to continue with the care we are giving to the patient including the dialysis. The EEG was done which practically revealed flatline consistent with possibility of anoxic encephalopathy. We are still waiting for the final results. We have also scheduled a family meeting this afternoon. In the meantime we are going to continue with all other management as prescribed. I have spent greater than 35 minutes of critical care time. Subjective Mr. Huff is a 77 year old male with a past medical history of COPD, erosive gastritis, duodenitis, ulcerative colitis, hypertension, CKD, chronic anemia, afib on coumadin, type 2 DM, CHF, hx of prostate cancer s/p TURP and hiatal hernia who presents to us as a transfer from [facility] due to worsening AMS, an emia and a cough. The patient remains intubated but off the sedation since day before yesterday 5 PM. He is still not awake. Also the patient received dialysis catheter day before yesterday and he was dialyzed one time on Saturday and 3 L of fluid was removed. He was dialyzed again yesterday and 2 L fluid was removed. The patient is still anuric. His H&H has been stable. Currently he is on Levophed as well as vasopressin but epinephrine was stopped. Oxygenation remains stable on 40% FiO2. The patient overall is doing very poorly. Currently EEG is being done. Is still not waking up. Physical Exam Vital Signs (Past 24 Hours): Last Vital Signs Temp 37.9 C H 09/10/18 17:00 Pulse 108 H 09/11/18 10:00 Resp 26 H 09/11/18 07:39 BP 125/64 09/11/18 10:00 Pulse Ox 91 09/11/18 09:31 Physical Exam: Elderly male currently remains on a ventilator and is off the sedation. Not in any acute distress. The patient is not awake. He is not even moving to painful stimuli. Generalized edema/anasarca. HEENT: PERRLA. Conjunctivae is clear. Sclera nonicteric. Pupils are reactive to light. NECK: The neck is supple. There is no JVD no lymphadenopathy. RESPIRATORY: Bilaterally coarse breathing with decreased breath sounds also crackles posteriorly no wheezing no rhonchi heard. CARDIOVASCULAR: S1-S2 heard, tachycardia, unable to appreciate the murmur rubs or gallop. GASTROINTESTINAL: Obese abdomen, soft, bowel sounds are diminished. MUSCULOSKELETAL: The patient has edema. Generalized anasarca. SKIN: The patient has hematoma. At places his skin is also breaking and now some blisters secondary to the fluids. NEUROLOGY: The patient is off the sedation and remains on a ventilator and unable to examine him from neuro point. Currently he is not responsive at all. Results & Data Laboratory Results Abnormal lab results 09/10/18 09/10/18 09/10/18 Range/Units 12:43 15:57 16:16 WBC (4.8-10.8) K/uL RBC (4.7-6.1) M/uL Hgb (14.0-18.0) g/dL Hct (42-52) % RDW Std Deviation (36.4-46.3) fL RDW Coeff of Nahed (11.5-14.5) % Plt Count (130-400) K/uL MPV (7.4-10.4) fL Immature Gran # (Auto) (0.00-0.02) K/uL Neut # (Auto) (1.4-6.5) K/uL Lymph # (Auto) (1.2-3.4) K/uL [place] # (Auto) (0.11-0.59) K/uL Absolute Nucleated RBC (0-0) K/uL POC pO2 (80-95) mmHg POC ABG O2 Sat (90-95) % Sodium 134 L (136-145) mmol/L Chloride 97 L (98-107) mmol/L BUN 48 H (7-18) mg/dl Creatinine 2.83 H D (0.6-1.4) mg/dl Glucose 104 H (70-99) mg/dl POC Glucose (other) 112 H 107 H (70-99) mg/dl Calcium 6.2 L (8.5-10.1) mg/dl Phosphorus 5.2 H (2.5-4.9) mg/dl Total Bilirubin (0.2-1) mg/dl Direct Bilirubin (0-0.2) mg/dl AST (15-37) U/L ALT (12-78) U/L Alkaline Phosphatase (45-117) U/L Total Protein (6.4-8.2) gm/dl Albumin (3.4-5.0) gm/dl 09/10/18 09/11/18 09/11/18 Range/Units 20:09 04:08 04:44 WBC 31.92 H* (4.8-10.8) K/uL RBC 2.69 L (4.7-6.1) M/uL Hgb 7.9 L (14.0-18.0) g/dL Hct 24.1 L (42-52) % RDW Std Deviation 53.3 H (36.4-46.3) fL RDW Coeff of Nahed 16.6 H (11.5-14.5) % Plt Count 64 L (130-400) K/uL MPV 12.7 H (7.4-10.4) fL Immature Gran # (Auto) 0.30 H (0.00-0.02) K/uL Neut # (Auto) 28.77 H (1.4-6.5) K/uL Lymph # (Auto) 0.82 L (1.2-3.4) K/uL [place] # (Auto) 2.00 H (0.11-0.59) K/uL Absolute Nucleated RBC 1.17 H (0-0) K/uL POC pO2 (80-95) mmHg POC ABG O2 Sat (90-95) % Sodium (136-145) mmol/L Chloride (98-107) mmol/L BUN (7-18) mg/dl Creatinine (0.6-1.4) mg/dl Glucose (70-99) mg/dl POC Glucose (other) 108 H 105 H (70-99) mg/dl Calcium (8.5-10.1) mg/dl Phosphorus (2.5-4.9) mg/dl Total Bilirubin (0.2-1) mg/dl Direct Bilirubin (0-0.2) mg/dl AST (15-37) U/L ALT (12-78) U/L Alkaline Phosphatase (45-117) U/L Total Protein (6.4-8.2) gm/dl Albumin (3.4-5.0) gm/dl 09/11/18 09/11/18 09/11/18 Range/Units 04:44 08:07 08:35 WBC (4.8-10.8) K/uL RBC (4.7-6.1) M/uL Hgb (14.0-18.0) g/dL Hct (42-52) % RDW Std Deviation (36.4-46.3) fL RDW Coeff of Nahed (11.5-14.5) % Plt Count (130-400) K/uL MPV (7.4-10.4) fL Immature Gran # (Auto) (0.00-0.02) K/uL Neut # (Auto) (1.4-6.5) K/uL Lymph # (Auto) (1.2-3.4) K/uL [place] # (Auto) (0.11-0.59) K/uL Absolute Nucleated RBC (0-0) K/uL POC pO2 97 H (80-95) mmHg POC ABG O2 Sat 97.0 H (90-95) % Sodium 131 L (136-145) mmol/L Chloride 96 L (98-107) mmol/L BUN 60 H (7-18) mg/dl Creatinine 3.70 H D (0.6-1.4) mg/dl Glucose 102 H (70-99) mg/dl POC Glucose (other) 110 H (70-99) mg/dl Calcium 5.6 L* (8.5-10.1) mg/dl Phosphorus 5.5 H (2.5-4.9) mg/dl Total Bilirubin 5.1 H D (0.2-1) mg/dl Direct Bilirubin 4.1 H D (0-0.2) mg/dl AST 2697 H (15-37) U/L ALT 1403 H (12-78) U/L Alkaline Phosphatase 149 H (45-117) U/L Total Protein 4.2 L (6.4-8.2) gm/dl Albumin 1.7 L (3.4-5.0) gm/dl Diagnostic Findings XR chest 1V portable CLINICAL HISTORY: 77 years-old Male presenting with ET tube placement/ hypoxia. TECHNIQUE: Portable upright AP view of the chest was obtained. COMPARISON: 09/09/2018. FINDINGS: Endotracheal tube terminates in the mid thoracic trachea approximately 4 cm from the eugenio. The endotracheal tube balloon is mildly hyperinflated. Right internal jugular central venous catheter terminates in the mid SVC. Left internal jugular large bore venous catheter terminates in the left brachiocephalic vein. Nasogastric tube descends below the diaphragm, terminus not visualized. Marked cardiomegaly and enlargement of the main pulmonary artery. Atherosclerosis of the aortic arch. Significant interval worsened opacity of the right hemithorax with suspected moderate layering right pleural effusion. Increased left pleural effusion. Pulmonary vascular prominence and mid to basilar opacities bilaterally. No pneumothorax. Degenerative changes of the thoracic spine. IMPRESSION: 1. Lines and tubes appropriately positioned. 2. Correlate clinically to ensure that the endotracheal tube balloon is not overinflated. 3. Significant interval worsening of bilateral pleural effusions and suspected underlying moderate pulmonary edema in the setting of cardiomegaly and volume overload. Electronically signed by: Eliezer Kapoor M.D. 09/10/2018 9:[address] head/brain wo con CT DOSE: 1007.40 mGy.cm HISTORY: Mental status change Encephalopathy, SD Hematoma, DIC TECHNIQUE: Multiaxial CT images of the head were performed without the use of intravenous contrast. A dose lowering technique was utilized adhering to the principles of ALARA. Comparison: 09/08/2018 Findings: The paranasal sinuses and mastoid air cells are clear. Similar exam compared to the prior study. The small scattered multifocal subdural hematomas are unchanged. There are no new or interval findings. There is no significant midline shift. Frontal atrophy is stable. The small subdural of the interhemispheric region is also unchanged. Impression: Stable exam with no change in the multifocal subdural collections/hematomas previously described. No new or interval findings. Electronically signed by: Freddy Tompkins M.D. 09/09/2018 10:52 AM Medications Administered Current Inpatient Medications Albuterol (Duoneb) 3 ml NEB Q4R PRN PRN Reason: Wheezing Stop: 10/02/18 07:06 Aspirin (Aspirin Chew) 81 mg PO DAILY [facility] Stop: 10/06/18 08:59 Last Admin: 09/08/18 09:52 Dose: Not Given Documented by: Citalopram Hydrobromide (Celexa) 20 mg PO DAILY [facility] Stop: 10/05/18 09:29 Last Admin: 09/08/18 09:52 Dose: Not Given Documented by: Fentanyl Citrate (Fentanyl Citrate) 50 mcg IV Q2H PRN PRN Reason: Moderate Pain (4,5,6) Stop: 09/16/18 03:12 Last Admin: 09/03/18 08:43 Dose: 50 mcg Documented by: Fentanyl Citrate (Fentanyl Citrate) 100 mcg IV Q2H PRN PRN Reason: Severe Pain (7,8,9,10) Stop: 09/16/18 03:12 Last Admin: 09/07/18 09:07 Dose: 100 mcg Documented by: Pantoprazole Sodium 40 mg/ (Syringe) 10 mls @ 5 mls/min IV DAILY@1100 [facility] Stop: 10/02/18 10:59 Last Admin: 09/11/18 09:47 Dose: 5 mls/min Documented by: Levothyroxine Sodium 12.5 mcg/ (Syringe) 0.625 mls @ 2 mls/min IV DAILY@0900 [facility] Stop: 10/02/18 10:59 Last Admin: 09/11/18 09:47 Dose: 2 mls/min Documented by: Midazolam HCl (Versed) 125 mg in 250 mls @ 0 mls/hr IV .Q0M [facility]; Protocol Stop: 10/08/18 09:43 Last Admin: 09/11/18 09:47 Dose: Not Given Documented by: Vasopressin 20 units/ Sodium (Chloride) 101 mls @ 12.12 mls/hr IV .Q8H20M [facility] Stop: 10/08/18 10:25 Last Admin: 09/11/18 09:47 Dose: 0.04 unit/min, 12.1 mls/hr Documented by: Norepinephrine Bitartrate 24 (mg/ Dextrose) 524 mls @ 60.61 mls/hr IV .Q8H39M PRN; Protocol PRN Reason: Titration Stop: 10/08/18 02:44 Last Titration: 09/11/18 09:50 Dose: 0.35 mcg/kg/min, 60.6 mls/hr Documented by: Sodium Chloride (Nss 250ml) 250 mls @ 15 mls/hr IV .[id number] PRN PRN Reason: For Transfusion Stop: 10/09/18 16:15 Piperacillin Sod/Tazobactam (Sod 4.5 gm/ Dextrose) 120 mls @ 30 mls/hr IV Q12H [facility]; Protocol Stop: 09/17/18 12:29 Last Infusion: 09/11/18 09:53 Dose: Infused Documented by: Sodium Chloride (Nss 1000ml) 1,000 mls @ 0 mls/hr IV .Q0M PRN PRN Reason: For Hemodialysis Use ONLY Stop: 09/11/18 14:06 Insulin Aspart (Novolog Flexpen) 0 units SC Q4 [facility] Stop: 10/10/18 11:59 Last Admin: 09/11/18 08:09 Dose: Not Given Documented by: Miscellaneous Information (Consult Glycemic Management Pharmacy) 1 ea N/A UD PRN PRN Reason: Consult Stop: 10/02/18 11:10 Miscellaneous Information (Consult) 1 ea N/A UD PRN PRN Reason: Consult Stop: 10/10/18 12:10 Nutritional Formula (Peptamen Intense Vhp) 1,000 ml OG UD [facility]; Protocol Stop: 10/02/18 12:59 Last Admin: 09/07/18 11:29 Dose: 1,000 ml Documented by: Nutritional Formula (Prosource No Carb) 30 ml PO BID PRN PRN Reason: Undecided Stop: 10/06/18 10:06 Last Admin: 09/06/18 17:20 Dose: 30 ml Documented by: Rosuvastatin Calcium (Crestor) 20 mg PO DAILY [facility] Stop: 10/06/18 08:59 Last Admin: 09/10/18 09:16 Dose: 20 mg Documented by:
--- NOTE | 2018-09-11 10:57 | Procedure Note ---
EEG Procedure Note Date of Service September 11, 2018 Start / End Times Start Time: 8:27 AM End Time: 8:47 AM Referring Physician KATELYNN Price History This is a 77-year-old male in the ICU who is unresponsive. EEG for further evaluation of unresponsive state and possible seizure etiology. Home Medication List Home Medications Medication Instructions Recorded Confirmed Type Bimatoprost Oph (Lumigan 0.03% Oph) 1 drp OPB HS #0 07/24/11 History Aspirin Enteric Coated (Ecotrin Or 81 mg PO DAILY #0 08/13/11 History Generic *) Latanoprost 0.005% Oph (Xalatan 1 drp OPB DAILY #0 12/19/11 History 0.005% Oph) TRAMADOL HCL (ULTRAM) 50 mg PO TID #0 tab 12/19/11 History Fish Oil (OMEGA-3) 1 cap PO DAILY #0 oil 03/06/12 History Citalopram (Citalopram 20 mg PO DAILY #0 09/08/13 History Hydrobromide) Nateglinide (Starlix) 60 mg PO BID #0 tab 09/08/13 History ROSUVASTATIN CALCIUM (CRESTOR) 20 mg PO DAILY #0 tab 09/08/13 History WARFARIN SODIUM (COUMADIN) 1 tab PO DAILY 90 Days #90 tab 09/08/15 History Insulin Glargine (Lantus) 34 SC QAM #0 vial 09/06/16 History Inpatient Medication List Aspirin (Aspirin Chew) 81 mg PO DAILY [facility] Stop: 10/06/18 08:59 Last Admin: 09/08/18 09:52 Dose: Not Given Documented by: [id number] Admin: 09/07/18 08:40 Dose: 81 mg Documented by: [id number] Admin: 09/06/18 08:17 Dose: 81 mg Documented by: [id number] Citalopram Hydrobromide (Celexa) 20 mg PO DAILY [facility] Stop: 10/05/18 09:29 Last Admin: 09/08/18 09:52 Dose: Not Given Documented by: [id number] Admin: 09/07/18 08:40 Dose: 20 mg Documented by: [id number] Admin: 09/06/18 08:17 Dose: 20 mg Documented by: [id number] Admin: 09/05/18 09:42 Dose: 20 mg Documented by: [id number] Fentanyl Citrate (Fentanyl Citrate) 50 mcg IV Q2H PRN PRN Reason: Moderate Pain (4,5,6) Stop: 09/16/18 03:12 Last Admin: 09/03/18 08:43 Dose: 50 mcg Documented by: [id number] Fentanyl Citrate (Fentanyl Citrate) 100 mcg IV Q2H PRN PRN Reason: Severe Pain (7,8,9,10) Stop: 09/16/18 03:12 Last Admin: 09/07/18 09:07 Dose: 100 mcg Documented by: [id number] Admin: 09/07/18 06:28 Dose: 100 mcg Documented by: [id number] Admin: 09/06/18 13:56 Dose: 100 mcg Documented by: [id number] Admin: 09/04/18 20:30 Dose: 100 mcg Documented by: [id number] Admin: 09/04/18 17:47 Dose: 100 mcg Documented by: [id number] Admin: 09/04/18 14:03 Dose: 100 mcg Documented by: [id number] Admin: 09/04/18 11:20 Dose: 100 mcg Documented by: [id number] Admin: 09/04/18 08:47 Dose: 100 mcg Documented by: [id number] Admin: 09/04/18 05:37 Dose: 100 mcg Documented by: [id number] Admin: 09/04/18 03:32 Dose: 100 mcg Documented by: [id number] Admin: 09/03/18 23:45 Dose: 100 mcg Documented by: [id number] Admin: 09/03/18 19:20 Dose: 100 mcg Documented by: [id number] Admin: 09/03/18 17:48 Dose: 100 mcg Documented by: [id number] Admin: 09/03/18 15:42 Dose: 100 mcg Documented by: [id number] Admin: 09/03/18 13:30 Dose: 100 mcg Documented by: [id number] Admin: 09/03/18 11:30 Dose: 100 mcg Documented by: [id number] Admin: 09/03/18 06:27 Dose: 100 mcg Documented by: [id number] Admin: 09/02/18 20:55 Dose: 100 mcg Documented by: [id number] Admin: 09/02/18 12:40 Dose: 100 mcg Documented by: [id number] Admin: 09/02/18 10:15 Dose: 100 mcg Documented by: [id number] Admin: 09/02/18 07:41 Dose: 100 mcg Documented by: [id number] Pantoprazole Sodium 40 mg/ (Syringe) 10 mls @ 5 mls/min IV DAILY@1100 [facility] Stop: 10/02/18 10:59 Last Admin: 09/11/18 09:47 Dose: 5 mls/min Documented by: [id number] Admin: 09/10/18 10:26 Dose: 5 mls/min Documented by: [id number] Admin: 09/09/18 12:58 Dose: 5 mls/min Documented by: [id number] Admin: 09/08/18 10:20 Dose: 5 mls/min Documented by: [id number] Admin: 09/07/18 10:20 Dose: 5 mls/min Documented by: [id number] Admin: 09/06/18 10:34 Dose: 5 mls/min Documented by: [id number] Admin: 09/05/18 10:40 Dose: 5 mls/min Documented by: [id number] Admin: 09/04/18 10:58 Dose: 5 mls/min Documented by: [id number] Admin: 09/03/18 08:46 Dose: 5 mls/min Documented by: [id number] Admin: 09/02/18 07:41 Dose: 5 mls/min Documented by: [id number] Levothyroxine Sodium 12.5 mcg/ (Syringe) 0.625 mls @ 2 mls/min IV DAILY@0900 [facility] Stop: 10/02/18 10:59 Last Admin: 09/11/18 09:47 Dose: 2 mls/min Documented by: [id number] Admin: 09/10/18 09:17 Dose: 2 mls/min Documented by: [id number] Admin: 09/09/18 08:29 Dose: 2 mls/min Documented by: [id number] Admin: 09/08/18 10:16 Dose: 2 mls/min Documented by: [id number] Admin: 09/07/18 10:19 Dose: 2 mls/min Documented by: [id number] Admin: 09/06/18 09:26 Dose: 2 mls/min Documented by: [id number] Admin: 09/05/18 08:40 Dose: 2 mls/min Documented by: [id number] Admin: 09/04/18 08:47 Dose: 2 mls/min Documented by: [id number] Admin: 09/03/18 09:16 Dose: 2 mls/min Documented by: [id number] Admin: 09/02/18 11:21 Dose: 2 mls/min Documented by: [id number] Midazolam HCl (Versed) 125 mg in 250 mls @ 0 mls/hr IV .Q0M [facility]; Protocol Stop: 10/08/18 09:43 Last Admin: 09/11/18 09:47 Dose: Not Given Documented by: [id number] Admin: 09/10/18 10:58 Dose: Not Given Documented by: [id number] Titration: 09/10/18 09:17 Dose: 0 mg/hr, 0 mls/hr Documented by: [id number] Titration: 09/09/18 22:46 Dose: 0 mg/hr, 0 mls/hr Documented by: [id number] Titration: 09/09/18 16:34 Dose: 0 mg/hr, 0 mls/hr Documented by: [id number] Titration: 09/09/18 15:35 Dose: 1 mg/hr, 2 mls/hr Documented by: [id number] Cosigned by: [id number] Admin: 09/09/18 11:54 Dose: Not Given Documented by: [id number] Titration: 09/09/18 11:53 Dose: 1 mg/hr, 2 mls/hr Documented by: [id number] Titration: 09/09/18 10:05 Dose: 1.5 mg/hr, 3 mls/hr Documented by: [id number] Titration: 09/09/18 07:10 Dose: 2 mg/hr, 4 mls/hr Documented by: [id number] Cosigned by: [id number] Titration: 09/08/18 19:24 Dose: 2 mg/hr, 4 mls/hr Documented by: [id number] Cosigned by: [id number] Titration: 09/08/18 13:04 Dose: 2 mg/hr, 4 mls/hr Documented by: [id number] Titration: 09/08/18 11:04 Dose: 3 mg/hr, 6 mls/hr Documented by: [id number] Titration: 09/08/18 10:34 Dose: 4 mg/hr, 8 mls/hr Documented by: [id number] Admin: 09/08/18 09:59 Dose: 2 mg/hr, 4 mls/hr Documented by: [id number] Cosigned by: [id number] Vasopressin 20 units/ Sodium (Chloride) 101 mls @ 12.12 mls/hr IV .Q8H20M [facility] Stop: 10/08/18 10:25 Last Admin: 09/11/18 09:47 Dose: 0.04 unit/min, 12.1 mls/hr Documented by: [id number] Cosigned by: [id number] Infusion: 09/11/18 09:08 Dose: 0.04 unit/min, 12.1 mls/hr Documented by: [id number] Cosigned by: [id number] Infusion: 09/11/18 07:12 Dose: 0.04 unit/min, 12.1 mls/hr Documented by: [id number] Cosigned by: [id number] Infusion: 09/11/18 05:34 Dose: 0.04 unit/min, 12.1 mls/hr Documented by: [id number] Infusion: 09/10/18 19:28 Dose: 0 unit/min, 0 mls/hr Documented by: [id number] Admin: 09/10/18 14:41 Dose: 0.04 unit/min, 12.1 mls/hr Documented by: [id number] Cosigned by: [id number] Infusion: 09/10/18 14:41 Dose: 0.04 unit/min, 12.1 mls/hr Documented by: [id number] Cosigned by: [id number] Admin: 09/10/18 08:07 Dose: 0.04 unit/min, 12.1 mls/hr Documented by: [id number] Cosigned by: [id number] Infusion: 09/10/18 06:43 Dose: 0.04 unit/min, 12.1 mls/hr Documented by: [id number] Cosigned by: [id number] Infusion: 09/09/18 22:46 Dose: 0.04 unit/min, 12.1 mls/hr Documented by: [id number] Cosigned by: [id number] Admin: 09/09/18 22:22 Dose: 0.04 unit/min, 12.1 mls/hr Documented by: [id number] Cosigned by: [id number] Infusion: 09/09/18 21:19 Dose: 0.04 unit/min, 12.1 mls/hr Documented by: [id number] Cosigned by: [id number] Infusion: 09/09/18 15:35 Dose: 0.04 unit/min, 12.1 mls/hr Documented by: [id number] Cosigned by: [id number] Admin: 09/09/18 12:58 Dose: 0.04 unit/min, 12.1 mls/hr Documented by: [id number] Cosigned by: [id number] Infusion: 09/09/18 12:41 Dose: 0.04 unit/min, 12.1 mls/hr Documented by: [id number] Cosigned by: [id number] Infusion: 09/09/18 07:10 Dose: 0.04 unit/min, 12.1 mls/hr Documented by: [id number] Admin: 09/09/18 04:20 Dose: 0.04 unit/min, 12.1 mls/hr Documented by: [id number] Cosigned by: [id number] Infusion: 09/09/18 02:30 Dose: 0 unit/min, 0 mls/hr Documented by: [id number] Cosigned by: [id number] Infusion: 09/08/18 19:24 Dose: 0.04 unit/min, 12.1 mls/hr Documented by: [id number] Cosigned by: [id number] Admin: 09/08/18 18:09 Dose: 0.04 unit/min, 12.1 mls/hr Documented by: [id number] Cosigned by: [id number] Infusion: 09/08/18 18:09 Dose: 0.04 unit/min, 12.1 mls/hr Documented by: [id number] Cosigned by: [id number] Admin: 09/08/18 10:35 Dose: 0.04 unit/min, 12.1 mls/hr Documented by: [id number] Cosigned by: [id number] Norepinephrine Bitartrate 24 (mg/ Dextrose) 524 mls @ 60.61 mls/hr IV .Q8H39M PRN; Protocol PRN Reason: Titration Stop: 10/08/18 02:44 Last Titration: 09/11/18 09:50 Dose: 0.35 mcg/kg/min, 60.6 mls/hr Documented by: [id number] Admin: 09/11/18 09:47 Dose: 0.4 mcg/kg/min, 69.3 mls/hr Documented by: [id number] Cosigned by: [id number] Titration: 09/11/18 09:47 Dose: 0.4 mcg/kg/min, 69.3 mls/hr Documented by: [id number] Cosigned by: [id number] Titration: 09/11/18 07:12 Dose: 0.4 mcg/kg/min, 69.3 mls/hr Documented by: [id number] Cosigned by: [id number] Admin: 09/11/18 02:28 Dose: 0.4 mcg/kg/min, 69.3 mls/hr Documented by: [id number] Cosigned by: [id number] Titration: 09/11/18 02:04 Dose: 0.4 mcg/kg/min, 69.3 mls/hr Documented by: [id number] Cosigned by: [id number] Titration: 09/10/18 22:23 Dose: 0.4 mcg/kg/min, 69.3 mls/hr Documented by: [id number] Titration: 09/10/18 18:09 Dose: 0.3 mcg/kg/min, 52 mls/hr Documented by: [id number] Admin: 09/10/18 17:20 Dose: 0.35 mcg/kg/min, 60.6 mls/hr Documented by: [id number] Cosigned by: [id number] Titration: 09/10/18 17:18 Dose: 0.35 mcg/kg/min, 60.6 mls/hr Documented by: [id number] Cosigned by: [id number] Titration: 09/10/18 16:30 Dose: 0.35 mcg/kg/min, 60.6 mls/hr Documented by: [id number] Titration: 09/10/18 15:25 Dose: 0.4 mcg/kg/min, 69.3 mls/hr Documented by: [id number] Titration: 09/10/18 12:21 Dose: 0.5 mcg/kg/min, 86.6 mls/hr Documented by: [id number] Admin: 09/10/18 10:24 Dose: 0.4 mcg/kg/min, 69.3 mls/hr Documented by: [id number] Cosigned by: [id number] Titration: 09/10/18 10:24 Dose: 0.3 mcg/kg/min, 52 mls/hr Documented by: [id number] Cosigned by: [id number] Titration: 09/10/18 09:58 Dose: 0.3 mcg/kg/min, 52 mls/hr Documented by: [id number] Titration: 09/09/18 22:46 Dose: 0.25 mcg/kg/min, 43.3 mls/hr Documented by: [id number] Cosigned by: [id number] Admin: 09/09/18 22:23 Dose: 0.25 mcg/kg/min, 43.3 mls/hr Documented by: [id number] Cosigned by: [id number] Titration: 09/09/18 22:23 Dose: 0.25 mcg/kg/min, 43.3 mls/hr Documented by: [id number] Cosigned by: [id number] Titration: 09/09/18 15:35 Dose: 0.25 mcg/kg/min, 43.3 mls/hr Documented by: [id number] Cosigned by: [id number] Titration: 09/09/18 15:23 Dose: 0.25 mcg/kg/min, 43.3 mls/hr Documented by: [id number] Titration: 09/09/18 13:33 Dose: 0.3 mcg/kg/min, 52 mls/hr Documented by: [id number] Admin: 09/09/18 12:15 Dose: 0.35 mcg/kg/min, 60.6 mls/hr Documented by: [id number] Cosigned by: [id number] Titration: 09/09/18 12:02 Dose: 0.35 mcg/kg/min, 60.6 mls/hr Documented by: [id number] Titration: 09/09/18 10:06 Dose: 0.4 mcg/kg/min, 69.3 mls/hr Documented by: [id number] Titration: 09/09/18 09:38 Dose: 0.45 mcg/kg/min, 77.9 mls/hr Documented by: [id number] Titration: 09/09/18 07:11 Dose: 0.5 mcg/kg/min, 86.6 mls/hr Documented by: [id number] Cosigned by: [id number] Admin: 09/09/18 05:01 Dose: 0.5 mcg/kg/min, 86.6 mls/hr Documented by: [id number] Cosigned by: [id number] Titration: 09/09/18 05:01 Dose: 0 mcg/kg/min, 0 mls/hr Documented by: [id number] Cosigned by: [id number] Admin: 09/08/18 21:50 Dose: 0.5 mcg/kg/min, 86.6 mls/hr Documented by: [id number] Cosigned by: [id number] Titration: 09/08/18 20:40 Dose: 0 mcg/kg/min, 0 mls/hr Documented by: [id number] Cosigned by: [id number] Titration: 09/08/18 19:30 Dose: 0.5 mcg/kg/min, 86.6 mls/hr Documented by: [id number] Cosigned by: [id number] Titration: 09/08/18 19:25 Dose: 0.5 mcg/kg/min, 86.6 mls/hr Documented by: [id number] Cosigned by: [id number] Titration: 09/08/18 16:35 Dose: 0.5 mcg/kg/min, 86.6 mls/hr Documented by: [id number] Titration: 09/08/18 16:00 Dose: 0.4 mcg/kg/min, 69.3 mls/hr Documented by: [id number] Titration: 09/08/18 14:30 Dose: 0.3 mcg/kg/min, 52 mls/hr Documented by: [id number] Titration: 09/08/18 13:52 Dose: 0.28 mcg/kg/min, 48.5 mls/hr Documented by: [id number] Admin: 09/08/18 13:23 Dose: 0.26 mcg/kg/min, 45 mls/hr Documented by: [id number] Cosigned by: [id number] Piperacillin Sod/Tazobactam (Sod 4.5 gm/ Dextrose) 120 mls @ 30 mls/hr IV Q12H [facility]; Protocol Stop: 09/17/18 12:29 Last Infusion: 09/11/18 09:53 Dose: 0 mls/hr Documented by: [id number] Infusion: 09/11/18 04:31 Dose: 0 mls/hr Documented by: [id number] Admin: 09/11/18 00:34 Dose: 30 mls/hr Documented by: [id number] Infusion: 09/10/18 18:08 Dose: 0 mls/hr Documented by: [id number] Admin: 09/10/18 13:51 Dose: 30 mls/hr Documented by: [id number] Insulin Aspart (Novolog Flexpen) 0 units SC Q4 [facility] Stop: 10/10/18 11:59 Last Admin: 09/11/18 08:09 Dose: Not Given Documented by: [id number] Cosigned by: [id number] Admin: 09/11/18 04:12 Dose: Not Given Documented by: [id number] Cosigned by: [id number] Admin: 09/11/18 00:34 Dose: Not Given Documented by: [id number] Cosigned by: [id number] Admin: 09/10/18 20:10 Dose: Not Given Documented by: [id number] Cosigned by: [id number] Admin: 09/10/18 16:32 Dose: Not Given Documented by: [id number] Cosigned by: [id number] Admin: 09/10/18 13:16 Dose: Not Given Documented by: [id number] Cosigned by: [id number] Nutritional Formula (Peptamen Intense Vhp) 1,000 ml OG UD [facility]; Protocol Stop: 10/02/18 12:59 Last Admin: 09/07/18 11:29 Dose: 1,000 ml Documented by: [id number] Admin: 09/06/18 04:00 Dose: 1,000 ml Documented by: [id number] Admin: 09/05/18 11:36 Dose: 1,000 ml Documented by: [id number] Admin: 09/04/18 15:39 Dose: 1,000 ml Documented by: [id number] Admin: 09/02/18 14:22 Dose: 1,000 ml Documented by: [id number] Nutritional Formula (Prosource No Carb) 30 ml PO BID PRN PRN Reason: Undecided Stop: 10/06/18 10:06 Last Admin: 09/06/18 17:20 Dose: 30 ml Documented by: [id number] Rosuvastatin Calcium (Crestor) 20 mg PO DAILY [facility] Stop: 10/06/18 08:59 Last Admin: 09/10/18 09:16 Dose: 20 mg Documented by: [id number] Admin: 09/09/18 08:31 Dose: 20 mg Documented by: [id number] Admin: 09/08/18 10:20 Dose: 20 mg Documented by: [id number] Admin: 09/07/18 08:40 Dose: 20 mg Documented by: [id number] Admin: 09/06/18 08:17 Dose: 20 mg Documented by: [id number] Discontinued Medications Calcium Chloride (Calcium Chloride 10%) Confirm Administered Dose 1,000 mg IV .STK-MED ONE Stop: 09/08/18 10:29 Last Admin: 09/08/18 10:35 Dose: 1,000 mg Documented by: [id number] Dextrose (Dextrose 50%) Confirm Administered Dose 50 ml IV .STK-MED ONE Stop: 09/09/18 15:34 Last Admin: 09/09/18 15:45 Dose: 25 ml Documented by: [id number] Flumazenil (Romazicon) 0.2 mg IV NOW STA Stop: 09/10/18 13:36 Last Admin: 09/10/18 13:49 Dose: 0.2 mg Documented by: [id number] Flumazenil (Romazicon) 0.2 mg IV NOW STA Stop: 09/10/18 14:08 Last Admin: 09/10/18 14:13 Dose: 0.2 mg Documented by: [id number] Gadobutrol (Gadavist 65ml) 13 ml IV ONCE PRN PRN Reason: Interaction Checking Stop: 09/07/18 17:24 Last Admin: 09/03/18 17:26 Dose: 13 ml Documented by: [id number] Heparin Sodium/Dextrose (Heparin Sodium/Dextrose) Confirm Administered Dose 25,000 units IV .STK-MED ONE Stop: 09/03/18 12:36 Last Admin: 09/03/18 13:11 Dose: Not Given Documented by: [id number] Sodium Chloride (Nss 1000ml) 1,000 mls @ 100 mls/hr IV .Q10H [facility] Stop: 09/02/18 11:59 Last Infusion: 09/02/18 14:06 Dose: 0 mls/hr Documented by: [id number] Admin: 09/02/18 03:54 Dose: 100 mls/hr Documented by: [id number] Midazolam HCl (Versed) 125 mg in 250 mls @ 6 mls/hr IV .Q24H PRN; Protocol PRN Reason: Titration Stop: 10/02/18 03:12 Last Titration: 09/05/18 07:06 Dose: 0 mg/hr, 0 mls/hr Documented by: [id number] Titration: 09/04/18 23:01 Dose: 3 mg/hr, 6 mls/hr Documented by: [id number] Admin: 09/04/18 16:57 Dose: 3 mg/hr, 6 mls/hr Documented by: [id number] Cosigned by: [id number] Titration: 09/04/18 16:57 Dose: 3 mg/hr, 6 mls/hr Documented by: [id number] Cosigned by: [id number] Titration: 09/04/18 15:13 Dose: 3 mg/hr, 6 mls/hr Documented by: [id number] Cosigned by: [id number] Titration: 09/04/18 07:00 Dose: 3 mg/hr, 6 mls/hr Documented by: [id number] Cosigned by: [id number] Titration: 09/03/18 19:08 Dose: 3 mg/hr, 6 mls/hr Documented by: [id number] Cosigned by: [id number] Titration: 09/03/18 08:20 Dose: 3 mg/hr, 6 mls/hr Documented by: [id number] Titration: 09/03/18 07:00 Dose: 4 mg/hr, 8 mls/hr Documented by: [id number] Cosigned by: [id number] Admin: 09/03/18 06:30 Dose: 4 mg/hr, 8 mls/hr Documented by: [id number] Cosigned by: [id number] Titration: 09/03/18 06:30 Dose: 4 mg/hr, 8 mls/hr Documented by: [id number] Cosigned by: [id number] Titration: 09/03/18 04:00 Dose: 4 mg/hr, 8 mls/hr Documented by: [id number] Titration: 09/03/18 03:30 Dose: 4.5 mg/hr, 9 mls/hr Documented by: [id number] Titration: 09/02/18 23:15 Dose: 5 mg/hr, 10 mls/hr Documented by: [id number] Cosigned by: [id number] Titration: 09/02/18 19:03 Dose: 5 mg/hr, 10 mls/hr Documented by: [id number] Cosigned by: [id number] Titration: 09/02/18 13:15 Dose: 5 mg/hr, 10 mls/hr Documented by: [id number] Titration: 09/02/18 11:06 Dose: 3 mg/hr, 6 mls/hr Documented by: [id number] Titration: 09/02/18 08:34 Dose: 2 mg/hr, 4 mls/hr Documented by: [id number] Titration: 09/02/18 07:21 Dose: 1 mg/hr, 2 mls/hr Documented by: [id number] Cosigned by: [id number] Admin: 09/02/18 03:57 Dose: 1 mg/hr, 2 mls/hr Documented by: [id number] Cosigned by: [id number] Cefepime HCl 2,000 mg/ Syringe 20 mls @ 5.5 mls/min IV Q8H [facility] Stop: 09/09/18 04:59 Last Admin: 09/05/18 04:54 Dose: 5.5 mls/min Documented by: [id number] Admin: 09/04/18 21:11 Dose: 5.5 mls/min Documented by: [id number] Admin: 09/04/18 13:04 Dose: 5.5 mls/min Documented by: [id number] Admin: 09/04/18 04:25 Dose: 5.5 mls/min Documented by: [id number] Admin: 09/03/18 21:01 Dose: 5.5 mls/min Documented by: [id number] Admin: 09/03/18 12:36 Dose: 5.5 mls/min Documented by: [id number] Admin: 09/03/18 05:30 Dose: 5.5 mls/min Documented by: [id number] Admin: 09/02/18 20:10 Dose: 5.5 mls/min Documented by: [id number] Admin: 09/02/18 11:21 Dose: 5.5 mls/min Documented by: [id number] Admin: 09/02/18 05:20 Dose: 5.5 mls/min Documented by: [id number] Vancomycin HCl 2,500 mg/ (Sodium Chloride) 550 mls @ 200 mls/hr IV NOW ONE Stop: 09/02/18 06:37 Last Infusion: 09/02/18 08:34 Dose: 0 mls/hr Documented by: [id number] Admin: 09/02/18 05:20 Dose: 200 mls/hr Documented by: [id number] Methylprednisolone 40 mg/ (Syringe) 0.64 mls @ 1.5 mls/min IV BID [facility] Stop: 09/06/18 21:01 Last Admin: 09/06/18 21:40 Dose: 1.5 mls/min Documented by: [id number] Admin: 09/06/18 08:25 Dose: 1.5 mls/min Documented by: [id number] Admin: 09/05/18 21:03 Dose: 1.5 mls/min Documented by: [id number] Admin: 09/05/18 08:41 Dose: 1.5 mls/min Documented by: [id number] Admin: 09/04/18 21:11 Dose: 1.5 mls/min Documented by: [id number] Admin: 09/04/18 08:40 Dose: 1.5 mls/min Documented by: [id number] Admin: 09/03/18 21:01 Dose: 1.5 mls/min Documented by: [id number] Admin: 09/03/18 08:46 Dose: 1.5 mls/min Documented by: [id number] Admin: 09/02/18 20:11 Dose: 1.5 mls/min Documented by: [id number] Admin: 09/02/18 12:40 Dose: 1.5 mls/min Documented by: [id number] Sodium Chloride (Nss 1000ml) 1,000 mls @ 75 mls/hr IV .[id number] [facility] Stop: 10/02/18 13:29 Last Infusion: 09/03/18 08:19 Dose: 0 mls/hr Documented by: [id number] Infusion: 09/03/18 08:04 Dose: 75 mls/hr Documented by: [id number] Admin: 09/03/18 03:33 Dose: 75 mls/hr Documented by: [id number] Infusion: 09/03/18 03:33 Dose: 75 mls/hr Documented by: [id number] Infusion: 09/02/18 23:15 Dose: 75 mls/hr Documented by: [id number] Admin: 09/02/18 14:13 Dose: 75 mls/hr Documented by: [id number] Vancomycin HCl 1,500 mg/ (Sodium Chloride) 530 mls @ 200 mls/hr IV Q18H [facility] Stop: 09/09/18 20:59 Last Infusion: 09/03/18 00:28 Dose: 0 mls/hr Documented by: [id number] Infusion: 09/02/18 23:15 Dose: 200 mls/hr Documented by: [id number] Admin: 09/02/18 21:44 Dose: 200 mls/hr Documented by: [id number] Heparin Sodium (Porcine) 7,500 (units/ Syringe) 7.5 mls @ 10 mls/min IV NOW ONE Stop: 09/03/18 12:01 Last Admin: 09/03/18 13:13 Dose: 10 mls/min Documented by: [id number] Cosigned by: [id number] Doxycycline Hyclate 200 mg/ (Dextrose) 270 mls @ 67.5 mls/hr IV NOW ONE Stop: 09/03/18 16:14 Last Infusion: 09/03/18 16:40 Dose: 0 mls/hr Documented by: [id number] Admin: 09/03/18 12:34 Dose: 67.5 mls/hr Documented by: [id number] Doxycycline Hyclate 100 mg/ (Dextrose) 110 mls @ 55 mls/hr IV Q24H [facility] Stop: 09/09/18 12:01 Last Infusion: 09/09/18 15:26 Dose: 0 mls/hr Documented by: [id number] Admin: 09/09/18 13:18 Dose: 55 mls/hr Documented by: [id number] Infusion: 09/08/18 15:31 Dose: 0 mls/hr Documented by: [id number] Admin: 09/08/18 13:23 Dose: 55 mls/hr Documented by: [id number] Infusion: 09/07/18 13:20 Dose: 0 mls/hr Documented by: [id number] Admin: 09/07/18 11:16 Dose: 55 mls/hr Documented by: [id number] Infusion: 09/06/18 15:06 Dose: 0 mls/hr Documented by: [id number] Admin: 09/06/18 13:05 Dose: 55 mls/hr Documented by: [id number] Infusion: 09/05/18 13:32 Dose: 0 mls/hr Documented by: [id number] Admin: 09/05/18 11:37 Dose: 55 mls/hr Documented by: [id number] Infusion: 09/04/18 13:12 Dose: 0 mls/hr Documented by: [id number] Admin: 09/04/18 11:15 Dose: 55 mls/hr Documented by: [id number] Potassium Phosphate 12 mmol/ (Sodium Chloride) 254 mls @ 88 mls/hr IV NOW ONE Stop: 09/03/18 15:23 Last Infusion: 09/03/18 15:47 Dose: 0 mls/hr Documented by: [id number] Admin: 09/03/18 12:34 Dose: 88 mls/hr Documented by: [id number] Heparin Sodium/Dextrose (Heparin Sodium/Dextrose) 25,000 units in 500 mls @ 22 mls/hr IV .[id number] [facility]; Protocol Stop: 10/03/18 13:14 Last Titration: 09/08/18 12:08 Dose: 0 units/hr, 0 mls/hr Documented by: [id number] Cosigned by: [id number] Titration: 09/08/18 07:44 Dose: 0 units/hr, 0 mls/hr Documented by: [id number] Cosigned by: [id number] Titration: 09/08/18 07:28 Dose: 1,100 units/hr, 22 mls/hr Documented by: [id number] Cosigned by: [id number] Titration: 09/07/18 19:07 Dose: 1,100 units/hr, 22 mls/hr Documented by: [id number] Cosigned by: [id number] Admin: 09/07/18 08:40 Dose: 1,100 units/hr, 22 mls/hr Documented by: [id number] Cosigned by: [id number] Titration: 09/07/18 08:38 Dose: 1,100 units/hr, 22 mls/hr Documented by: [id number] Cosigned by: [id number] Titration: 09/07/18 07:16 Dose: 1,100 units/hr, 22 mls/hr Documented by: [id number] Cosigned by: [id number] Titration: 09/06/18 19:08 Dose: 1,100 units/hr, 22 mls/hr Documented by: [id number] Cosigned by: [id number] Admin: 09/06/18 08:26 Dose: 1,100 units/hr, 22 mls/hr Documented by: [id number] Cosigned by: [id number] Titration: 09/06/18 08:19 Dose: 1,100 units/hr, 22 mls/hr Documented by: [id number] Cosigned by: [id number] Titration: 09/06/18 06:57 Dose: 1,100 units/hr, 22 mls/hr Documented by: [id number] Cosigned by: [id number] Titration: 09/05/18 19:00 Dose: 1,100 units/hr, 22 mls/hr Documented by: [id number] Cosigned by: [id number] Titration: 09/05/18 12:28 Dose: 1,100 units/hr, 22 mls/hr Documented by: [id number] Cosigned by: [id number] Admin: 09/05/18 07:09 Dose: 1,100 units/hr, 22 mls/hr Documented by: [id number] Cosigned by: [id number] Titration: 09/05/18 05:14 Dose: 1,100 units/hr, 22 mls/hr Documented by: [id number] Cosigned by: [id number] Titration: 09/04/18 23:01 Dose: 1,200 units/hr, 24 mls/hr Documented by: [id number] Cosigned by: [id number] Titration: 09/04/18 21:31 Dose: 1,200 units/hr, 24 mls/hr Documented by: [id number] Cosigned by: [id number] Titration: 09/04/18 15:13 Dose: 1,200 units/hr, 24 mls/hr Documented by: [id number] Cosigned by: [id number] Titration: 09/04/18 14:17 Dose: 1,200 units/hr, 24 mls/hr Documented by: [id number] Cosigned by: [id number] Admin: 09/04/18 08:40 Dose: 1,300 units/hr, 26 mls/hr Documented by: [id number] Cosigned by: [id number] Titration: 09/04/18 08:14 Dose: 1,300 units/hr, 26 mls/hr Documented by: [id number] Cosigned by: [id number] Titration: 09/04/18 07:29 Dose: 1,300 units/hr, 26 mls/hr Documented by: [id number] Cosigned by: [id number] Titration: 09/04/18 06:59 Dose: 0 units/hr, 0 mls/hr Documented by: [id number] Cosigned by: [id number] Admin: 09/04/18 04:25 Dose: Not Given Documented by: [id number] Titration: 09/04/18 00:20 Dose: 1,500 units/hr, 30 mls/hr Documented by: [id number] Cosigned by: [id number] Titration: 09/03/18 21:01 Dose: 0 units/hr, 0 mls/hr Documented by: [id number] Cosigned by: [id number] Titration: 09/03/18 19:08 Dose: 1,800 units/hr, 36 mls/hr Documented by: [id number] Cosigned by: [id number] Admin: 09/03/18 13:12 Dose: 1,800 units/hr, 36 mls/hr Documented by: [id number] Cosigned by: [id number] Insulin Human Regular 250 (units/ Sodium Chloride) 250 mls @ 2.1 mls/hr IV .Q24H [facility]; Protocol Stop: 09/07/18 16:00 Last Admin: 09/07/18 14:29 Dose: Not Given Documented by: [id number] Admin: 09/07/18 14:29 Dose: Not Given Documented by: [id number] Admin: 09/07/18 14:29 Dose: Not Given Documented by: [id number] Titration: 09/07/18 14:29 Dose: 0 units/hr, 0 mls/hr Documented by: [id number] Cosigned by: [id number] Titration: 09/07/18 14:24 Dose: 1.7 units/hr, 1.7 mls/hr Documented by: [id number] Cosigned by: [id number] Titration: 09/07/18 13:30 Dose: 2.1 units/hr, 2.1 mls/hr Documented by: [id number] Cosigned by: [id number] Titration: 09/07/18 09:30 Dose: 2.6 units/hr, 2.6 mls/hr Documented by: [id number] Cosigned by: [id number] Titration: 09/07/18 07:17 Dose: 2.6 units/hr, 2.6 mls/hr Documented by: [id number] Cosigned by: [id number] Titration: 09/06/18 21:42 Dose: 2.6 units/hr, 2.6 mls/hr Documented by: [id number] Cosigned by: [id number] Titration: 09/06/18 19:57 Dose: 2.6 units/hr, 2.6 mls/hr Documented by: [id number] Cosigned by: [id number] Titration: 09/06/18 19:08 Dose: 2.6 units/hr, 2.6 mls/hr Documented by: [id number] Cosigned by: [id number] Titration: 09/06/18 17:19 Dose: 2.6 units/hr, 2.6 mls/hr Documented by: [id number] Cosigned by: [id number] Titration: 09/06/18 15:29 Dose: 2.6 units/hr, 2.6 mls/hr Documented by: [id number] Cosigned by: [id number] Titration: 09/06/18 14:30 Dose: 2.6 units/hr, 2.6 mls/hr Documented by: [id number] Cosigned by: [id number] Titration: 09/06/18 13:25 Dose: 2.6 units/hr, 2.6 mls/hr Documented by: [id number] Cosigned by: [id number] Titration: 09/06/18 12:30 Dose: 2.6 units/hr, 2.6 mls/hr Documented by: [id number] Cosigned by: [id number] Titration: 09/06/18 11:30 Dose: 2.2 units/hr, 2.2 mls/hr Documented by: [id number] Cosigned by: [id number] Titration: 09/06/18 10:30 Dose: 2.2 units/hr, 2.2 mls/hr Documented by: [id number] Cosigned by: [id number] Titration: 09/06/18 09:28 Dose: 2.2 units/hr, 2.2 mls/hr Documented by: [id number] Cosigned by: [id number] Titration: 09/06/18 08:27 Dose: 2.2 units/hr, 2.2 mls/hr Documented by: [id number] Cosigned by: [id number] Titration: 09/06/18 06:57 Dose: 1.8 units/hr, 1.8 mls/hr Documented by: [id number] Cosigned by: [id number] Titration: 09/06/18 00:30 Dose: 1.8 units/hr, 1.8 mls/hr Documented by: [id number] Cosigned by: [id number] Titration: 09/05/18 20:45 Dose: 1.8 units/hr, 1.8 mls/hr Documented by: [id number] Cosigned by: [id number] Titration: 09/05/18 18:59 Dose: 1.8 units/hr, 1.8 mls/hr Documented by: [id number] Cosigned by: [id number] Titration: 09/05/18 16:27 Dose: 1.8 units/hr, 1.8 mls/hr Documented by: [id number] Cosigned by: [id number] Titration: 09/05/18 12:29 Dose: 1.8 units/hr, 1.8 mls/hr Documented by: [id number] Cosigned by: [id number] Titration: 09/05/18 08:30 Dose: 1.8 units/hr, 1.8 mls/hr Documented by: [id number] Cosigned by: [id number] Titration: 09/05/18 07:06 Dose: 1.8 units/hr, 1.8 mls/hr Documented by: [id number] Cosigned by: [id number] Titration: 09/05/18 00:35 Dose: 1.8 units/hr, 1.8 mls/hr Documented by: [id number] Cosigned by: [id number] Titration: 09/04/18 23:01 Dose: 1.8 units/hr, 1.8 mls/hr Documented by: [id number] Cosigned by: [id number] Titration: 09/04/18 22:30 Dose: 1.8 units/hr, 1.8 mls/hr Documented by: [id number] Cosigned by: [id number] Titration: 09/04/18 20:30 Dose: 1.8 units/hr, 1.8 mls/hr Documented by: [id number] Cosigned by: [id number] Titration: 09/04/18 18:30 Dose: 1.8 units/hr, 1.8 mls/hr Documented by: [id number] Cosigned by: [id number] Titration: 09/04/18 17:42 Dose: 1.8 units/hr, 1.8 mls/hr Documented by: [id number] Cosigned by: [id number] Titration: 09/04/18 16:28 Dose: 1.8 units/hr, 1.8 mls/hr Documented by: [id number] Cosigned by: [id number] Titration: 09/04/18 15:34 Dose: 1.8 units/hr, 1.8 mls/hr Documented by: [id number] Cosigned by: [id number] Titration: 09/04/18 15:12 Dose: 2.3 units/hr, 2.3 mls/hr Documented by: [id number] Cosigned by: [id number] Titration: 09/04/18 14:30 Dose: 2.3 units/hr, 2.3 mls/hr Documented by: [id number] Cosigned by: [id number] Titration: 09/04/18 14:00 Dose: 0 units/hr, 0 mls/hr Documented by: [id number] Cosigned by: [id number] Titration: 09/04/18 13:00 Dose: 3.8 units/hr, 3.8 mls/hr Documented by: [id number] Cosigned by: [id number] Titration: 09/04/18 11:58 Dose: 3.8 units/hr, 3.8 mls/hr Documented by: [id number] Cosigned by: [id number] Admin: 09/04/18 10:58 Dose: 4.8 units/hr, 4.8 mls/hr Documented by: [id number] Cosigned by: [id number] Dexmedetomidine HCl 200 mcg/ (Sodium Chloride) 50 mls @ 6.47 mls/hr IV .Q7H44M [facility]; Protocol Stop: 09/09/18 00:00 Last Admin: 09/05/18 07:07 Dose: Not Given Documented by: [id number] Propofol (Diprivan) 1,000 mg in 100 mls @ 0 mls/hr IV .Q0M PRN; Protocol PRN Reason: Titration Stop: 09/11/18 23:29 Last Titration: 09/08/18 12:13 Dose: 0 mcg/kg/min, 0 mls/hr Documented by: [id number] Titration: 09/08/18 09:59 Dose: 0 mcg/kg/min, 0 mls/hr Documented by: [id number] Admin: 09/08/18 08:14 Dose: 19.32 mcg/kg/min, 15 mls/hr Documented by: [id number] Cosigned by: [id number] Titration: 09/08/18 08:14 Dose: 6.44 mcg/kg/min, 5 mls/hr Documented by: [id number] Cosigned by: Admin: 09/08/18 07:51 Dose: 6.44 mcg/kg/min, 5 mls/hr Documented by: [id number] Cosigned by: Titration: 09/08/18 07:51 Dose: 15 mcg/kg/min, 11.6 mls/hr Documented by: [id number] Cosigned by: Titration: 09/08/18 07:43 Dose: 15 mcg/kg/min, 11.6 mls/hr Documented by: [id number] Titration: 09/08/18 07:29 Dose: 17.52 mcg/kg/min, 13.6 mls/hr Documented by: [id number] Cosigned by: [id number] Titration: 09/08/18 06:00 Dose: 17.5 mcg/kg/min, 13.6 mls/hr Documented by: [id number] Titration: 09/08/18 05:20 Dose: 20 mcg/kg/min, 15.5 mls/hr Documented by: [id number] Titration: 09/08/18 02:17 Dose: 17.5 mcg/kg/min, 13.6 mls/hr Documented by: [id number] Admin: 09/08/18 01:52 Dose: 20 mcg/kg/min, 15.5 mls/hr Documented by: [id number] Cosigned by: [id number] Titration: 09/08/18 01:52 Dose: 0 mcg/kg/min, 0 mls/hr Documented by: [id number] Cosigned by: [id number] Titration: 09/08/18 01:13 Dose: 20 mcg/kg/min, 15.5 mls/hr Documented by: [id number] Titration: 09/07/18 22:05 Dose: 22.5 mcg/kg/min, 17.5 mls/hr Documented by: [id number] Titration: 09/07/18 21:32 Dose: 25 mcg/kg/min, 19.4 mls/hr Documented by: [id number] Admin: 09/07/18 20:22 Dose: 20 mcg/kg/min, 15.5 mls/hr Documented by: [id number] Cosigned by: [id number] Titration: 09/07/18 19:40 Dose: 35 mcg/kg/min, 27.2 mls/hr Documented by: [id number] Cosigned by: [id number] Titration: 09/07/18 19:07 Dose: 35 mcg/kg/min, 27.2 mls/hr Documented by: [id number] Cosigned by: [id number] Admin: 09/07/18 15:59 Dose: 35 mcg/kg/min, 27.2 mls/hr Documented by: [id number] Cosigned by: [id number] Titration: 09/07/18 15:59 Dose: 35 mcg/kg/min, 27.2 mls/hr Documented by: [id number] Cosigned by: [id number] Admin: 09/07/18 12:18 Dose: 35 mcg/kg/min, 27.2 mls/hr Documented by: [id number] Cosigned by: [id number] Titration: 09/07/18 12:18 Dose: 35 mcg/kg/min, 27.2 mls/hr Documented by: [id number] Cosigned by: [id number] Admin: 09/07/18 08:51 Dose: 35 mcg/kg/min, 27.2 mls/hr Documented by: [id number] Cosigned by: [id number] Titration: 09/07/18 08:51 Dose: 0 mcg/kg/min, 0 mls/hr Documented by: [id number] Cosigned by: [id number] Titration: 09/07/18 05:30 Dose: 0 mcg/kg/min, 0 mls/hr Documented by: [id number] Titration: 09/07/18 02:53 Dose: 22.5 mcg/kg/min, 17.5 mls/hr Documented by: [id number] Titration: 09/07/18 00:28 Dose: 20 mcg/kg/min, 15.5 mls/hr Documented by: [id number] Titration: 09/06/18 23:56 Dose: 25 mcg/kg/min, 19.4 mls/hr Documented by: [id number] Admin: 09/06/18 23:49 Dose: 30 mcg/kg/min, 23.3 mls/hr Documented by: [id number] Cosigned by: [id number] Titration: 09/06/18 23:49 Dose: 0 mcg/kg/min, 0 mls/hr Documented by: [id number] Cosigned by: [id number] Titration: 09/06/18 21:56 Dose: 32.5 mcg/kg/min, 25.2 mls/hr Documented by: [id number] Admin: 09/06/18 20:39 Dose: 35 mcg/kg/min, 27.2 mls/hr Documented by: [id number] Cosigned by: [id number] Titration: 09/06/18 20:39 Dose: 0 mcg/kg/min, 0 mls/hr Documented by: [id number] Cosigned by: [id number] Titration: 09/06/18 19:08 Dose: 35 mcg/kg/min, 27.2 mls/hr Documented by: [id number] Cosigned by: [id number] Admin: 09/06/18 16:13 Dose: 35 mcg/kg/min, 27.2 mls/hr Documented by: [id number] Cosigned by: [id number] Titration: 09/06/18 15:50 Dose: 35 mcg/kg/min, 27.2 mls/hr Documented by: [id number] Cosigned by: [id number] Admin: 09/06/18 12:09 Dose: 35 mcg/kg/min, 27.2 mls/hr Documented by: [id number] Cosigned by: [id number] Titration: 09/06/18 12:09 Dose: 40 mcg/kg/min, 31.1 mls/hr Documented by: [id number] Cosigned by: [id number] Titration: 09/06/18 10:00 Dose: 40 mcg/kg/min, 31.1 mls/hr Documented by: [id number] Admin: 09/06/18 09:26 Dose: 30 mcg/kg/min, 23.3 mls/hr Documented by: [id number] Cosigned by: [id number] Titration: 09/06/18 08:00 Dose: 0 mcg/kg/min, 0 mls/hr Documented by: [id number] Titration: 09/06/18 06:58 Dose: 30 mcg/kg/min, 23.3 mls/hr Documented by: [id number] Cosigned by: [id number] Titration: 09/06/18 03:45 Dose: 30 mcg/kg/min, 23.3 mls/hr Documented by: [id number] Admin: 09/06/18 03:41 Dose: 25 mcg/kg/min, 19.4 mls/hr Documented by: [id number] Cosigned by: [id number] Titration: 09/06/18 03:39 Dose: 25 mcg/kg/min, 19.4 mls/hr Documented by: [id number] Titration: 09/06/18 01:08 Dose: 20 mcg/kg/min, 15.5 mls/hr Documented by: [id number] Admin: 09/05/18 21:04 Dose: 25 mcg/kg/min, 19.4 mls/hr Documented by: [id number] Cosigned by: [id number] Titration: 09/05/18 21:04 Dose: 0 mcg/kg/min, 0 mls/hr Documented by: [id number] Cosigned by: [id number] Titration: 09/05/18 19:56 Dose: 25 mcg/kg/min, 19.4 mls/hr Documented by: [id number] Titration: 09/05/18 19:00 Dose: 20 mcg/kg/min, 15.5 mls/hr Documented by: [id number] Cosigned by: [id number] Titration: 09/05/18 18:39 Dose: 20 mcg/kg/min, 15.5 mls/hr Documented by: [id number] Admin: 09/05/18 16:23 Dose: 25 mcg/kg/min, 19.4 mls/hr Documented by: [id number] Cosigned by: [id number] Titration: 09/05/18 16:23 Dose: 20 mcg/kg/min, 15.5 mls/hr Documented by: [id number] Cosigned by: [id number] Titration: 09/05/18 13:00 Dose: 20 mcg/kg/min, 15.5 mls/hr Documented by: [id number] Titration: 09/05/18 12:30 Dose: 15 mcg/kg/min, 11.6 mls/hr Documented by: [id number] Titration: 09/05/18 10:06 Dose: 10 mcg/kg/min, 7.8 mls/hr Documented by: [id number] Titration: 09/05/18 09:52 Dose: 7 mcg/kg/min, 5.4 mls/hr Documented by: [id number] Titration: 09/05/18 07:40 Dose: 0 mcg/kg/min, 0 mls/hr Documented by: [id number] Titration: 09/05/18 07:06 Dose: 15 mcg/kg/min, 11.6 mls/hr Documented by: [id number] Cosigned by: [id number] Admin: 09/05/18 06:10 Dose: 15 mcg/kg/min, 11.6 mls/hr Documented by: [id number] Cosigned by: [id number] Titration: 09/05/18 06:10 Dose: 0 mcg/kg/min, 0 mls/hr Documented by: [id number] Cosigned by: [id number] Titration: 09/05/18 04:00 Dose: 15 mcg/kg/min, 11.6 mls/hr Documented by: [id number] Titration: 09/05/18 00:33 Dose: 20 mcg/kg/min, 15.5 mls/hr Documented by: [id number] Titration: 09/05/18 00:23 Dose: 15 mcg/kg/min, 11.6 mls/hr Documented by: [id number] Titration: 09/05/18 00:17 Dose: 10 mcg/kg/min, 7.8 mls/hr Documented by: [id number] Admin: 09/05/18 00:07 Dose: 5 mcg/kg/min, 3.9 mls/hr Documented by: [id number] Cosigned by: [id number] Ceftriaxone Sodium 1,000 mg/ (Dextrose) 50 mls @ 100 mls/hr IV DAILY@1200 [facility] Stop: 09/08/18 11:59 Last Infusion: 09/07/18 11:39 Dose: 0 mls/hr Documented by: [id number] Admin: 09/07/18 11:04 Dose: 100 mls/hr Documented by: [id number] Infusion: 09/06/18 12:42 Dose: 0 mls/hr Documented by: [id number] Admin: 09/06/18 12:08 Dose: 100 mls/hr Documented by: [id number] Infusion: 09/05/18 13:32 Dose: 0 mls/hr Documented by: [id number] Admin: 09/05/18 13:04 Dose: 100 mls/hr Documented by: [id number] Norepinephrine Bitartrate 8 mg (/ Dextrose) 508 mls @ 110.81 mls/hr IV .Q4H36M PRN; Protocol PRN Reason: Titration Stop: 09/08/18 12:00 Last Titration: 09/08/18 13:22 Dose: 0.26 mcg/kg/min, 131 mls/hr Documented by: [id number] Titration: 09/08/18 12:49 Dose: 0.24 mcg/kg/min, 120.9 mls/hr Documented by: [id number] Titration: 09/08/18 11:22 Dose: 0.22 mcg/kg/min, 110.8 mls/hr Documented by: [id number] Titration: 09/08/18 11:04 Dose: 0.2 mcg/kg/min, 100.7 mls/hr Documented by: [id number] Titration: 09/08/18 10:27 Dose: 0.17 mcg/kg/min, 85.6 mls/hr Documented by: [id number] Titration: 09/08/18 09:58 Dose: 0.13 mcg/kg/min, 65.5 mls/hr Documented by: [id number] Titration: 09/08/18 07:55 Dose: 0.09 mcg/kg/min, 45.3 mls/hr Documented by: [id number] Titration: 09/08/18 07:43 Dose: 0.07 mcg/kg/min, 35.3 mls/hr Documented by: [id number] Titration: 09/08/18 07:29 Dose: 0.03 mcg/kg/min, 15.1 mls/hr Documented by: [id number] Cosigned by: [id number] Titration: 09/08/18 06:00 Dose: 0.03 mcg/kg/min, 15.1 mls/hr Documented by: [id number] Titration: 09/08/18 05:00 Dose: 0.025 mcg/kg/min, 12.6 mls/hr Documented by: [id number] Titration: 09/08/18 04:30 Dose: 0.02 mcg/kg/min, 10.1 mls/hr Documented by: [id number] Titration: 09/08/18 04:00 Dose: 0.015 mcg/kg/min, 7.6 mls/hr Documented by: [id number] Admin: 09/08/18 03:30 Dose: 0.1 mcg/kg/min, 50.4 mls/hr Documented by: [id number] Cosigned by: [id number] Protamine Sulfate 5 mg/ (Dextrose) 50.5 mls @ 300 mls/hr IV ONE ONE Stop: 09/08/18 09:40 Last Infusion: 09/08/18 11:05 Dose: 0 mls/hr Documented by: [id number] Admin: 09/08/18 09:43 Dose: 300 mls/hr Documented by: [id number] Phytonadione 2.5 mg/ Sodium (Chloride) 50.25 mls @ 101 mls/hr IV ONE ONE Stop: 09/08/18 10:14 Last Infusion: 09/08/18 10:35 Dose: 0 mls/hr Documented by: [id number] Admin: 09/08/18 10:00 Dose: 101 mls/hr Documented by: [id number] Piperacillin Sod/Tazobactam (Sod 4.5 gm/ Dextrose) 120 mls @ 200 mls/hr IV NOW ONE; Protocol Stop: 09/08/18 11:35 Last Infusion: 09/08/18 12:09 Dose: 0 mls/hr Documented by: [id number] Infusion: 09/08/18 12:00 Dose: 0 mls/hr Documented by: [id number] Admin: 09/08/18 11:08 Dose: 200 mls/hr Documented by: [id number] Daptomycin 575 mg/ Syringe 11.5 mls @ 5.75 mls/min IV TODAY@1330 [facility]; Protocol Stop: 09/15/18 13:29 Last Admin: 09/09/18 13:19 Dose: 5.75 mls/min Documented by: [id number] Admin: 09/08/18 13:41 Dose: 5.75 mls/min Documented by: [id number] Sodium Chloride (Nss 1000ml) 500 mls @ 999 mls/hr IV .Q31M ONE Stop: 09/08/18 14:20 Last Infusion: 09/08/18 15:32 Dose: 0 mls/hr Documented by: [id number] Admin: 09/08/18 14:28 Dose: 999 mls/hr Documented by: [id number] Insulin Human Regular 250 (units/ Sodium Chloride) 250 mls @ 0 mls/hr IV .Q0M [facility]; Protocol Stop: 10/08/18 14:14 Last Titration: 09/10/18 10:59 Dose: 0 units/hr, 0 mls/hr Documented by: [id number] Cosigned by: [id number] Titration: 09/09/18 22:46 Dose: 0 units/hr, 0 mls/hr Documented by: [id number] Cosigned by: [id number] Titration: 09/09/18 15:36 Dose: 0 units/hr, 0 mls/hr Documented by: [id number] Cosigned by: [id number] Titration: 09/09/18 15:35 Dose: 10 units/hr, 10 mls/hr Documented by: [id number] Cosigned by: [id number] Titration: 09/09/18 14:54 Dose: 10 units/hr, 10 mls/hr Documented by: [id number] Cosigned by: [id number] Titration: 09/09/18 14:46 Dose: 21 units/hr, 21 mls/hr Documented by: [id number] Cosigned by: [id number] Titration: 09/09/18 13:58 Dose: 26.3 units/hr, 26.3 mls/hr Documented by: [id number] Cosigned by: [id number] Titration: 09/09/18 13:07 Dose: 26.3 units/hr, 26.3 mls/hr Documented by: [id number] Cosigned by: [id number] Admin: 09/09/18 11:56 Dose: 32.9 units/hr, 32.9 mls/hr Documented by: [id number] Cosigned by: [id number] Titration: 09/09/18 10:23 Dose: 32.9 units/hr, 32.9 mls/hr Documented by: [id number] Cosigned by: [id number] Titration: 09/09/18 09:49 Dose: 32.9 units/hr, 32.9 mls/hr Documented by: [id number] Cosigned by: [id number] Titration: 09/09/18 08:58 Dose: 27.4 units/hr, 27.4 mls/hr Documented by: [id number] Cosigned by: [id number] Titration: 09/09/18 07:56 Dose: 22.8 units/hr, 22.8 mls/hr Documented by: [id number] Cosigned by: [id number] Titration: 09/09/18 07:11 Dose: 19 units/hr, 19 mls/hr Documented by: [id number] Cosigned by: [id number] Titration: 09/09/18 06:47 Dose: 19 units/hr, 19 mls/hr Documented by: [id number] Cosigned by: [id number] Titration: 09/09/18 05:45 Dose: 15.8 units/hr, 15.8 mls/hr Documented by: [id number] Cosigned by: [id number] Titration: 09/09/18 04:30 Dose: 13.2 units/hr, 13.2 mls/hr Documented by: [id number] Cosigned by: [id number] Titration: 09/09/18 03:45 Dose: 13.2 units/hr, 13.2 mls/hr Documented by: [id number] Cosigned by: [id number] Titration: 09/09/18 01:35 Dose: 9.4 units/hr, 9.4 mls/hr Documented by: [id number] Cosigned by: [id number] Titration: 09/09/18 00:32 Dose: 6.7 units/hr, 6.7 mls/hr Documented by: [id number] Cosigned by: [id number] Titration: 09/08/18 23:33 Dose: 4.8 units/hr, 4.8 mls/hr Documented by: [id number] Cosigned by: [id number] Titration: 09/08/18 22:45 Dose: 4.8 units/hr, 4.8 mls/hr Documented by: [id number] Cosigned by: [id number] Titration: 09/08/18 21:49 Dose: 3.4 units/hr, 3.4 mls/hr Documented by: [id number] Cosigned by: [id number] Titration: 09/08/18 21:00 Dose: 2.8 units/hr, 2.8 mls/hr Documented by: [id number] Cosigned by: [id number] Titration: 09/08/18 19:40 Dose: 2.8 units/hr, 2.8 mls/hr Documented by: [id number] Cosigned by: [id number] Titration: 09/08/18 19:25 Dose: 2.3 units/hr, 2.3 mls/hr Documented by: [id number] Cosigned by: [id number] Titration: 09/08/18 18:32 Dose: 2.3 units/hr, 2.3 mls/hr Documented by: [id number] Cosigned by: [id number] Titration: 09/08/18 17:00 Dose: 1.9 units/hr, 1.9 mls/hr Documented by: [id number] Cosigned by: [id number] Titration: 09/08/18 16:00 Dose: 1.9 units/hr, 1.9 mls/hr Documented by: [id number] Cosigned by: [id number] Admin: 09/08/18 14:25 Dose: 3.1 units/hr, 3.1 mls/hr Documented by: [id number] Cosigned by: [id number] Sodium Chloride (Nss 1000ml) 500 mls @ 999 mls/hr IV .Q31M ONE Stop: 09/08/18 16:02 Last Infusion: 09/08/18 16:10 Dose: 0 mls/hr Documented by: [id number] Admin: 09/08/18 15:35 Dose: 999 mls/hr Documented by: [id number] Epinephrine HCl 2 mg/ Dextrose 252 mls @ 92.53 mls/hr IV .Q2H44M [facility]; Protocol Stop: 09/08/18 17:30 Last Titration: 09/08/18 18:11 Dose: 0 mcg/kg/min, 0 mls/hr Documented by: [id number] Titration: 09/08/18 17:00 Dose: 0.2 mcg/kg/min, 185.1 mls/hr Documented by: [id number] Admin: 09/08/18 16:20 Dose: 0.1 mcg/kg/min, 92.5 mls/hr Documented by: [id number] Epinephrine HCl 4 mg/ Dextrose 254 mls @ 0 mls/hr IV .Q0M [facility]; Protocol Stop: 09/08/18 19:00 Last Titration: 09/08/18 20:00 Dose: 0 mcg/kg/min, 0 mls/hr Documented by: [id number] Titration: 09/08/18 19:30 Dose: 0.3 mcg/kg/min, 139.9 mls/hr Documented by: [id number] Admin: 09/08/18 18:11 Dose: 0.3 mcg/kg/min, 139.9 mls/hr Documented by: [id number] Sodium Bicarbonate 150 meq/ (Dextrose) 1,150 mls @ 150 mls/hr IV .Q7H40M [facility] Stop: 10/08/18 17:44 Last Infusion: 09/09/18 08:52 Dose: 0 mls/hr Documented by: [id number] Admin: 09/09/18 01:47 Dose: 150 mls/hr Documented by: [id number] Infusion: 09/09/18 01:42 Dose: 150 mls/hr Documented by: [id number] Admin: 09/08/18 18:01 Dose: 150 mls/hr Documented by: [id number] Epinephrine HCl 8 mg/ Dextrose 508 mls @ 0 mls/hr IV .Q0M [facility]; Protocol Stop: 10/08/18 18:59 Last Titration: 09/09/18 08:35 Dose: 0 mcg/kg/min, 0 mls/hr Documented by: [id number] Titration: 09/09/18 07:30 Dose: 0.2 mcg/kg/min, 93.3 mls/hr Documented by: [id number] Titration: 09/09/18 07:12 Dose: 0.3 mcg/kg/min, 139.9 mls/hr Documented by: [id number] Admin: 09/09/18 04:21 Dose: 0.3 mcg/kg/min, 139.9 mls/hr Documented by: [id number] Titration: 09/09/18 04:21 Dose: 0 mcg/kg/min, 0 mls/hr Documented by: [id number] Admin: 09/09/18 00:08 Dose: 0.3 mcg/kg/min, 139.9 mls/hr Documented by: [id number] Titration: 09/09/18 00:08 Dose: 0 mcg/kg/min, 0 mls/hr Documented by: [id number] Admin: 09/08/18 19:58 Dose: 0.3 mcg/kg/min, 139.9 mls/hr Documented by: [id number] Epinephrine HCl 8 mg/ Sodium (Chloride) 508 mls @ 93.27 mls/hr IV .Q5H27M [facility]; Protocol Stop: 10/09/18 06:14 Last Titration: 09/10/18 16:30 Dose: 0 mcg/kg/min, 0 mls/hr Documented by: [id number] Admin: 09/10/18 08:08 Dose: Not Given Documented by: [id number] Admin: 09/10/18 08:06 Dose: Not Given Documented by: [id number] Admin: 09/09/18 19:44 Dose: Not Given Documented by: [id number] Titration: 09/09/18 14:27 Dose: 0 mcg/kg/min, 0 mls/hr Documented by: [id number] Admin: 09/09/18 13:43 Dose: Not Given Documented by: [id number] Titration: 09/09/18 13:43 Dose: 0.08 mcg/kg/min, 37.3 mls/hr Documented by: [id number] Titration: 09/09/18 13:20 Dose: 0.1 mcg/kg/min, 46.6 mls/hr Documented by: [id number] Titration: 09/09/18 12:57 Dose: 0.11 mcg/kg/min, 51.3 mls/hr Documented by: [id number] Titration: 09/09/18 12:19 Dose: 0.13 mcg/kg/min, 60.6 mls/hr Documented by: [id number] Titration: 09/09/18 12:01 Dose: 0.14 mcg/kg/min, 65.3 mls/hr Documented by: [id number] Titration: 09/09/18 08:52 Dose: 0.15 mcg/kg/min, 70 mls/hr Documented by: [id number] Admin: 09/09/18 08:25 Dose: 0.2 mcg/kg/min, 93.3 mls/hr Documented by: [id number] Sodium Bicarbonate 150 meq/ (Sterile Water) 1,150 mls @ 150 mls/hr IV .Q7H40M [facility] Stop: 10/09/18 08:59 Last Admin: 09/10/18 11:33 Dose: Not Given Documented by: [id number] Infusion: 09/10/18 10:59 Dose: 0 mls/hr Documented by: [id number] Admin: 09/09/18 23:46 Dose: 150 mls/hr Documented by: [id number] Infusion: 09/09/18 23:46 Dose: 150 mls/hr Documented by: [id number] Infusion: 09/09/18 22:46 Dose: 150 mls/hr Documented by: [id number] Admin: 09/09/18 16:38 Dose: 150 mls/hr Documented by: [id number] Infusion: 09/09/18 16:21 Dose: 150 mls/hr Documented by: [id number] Admin: 09/09/18 08:40 Dose: 150 mls/hr Documented by: [id number] Piperacillin Sod/Tazobactam (Sod 4.5 gm/ Dextrose) 120 mls @ 200 mls/hr IV NOW ONE; Protocol Stop: 09/10/18 08:50 Last Infusion: 09/10/18 10:00 Dose: 0 mls/hr Documented by: [id number] Admin: 09/10/18 09:16 Dose: 200 mls/hr Documented by: [id number] Doxycycline Hyclate 100 mg/ (Dextrose) 110 mls @ 55 mls/hr IV Q12H [facility] Stop: 09/17/18 08:59 Last Infusion: 09/10/18 11:33 Dose: 0 mls/hr Documented by: [id number] Admin: 09/10/18 09:16 Dose: 55 mls/hr Documented by: [id number] Vancomycin HCl 2,250 mg/ (Sodium Chloride) 545 mls @ 200 mls/hr IV .AFTER HD COMPLETE ONE Stop: 09/10/18 16:43 Last Infusion: 09/10/18 17:40 Dose: 0 mls/hr Documented by: [id number] Admin: 09/10/18 14:41 Dose: 200 mls/hr Documented by: [id number] Calcium Gluconate 1,000 mg/ (Sodium Chloride) 60 mls @ 240 mls/hr IV NOW STA Stop: 09/11/18 08:07 Last Infusion: 09/11/18 09:53 Dose: 0 mls/hr Documented by: [id number] Admin: 09/11/18 08:10 Dose: 240 mls/hr Documented by: [id number] Insulin Aspart (Novolog Flexpen) 0 units SC Q6H [facility] Stop: 10/02/18 11:59 Last Admin: 09/02/18 12:38 Dose: Not Given Documented by: [id number] Cosigned by: [id number] Insulin Aspart (Novolog Flexpen) 0 units SC Q4H [facility]; Protocol Stop: 10/02/18 11:59 Last Admin: 09/04/18 08:40 Dose: 7 units Documented by: [id number] Cosigned by: [id number] Admin: 09/04/18 04:25 Dose: 6 units Documented by: [id number] Cosigned by: [id number] Admin: 09/04/18 00:22 Dose: 4 units Documented by: [id number] Cosigned by: [id number] Admin: 09/03/18 21:00 Dose: 8 units Documented by: [id number] Cosigned by: [id number] Admin: 09/03/18 18:25 Dose: 5 units Documented by: [id number] Cosigned by: [id number] Admin: 09/03/18 13:27 Dose: 4 units Documented by: [id number] Cosigned by: [id number] Admin: 09/03/18 08:54 Dose: 2 units Documented by: [id number] Cosigned by: [id number] Admin: 09/03/18 05:30 Dose: 2 units Documented by: [id number] Cosigned by: [id number] Admin: 09/03/18 00:54 Dose: 1 units Documented by: [id number] Cosigned by: [id number] Admin: 09/02/18 20:10 Dose: Not Given Documented by: [id number] Cosigned by: [id number] Admin: 09/02/18 16:43 Dose: Not Given Documented by: [id number] Insulin Aspart (Novolog Flexpen) 0 units SC PC [facility] Stop: 10/04/18 12:59 Last Admin: 09/05/18 08:39 Dose: Not Given Documented by: [id number] Cosigned by: [id number] Admin: 09/04/18 21:53 Dose: 2 units Documented by: [id number] Cosigned by: [id number] Admin: 09/04/18 19:46 Dose: Not Given Documented by: [id number] Cosigned by: [id number] Admin: 09/04/18 11:58 Dose: Not Given Documented by: [id number] Cosigned by: [id number] Insulin Aspart (Novolog Flexpen) 0 units SC Q4H [facility] Stop: 10/07/18 00:00 Last Admin: 09/08/18 13:39 Dose: 6 units Documented by: [id number] Cosigned by: [id number] Admin: 09/08/18 09:50 Dose: 4 units Documented by: [id number] Cosigned by: [id number] Admin: 09/08/18 04:53 Dose: 3 units Documented by: [id number] Cosigned by: [id number] Admin: 09/08/18 00:26 Dose: 3 units Documented by: [id number] Cosigned by: [id number] Admin: 09/07/18 20:42 Dose: 4 units Documented by: [id number] Cosigned by: [id number] Admin: 09/07/18 15:59 Dose: 2 units Documented by: [id number] Cosigned by: [id number] Admin: 09/07/18 11:30 Dose: 2 units Documented by: [id number] Cosigned by: [id number] Admin: 09/07/18 08:39 Dose: 2 units Documented by: [id number] Cosigned by: [id number] Admin: 09/07/18 04:31 Dose: 2 units Documented by: [id number] Cosigned by: [id number] Admin: 09/07/18 00:38 Dose: 2 units Documented by: [id number] Cosigned by: [id number] Insulin Aspart (Novolog Flexpen) 0 units SC [facility] Stop: 10/08/18 17:59 Last Admin: 09/10/18 10:25 Dose: Not Given Documented by: [id number] Cosigned by: [id number] Admin: 09/09/18 22:24 Dose: Not Given Documented by: [id number] Cosigned by: [id number] Admin: 09/09/18 19:45 Dose: Not Given Documented by: [id number] Cosigned by: [id number] Admin: 09/09/18 13:19 Dose: Not Given Documented by: [id number] Cosigned by: [id number] Admin: 09/09/18 08:30 Dose: Not Given Documented by: [id number] Cosigned by: [id number] Admin: 09/08/18 23:13 Dose: Not Given Documented by: [id number] Cosigned by: [id number] Admin: 09/08/18 17:58 Dose: Not Given Documented by: [id number] Insulin Glargine (Lantus Solostar Pen) 15 units SC NOW ONE Stop: 09/02/18 11:31 Last Admin: 09/02/18 12:40 Dose: 15 units Documented by: [id number] Cosigned by: [id number] Insulin Glargine (Lantus Solostar Pen) 0 units SC HS ONE; Protocol Stop: 09/02/18 21:01 Last Admin: 09/02/18 20:10 Dose: 20 units Documented by: [id number] Cosigned by: [id number] Insulin Glargine (Lantus Solostar Pen) 20 units SC NOW ONE Stop: 09/03/18 09:31 Last Admin: 09/03/18 09:40 Dose: 20 units Documented by: [id number] Cosigned by: [id number] Insulin Glargine (Lantus Solostar Pen) 0 units SC HS ONE; Protocol Stop: 09/03/18 21:01 Last Admin: 09/03/18 21:00 Dose: 30 units Documented by: [id number] Cosigned by: [id number] Insulin Glargine (Lantus Solostar Pen) 25 units SC QAM ONE Stop: 09/04/18 09:01 Last Admin: 09/04/18 08:41 Dose: 25 units Documented by: [id number] Cosigned by: [id number] Insulin Glargine (Lantus Solostar Pen) 0 units SC HS ONE; Protocol Stop: 09/04/18 21:01 Last Admin: 09/04/18 20:55 Dose: Not Given Documented by: [id number] Cosigned by: [id number] Insulin Glargine (Lantus Solostar Pen) 15 units SC NOW ONE Stop: 09/05/18 10:16 Last Admin: 09/05/18 10:40 Dose: 15 units Documented by: [id number] Cosigned by: [id number] Insulin Glargine (Lantus Solostar Pen) 0 units SC HS ONE; Protocol Stop: 09/05/18 21:01 Last Admin: 09/05/18 21:04 Dose: Not Given Documented by: [id number] Cosigned by: [id number] Insulin Glargine (Lantus Solostar Pen) 15 units SC TODAY@0900 ONE Stop: 09/06/18 09:01 Last Admin: 09/06/18 08:51 Dose: 15 units Documented by: [id number] Cosigned by: [id number] Insulin Glargine (Lantus Solostar Pen) 15 units SC BID AUDRA Stop: 09/06/18 23:59 Last Admin: 09/06/18 21:41 Dose: 15 units Documented by: [id number] Cosigned by: [id number] Insulin Glargine (Lantus Solostar Pen) 0 units SC BID AUDRA; Protocol Stop: 10/07/18 08:59 Last Admin: 09/07/18 10:41 Dose: Not Given Documented by: [id number] Cosigned by: [id number] Insulin Glargine (Lantus Solostar Pen) 45 units SC ONCE ONE Stop: 09/07/18 10:16 Last Admin: 09/07/18 10:20 Dose: 45 units Documented by: [id number] Cosigned by: [id number] Insulin Glargine (Lantus Solostar Pen) 0 units SC BID AUDRA; Protocol Stop: 10/07/18 20:59 Last Admin: 09/08/18 09:48 Dose: 25 units Documented by: [id number] Cosigned by: [id number] Admin: 09/07/18 20:43 Dose: 25 units Documented by: [id number] Cosigned by: [id number] Lorazepam (Ativan) Confirm Administered Dose 2 mg .ROUTE .STK-MED ONE Stop: 09/02/18 02:38 Last Admin: 09/02/18 02:45 Dose: 2 mg Documented by: [id number] Miscellaneous (Pending Order) 1 ea N/A Q2H AUDRA Stop: 09/07/18 06:00 Last Admin: 09/07/18 07:15 Dose: Not Given Documented by: [id number] Admin: 09/07/18 07:15 Dose: Not Given Documented by: [id number] Admin: 09/07/18 07:15 Dose: Not Given Documented by: [id number] Admin: 09/07/18 07:15 Dose: Not Given Documented by: [id number] Miscellaneous (Insulin Protocol Goal Range) 1 ea N/A ONE ONE Stop: 09/08/18 14:05 Last Admin: 09/08/18 14:29 Dose: 1 ea Documented by: [id number] Miscellaneous (Insulin Protocol Moderate Stress Level) 1 ea N/A ONE ONE Stop: 09/08/18 14:05 Last Admin: 09/08/18 14:29 Dose: 1 ea Documented by: [id number] Miscellaneous Information (Dc Iv Insulin Infusion) 1 ea N/A ONE ONE Stop: 09/07/18 10:07 Last Admin: 09/07/18 14:28 Dose: Not Given Documented by: [id number] Miscellaneous Information (Dc Iv Insulin Infusion) 1 ea N/A ONE ONE Stop: 09/07/18 16:01 Last Admin: 09/07/18 14:29 Dose: Not Given Documented by: [id number] Naloxone HCl (Narcan) 0.4 mg IV NOW STA Stop: 09/10/18 13:38 Last Admin: 09/10/18 13:45 Dose: 0.4 mg Documented by: [id number] Perflutren Lipid Microsphere (Definity) 2 ml IV ONCE ONE Stop: 09/03/18 14:00 Last Admin: 09/03/18 14:00 Dose: 2 ml Documented by: [id number] Propofol (Diprivan) Confirm Administered Dose 1,000 mg IV .STK-MED ONE Stop: 09/08/18 01:12 Last Admin: 09/08/18 01:21 Dose: Not Given Documented by: [id number] Sodium Bicarbonate (Sodium Bicarbonate 8.4%) Confirm Administered Dose 100 meq .ROUTE .STK-MED ONE Stop: 09/08/18 16:50 Last Admin: 09/08/18 16:54 Dose: 100 meq Documented by: [id number] Sodium Bicarbonate (Sodium Bicarbonate 8.4%) 50 meq IV NOW ONE Stop: 09/08/18 23:31 Last Admin: 09/08/18 23:31 Dose: 50 meq Documented by: [id number] Vecuronium [place] (Norcuron) 10 mg IV ONCE STA Stop: 09/02/18 03:14 Last Admin: 09/02/18 03:53 Dose: 10 mg Documented by: [id number] Cosigned by: [id number] Description This is a 21 electrode EEG with a single channel dedicated to limited EKG. The electrodes were placed in accordance with the International 10-20 system. At the start of this recording the patient was unresponsive. Background was poorly organized with no anterior to posterior gradient. Background was composed of predominantly 1-2 Hz low amplitude delta waves with intermittent 1-2 seconds of background suppression (<20uV). There was occasional periods of generalized moderate amplitude polymorphic delta waves that were at times sharply contoured and bi-frontal predominant. There was variability to the background and possible reactivity to left arm painful stimulation by the appraisal technician. Photic stimulation at various frequencies did not produce any abnormalities. Interpretation This is an abnormal routine EEG secondary to moderate to severe background disorganization and slowing. There was no electrographic seizures or epileptiform discharges. Clinical Correlation This EEG indicates a moderate to severe encephalopathy of nonspecific etiology. Sedating medications could contribute to background encephalopathy.
--- NOTE | 2018-09-11 11:19 | Pharmacy Report ---
Pharmacy Glycemic Short Note 2 - Date of Service September 11, 2018 - Glycemic Short BSG Results (Last 24 hours): 09/10/18 09/10/18 09/10/18 12:43 15:57 16:16 Glucose 104 H POC Glucose (other) 112 H 107 H 09/10/18 09/11/18 09/11/18 20:09 00:31 04:08 Glucose POC Glucose (other) 108 H 98 105 H 09/11/18 09/11/18 04:44 08:07 Glucose 102 H POC Glucose (other) 110 H OUTPATIENT ANTIDIABETIC REGIMEN: * Basaglar 34 units qam + 30 units qpm * Januvia ASSESSMENT: 09/11 * BSGs have been well controlled since transitioning off of insulin drip. currently not receiving any insulin * Pt continues on two pressors, with worsened neuro status; EEG performed this morning- awaiting final results * Dialysis scheduled today for MALIK, but may be held pending status eval * Tube feeds continue to be held * BSG check q4H with SQ coverage; however plan to restart drip if BSGs significantly elevated * Family meeting this afternoon to discuss care plan 09/10 * Insulin drip titrated off yesterday evening * BSGs have been well controlled with drip off, BSGs in low 100s this AM * Pt is improved hemodynamically, however neuro status worse today * Pt is now receiving dialysis for MALIK, HD performed yesterday and is again planned today * No tube feedings are planned at this time as pressors continue - but are being titrated downwards * Will change BSG checks to Q 4 hrs - will add an order for Novolog SQ coverage should BSGs begin to climb today however given his edema and unpredictable absorption would have a low threshold to resume IV insulin gtt. 09/09 * Patient remain critically ill * Insulin drip continues this AM at relatively high rates (20-30units/hr) and despite this BSGs remained in the 300's * Multiple IV infusions mixed in D5W, leading to high dextrose infusion rate. Converted multiple IV's to non-dextrose diluents to help * BPs improved, pressors are being titrated down today, metabolic acidosis present but improved today vs yesterday with IV bicarb drip running * MALIK continues to worsen 09/08 * Multiple new stressors have surfaced over the past 24 hrs: now requiring blood x-fusion, two pressors for hypotension, new ABX * Glycemic control has deteriorated given critical illness * BSGs > 180 at this time, will restart IV insulin drip as this is the gold- standard for glycemic control with ongoing severe stressors and unpredictable SQ absorption. IV insulin may also help with hyperkalemia in the setting of anuria. PLAN FOR INPATIENT GLYCEMIC CONTROL: * BSGs Q 4 hrs * Novolog SQ * Goal range: 120-160mg/dL * Correction factor: 20mg/dL/unit * If BSGs > 180 x 2, restart IV insulin infusion per severe stress protocol, goal range 120-180mg/dL
[2018-09-11] MEDS ORDERED: MoRPHine SULFATE 4 MG/ML 1 ML CARP\\VIAL IV PRN (12:01)
--- NOTE | 2018-09-11 12:05 | Palliative Care Progress Note ---
Date of Service September 11, 2018 Assessment & Plan (1) Goals of care, counseling/discussion: -Patient condition has worsened today. No neurologic improvement despite any sedative medications being off for two days. Yesterday, Romazicon and narcan were given to reverse any lingering drug effects. EEG with nonsepecific slowing and encephalopathy. Remains on two pressors. Creatinine rising again after two consecutive days of dialysis. Albumin is dropping. LFTs and bilitubin rising. Third spacing with blisters forming, skin seeping fluid. -Family meeting held with patient's Steph, two sons, and two [id number], along with oJnathan Mcdowell PA-C, Dr. Levy, and Karsten GEORGE. Discussed patient's worsening condition. Care could be futile at this point. Patient's family verbalized understanding and stated they would like to focus on patient's comfort and withdraw care. -Waiting for sylwia's daughter, Cherise, to arrive. Then, will terminally extubate. -Recommend giving 2mg IV morphine prior to extubation. Will order morphine Q30min as needed for pain or SOB. If frequent PRN doses are needed, can start continuous infusion. (2) Subdural hematoma: (3) HCAP (healthcare-associated pneumonia): (4) Retroperitoneal bleeding: (5) Acute respiratory failure with hypoxia: (6) Hypotension: Subjective Patient condition has worsened today. No neurologic improvement despite any sedative medications being off for two days. Yesterday, Romazicon and narcan were given to reverse any lingering drug effects. EEG with nonsepecific slowing and encephalopathy. Remains on two pressors. Creatinine rising again after two consecutive days of dialysis. Albumin is dropping. LFTs and bilitubin rising. Third spacing with blisters forming, skin seeping fluid. Family meeting held today at 1100. See A&P. Review of Systems Unobtainable due to cognitive status Physical Exam Vital Signs (Past 24 Hours): Last Vital Signs Temp 37.9 C H 09/10/18 17:00 Pulse 112 H 09/11/18 11:42 Resp 31 H 09/11/18 11:42 BP 125/64 09/11/18 10:00 Pulse Ox 98 09/11/18 11:42 Constitutional: + ill appearing (acutely) and + obese Eyes: PERRL (pupils sluggish, but reactive) ENMT: external ear and nose normal, oropharynx normal (ETT present) Neck: trachea midline and + thick neck Respiratory: Auscultation: + diminished lung sounds (L > R) and + rhonchi (coarse throughout) Cardiovascular: Rate/Rhythm: regular rate and regular rhythm Heart Sounds: normal S1 and normal S2 Extremities: + edema (generalized pitting edema to BLE and BUE) Gastrointestinal (Abdomen): Inspection/Auscultation: + abdomen distended (obesely distended) and normal bowel sounds Percussion/Palpation: abdomen soft Skin: + jaundice and + ecchymosis (scattered) Neurologic: + obtunded Supervising Physician Co-Signing Physician Notes Chart reviewed, collaborated with LITZY Vizcaino Patient planned for terminal extubation Patient soon after extubation-went to visit family and provide emotional support after the of the patient Spoke with family at bedside-all grieving appropriately. Answer questions as well as provided emotional support. PE: Patient prior to my arrival Time Spent Midlevel 70 minutes with >50% of time spent at bedside with patient, family, and IDT discussing case, patient condition, and GOC.
[2018-09-11] MEDS ORDERED: MoRPHine SULFATE 4 MG/ML 1 ML CARP\\VIAL ONE (12:11)
--- NOTE | 2018-09-11 12:49 | Death Summary ---
Date of Service September 11, 2018 Pronouncement Note Date and Time of Date of : 09/11/18 Time of : 12:28 PCOD Preliminary cause of : Shock Contributing Factors (1) Retroperitoneal bleeding: Contributing factors: Blood loss anemia with multi-system organ failure (2) HCAP (healthcare-associated pneumonia): (3) Acute metabolic encephalopathy: (4) CKD (chronic kidney disease), stage III: (5) Admitted to intensive care unit: (6) Acute respiratory failure with hypoxia: Summary Additional details: Long discussion with family at 11:15 am. Family elected to de-escalate care. Palliative care involved. Patient received 2 mg of Morphine Sulfate and terminal extubation elected by family. Family present at the time of . Patient appeared comfortable. [employer] previously contacted and declared patient not to be a viable donor. They were not contacted the day of . Additional Data Confirmation of : no pulse, no respirations and no heart sounds Family: at bedside Attending/PCP notified?: Yes Attending physician: Kaleb Massey MD Was code activated?: No Autopsy requested?: No merchandise examiner notified?: No Organ bank notified?: No Advance directives: No Supervising Physician Co-Signing Physician Notes I have seen and examined this patient with [Tong Mcdowell PA-C] and agree with his assessment and doccumentation. Dr. Lauri Levy.
--- NOTE | 2018-09-11 19:02 | Discharge Summary ---
Date of Service September 11, 2018 patient 1228 hrs. Admission HPI Per Admitting Provider Mr. Huff is a 77 year old male with a past medical history of COPD, erosive gastritis, duodenitis, ulcerative colitis, hypertension, CKD, chronic anemia, afib on coumadin, type 2 DM, CHF, hx of prostate cancer s/p TURP and hiatal hernia who presents to us as a transfer from [facility] due to worsening AMS, anemia and a cough. History is limited secondary to patient's altered mental status, and is therefore obtained from review of records sent by [facility]. The patient presented to [facility] due to feeling unwell x1 month, with fever, productive cough, shortness of breath and fatigue. His hemoglobin on admission was 7.4 and he was transfused 2 units of prbcs. Overnight, he was noted to be restless and altered. His INR was elevated at 3.36, and his coumadin was subsequently held. He denied abdominal pain, nausea, vomiting, and states he was having daily bowel movements, which were black in color due to his iron supplementation. He last underwent an EGD in 2018, without an obvious source of bleeding noted at that time, however the procedure was reportedly shortened due to excessive mucus production, causing hypoxia. His last colonoscopy was in 2017 (for surveillance given his ulcerative colitis) without evidence of active inflammation noted. With regards to his respiratory symptoms, his rapid flu was negative. CXR on admission showed mild vascular congestion, cardiomegaly, but no focal consolidation. He was initially treated with azithromycin for a suspected CAP, and subsequently broadened to vancomycin, cefepime and flagyl. He was also given 40mg of solumedrol daily, to treat for a COPD exacerbation, given the presence of wheezing on examination. They were unable to complete a CT head or chest given the patient's AMS. He had blood cultures drawn which are currently pending. The patient is a current smoker, both cigars and a pipe. He denied any alcohol or drug use at home. 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 secondary to retroperitoneal hemorrhage Discharge Exam Patient was pronounced by Tong Mcdowell PA-C, prior to this I did evaluate the patient while he was still ventilated and supported with maximum life support he had no corneal reflexes his heart was tachycardic but regular his lungs were coarse breath sounds Discharge Data Allergies Allergy/AdvReac Type Severity Reaction Status Date / Time furosemide Allergy Intermediate EFFECTED Verified 08/28/11 13:55 RENAL FUNCTION naproxen Allergy Unknown they had Unverified 05/04/14 14:41 to take me o it I don't remember why Consultations 09/02/18 01:46 Consult Case Management - Discharge Planning Routine Consult Research Management Associate Routine 09/02/18 03:54 Consult Case Management - Discharge Planning Routine 09/09/18 08:21 Consult Palliative Care Routine 09/09/18 14:02 Consult Nephrology Routine Ordered Studies 09/02/18 03:07 CT abd pelvis wo con Urgent CT chest wo con Urgent CT head/brain wo con Urgent 09/03/18 11:38 MR brain wo/w con Urgent 09/08/18 07:45 CT abd pelvis wo con Routine CT head/brain wo con Routine 09/08/18 08:22 CT chest wo con Stat 09/08/18 10:37 US venous doppler LE BI Urgent 09/09/18 09:59 CT head/brain wo con Stat Hospital Course (1) : Patient had a fairly significant EEG revealing likely is traumatic anoxic brain injury. Discussion with the family by intensive care team was undertaken the patient underwent a terminal wean and promptly succumbed to his catastrophic injuries at 1228 hrs. The remainder of no is to dialogue the previous hospital stays occurrences (2) Admitted to intensive care unit: acute respiratory failure due to hypovolemic and septic shock, requiring intubation and mechanial ventilation Acute metabolic encephalopathy: Mr. Huff is a 77 year old male with a past medical history of COPD, erosive gastritis, duodenitis, ulcerative colitis, hypertension, CKD, chronic anemia, afib on coumadin, type 2 DM, CHF, hx of prostate cancer s/p TURP and hiatal hernia who presents to us as a transfer from [facility] due to worsening condition Acute metabolic encephalopathy likely secondary to bacteremia from HCAP. -CT head ordered/ negative. Fear for hypoxic encephalopathy the patient did not awake and he is on no sedation and spike given Romazicon and naloxone he did not wake up HCAP possibly MRSA and/or gram negative pneumonia daptomycin and doxycycline Hypotension Hypovolemic shock from acute blood loss anemia.possible septic shock also requiring vasopressors, Acute Respiratory Failure with Hypoxia -patient sedated and on ventilator Possible anoxic brain injury from prolongued hypotension, EEG shows significant brain wave changes Acute Kidney failure Patient has history of CKD stage III Discussion with Asp Net Developer has resuted in a trial of hemodylsis for acid base and volume management Diabetes Mellitus -hold home Januvia -BSG management per ICU protocol basal bolus insulin Hypothyroidism levothyroxine Hypercholesterolemia -restart crestor when able GERD, and GI prophylaxis while on ventilator pantoprazole. Patient was made DNR prior to terminal wean (3) Retroperitoneal bleeding: Acute blood loss anemia: Secondary to right Retroperitoneal bleeding Patient required 4 units. 2.5 mg IV vitamin K, remains with coagulopathy (4) Erosive gastritis: GI/NUTRITION - Significant history of erosive gastritis, Domínguez's esophagus, and ulcerative colitis: - h/o Prostate CA. Ugarte in place - Strict I&Os. (5) Domínguez esophagus: (6) Atrial fibrillation: History of coronary artery disease, A. fib, hypertension, hyperlipidemia, and CHF: Hold home antihypertensives as pt is on pressors A-fib - hold coumadin currently. anticoagulation was reversed on presentation h/o CHF - will have dialysis to help with volume status Discharge Plan Discharge Items Patient Disposition: Admission Data Admit Date/Time: 09/02/18 00:00 Attending Provider: Kaleb Massey Admit Provider: John Baldwin Primary Care Provider: PCP,NO Other Providers: Eduardo Gao ; Alber Holland ; Juanita Laguerre ; Mindi Anderson ; Saad Faith Service: Intensive Care Unit Other [place] Date/Time DO NOT enter until pt leaves facility: 09/11/18 12:30
== END 2018-09-11 12:30 | disposition expired | DRG 208 ==
LOC: SUATTDRO → 1E